=== PATIENT | female | born 1955 | race African-American/Black ===

== ENCOUNTER 2019-08-01 13:33 | Outpatient (CLI) | payer MEDICARE, SELFPAY ==
[2019-08-01 14:41] LABS: Basophils Percent Auto 0.9 % (0.2-1.2); Eosinophils Absolute Auto 0.3 K/mm3 (0-0.3); Eosinophils Percent Auto 6.6 % (0-4.4); Hematocrit 36.7 % (37.0-47.0); Hemoglobin 11.5 g/dL (12.0-15.0); Immature Granulocyte Absolute 0.02 K/mm3 (0.00-0.031); Immature Granulocyte Percent A 0.5 % (0-0.5); Lymphocytes Absolute Auto 1.14 K/mm3 (0.9-3.2); Lymphocytes Percent Auto 25.9 % (18.3-44.2); Mean Corpuscular HGB Conc 31.3 g/dl (32-36); Mean Corpuscular Hemoglobin 28.9 pg (26-34); Mean Corpuscular Volume 92.2 fl (80-100); Mean Platelet Volume 10.4 fl (7.4-10.4); Monocytes Absolute Auto 0.7 K/mm3 (0.1-0.6); Monocytes Percent Auto 15.5 % (2.6-8.5); Neutrophils Absolute Auto 2.2 K/mm3 (1.3-6.7); Neutrophils Percent Auto 50.6 % (45.5-73.1); Platelet Count Result 251 k/mm3 (150-375); Red Blood Count 3.98 M/mm3 (4.2-5.4); Red Cell Distribution Width 13.5 % (11.5-14.5); Reticulocyte Percent 1.51 % (0.7-4.3); Reticulocytes Absolute 0.06 B/L (32.2-175.7); White Blood Count 4.4 K/mm3 (4.5-10.0)
[2019-08-01 15:01] LABS: NT Pro B Type Natriuretic Pept 123 PG/ML (5-100)
[2019-08-01 15:03] LABS: LDL Cholesterol Direct 84 mg/dL
[2019-08-01 15:08] LABS: Creatinine Urine 75.1 mg/dL
[2019-08-01 15:12] LABS: Platelet Estimate Adequate (Adequate)
[2019-08-01 15:13] LABS: Atypical Lymphocytes Present
[2019-08-01 16:12] LABS: MALB Creatinine Ratio < 8.0 mg/g (0-30); Microalbumin Urine Random < 6.0 mg/L (0-16.7)
[2019-08-01 17:05] LABS: Hemoglobin A1C 5.9 % (<5.7)
[2019-08-01 17:42] LABS: Alanine Aminotransferase 13 U/L (4-35); Albumin Level 3.8 g/dL (3.5-5.1); Alkaline Phosphatase 78 U/L (38-126); Aspartate Amino Transferase 20 U/L (14-36); Bilirubin,Total 0.4 mg/dL (0.2-1.3); Blood Urea Nitrogen 17 mg/dL (7-17); Calcium 9.2 mg/dL (8.4-10.2); Carbon Dioxide 28 mmol/L (22-30); Chloride 108 mmol/L (98-107); Cholesterol 169 mg/dL (0-200); Estimated Glomerular Filt Rate > 60; Glucose 98 mg/dL (65-105); HDL Direct 50 mg/dL; Potassium 4.4 mmol/L (3.4-5.0); Sodium 140 mmol/L (137-145); Triglycerides 65 mg/dL (<150)
[2019-08-01 17:57] LABS: Iron 48 ug/dL (37-170); Lactate Dehydrogenase 503 U/L (313-618)
[2019-08-01 18:02] LABS: Transferrin 322 mg/dL (206-381)
[2019-08-01 18:08] LABS: Percent Iron Saturation 12 % (20-50)
[2019-08-01 18:09] LABS: Vitamin D 25 Hydroxy 43.7 ng/mL
[2019-08-01 18:29] LABS: Total Triiodothyronine (T3) 1.12 NG/ML (0.97-1.69)
[2019-08-01 19:14] LABS: Folic Acid > 20.0 ng/mL (2.76->20)
== END 2019-08-01 13:34 | disposition home or self-care (01) ==
PROVIDERS: PCP Family Medicine; Visit Provider Family Medicine
DX: I11.0 Hypertensive heart disease with heart failure (principal); R53.83 Other fatigue; R73.01 Impaired fasting glucose; E78.2 Mixed hyperlipidemia; E55.9 Vitamin D deficiency, unspecified; I50.32 Chronic diastolic (congestive) heart failure; Z13.0 Encounter for screening for diseases of the blood and blood-forming organs and certain disorders involving the immune mechanism; Z13.6 Encounter for screening for cardiovascular disorders; Z13.220 Encounter for screening for lipoid disorders; Z13.29 Encounter for screening for other suspected endocrine disorder; Z13.1 Encounter for screening for diabetes mellitus; R80.9 Proteinuria, unspecified; D64.9 Anemia, unspecified; R79.9 Abnormal finding of blood chemistry, unspecified; R79.89 Other specified abnormal findings of blood chemistry
CPT/HCPCS: 36415; 80053; 80061; 82043; 82306; 82607; 82728; 82746; 83036; 83540; 83550; 83615; 83880; 84439; 84443; 84466; 84480; 85025; 85046

== ENCOUNTER 2020-01-01 11:50 | Outpatient (CLI) | payer MEDICARE, SELFPAY ==
--- NOTE | ~2020-01-01 | XR_ITS ---
EXAMINATION: XR humerus RT, XR shoulder RT min 2V EXAM DATE: 01/01/2020 12:45 INDICATION: Initial encounter following injury, with pain of the right arm, shoulder. TECHNIQUE: The following right shoulder projections obtained: frontal projection with internal rotati on, frontal projection with external rotation, Grashey, and scapular Y view (4+ views). Orthogonal p rojections right humerus. FINDINGS: There are no acute right shoulder, humeral fractures or dislocations identified. There is no subcutaneous gas. Scattered rounded soft tissue calcifications around the humeral neck, could be dystrophic or calcific tendinosis. There is moderate right shoulder primary osteoarthritis. There are no radiopaque foreign bodies. IMPRESSION: 1. No acute osseous findings. 2. Moderate right shoulder osteoarthritis. Reviewed, dictated and finalized at location A. IMPRESSION: 1. No acute osseous findings. 2. Moderate right shoulder osteoarthritis.
--- NOTE | ~2020-01-01 | XR_ITS ---
EXAMINATION: XR wrist RT min 3V EXAM DATE: 01/01/2020 12:45 INDICATION: Initial encounter following injury, with pain of the wrist. TECHNIQUE: Right wrist frontal, frontal with ulnar deviation, oblique and lateral projections obtain ed and reviewed. There is no prior study for comparison. FINDINGS: Right wrist scapholunate joint space is maintained. There is moderate 1st carpometacarpal a nd metacarpophalangeal, mild to moderate radiocarpal primary osteoarthritis. There are no acute fract ures or dislocations identified. There is no subcutaneous gas. The soft tissue is unremarkable. T here are no radiopaque foreign bodies. IMPRESSION: 1. Right wrist exam without acute osseous findings. 2. Mild to moderate osteoarthritis. Reviewed, dictated and finalized at location A.
--- NOTE | ~2020-01-01 | XR_ITS ---
EXAMINATION: XR elbow RT min 3V, XR forearm RT 2V EXAM DATE: 01/01/2020 12:45 INDICATION: Initial encounter following injury, with pain of the right elbow. TECHNIQUE: Right elbow frontal, lateral with flexion, and oblique projections obtained and reviewed. Frontal and lateral projections of the right forearm. There is no prior study for comparison. FINDINGS: Right elbow anterior humeral line intact. There is moderate right elbow primary osteoarthr itis. There are no acute forearm or elbow fractures or dislocations identified. There is no subcutan eous gas. The soft tissue is unremarkable. There are no radiopaque foreign bodies. IMPRESSION: 1. Right elbow, forearm exam without acute osseous findings. 2. Moderate right elbow osteoarthritis. Reviewed, dictated and finalized at location A. IMPRESSION: 1. Right elbow, forearm exam without acute osseous findings. 2. Moderate right elbow osteoarthritis.
--- NOTE | ~2020-01-01 | XR_ITS ---
EXAMINATION: XR cervical spine 4-5V EXAM DATE: 01/01/2020 12:45 INDICATION: Neck pain. TECHNIQUE: Cervical spine frontal, lateral, lateral swimmers, and open-mouth odontoid projections. C omparison is made to prior examination from 10/25/2012. FINDINGS: There is moderate disc disease at C5-6 and C6-7, mild to moderate at the other cervical le vels. There is mild reversal of the normal cervical lordosis which may be positional or spasm. There is 2 mm retrolisthesis C3 on C4, 2 mm anterolisthesis C4 on C5. No endplate erosive change. There is mild to moderate cervical facet and moderate mid cervical uncovertebral joint arthropathy causing so me amount of neural foraminal stenosis. Lung apices are clear. The odontoid process is intact. The l ateral masses of C1 line up with C2. There are no acute fractures identified. Prevertebral soft tissu e and pre-dens space are within normal limits. IMPRESSION: Moderate cervical spondylosis. Reviewed, dictated and finalized at location A.
== END 2020-01-01 11:51 | disposition home or self-care (01) ==
PROVIDERS: PCP Family Medicine; Visit Provider Nurse Practitioner
DX: S49.91XA Unspecified injury of right shoulder and upper arm, initial encounter (principal); M54.2 Cervicalgia; W19.XXXA Unspecified fall, initial encounter; M47.812 Spondylosis without myelopathy or radiculopathy, cervical region; M19.031 Primary osteoarthritis, right wrist; M19.021 Primary osteoarthritis, right elbow; M19.011 Primary osteoarthritis, right shoulder
CPT/HCPCS: 72050; 73030; 73060; 73080; 73090; 73110

== ENCOUNTER 2020-01-07 16:02 | Outpatient (CLI) | payer MEDICARE, SELFPAY ==
--- NOTE | ~2020-01-07 | MM_ITS ---
EXAMINATION: MM screening [facility] w [facility] HISTORY: Screening mammogram TECHNIQUE: Craniocaudal and mediolateral oblique 3-D tomosynthesis images were obtained and synthetic 2-D images were generated. CAD analysis was submitted and interpreted. COMPARISON: 12/02/2018, 06/29/2017, 04/21/2016 bilateral digital screening mammogram examinations BREAST PARENCHYMAL COMPOSITION: There are scattered areas of fibroglandular density. FINDINGS: There is no evidence of suspicious mass, calcification, or architectural distortion to sugg est malignancy in either breast. There has been no suspicious interval change. IMPRESSION: 1. No mammographic evidence of malignancy. 2. Recommend routine screening mammography in one year. BI-RADS Category 1: Negative Reviewed, dictated and finalized at location A.
== END 2020-01-07 16:03 | disposition home or self-care (01) ==
LOC: ANHIMG 16:05
PROVIDERS: PCP Family Medicine; Visit Provider Family Medicine
DX: Z12.31 Encounter for screening mammogram for malignant neoplasm of breast (principal)
CPT/HCPCS: 77063; 77067

== ENCOUNTER 2020-01-15 06:38 | Outpatient (CLI) | payer MEDICARE, SELFPAY ==
--- NOTE | ~2020-01-15 | CT_ITS ---
EXAMINATION: CTA chest EXAM DATE: 01/15/2020 07:26 INDICATION: Ascending aortic aneurysm. TECHNIQUE: Spiral CT of the chest following intravenous injection of 100 mL Omnipaque 350. Axial, co sarai and sagittal images were reviewed. Coronal maximum intensity pixel images of chest reviewed. M aximum intensity projection 3-D reconstructions of the aorta were created by the technologist on [employer] workstation. The dose-length product (DLP) for this examination was 729.23 mGy-cm. The expos ure was tailored according to patient size (auto mA exposure control), and iterative reconstruction ( ASIR) was used as additional dose reduction technique. There is no prior study for comparison. FINDINGS: The aortic root measures 4.1 cm lumen of the ascending aorta measures 3.6 cm with a thick rind of soft tissue density surrounding this. Ascending aortic measurement including the circumferent ial rind measures 5.5 cm. This is most likely intramural hematoma (type A dissection). There is no di ssection flap or ulceration specifically identified. The circumferential thickening also extends nubia g the brachiocephalic, left subclavian and common carotid arteries and along the proximal half of the descending thoracic aorta. There are no pleural or pericardial effusions. Tracheobronchial tree is patent. There is no media stinal, hilar or axillary lymphadenopathy. There is no pneumothorax. Mild cardiomegaly. No centra l pulmonary emboli. No evidence of coronary arterial calcification. Upper abdomen is unremarkable. There is thoracic spondylosis without osteoblastic or osteolytic lesions identified. IMPRESSION: Ascending aortic aneurysm with circumferential wall thickening most likely intramural hem atoma. No discrete dissection flap or ulceration identified, but this is usually treated as type A di ssection. I have spoken with staff in the office of the ordering clinician Gallito Shepard MD at 01/15/2020 0 9:44 CDT, and 9:53 CDT, are providing my contact information. Reviewed, dictated and finalized at location A. IMPRESSION: Ascending aortic aneurysm with circumferential wall thickening most likely intramural hematoma. No discrete dissection flap or ulceration identifi ed, but this is usually treated as type A dissection. I have spoken with staff in the office of the ordering clinician Gallito moser MD at 01/15/2020 09:44 CDT, and 9:53 CDT, [facility]
[2020-01-15 07:16] LABS: Estimated Glomerular Filt Rate > 60
== END 2020-01-15 06:39 | disposition home or self-care (01) ==
PROVIDERS: PCP Family Medicine; Visit Provider Internal Medicine Cardiovascular Disease
DX: I71.2 Thoracic aortic aneurysm, without rupture (principal)
CPT/HCPCS: 71275; Q9967

== ENCOUNTER 2020-04-28 13:18 | Outpatient (CLI) | payer MEDICARE, SELFPAY ==
[2020-04-28 14:24] LABS: Basophils Percent Auto 0.4 % (0.2-1.2); Eosinophils Percent Auto 0.3 % (0-4.4); Hemoglobin 10.6 g/dL (12.0-15.0); Immature Granulocyte Absolute 0.18 K/mm3 (0.00-0.031); Immature Granulocyte Percent A 2.7 % (0-0.5); Immature Reticulocyte Fraction 25.8 % (3.0-15.9); Lymphocytes Absolute Auto 0.86 K/mm3 (0.9-3.2); Lymphocytes Percent Auto 12.9 % (18.3-44.2); Mean Corpuscular HGB Conc 35.3 g/dl (32-36); Mean Corpuscular Hemoglobin 32.6 pg (26-34); Mean Corpuscular Volume 92.3 fl (80-100); Mean Platelet Volume 10.4 fl (7.4-10.4); Monocytes Absolute Auto 0.7 K/mm3 (0.1-0.6); Monocytes Percent Auto 11.1 % (2.6-8.5); Neutrophils Absolute Auto 4.9 K/mm3 (1.3-6.7); Neutrophils Percent Auto 72.6 % (45.5-73.1); Nucleated Red Blood Cells Absolute Auto 0.1 K/mm3 (0.0-0.012); Nucleated Red Blood Cells Perc 1.3 % (0.0-0.2); Platelet Count Result 204 k/mm3 (150-375); Red Blood Count 3.25 M/mm3 (4.2-5.4); Red Cell Distribution Width 14.4 % (11.5-14.5); Reticulocyte Hemoglobin Conten 38.5 pg (28.2-35.7); Reticulocyte Percent 5.06 % (0.7-4.3); Reticulocytes Absolute 0.16 B/L (32.2-175.7); White Blood Count 6.7 K/mm3 (4.5-10.0)
[2020-04-28 14:33] LABS: Hemoglobin A1C 12.4 % (<5.7)
[2020-04-28 14:40] LABS: Alanine Aminotransferase 26 U/L (4-35); Albumin Level 3.3 g/dL (3.5-5.1); Alkaline Phosphatase 75 U/L (38-126); Anion Gap 3 mmol/L (8-16); Aspartate Amino Transferase 26 U/L (14-36); Bilirubin,Total 0.8 mg/dL (0.2-1.3); Blood Urea Nitrogen 16 mg/dL (7-17); Calcium 9.1 mg/dL (8.4-10.2); Carbon Dioxide 26 mmol/L (22-30); Chloride 107 mmol/L (98-107); Estimated Glomerular Filt Rate > 60; Glucose 337 mg/dL (65-105); Lactate Dehydrogenase 1008 U/L (313-618); Magnesium 1.8 mg/dL (1.6-2.3); Phosphorus 3.2 mg/dL (2.5-4.5); Potassium 4.6 mmol/L (3.4-5.0); Sodium 136 mmol/L (137-145)
[2020-04-28 14:47] LABS: Iron 74 ug/dL (37-170); Transferrin 196 mg/dL (206-381)
[2020-04-28 14:56] LABS: Percent Iron Saturation 28 % (20-50)
[2020-04-28 14:57] LABS: Add Urine Microscopic? YES; Appearance Urine Clear (Clear); Bilirubin Urine Negative (Negative); Blood Urine Negative (Negative); Color Urine Yellow (Yellow); Glucose Urine UA 3+ mg/dL (Negative); Ketones Urine Trace mg/dL (Negative); Leukocyte Esterase Ur Negative LEU/UL (Negative); Mucus Urine Rare /lpf; Nitrate Urine Negative (Negative); Protein Urine Negative (Negative); RBC Urine 0-2 /hpf (0-2); Squamous Epithelial Cell Urine Rare /hpf (Few); Urobilinogen Urine Negative mg/dL (<2.0)
[2020-04-28 14:59] LABS: Specific Grav Ur 1.038 (1.001-1.035)
[2020-04-28 15:09] LABS: Free T4 Free Thyroxine 1.74 ng/mL (0.78-2.19)
[2020-04-28 15:51] LABS: Folic Acid > 20.0 ng/mL (2.76->20)
[2020-04-28 17:34] LABS: Creatinine Urine 108.6 mg/dL
[2020-04-28 17:39] LABS: MALB Creatinine Ratio 8.9 mg/g (0-30); Microalbumin Urine Random 9.7 mg/L (0-16.7)
[2020-04-28 18:09] LABS: Vitamin D 25 Hydroxy 30.2 ng/mL
[2020-05-02 08:17] LABS: Triiodothyronine T3 Free 2.1 pg/mL (2.3-4.2)
== END 2020-04-28 13:19 | disposition home or self-care (01) ==
PROVIDERS: PCP Family Medicine; Visit Provider Nurse Practitioner Family
DX: E55.9 Vitamin D deficiency, unspecified (principal); R73.01 Impaired fasting glucose; R53.83 Other fatigue; M62.81 Muscle weakness (generalized); R32 Unspecified urinary incontinence; R63.1 Polydipsia; R63.4 Abnormal weight loss; R68.2 Dry mouth, unspecified; R35.0 Frequency of micturition; R35.8 Other polyuria; D64.9 Anemia, unspecified
CPT/HCPCS: 36415; 80053; 81001; 82043; 82306; 82607; 82728; 82746; 83036; 83540; 83550; 83615; 83735; 84100; 84439; 84443; 84466; 84481; 85025; 85046

== ENCOUNTER 2020-05-18 11:47 | Outpatient (CLI) | payer MEDICARE, SELFPAY ==
--- NOTE | ~2020-05-18 | XR_ITS ---
XR chest 2V DATE: 05/18/2020 12:19 INDICATION: Shortness of breath. Spot on lungs. TECHNIQUE: PA and lateral views COMPARISON: 01/15/2020 CTA chest 08/03/2009 two-view chest FINDINGS: Mild cardiomegaly. Aortic ectasia and unfolding. There is mild discoid atelectasis or scarring in the right mid and lower lung zone. The lungs otherwise appear clear. No pleural effusion or pulmonary vascular congestion or pneumothora x. Osteoarthritic changes at the glenohumeral joints. Dextroscoliosis and degenerative changes of the th oracic and lumbar spine. IMPRESSION: Discoid atelectasis and/or scarring in the right mid and lower lung zones Reviewed, dictated and finalized at location A. [employer]
== END 2020-05-18 11:48 | disposition home or self-care (01) ==
PROVIDERS: PCP Family Medicine
DX: R06.02 Shortness of breath (principal); R91.8 Other nonspecific abnormal finding of lung field
CPT/HCPCS: 71046

== ENCOUNTER 2020-10-22 15:24 | Inpatient (IN) | payer MEDICARE, SELFPAY ==
[2020-10-22] VITALS (16 sets, daily range): BP systolic 106–142; BP diastolic 39–60; PULSE 64–82; RESP 14–29; TEMP 36.3–37.4; O2SAT 92–99
--- NOTE | ~2020-10-22 | XR_ITS ---
EXAMINATION: XR chest 2V DATE: 10/22/2020 16:55 INDICATION: Coughing. Wheezing. TECHNIQUE: Frontal and lateral views of the chest were obtained. COMPARISON: Chest 2 views 05/18/2020, chest CT 01/15/2020 FINDINGS: There are airspace opacities in the mid and lower lung zones. There are small pleural effus ions. No pneumothorax. The heart size is normal. Surgical clips in the right upper quadrant are likel y from cholecystectomy. IMPRESSION: 1. Worsened airspace opacities in the mid and lower lung zones, consistent with atelectasis versus pn eumonia. 2. Small pleural effusions. Reviewed, dictated and finalized at location A. IMPRESSION: 1. Worsened airspace opacities in the mid and lower lung zones, consistent with atelectasis versus pneumonia. 2. Small pleural effusions.
--- NOTE | 2020-10-22 16:43 | ECG_ITS ---
Measurements Intervals [place] Rate: 65 P: 48 NH: 148 QRS: 35 QRSD: 99 T: 71 QT: 424 QTc: 444 Interpretive Statements SINUS RHYTHM INCOMPLETE RIGHT BUNDLE BRANCH BLOCK BASELINE WANDER- I, II, AVR, AVL, AVF BORDERLINE ECG Electronically Signed On 10-23-2020 6:42:42 CDT by Flo Marshall D.O.
--- NOTE | 2020-10-22 19:28 | ED.WEAKNESS ---
HPI - Weakness General Chief complaint: Weakness Stated complaint: low bp/fatigue/cough Time Seen by Provider: 10/22/20 19:06 Source: RN notes reviewed History of Present Illness HPI Narrative: Patient presents emergency room from home for weakness. Patient states symptoms began approximately 5 days ago. Patient states that she has been feeling weak with a cough that is been productive of yellow sputum. She denies any fevers or chills, chest pain abdominal pain nausea vomiting or any other symptoms. Patient states that she had noted that her blood pressure been running mildly low in the low 100s came to the ER for further evaluation patient states she has had both of her Covid vaccinations denies any other symptoms at this time Related Data Home Medications Medication Instructions Recorded Confirmed amiodarone 200 mg tablet 200 mg PO DAILY 10/01/20 cetirizine 10 mg tablet 10 mg PO DAILY PRN 10/01/20 ferrous sulfate 325 mg (65 mg 325 mg PO DAILY 10/01/20 iron) tablet ibandronate 150 mg tablet 150 mg PO MONTHLY 10/01/20 metoprolol tartrate 100 mg tablet 50 mg PO DAILY 10/01/20 rivaroxaban 20 mg tablet 20 mg PO DAILY 10/01/20 tocilizumab [Actemra ACTPen] SUBCUT 10/01/20 Allergies Allergy/AdvReac Type Severity Reaction Status Date / Time NKDA Allergy Unknown Unknown Uncoded 10/22/20 19:07 Review of Systems Review of Systems: Narrative: Gen.: Denies fevers or chills ENT: Denies congestion Respiratory: See HPI CV: Denies chest pain or palpitations GI: Denies abdominal pain nausea, emesis or diarrhea denies burning, urgency, frequency or hematuria Musculoskeletal: Denies back pain or muscle pain Neuro: Reports weakness Skin: Denies rash Except as documented, all other systems reviewed and negative [facility] Past Medical History Medical History Afib Atrial fib/flutter, transient Claustrophobia CMT (Xjltucp-Jikcr-Bbnrg disease) Constipation Diarrhea Foot drop, bilateral History of adverse reaction to anesthesia History of intraoperative complication of surgical procedure HTN (hypertension) Hyperlipidemia with low HDL Light headedness MAURIZIO (obstructive sleep apnea) Osteoporosis SOB (shortness of breath) Wears glasses Surgical History Surgical History (Updated 09/30/20 @ 10:47 by Zakiya Hwang MA) History of right knee joint replacement 11/18/2002. HEMATOMA EVACUATION 11/25/2002 Family History Family History (Updated 10/01/20 @ 08:40 by Marisol Faulkner, RT(R)) Other Arthritis Asthma Diabetes mellitus Heart disease Hypertension Neuropathy Social History Social History Smoking status: Never smoker Substance use: never Gender identity (if verbalized by the patient): Female Exam Narrative: Exam Narrative: APPEARANCE: No acute distress, nontoxic, resting in bed EYES: EOMI HEENT: Normocephalic, atraumatic, OMM RESPIRATORY: No respiratory distress wheezing with coughing only no rhonchi CARDIOVASCULAR: Regular rate and rhythm without murmurs rubs or gallops. ABDOMINAL: Soft, nontender, nondistended, no rebound or guarding Rectal: No hemorrhoids or fissures no active bleeding small amount of dark brown stool that is Hemoccult positive MUSCULOSKELETAl: Moves all extremities. No clubbing, cyanosis or edema. NEURO: Awake and alert. Following commands, speech normal, no focal deficits SKIN:: Warm, dry. No rashes lesions or abrasions PSYCHIATRIC: Normal affect/mood, Course Course Emergency Course: In discussion with patient she is on Xarelto states she has been noticing dark stools recently states she has had to have blood transfusions performed past Discussed with Dr. Herrera presentation and work-up accepts admission at this time. Agrees with plan for blood transfusion as well as antibiotics Discussed with patient and family results of workup and diagnosis. Disc
[2020-10-22] MEDS: IPRATROPIUM BR 0.02% INH SOLN 0.5 MG/2.5 ML VIAL INHALATION (19:32)
[2020-10-22] MEDS: ALBUTEROL SULFATE NEB 2.5 MG/0.5 ML INH 5 MG INHALATION (19:32)
[2020-10-22 19:45] LABS: Add Urine Microscopic? YES; Appearance Urine Clear (Clear); Bacteria Urine Trace /hpf; Bilirubin Urine Negative (Negative); Blood Urine Negative (Negative); Color Urine Yellow (Yellow); Glucose Urine UA Negative (Negative); Ketones Urine Negative (Negative); Leukocyte Esterase Ur Trace LEU/UL (Negative); Mucus Urine Rare /lpf; Nitrate Urine Negative (Negative); Protein Urine Negative (Negative); RBC Urine 0-2 /hpf (0-2); Specific Grav Ur 1.025 (1.001-1.035); Squamous Epithelial Cell Urine Few /hpf (Few); WBC Urine 0-3 /hpf
[2020-10-22 20:06] LABS: Basophils Percent Auto 0.5 % (0.2-1.2); Eosinophils Absolute Auto 0.1 K/mm3 (0-0.3); Eosinophils Percent Auto 2.7 % (0-4.4); Immature Granulocyte Absolute 0.02 K/mm3 (0.00-0.031); Immature Granulocyte Percent A 0.5 % (0-0.5); Lymphocytes Absolute Auto 0.78 K/mm3 (0.9-3.2); Lymphocytes Percent Auto 17.6 % (18.3-44.2); Mean Corpuscular HGB Conc 30.1 g/dl (32-36); Mean Corpuscular Hemoglobin 32.5 pg (26-34); Mean Corpuscular Volume 107.9 fl (80-100); Mean Platelet Volume 10.3 fl (7.4-10.4); Monocytes Absolute Auto 0.8 K/mm3 (0.1-0.6); Monocytes Percent Auto 17.6 % (2.6-8.5); Neutrophils Absolute Auto 2.7 K/mm3 (1.3-6.7); Neutrophils Percent Auto 61.1 % (45.5-73.1); Nucleated Red Blood Cells Perc 0.7 % (0.0-0.2); Platelet Count Result 214 k/mm3 (150-375); Red Blood Count 1.51 M/mm3 (4.2-5.4); Red Cell Distribution Width 15.5 % (11.5-14.5); White Blood Count 4.4 K/mm3 (4.5-10.0)
[2020-10-22 20:10] LABS: Hemoglobin 4.9 g/dL (12.0-15.0)
[2020-10-22 20:11] LABS: Hematocrit 16.3 % (37.0-47.0)
[2020-10-22 20:15] LABS: Lactic Acid Reflex 0.8 mmol/L (0.7-2.1)
[2020-10-22 20:17] LABS: Alanine Aminotransferase 43 U/L (4-35); Albumin Level 3.4 g/dL (3.5-5.1); Alkaline Phosphatase 48 U/L (38-126); Anion Gap 5 mmol/L (8-16); Aspartate Amino Transferase 39 U/L (14-36); Bilirubin,Total 0.3 mg/dL (0.2-1.3); Blood Urea Nitrogen 18 mg/dL (7-17); Calcium 8.6 mg/dL (8.4-10.2); Carbon Dioxide 24 mmol/L (22-30); Chloride 113 mmol/L (98-107); Estimated CRCL calculation 64 ml/min; Estimated Glomerular Filt Rate > 60; Glucose 125 mg/dL (65-105); Potassium 4.3 mmol/L (3.4-5.0); Sodium 142 mmol/L (137-145)
[2020-10-22 20:25] LABS: Anisocytosis 3+ (NORMAL); Hypochromasia 2+ (NORMAL); Platelet Estimate Adequate (Adequate)
--- NOTE | 2020-10-22 20:47 | PC.NURSE ---
pt has been difficult to obtain iv on. tabulating supervisor currently in room with pt attempting to obtain ultrasound line. multiple staff members have attempted at this point.
--- NOTE | 2020-10-22 21:02 | PC.NURSE ---
IV Rocephin ok to infuse with only 1 set of blood cultures obtained per ED MD dr. bailey. ED Charge nurse also notified.
--- NOTE | 2020-10-22 21:45 | ADMGEN ---
This patient, Lisa Lujan, was admitted to Medical Room 345-01. Patient/family oriented to hospital policies and general routines including ID bracelet, bed and alarms, visiting hours, pain management, procedures, bathroom and other care routines, personal items, smoking policy, room service/diet, and visiting hours. Information on how to activate the Rapid Response Team has been discussed. Patient/Family are encouraged to report perceived risks to care and to ask questions if they do not understand what they are told or what they should do.
[2020-10-22 22:39] LABS: INR 3.4; Partial Thromboplastin Time 35.3 SECONDS (22.3-36.8); Prothrombin Time 33.6 Seconds (11.1-14.7)
[2020-10-22] MEDS: SODIUM CHLORIDE 0.9% IV 250 ML 30 ML IV CONT (23:05)
[2020-10-23] VITALS (31 sets, daily range): BP systolic 112–167; BP diastolic 45–89; PULSE 60–86; RESP 14–22; TEMP 36.3–37.1; O2SAT 93–98; BMI 31.5
--- NOTE | 2020-10-23 01:22 | PM.IMHP ---
H&P: HPI History of Present Illness Date/Time: 10/23/20 01:22 Chief Complaint: SHORTNESS OF BREATH Narrative: THIS IS A 65-YEAR-OLD FEMALE WITH PAST MEDICAL HISTORY SIGNIFICANT FOR ATRIAL FIBRILLATION RATE CONTROLLED AND ANTICOAGULATED, CHARCOT NEUROMUSCULAR DISEASE, VASCULITIS. PATIENT PRESENTED TO THE EMERGENCY ROOM AFTER SHE NOTED TO HAVE BLACK STOOL INITIALLY SHE ATTRIBUTED THIS TO THE FACT THAT SHE IS TAKING IRON PILLS THIS HAS BEEN HAPPENING FOR THE LAST 3 WEEKS OR SO MAYBE MORE STARTED HAVING WORSENING SHORTNESS OF BREATH FEELING TIRED FATIGUED DECREASED STAMINA UNABLE TO LAY FLAT IN THE BED SOME COUGH NONPRODUCTIVE OF SPUTUM NO FEVERS NO RIGORS NO CHILLS NO CHEST PAIN NO DIZZINESS NO LIGHTHEADEDNESS NO SYNCOPE OR NEAR SYNCOPE. PRELIMINARY WORKUP WAS SIGNIFICANT FOR HEMOGLOBIN OF 4. A CHEST X-RAY WITH BILATERAL INFILTRATES. Review of Systems Review of Systems: Narrative: SHORTNESS OF BREATH FATIGUE DECREASED STAMINA BLACK STOOLS Constitutional: Constitutional: Denies chills, Reports fatigue, Denies fever(s), Reports lethargy and Reports weakness Eyes: Eyes: Denies change in vision ENT: Denies nasal congestion, Denies nasal discharge and Denies nasal obstruction Cardiovascular: Cardiovascular: Denies irregular heart rhythm, Denies claudication, Denies lightheadedness, Denies radiating jaw, neck or arm pain, Denies palpitations, Reports dyspnea and Reports orthopnea Respiratory: Respiratory: Denies cough, Reports dyspnea and Reports wheezing Gastrointestinal: Gastrointestinal: Reports melena, Denies nausea and Denies vomiting Genitourinary: Genitourinary: Reports no additional female genitourinary complaints Musculoskeletal: Musculoskeletal: Reports muscle weakness Comments: PATIENT WEARS BRACES IN BILATERAL LOWER EXTREMITIES Integumentary/Breasts: Skin/Breast: Reports system reviewed and no additional complaints, except as docu Neurologic: Reports system reviewed and no additional complaints, except as documented Psychiatric: Psychiatric: Reports no additional psychiatric complaints Endocrine: Endocrine: Reports no additional endocrine complaints Hematologic/Lymphatic: Hematologic/Lymphatic: Reports no additional hematologic/lymphatic complaints Allergic/Immunologic: Allergic/Immunologic: Reports no additional allergic/immunologic complaints PMFSH Past Medical History Medical History Afib Atrial fib/flutter, transient Claustrophobia CMT (Mfymapt-Pylkv-Tnokf disease) Constipation Diarrhea Foot drop, bilateral History of adverse reaction to anesthesia History of intraoperative complication of surgical procedure HTN (hypertension) Hyperlipidemia with low HDL Light headedness MAURIZIO (obstructive sleep apnea) Osteoporosis SOB (shortness of breath) Wears glasses Surgical History Surgical History (Updated 09/30/20 @ 10:47 by Zakiya Hwang MA) History of right knee joint replacement 11/18/2002. HEMATOMA EVACUATION 11/25/2002 Family History Family History (Updated 10/22/20 @ 22:13 by Letha Burt RN) Daughter No problems noted. Father Arthritis Diabetes mellitus Hypertension Neuropathy Stomach cancer Mother Asthma Heart disease Hypertension Father No problems noted. Sibling Diabetes mellitus Social History Social History Smoking status: Never smoker Second hand tobacco smoke exposure: No Alcohol intake: never Substance use: never Substance use type: does not use Gender identity (if verbalized by the patient): Female Sexual Orientation (if Verbalized by the Patient): Straight or Heterosexual Spiritual care concerns: No Meds Home Medications and Allergies Home Medications Medication Instructions Recorded Confirmed Type amiodarone 200 mg tablet 200 mg PO DAILY 10/01/20 10/22/20 History cetirizine 10 mg tablet 10 mg PO DA
[2020-10-23] MEDS: METOPROLOL SUCCINATE EXT REL 50 MG TABCR PO (08:42)
[2020-10-23] MEDS: FERROUS SULFATE 324 MG TABLET PO (08:42)
[2020-10-23] MEDS: AMIODARONE HCL 200 MG TABLET PO (08:42)
[2020-10-23] MEDS: ATORVASTATIN 10 MG TABLET PO (08:42)
[2020-10-23 09:01] LABS: Basophils Percent Auto 0.5 % (0.2-1.2); Eosinophils Absolute Auto 0.2 K/mm3 (0-0.3); Eosinophils Percent Auto 3.2 % (0-4.4); Hematocrit 23.7 % (37.0-47.0); Hemoglobin 7.3 g/dL (12.0-15.0); Immature Granulocyte Absolute 0.03 K/mm3 (0.00-0.031); Immature Granulocyte Percent A 0.5 % (0-0.5); Lymphocytes Absolute Auto 1.18 K/mm3 (0.9-3.2); Lymphocytes Percent Auto 21.1 % (18.3-44.2); Mean Corpuscular HGB Conc 30.8 g/dl (32-36); Mean Corpuscular Hemoglobin 30.4 pg (26-34); Mean Corpuscular Volume 98.8 fl (80-100); Mean Platelet Volume 10.4 fl (7.4-10.4); Monocytes Absolute Auto 0.8 K/mm3 (0.1-0.6); Monocytes Percent Auto 14.3 % (2.6-8.5); Neutrophils Absolute Auto 3.4 K/mm3 (1.3-6.7); Neutrophils Percent Auto 60.4 % (45.5-73.1); Nucleated Red Blood Cells Perc 0.7 % (0.0-0.2); Platelet Count Result 196 k/mm3 (150-375); Red Cell Distribution Width 19.9 % (11.5-14.5); White Blood Count 5.6 K/mm3 (4.5-10.0)
[2020-10-23] MEDS: ALBUTEROL SULFATE NEB 2.5 MG/0.5 ML INH 5 MG INHALATION ×3 (09:15→20:43)
[2020-10-23] MEDS: IPRATROPIUM BR 0.02% INH SOLN 0.5 MG/2.5 ML VIAL INHALATION ×3 (09:15→20:43)
[2020-10-23 09:20] LABS: Anion Gap 6 mmol/L (8-16); Blood Urea Nitrogen 20 mg/dL (7-17); Calcium 8.4 mg/dL (8.4-10.2); Carbon Dioxide 22 mmol/L (22-30); Chloride 114 mmol/L (98-107); Estimated CRCL calculation 73 ml/min; Estimated Glomerular Filt Rate > 60; Glucose 93 mg/dL (65-105); Potassium 4.2 mmol/L (3.4-5.0); Sodium 142 mmol/L (137-145)
[2020-10-23 10:46] LABS: CRP < 0.5 mg/dL (<1.0); Lactate Dehydrogenase 952 U/L (313-618)
[2020-10-23] MEDS: PANTOPRAZOLE SODIUM IV 40 MG VIAL IV PUSH ×2 (11:45→20:05)
--- NOTE | 2020-10-23 12:11 | WPDGICN ---
Assessment and Plan Assessment and plan (1) Acute blood loss anemia: Code(s): D62 - Acute posthemorrhagic anemia Status: Acute Assessment and Plan: THIS 65 YO WITH ANEMIA AND DARK STOOLS CONCERN FOR GI BLEEDING UPPER VS LOWER. - PROTONIX DAILY - OK TO FEED TODAY. - ANEMIA WORK UP. - CLEAR LIQUIDS TOMORROW. - PREP FOR EGD AND COLON ON SUNDAY. - MONITOR BLOOD COUNTS AND TRANSFUSE NEEDED. D/W PT AND HER SON AT BEDSIDE. (2) Elevated LFTs: Code(s): R79.89 - Other specified abnormal findings of blood chemistry Status: Acute Assessment and Plan: MILDLY ELEVATED LFT - MAY BE REACTIVE. - MONITOR - if persistently elevated consider ultrasound +/- liver work up. GI Consult Note Consult date/time: 10/23/20 12:11 HPI: THIS IS A 65-YEAR-OLD FEMALE WITH PAST MEDICAL HISTORY SIGNIFICANT FOR ATRIAL FIBRILLATION, CHARCOT, NEUROMUSCULAR DISEASE, VASCULITIS, ANEMIA, CHOLECYSTECTOMY, RT KNEE ARTHROSCOPY AND REPLACEMENT, TUBAL LIGATION, WHO PRESENTED TO THE EMERGENCY ROOM FOR WEAKNESS AND SOB. 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 SHE THEN WENT TO ER BECAUSE HER SYMPTOMS WERE SO SEVERE. SHE WAS NOTED TO HAVE BLACK STOOL OFF AND ON FOR THE PAST MONTH, BUT SHE IS TAKING IRON PILLS . SHE WAS FOUND TO HAVE PROFOUND ANEMIA OF A HEMOGLOBIN 4.9 AND HEMATOCRIT OF 16.3. MCV 107. SHE WAS GIVEN 2 UNITS OF BLOOD AND HER H & H ARE 7.3 & 23 THIS AM. CHEST X-RAY WITH BILATERAL INFILTRATES.HER PROTIME AND INR 33 AND 3.4. LFT WERE NORMAL. SHE REPORTS NORMAL APPETITE, NO WEIGHT LOSS, NO BLOODY STOOLS. LAST COLONOSCOPY > 10 YEARS AGO. SHE HAD A NORMAL STOOL THIS AM - NURSE REPORTS IT WAS YELLOW. NO NSAID USAGE. NO ULCER HISTORY. NO FAMILY HISTORY OF GI CANCERS. Review of Systems Constitutional: Comments: + FATIGUE AND SOB NO WEIGHT LOSS Gastrointestinal: Gastrointestinal: Reports as per HPI [facility] Past Medical History Medical History Afib Atrial fib/flutter, transient Claustrophobia CMT (Ilvojwc-Ldlor-Llqgt disease) Constipation Diarrhea Foot drop, bilateral History of adverse reaction to anesthesia History of intraoperative complication of surgical procedure HTN (hypertension) Hyperlipidemia with low HDL Light headedness MAURIZIO (obstructive sleep apnea) Osteoporosis SOB (shortness of breath) Wears glasses Surgical History Surgical History (Updated 09/30/20 @ 10:47 by Zakiya Hwang MA) History of right knee joint replacement 11/18/2002. HEMATOMA EVACUATION 11/25/2002 Family History Family History (Updated 10/22/20 @ 22:13 by Letha Burt RN) Daughter No problems noted. Father Arthritis Diabetes mellitus Hypertension Neuropathy Stomach cancer Mother Asthma Heart disease Hypertension Father No problems noted. Sibling Diabetes mellitus Social History Social History Smoking status: Never smoker Second hand tobacco smoke exposure: No Alcohol intake: never Substance use: never Substance use type: does not use Gender identity (if verbalized by the patient): Female Sexual Orientation (if Verbalized by the Patient): Straight or Heterosexual Spiritual care concerns: No Meds Home Medications and Allergies Home Medications Medication Instructions Recorded Confirmed Type amiodarone 200 mg tablet 200 mg PO DAILY 10/01/20 10/22/20 History cetirizine 10 mg tablet 10 mg PO DAILY PRN 10/01/20 10/22/20 History ferrous sulfate 325 mg (65 mg 325 mg PO DAILY 10/01/20 10/22/20 History iron) tablet ibandronate 150 mg tablet 150 mg PO MONTHLY 10/01/20 10/22/20 History metoprolol tartrate 100 mg tablet 50 mg PO DAILY 10/01/20 10/22/20 History rivaroxaban 20 mg tablet 20 mg PO DAILY 10/01/20 10/22/20 History tocilizumab [Actemra ACTPen] See Rx Instructions .ROUTE .COMPL
--- NOTE | 2020-10-23 14:22 | PM.IMPN ---
Progress Note: A&P Assessment and Plan (1) Acute blood loss anemia: Code(s): D62 - Acute posthemorrhagic anemia Status: Acute Assessment and Plan: Hemoglobin 4.9 at presentation. transfused 2 units pRBC. Will transfuse an additional 1 unit; discussed with GI Iron panel, B12, and folate pending Xarelto on hold Monitor H&H q6h (2) GI bleed: Code(s): K92.2 - Gastrointestinal hemorrhage, unspecified Status: Acute Assessment and Plan: concern for GI bleed given dark stools, systemic anticoagulation use, and anemia appreciate gastroenterology consultation continue Protonix holding Xarelto as above planning for EGD and colonoscopy on 10/25/2020 (3) Community acquired pneumonia: Code(s): J18.9 - Pneumonia, unspecified organism Status: Acute Assessment and Plan: CXR showed worsened airspace opacities in the mid and lower lung zones. maintaining adequate O2 sats on room air. Continue Rocephin and azithromycin supplemental O2 as needed with goal sats 92% or above supportive care to include bronchodilators, expectorants, incentive spirometry (4) Atrial fib/flutter, transient: Status: Acute Assessment and Plan: In sinus rhythm based on EKG. Rate is controlled. 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 she is feeling much better today. Her shortness of breath has improved. She is coughing intermittently but does not have sputum production. She denies chest pain or palpitations. She still feels some lightheadedness with ambulation but is improved. She had an episode of diarrhea this morning. No dysuria, hematuria. appetite is good. No nausea, vomiting, fever, or chills. Review of Systems Review of Systems: All systems reviewed & are unremarkable except as noted in HPI and below Exam Narrative: Exam Narrative: Ms. Lujan is a well-nourished, well-appearing 65-year-old female who is sitting up in bed. She appears comfortable and is in NARD. Neuro: awake, alert and oriented x4, speech clear, no focal neuro deficits noted HEENMT: normocephalic, atraumatic, EOMI, sclerae anicteric, moist oral mucosa, tongue midline, nares patent Neck: supple, no lymphadenopathy Respiratory: rhonchi in left lung base, nonlabored breathing Cardio: regular rate, regular rhythm with S1-S2 Abdomen: nondistended, normoactive bowel sounds, soft, nontender to palpation, no rigidity or guarding Extremities: no edema, erythema, or tenderness to palpation, DP pulses 2+ bilaterally Skin: no rashes or lesions, warm and dry Psych: appropriate mood and affect, judgment and insight intact Objective Data Vital Signs Vital Signs: Vital Signs - 24 hr 10/22/20 16:38 10/22/20 19:08 10/22/20 19:21 Temperature 98.5 F Pulse Rate 65 64 82 Respiratory Rate 18 29 H Blood Pressure 106/39 L Pulse Oximetry 99 95 10/22/20 19:30 10/22/20 19:33 10/22/20 19:40 Temperature Pulse Rate 73 72 69 Respiratory Rate 14 18 18 Blood Pressure Pulse Oximetry 92 10/22/20 19:48 10/22/20 20:04 10/22/20 20:15 Temperature Pulse Rate 65 66 65 Respiratory Rate 22 H 24 H 16 Blood Pressure Pulse Oximetry 07
[2020-10-23] MEDS: SODIUM CHLORIDE 0.9% IV 250 ML 30 ML IV CONT (15:53)
[2020-10-23] MEDS: SACCHAROMYCES BOULARDII 250 MG CAPSULE PO (18:04)
[2020-10-23 18:11] LABS: Hematocrit 24.4 % (37.0-47.0); Hemoglobin 7.6 g/dL (12.0-15.0); Mean Corpuscular HGB Conc 31.1 g/dl (32-36); Mean Corpuscular Hemoglobin 30.4 pg (26-34); Mean Corpuscular Volume 97.6 fl (80-100); Mean Platelet Volume 10.3 fl (7.4-10.4); Platelet Count Result 189 k/mm3 (150-375); Red Cell Distribution Width 19.9 % (11.5-14.5); White Blood Count 6.2 K/mm3 (4.5-10.0)
[2020-10-23 18:53] LABS: Iron 35 ug/dL (37-170)
[2020-10-23 19:02] LABS: Percent Iron Saturation 9 % (20-50)
[2020-10-23 19:26] LABS: Folic Acid > 20.0 ng/mL (2.76->20)
[2020-10-23] MEDS: guaiFENesin 12 HR 600 MG TABCR PO (20:05)
[2020-10-24] VITALS (18 sets, daily range): BP systolic 153–181; BP diastolic 62–84; PULSE 58–87; RESP 16–20; TEMP 36–36.7; O2SAT 90–98
[2020-10-24 01:24] LABS: Hematocrit 27.8 % (37.0-47.0); Hemoglobin 8.4 g/dL (12.0-15.0)
[2020-10-24] MEDS: IPRATROPIUM BR 0.02% INH SOLN 0.5 MG/2.5 ML VIAL INHALATION ×4 (03:21→20:03)
[2020-10-24] MEDS: ALBUTEROL SULFATE NEB 2.5 MG/0.5 ML INH 5 MG INHALATION ×5 (03:21→19:57)
[2020-10-24 06:10] LABS: Hematocrit 28.4 % (37.0-47.0); Hemoglobin 8.7 g/dL (12.0-15.0)
[2020-10-24] MEDS: METOPROLOL SUCCINATE EXT REL 50 MG TABCR PO (08:52)
[2020-10-24] MEDS: guaiFENesin 12 HR 600 MG TABCR PO ×2 (08:52→20:57)
[2020-10-24] MEDS: FERROUS SULFATE 324 MG TABLET PO (08:52)
[2020-10-24] MEDS: ATORVASTATIN 10 MG TABLET PO (08:52)
[2020-10-24] MEDS: AMIODARONE HCL 200 MG TABLET PO (08:52)
[2020-10-24] MEDS: PANTOPRAZOLE SODIUM IV 40 MG VIAL IV PUSH ×2 (08:53→20:58)
[2020-10-24] MEDS: SACCHAROMYCES BOULARDII 250 MG CAPSULE PO ×2 (08:53→17:46)
--- NOTE | 2020-10-24 10:29 | PM.IMPN ---
Progress Note: A&P Assessment and Plan (1) Acute blood loss anemia: Code(s): D62 - Acute posthemorrhagic anemia Status: Acute Assessment and Plan: Hemoglobin 4.9 at presentation. Improved with transfusion (3 units total) and Hgb is 8.7 this morning. No evidence of ongoing blood loss. Xarelto on hold Monitor H&H closely Iron panel reviewed with low iron saturations. Will begin IV iron supplementation and will begin PO supplementation following colonoscopy. B12 and folate wnl. (2) GI bleed: Code(s): K92.2 - Gastrointestinal hemorrhage, unspecified Status: Acute Assessment and Plan: Concern for GI bleed given dark stools, systemic anticoagulation use, and anemia appreciate gastroenterology consultation continue Protonix holding Xarelto as above planning for EGD and colonoscopy tomorrow (3) Community acquired pneumonia: Code(s): J18.9 - Pneumonia, unspecified organism Status: Acute Assessment and Plan: CXR showed worsened airspace opacities in the mid and lower lung zones. maintaining adequate O2 sats on room air. Continue Rocephin and azithromycin supplemental O2 as needed with goal sats 92% or above supportive care to include bronchodilators, expectorants, incentive spirometry (4) Atrial fib/flutter, transient: Status: Acute Assessment and Plan: In sinus rhythm based on EKG. Rate is controlled. Continue amiodarone Xarelto on hold. 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 she is doing pretty well today. Her shortness of breath is improving. She has a cough productive of white sputum with occasional streaks of red. She denies chest pain or palpitations. She feels weak but is able to ambulate around the room and get to the restroom. She denies N/V, fever, or chills. No dizziness or lightheadedness. She denies headache. She has not had a bowel movement today. Review of Systems Review of Systems: All systems reviewed & are unremarkable except as noted in HPI and below Exam Narrative: Exam Narrative: Ms. Lujan is a well-nourished, well-appearing 65-year-old female who is sitting up in bed. She appears comfortable and is in NARD. Neuro: awake, alert and oriented x4, speech clear, no focal neuro deficits noted HEENMT: normocephalic, atraumatic, EOMI, sclerae anicteric, moist oral mucosa Neck: supple, no lymphadenopathy Respiratory: clear to auscultation bilaterally, nonlabored breathing Cardio: regular rate, regular rhythm with S1-S2 Abdomen: nondistended, normoactive bowel sounds, soft, nontender to palpation Extremities: no edema, erythema, or tenderness to palpation, DP pulses 2+ bilaterally Skin: no rashes or lesions, warm and dry Psych: appropriate mood and affect, judgment and insight intact Objective Data Vital Signs Vital Signs: Vital Signs - 24 hr 10/23/20 12:00 10/23/20 14:20 10/23/20 14:22 Temperature 97.6 F Pulse Rate 62 67 67 Respiratory Rate 18 20 Blood Pressure 137/54 L Pulse Oximetry 97 10/23/20 14:31 10/23/20 15:50 10/23/20 16:00 Temperature 98.2 F Pulse Rate 73 80 66 Respiratory Rate 20 14 Blood Pressu
[2020-10-24 11:26] LABS: Alanine Aminotransferase 42 U/L (4-35); Albumin Level 3.6 g/dL (3.5-5.1); Alkaline Phosphatase 53 U/L (38-126); Anion Gap 6 mmol/L (8-16); Aspartate Amino Transferase 37 U/L (14-36); Bilirubin,Total 0.6 mg/dL (0.2-1.3); Blood Urea Nitrogen 17 mg/dL (7-17); Calcium 8.8 mg/dL (8.4-10.2); Carbon Dioxide 23 mmol/L (22-30); Chloride 113 mmol/L (98-107); Estimated CRCL calculation 59 ml/min; Estimated Glomerular Filt Rate > 60; Glucose 97 mg/dL (65-105); Potassium 4.2 mmol/L (3.4-5.0); Sodium 142 mmol/L (137-145)
[2020-10-24] MEDS: polyethylene glycoL 3350 238 GM BOTTLE PO (12:04)
[2020-10-24] MEDS: BISACODYL 5 MG TABLET EC 10 MG PO ×3 (12:05→20:57)
[2020-10-24] MEDS: IRON SUCROSE COMPLEX 200 MG in SODIUM CHLORIDE 0.9% IV 50 ML 120 MG IVPB (12:06)
[2020-10-24 12:09] LABS: Hematocrit 28.4 % (37.0-47.0); Hemoglobin 8.7 g/dL (12.0-15.0); Mean Corpuscular HGB Conc 30.6 g/dl (32-36); Mean Corpuscular Volume 97.9 fl (80-100); Mean Platelet Volume 9.5 fl (7.4-10.4); Platelet Count Result 202 k/mm3 (150-375); Red Cell Distribution Width 19.3 % (11.5-14.5); White Blood Count 6.7 K/mm3 (4.5-10.0)
[2020-10-24] MEDS: MAGNESIUM CITRATE 300 ML BTL PO (17:45)
[2020-10-24 18:07] LABS: Hematocrit 29.7 % (37.0-47.0); Hemoglobin 9.1 g/dL (12.0-15.0)
[2020-10-24 19:19] LABS: INR 1.1; Prothrombin Time 13.9 Seconds (11.1-14.7)
--- NOTE | 2020-10-24 20:23 | WPDGIPROGNO ---
Progress Note: A&P Additional Plan GI [facility] for [facility] 24 Oct 2020 No gi complaints. No BRBPR, melena today. VSS soft/NT Hct 30. INR 1.1. B12 407, folate > 20. Ferritin 14, fe 35, tibc 372, %sat 9. TBili 0.6, A/P 53, AST 37, ALT 42 A/P A. Acute blood loss/iron deficiency anemia with melena on Xarelto (with elevated INR) and iron: - Concern for gi source of blood loss - Colon/EGD in am - Add IV iron - No active bleed; follow H+H and transfuse prn - Xarelto should not increase INR; patient may have underlying coagulopathy - Consider different blood thinner - PPI B. Abnormal transaminases: - Minimal and non-specific elevation - Follow for now - Consider further evaluation if they fail to resolve with overall illness Further recommendations per [facility]. [place], [place] [phone] Subjective Date/time seen: 10/24/20 20:23 Objective Data Vital Signs Vital Signs: Vital Signs - 24 hr 10/23/20 20:45 10/23/20 20:52 10/23/20 21:56 Temperature 36.8 C Pulse Rate 65 69 69 Respiratory Rate 18 20 18 Blood Pressure 139/67 Pulse Oximetry 95 95 96 10/24/20 00:00 10/24/20 03:18 10/24/20 03:23 Temperature Pulse Rate 73 66 70 Respiratory Rate 18 18 Blood Pressure Pulse Oximetry 10/24/20 04:00 10/24/20 05:58 10/24/20 06:40 Temperature 36.7 C Pulse Rate 59 L 86 Respiratory Rate 18 Blood Pressure 181/84 H 174/75 H Pulse Oximetry 90 10/24/20 08:00 10/24/20 08:40 10/24/20 08:41 Temperature Pulse Rate 64 67 Respiratory Rate 20 Blood Pressure Pulse Oximetry 96 10/24/20 08:47 10/24/20 08:52 10/24/20 13:25 Temperature Pulse Rate 68 87 67 Respiratory Rate 20 20 Blood Pressure Pulse Oximetry 10/24/20 13:35 10/24/20 14:00 10/24/20 20:00 Temperature 36.5 C Pulse Rate 68 58 L 63 Respiratory Rate 20 20 16 Blood Pressure 153/62 H Pulse Oximetry 96 07/11/21 20:02 10/24/20 20:06 Temperature Pulse Rate 61 Respiratory Rate 16 Blood Pressure Pulse Oximetry 98 Intake/Output Intake/Output: Intake & Output 10/21/20 10/22/20 10/23/20 10/24/20 23:59 23:59 23:59 23:59 Intake Total 300 2645 830 Output Total 200 2350 550 Balance 100 295 280 Meds/Results Medications: Active Medications Generic Name Dose Route Start Last Admin Trade Name Karen PRN Reason Stop Dose Admin Albuterol 5 mg 10/24/20 13:30 10/24/20 19:57 Albuterol Sulfate Neb 2.5 Mg/0.5 Ml Inh INHALATION 5 mg Q6HRT THAO Administration Amiodarone HCl 200 mg 10/23/20 08:00 10/24/20 08:52 Amiodarone Hcl 200 Mg Tablet PO 200 mg DAILY@0800 THAO Administration Atorvastatin Calcium 10 mg 10/23/20 09:00 10/24/20 08:52 Atorvastatin 10 Mg Tablet PO 10 mg DAILY THAO Administration Bisacodyl 10 mg 10/24/20 21:00 Bisacodyl 5 Mg Tablet Ec PO 10/24/20 21:01 1200,1500,2100 THAO Ferrous Sulfate 324 mg 10/23/20 08:00 10/24/20 08:52 Ferrous Sulfate 324 Mg Tablet PO 324 mg DAILY@0800 THAO Administration Guaifenesin 600 mg 10/23/20 21:00 10/24/20 08:52 Guaifenesin 12 Hr 600 Mg Tabcr PO 600 mg Q12HR THAO Administration Ceftriaxone Sodium/Dextrose 1 gm in 50 mls @ 100 mls/hr 10/23/20 21:00 10/23/20 20:35 Rocephin 1 Gm/D5w 50 Ml IVPB Infused Q24H THAO Infusion Azithromycin 500 mg in 250 mls @ 250 mls/hr 10/23/20 21:00 10/23/20 21:44 Zithromax IVPB Infused Q24H THAO Infusion Ipratropium [place] 0.5 mg 10/23/20 08:50 10/24/20 20:03 Ipratropium Br 0.02% Inh Soln 0.5 Mg/2.5 Ml Vial INHALATION 0.5 mg Q6HRT THAO Administration Loratadine 10 mg 10/23/20 01:22 Loratadine 10 Mg Tablet PO DAILY PRN Allergy Symptoms Metoprolol Succinate 50 mg 10/23/20 09:00 10/24/20 08:52 Metoprolol Succinate Ext Rel 50 Mg Tabcr PO 50 mg DAILY THAO Administration Non-Formulary Medication 2 tablet 10/23/20 09:00 Ca Carb-D3-Mag [id number]-Zn [Caltrate + D3 Plus Minerals] PO
[2020-10-24] MEDS: SIMETHICONE 80 MG TAB.CHEW 160 MG PO (20:57)
[2020-10-25] VITALS (17 sets, daily range): BP systolic 97–151; BP diastolic 55–102; PULSE 58–78; RESP 16–22; TEMP 35.6–36.7; O2SAT 94–100
[2020-10-25 01:40] LABS: Hemoglobin 11.4 g/dL (12.0-15.0)
[2020-10-25] MEDS: ALBUTEROL SULFATE NEB 2.5 MG/0.5 ML INH 5 MG INHALATION ×4 (03:13→19:27)
[2020-10-25] MEDS: IPRATROPIUM BR 0.02% INH SOLN 0.5 MG/2.5 ML VIAL INHALATION ×4 (03:13→19:28)
[2020-10-25 07:02] LABS: Hematocrit 27.9 % (37.0-47.0); Hemoglobin 8.5 g/dL (12.0-15.0); Mean Corpuscular HGB Conc 30.5 g/dl (32-36); Mean Corpuscular Hemoglobin 29.9 pg (26-34); Mean Corpuscular Volume 98.2 fl (80-100); Mean Platelet Volume 10.2 fl (7.4-10.4); Platelet Count Result 195 k/mm3 (150-375); Red Blood Count 2.84 M/mm3 (4.2-5.4); Red Cell Distribution Width 18.7 % (11.5-14.5)
[2020-10-25 07:22] LABS: Anion Gap 6 mmol/L (8-16); Blood Urea Nitrogen 10 mg/dL (7-17); Calcium 8.8 mg/dL (8.4-10.2); Carbon Dioxide 20 mmol/L (22-30); Chloride 116 mmol/L (98-107); Estimated CRCL calculation 66 ml/min; Estimated Glomerular Filt Rate > 60; Glucose 88 mg/dL (65-105); Potassium 3.6 mmol/L (3.4-5.0); Sodium 142 mmol/L (137-145)
[2020-10-25] MEDS: AMIODARONE HCL 200 MG TABLET PO (09:16)
[2020-10-25] MEDS: ATORVASTATIN 10 MG TABLET PO (09:16)
[2020-10-25] MEDS: FERROUS SULFATE 324 MG TABLET PO (09:16)
[2020-10-25] MEDS: guaiFENesin 12 HR 600 MG TABCR PO ×2 (09:16→20:05)
[2020-10-25] MEDS: PANTOPRAZOLE SODIUM IV 40 MG VIAL IV PUSH (09:17)
[2020-10-25] MEDS: METOPROLOL SUCCINATE EXT REL 50 MG TABCR PO (09:17)
--- NOTE | 2020-10-25 11:09 | PC.NURSE ---
To GI Lab per andrea, IV saline locked. Report given to Lakesha.
[2020-10-25] MEDS: LACTATED RINGERS 1,000 ML 150 ML IV CONT (11:25)
--- NOTE | 2020-10-25 11:30 | WPDANESEPPF ---
Anes - Initial Pre Proc Eval Procedure: Operation Date: 10/25/20 12:15 Proposed Procedures p Esophagogastroduodenoscopy & Colonoscopy - Juancho Hensley MD Date/Time: 10/25/20 11:30 Surgeon: Suzy Harper PA-C Pre Op Diagnosis: GI Bleed,Symptomataic Anemai,Community-Acquired Pn Patient Data Age: 65 Gender: F Height: 1.73 m Weight: 94 kg Last Vital Signs Temp 36.7 C 10/25/20 11:23 Pulse 65 10/25/20 11:23 Resp 18 10/25/20 11:23 BP 146/102 H 10/25/20 11:23 Pulse Ox 99 10/25/20 11:23 Allergies Allergy/AdvReac Type Severity Reaction Status Date / Time NKDA Allergy Unknown Unknown Uncoded 10/22/20 22:00 Home Medications Medication Instructions Recorded Confirmed Type amiodarone 200 mg tablet 200 mg PO DAILY 10/01/20 10/22/20 History cetirizine 10 mg tablet 10 mg PO DAILY PRN 10/01/20 10/22/20 History ferrous sulfate 325 mg (65 mg 325 mg PO DAILY 10/01/20 10/22/20 History iron) tablet ibandronate 150 mg tablet 150 mg PO MONTHLY 10/01/20 10/22/20 History metoprolol tartrate 100 mg tablet 50 mg PO DAILY 10/01/20 10/22/20 History rivaroxaban 20 mg tablet 20 mg PO DAILY 10/01/20 10/22/20 History tocilizumab [Actemra ACTPen] See Rx Instructions .ROUTE .COMPLEX 10/01/20 10/22/20 History Ca carb-D3-mag [id number]-baif-Zn 2 tablet PO DAILY 10/22/20 10/22/20 History [Caltrate + D3 Plus Minerals] atorvastatin 10 mg PO DAILY 10/22/20 10/22/20 History Laboratory Tests 10/24/20 10/24/20 10/24/20 12:00 18:01 18:43 WBC 6.7 K/mm3 K/mm3 (4.5-10.0) RBC 2.90 M/mm3 L M/mm3 (4.2-5.4) Hgb 8.7 g/dL L g/dL 9.1 g/dL L g/dL (12.0-15.0) (12.0-15.0) Hct 28.4 % L % 29.7 % L % (37.0-47.0) (37.0-47.0) MCV 97.9 fl fl (80-100) MCH 30.0 pg pg (26-34) MCHC 30.6 g/dl L g/dl (32-36) RDW 19.3 % H % (11.5-14.5) Plt Count 202 k/mm3 k/mm3 (150-375) MPV 9.5 fl fl (7.4-10.4) PT 13.9 Seconds D Seconds (11.1-14.7) INR 1.1 Sodium Potassium Chloride Carbon Dioxide Anion Gap BUN Creatinine Estim Creat Clear Calc Estimated GFR Glucose Calcium 10/25/20 10/25/20 10/25/20 01:32 06:56 06:56 WBC 6.0 K/mm3 K/mm3 (4.5-10.0) RBC 2.84 M/mm3 L M/mm3 (4.2-5.4) Hgb 11.4 g/dL L g/dL 8.5 g/dL L g/dL (12.0-15.0) (12.0-15.0) Hct 33.0 % L % 27.9 % L % (37.0-47.0) (37.0-47.0) MCV 98.2 fl fl (80-100) MCH 29.9 pg pg (26-34) MCHC 30.5 g/dl L g/dl (32-36) RDW 18.7 % H % (11.5-14.5) Plt Count 195 k/mm3 k/mm3 (150-375) MPV 10.2 fl fl (7.4-10.4) PT INR Sodium 142 mmol/L mmol/L (137-145) Potassium 3.6 mmol/L mmol/L (3.4-5.0) Chloride 116 mmol/L H mmol/L (98-107) Carbon Dioxide 20 mmol/L L mmol/L (22-30) Anion Gap 6 mmol/L L mmol/L (8-16) BUN 10 mg/dL D mg/dL (7-17) Creatinine 0.90 mg/dL mg/dL (0.7-1.0) Estim Creat Clear Calc 66 ml/min ml/min Estimated GFR > 60 (59 - ) Glucose 88 mg/dL mg/dL (65-105) Calcium 8.8 mg/dL mg/dL (8.4-10.2) Patient hx anesthesia problems: none Family hx anesthesia problems: none [facility] Past Medical History Medical History Afib Atrial fib/flutter, transient Claustrophobia CMT (Fsgqumc-Nohnm-Kqdfq disease) Constipation Diarrhea Foot drop, bilateral History of adverse reaction to anesthesia History of intraoperative complication of surgical procedure HTN (hypertension) Hyperlipidemia with low HDL Light headedness MAURIZIO (obstructive sleep apnea) Osteoporosis SOB (shortness of breath) Wears glasses Surgical Hi
[2020-10-25] MEDS: BENZOCAINE (*SP) 60 ML SPRAY CAN (HURRICAINE) 1 SPRAY MUCOUS MEM (12:20)
--- NOTE | 2020-10-25 13:25 | PC.NURSE ---
Returned from GI Lab. Report received from Breann.
--- NOTE | 2020-10-25 15:22 | PM.IMPN ---
Progress Note: A&P Assessment and Plan (1) Acute blood loss anemia: Code(s): D62 - Acute posthemorrhagic anemia Status: Acute Assessment and Plan: Hemoglobin 4.9 at presentation. Improved with transfusion (3 units total). No evidence of ongoing blood loss. Xarelto on hold Monitor H&H closely. Repeat this evening to ensure remaining stable Iron panel reviewed with evidence of iron deficiency. continue IV iron supplementation and plan for continuing oral iron upon discharge B12 and folate wnl. (2) GI bleed: Code(s): K92.2 - Gastrointestinal hemorrhage, unspecified Status: Acute Assessment and Plan: Presented with dark stools, systemic anticoagulation use, and anemia. colonoscopy done today with angioectasias which was the likely source of bleeding. appreciate gastroenterology consultation Switch to PO protonix daily per GI recommendations holding Xarelto as above Angioectasia was cauterized. Per GI, cannot rule out additional angioectasias in the small intestine, and she may benefit from capsule endoscopy (3) Community acquired pneumonia: Code(s): J18.9 - Pneumonia, unspecified organism Status: Acute Assessment and Plan: CXR showed worsened airspace opacities in the mid and lower lung zones. maintaining adequate O2 sats on room air. Continue Rocephin and azithromycin supplemental O2 as needed with goal sats 92% or above urinary Legionella and pneumococcal antigens pending supportive care to include bronchodilators, expectorants, incentive spirometry (4) Atrial fib/flutter, transient: Status: Acute Assessment and Plan: In sinus rhythm based on review of telemetry. Rate is controlled. Continue amiodarone Xarelto on hold. 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 She is able to get up to the bedside commode. She uses leg braces for stability but has not been wearing them while here. Subjective Date/time seen: 10/25/20 15:22 Interval history: date of service: 10/25/2020 Lisa Lujan is a 65-year-old female with a history of atrial fibrillation on systemic anticoagulation, Mjbfzes-Irmhh-Rnvwb, hypertension, hyperlipidemia, MAURIZIO who is seen in follow-up for pneumonia and anemia due to GI bleed. She is feeling well and tolerated EGD and colonoscopy. She has no complaints at this time. No abdominal pain, nausea, or vomiting. She is tolerating clear liquids following her procedure and would like to advance her diet. Her shortness of breath has essentially resolved and her cough has improved. She has no sputum production today. Denies chest pain or palpitations. She denies feeling weak. She is able to ambulate with assistance and get to the toilet. denies dizziness or lightheadedness. denies urinary symptoms. she had several questions about her results of her EGD and colonoscopy. I discussed these with her. she still had many questions and I was able to draw her a picture which seemed to help her understand better. Review of Systems Review of Systems: All systems reviewed & are unremarkable except as noted in HPI and below Exam Narrative: Exam Narrative: Ms. Lujan is a well-nourished, well-appearing 65-year-old female who is lying supine in bed. She appears comfortable and is in NARD. Neuro: awake, alert and oriented x4, speech clear, no focal neuro deficits noted HEENMT: normocephalic, atraumatic, EOMI, sclerae anicteric, moist oral mucosa Neck: supple, no lymphadenopathy Respiratory: kyle
[2020-10-25] MEDS: IRON SUCROSE COMPLEX 100 MG in SODIUM CHLORIDE 0.9% IV 50 ML 220 MG IVPB (17:16)
[2020-10-25] MEDS: SACCHAROMYCES BOULARDII 250 MG CAPSULE PO (17:16)
[2020-10-25 20:22] LABS: Hematocrit 29.9 % (37.0-47.0); Mean Corpuscular HGB Conc 30.1 g/dl (32-36); Mean Corpuscular Hemoglobin 30.1 pg (26-34); Mean Platelet Volume 10.5 fl (7.4-10.4); Platelet Count Result 208 k/mm3 (150-375); Red Blood Count 2.99 M/mm3 (4.2-5.4); Red Cell Distribution Width 18.7 % (11.5-14.5); White Blood Count 6.9 K/mm3 (4.5-10.0)
[2020-10-25 23:13] LABS: Hematocrit 28.3 % (37.0-47.0); Hemoglobin 8.7 g/dL (12.0-15.0)
[2020-10-26] VITALS (9 sets, daily range): BP systolic 133; BP diastolic 55–58; PULSE 57–98; RESP 16–20; TEMP 36–36.4; O2SAT 96–98
[2020-10-26] MEDS: ALBUTEROL SULFATE NEB 2.5 MG/0.5 ML INH 5 MG INHALATION ×3 (01:33→13:33)
[2020-10-26] MEDS: IPRATROPIUM BR 0.02% INH SOLN 0.5 MG/2.5 ML VIAL INHALATION ×3 (01:33→13:33)
[2020-10-26 06:18] LABS: Anion Gap 6 mmol/L (8-16); Blood Urea Nitrogen 12 mg/dL (7-17); Calcium 8.9 mg/dL (8.4-10.2); Carbon Dioxide 22 mmol/L (22-30); Chloride 113 mmol/L (98-107); Estimated CRCL calculation 54 ml/min; Estimated Glomerular Filt Rate 60; Glucose 101 mg/dL (65-105); Potassium 3.8 mmol/L (3.4-5.0); Sodium 141 mmol/L (137-145)
--- NOTE | 2020-10-26 08:19 | WPDANESPN ---
Anes - Prog Note Post-Op Date/Time: 10/26/20 08:19 Cardiovascular status: normal Respiratory status: normal Airway patency: baseline Mental status: baseline Post-Op hydration status: normal Vital Signs: Last Vital Signs Temp 36.0 C L 10/26/20 06:00 Pulse 57 L 10/26/20 07:56 Resp 20 10/26/20 07:56 BP 133/55 L 10/26/20 06:00 Pulse Ox 96 10/26/20 07:45 Pain Score (VAS): 0 I/O: Intake & Output 10/25/20 10/26/20 10/26/20 23:59 07:59 15:59 Intake Total 1020 550 Output Total 300 400 Balance 720 150 Laboratory Tests 10/25/20 22:51 10/26/20 06:00 10/25/20 10/25/20 10/26/20 20:05 22:51 06:00 WBC 6.9 RBC 2.99 L Hgb 9.0 L 8.7 L Hct 29.9 L 28.3 L MCV 100.0 MCH 30.1 MCHC 30.1 L RDW 18.7 H Plt Count 208 MPV 10.5 H Sodium 141 Potassium 3.8 Chloride 113 H Carbon Dioxide 22 Anion Gap 6 L BUN 12 Creatinine 1.10 H Estim Creat Clear Calc 54 Estimated GFR 60 Glucose 101 Calcium 8.9 Post-procedural complaints: none Patient Feedback: Patient satisfied with anesthetic care.
[2020-10-26] MEDS: METOPROLOL SUCCINATE EXT REL 50 MG TABCR PO (08:52)
[2020-10-26] MEDS: ATORVASTATIN 10 MG TABLET PO (08:52)
[2020-10-26] MEDS: FERROUS SULFATE 324 MG TABLET PO (08:52)
[2020-10-26] MEDS: AMIODARONE HCL 200 MG TABLET PO (08:52)
[2020-10-26] MEDS: CALCIUM/VITAMIN D 250 MG TABLET 1 TABLET PO (08:52)
[2020-10-26] MEDS: guaiFENesin 12 HR 600 MG TABCR PO (08:52)
[2020-10-26] MEDS: PANTOPRAZOLE 40 MG TABLET PO (08:53)
[2020-10-26] MEDS: THERAPEUTIC MULTIVITAMINS/MINERALS TAB (*BKC) 1 TABLET PO (08:53)
[2020-10-26] MEDS: SACCHAROMYCES BOULARDII 250 MG CAPSULE PO (08:53)
--- NOTE | 2020-10-26 12:41 | WPDGIPROGNO ---
Progress Note: A&P Assessment and Plan (1) Angiodysplasia of colon: Code(s): K55.20 - Angiodysplasia of colon without hemorrhage Status: Acute Assessment and Plan: Angiodysplasia appear to account for anemia and occult blood loss. Likely this is chronic. AVMs of the colon cauterized yesterday. She may have additional AVMs in the small bowel. Plan is to monitor hemoglobin frequently as an outpatient. Transfuse as necessary. Consider outpatient small bowel capsule endoscopy to search for these. These would be difficult to treat. We may need to be cautious with anticoagulation. Should she become anemic again reconsider anticoagulation. 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 No Bleeding described. Vital signs stable. Patient tolerating diet. Review of Systems Review of Systems: All systems reviewed & are unremarkable except as noted in HPI and below Exam Narrative: Exam Narrative: On physical exam patient alert comfortable at rest. She is anicteric. Lungs are clear. Heart without murmur. Abdomen bowel sounds present soft nontender with no organomegaly. Objective Data Vital Signs Vital Signs: Vital Signs - 24 hr 10/25/20 12:55 10/25/20 13:05 10/25/20 13:15 Temperature Pulse Rate 66 68 66 Respiratory Rate 22 H 20 18 Blood Pressure 97/58 L 104/58 L 115/56 L Pulse Oximetry 97 98 99 10/25/20 13:41 10/25/20 15:01 10/25/20 15:09 Temperature 96.1 F L Pulse Rate 61 70 67 Respiratory Rate 18 16 16 Blood Pressure 123/55 L Pulse Oximetry 99 10/25/20 19:28 10/25/20 19:34 10/25/20 20:46 Temperature 96.7 F L Pulse Rate 64 63 59 L Respiratory Rate 16 16 18 Blood Pressure 121/55 L Pulse Oximetry 98 100 10/26/20 01:35 10/26/20 01:44 10/26/20 06:00 Temperature 96.8 F L Pulse Rate 59 L 62 58 L Respiratory Rate 16 16 16 Blood Pressure 133/55 L Pulse Oximetry 97 10/26/20 07:45 10/26/20 07:56 10/26/20 08:52 Temperature Pulse Rate 98 57 L 60 Respiratory Rate 20 20 Blood Pressure Pulse Oximetry 96 Intake/Output Intake/Output: Intake & Output 10/23/20 10/24/20 10/25/20 10/26/20 23:59 23:59 23:59 23:59 Intake Total 2645 1280 1220 1505 Output Total 2350 550 500 900 Balance 295 730 720 605 Meds/Results Medications: Active Medications Generic Name Dose Route Start Last Admin Trade Name Haiq PRN Reason Stop Dose Admin Albuterol 5 mg 10/24/20 13:30 10/26/20 07:44 Albuterol Sulfate Neb 2.5 Mg/0.5 Ml Inh INHALATION 5 mg Q6HRT THAO Administration Amiodarone HCl 200 mg 10/23/20 08:00 10/26/20 08:52 Amiodarone Hcl 200 Mg Tablet PO 200 mg DAILY@0800 THAO Administration Atorvastatin Calcium 10 mg 10/23/20 09:00 10/26/20 08:52 Atorvastatin 10 Mg Tablet PO 10 mg DAILY THAO Administration Calcium Carbonate 1 tablet 10/26/20 09:00 10/26/20 08:52 Calcium/Vitamin D 250 Mg Tablet PO 1 tablet QAM THAO Administration Ferrous Sulfate 324 mg 10/23/20 08:00 10/26/20 08:52 Ferrous Sulfate 324 Mg Tablet PO 324 mg DAILY@0800 THAO Administration Guaifenesin 600 mg 10/23/20 21:00 10/26/20 08:52 Guaifenesin 12 Hr 600 Mg Tabcr PO 600 mg Q12HR THAO Administration Ceftriaxone Sodium/Dextrose 1 gm in 50 mls @ 100 mls/hr 10/23/20 21:00 10/25/20 22:23 Rocephin 1 Gm/D5w 50 Ml IVPB Infused Q24H THAO Infusion Azithromycin 500 mg in 250 mls @ 250 mls/hr 10/23/20 21:00 10/25/20 21:05 Zithromax IVPB Infused Q24H THAO Infusion Ipratropium [place] 0.5 mg 10/23/20 08:50 10/26/20 07:44 Ipratropium Br 0.02% Inh Soln 0.5 Mg/2.5 Ml Vial INHALATION 0.5 mg Q6HRT THAO Administration Loratadine 10 mg 10/23/20 01:22 Loratadine 10 Mg Tablet PO
[2020-10-26 13:07] LABS: Hematocrit 27.9 % (37.0-47.0); Hemoglobin 8.7 g/dL (12.0-15.0); Mean Corpuscular HGB Conc 31.2 g/dl (32-36); Mean Corpuscular Hemoglobin 30.6 pg (26-34); Mean Corpuscular Volume 98.2 fl (80-100); Mean Platelet Volume 9.5 fl (7.4-10.4); Platelet Count Result 198 k/mm3 (150-375); Red Blood Count 2.84 M/mm3 (4.2-5.4); Red Cell Distribution Width 18.5 % (11.5-14.5); White Blood Count 6.3 K/mm3 (4.5-10.0)
[2020-10-26 13:43] LABS: Legionella pneumophila Ag Ur Not Detected (Not Detected)
--- NOTE | 2020-10-26 15:12 | PM.DS ---
DS: Admitting Diagnosis Admitting Diagnosis Admitting Diagnosis: Anemia DS: Discharge Diagnosis Discharge Diagnosis (1) Acute blood loss anemia: Code(s): D62 - Acute posthemorrhagic anemia Status: Acute Assessment and Plan: Date of Admission 10/22/20 Date of Discharge 10/26/20 Ms. Lujan is a 65yo F with history of atrial fibrillation on anticoagulation with Xarelto, Czhjaih-Ohjhi-Gtdiz disease, and obstructive sleep apnea who presented to the ED for evaluation of worsening fatigue, shortness of breath, feeling like she was going to faint . She described having dark stools but was recently started on oral iron supplementation and had been attributing the dark stools to the iron. Routine labs on arrival demonstrated a hemoglobin of 4.9. She received total of 3 units packed RBC transfusion over 10/22/20 evening through the following day. H&H improved and remained low but stable at 8.7 on day of discharge. Iron was low and she received IV iron, oral iron continued at discharge. B12 and folate levels within normal limits. Chest XR showed bilateral airspace opacities. She was in no respiratory distress and was not hypoxic. She was treated with azithromycin and rocephin for possible community acquired pneumonia, discharged with oral abx to complete 5-day course. Urine legionella and pneumococcal antigens were negative. Shew as evaluated by GI, Dr Hensley. She underwent EGD/colonoscopy 10/25/20 which demonstrated a polyp in the antrum of the stomach which was removed, and a few small localized angioectasias present in the ascending colon. The angioectasias were not actively bleeding, but were cauterized successfully. GI noted this eval cannot exclude additional angioectasias in the small intestine and that the patient may benefit from capsule endoscopy if necessary for further evaluation. Started on pantoprazole. We discussed the risk/benefit of holding her Xarelto and her increased risk for stroke. Recommended to hold Xarelto for 1 week and follow up with her new emergency medical services coordinator (used to see Dr Shepard but now he is out of her insurance network) for further instructions on when it may be safe to resume this medication. She admits she is hesitant to resume the Xarelto at all. She was feeling improved and was hemodynamically stable for discharge on 10/26/20 with instructions to follow up with PCP, Dr Hensley, and her new emergency medical services coordinator. Repeat CBC outpatient to monitor Hgb closely. (2) GI bleed: Code(s): K92.2 - Gastrointestinal hemorrhage, unspecified Status: Acute Assessment and Plan: Presented with dark stools, systemic anticoagulation use, and anemia. Colonoscopy demonstrated ascending colon angioectasias which were the likely source of bleeding. Angioectasia was cauterized. Per GI, cannot rule out additional angioectasias in the small intestine, and she may benefit from capsule endoscopy. Started PPI. (3) Community acquired pneumonia: Code(s): J18.9 - Pneumonia, unspecified organism Status: Acute Assessment and Plan: CXR showed worsened airspace opacities in the mid and lower lung zones. /maintaining adequate O2 sats on room air. Treated with IV Rocephin and azithromycin. Treated wtih supportive care to include bronchodilators, expectorants, incentive spirometry. Discharged with oral abx to complete 5-day course. (4) Atrial fib/flutter, transient: Status: Chronic Assessment and Plan: In sinus rhythm by telemetry monitoring. Rate controlled on home amiodarone. Xarelto held as above. (5) MAURIZIO (obstructive sleep apnea): Code(s): G47.33 - Obstructive sleep apnea (adult) (pediatric) Status: Chronic Assessment and Plan: Reports using CPAP occasionally. Declined CPAP here.
[2020-10-27 02:09] LABS: Pneumococcal Antigen Urine Not Detected (Not Detected)
== END 2020-10-26 16:13 | disposition home or self-care (01) | DRG 377 ==
LOC: ANHED 21:07 → ANH3MED 21:30
PROVIDERS: Emergency Medicine; Internal Medicine Gastroenterology; Nurse Practitioner Family; Physician Assistant; Admitting Provider Internal Medicine; Emergency Provider Emergency Medicine; PCP Emergency Medicine; Visit Provider Physician Assistant
PROC: 0DJ08ZZ Inspection of Upper Intestinal Tract, Via Natural or Artificial Opening Endoscopic (ICD-10-PCS; CPT 43235; principal; 2020-10-25 12:15)
DX: K55.21 Angiodysplasia of colon with hemorrhage (principal); J18.9 Pneumonia, unspecified organism; D62 Acute posthemorrhagic anemia; I48.20 Chronic atrial fibrillation, unspecified; I48.92 Unspecified atrial flutter; K31.7 Polyp of stomach and duodenum; K64.8 Other hemorrhoids; G60.0 Hereditary motor and sensory neuropathy; F40.240 Claustrophobia; M21.372 Foot drop, left foot; M21.371 Foot drop, right foot; E78.5 Hyperlipidemia, unspecified; I10 Essential (primary) hypertension; G47.33 Obstructive sleep apnea (adult) (pediatric); M81.0 Age-related osteoporosis without current pathological fracture; Z96.651 Presence of right artificial knee joint; Z79.01 Long term (current) use of anticoagulants; Z90.49 Acquired absence of other specified parts of digestive tract; E66.9 Obesity, unspecified; Z68.31 Body mass index [BMI] 31.0-31.9, adult
CPT/HCPCS: 36415; 36430; 71046; 80048; 80053; 81001; 82607; 82728; 82746; 83540; 83550; 83605; 83615; 85014; 85018; 85025; 85027; 85610; 85730; 86140; 86850; 86900; 86901; 86920; 87040; 87449; 87899; 88305; 93005; 94640; 96361; 96365; 99285; A9270; C9113; G0378; J0456; J0696; J1756; J2704; J7050; J7120; P9016

== ENCOUNTER 2020-11-01 09:44 | Outpatient (CLI) | payer MEDICARE, SELFPAY ==
[2020-11-01 10:29] LABS: Hematocrit 31.7 % (37.0-47.0); Hemoglobin 9.8 g/dL (12.0-15.0); Mean Corpuscular HGB Conc 30.9 g/dl (32-36); Mean Corpuscular Hemoglobin 30.5 pg (26-34); Mean Corpuscular Volume 98.8 fl (80-100); Mean Platelet Volume 9.8 fl (7.4-10.4); Platelet Count Result 193 k/mm3 (150-375); Red Blood Count 3.21 M/mm3 (4.2-5.4); Red Cell Distribution Width 17.9 % (11.5-14.5); White Blood Count 5.7 K/mm3 (4.5-10.0)
[2020-11-01 10:43] LABS: Alanine Aminotransferase 33 U/L (4-35); Alkaline Phosphatase 62 U/L (38-126); Anion Gap 8 mmol/L (8-16); Aspartate Amino Transferase 29 U/L (14-36); Bilirubin,Total 0.5 mg/dL (0.2-1.3); Blood Urea Nitrogen 23 mg/dL (7-17); Calcium 9.6 mg/dL (8.4-10.2); Carbon Dioxide 24 mmol/L (22-30); Chloride 109 mmol/L (98-107); Cholesterol 163 mg/dL (0-200); Estimated Glomerular Filt Rate > 60; Glucose 99 mg/dL (65-110); HDL Direct 72 mg/dL; Potassium 4.1 mmol/L (3.4-5.0); Sodium 141 mmol/L (137-145); Triglycerides 110 mg/dL (<150)
[2020-11-01 10:54] LABS: LDL Cholesterol Direct 59 mg/dL
[2020-11-01 10:58] LABS: Hemoglobin A1C 4.8 % (<5.7)
[2020-11-01 11:33] LABS: Vitamin D 25 Hydroxy 48.3 ng/mL
[2020-11-01 11:35] LABS: Creatinine Urine 173.4 mg/dL
[2020-11-01 11:47] LABS: Hepatitis B Surface Antigen Negative (Negative)
[2020-11-01 11:53] LABS: HAV RESULT Negative (Negative); Hepatitis B Core IgM Result Negative (Negative)
[2020-11-01 12:05] LABS: Hepatitis C Virus Antibody Negative (Negative)
[2020-11-01 13:20] LABS: Free T4 Free Thyroxine Reflex 1.57 ng/dL (0.78-2.19)
[2020-11-01 14:10] LABS: Total Triiodothyronine (T3) 0.77 NG/ML (0.97-1.69)
[2020-11-01 15:30] LABS: Add Urine Microscopic? YES; Appearance Urine Clear (Clear); Bacteria Urine Trace /hpf; Bilirubin Urine Negative (Negative); Blood Urine Negative (Negative); Calcium Oxalate Crystals Urine Present /hpf; Color Urine Yellow (Yellow); Glucose Urine UA Negative (Negative); Ketones Urine Negative (Negative); Leukocyte Esterase Ur Trace LEU/UL (NEGATIVE); Mucus Urine Few /lpf; Nitrate Urine Negative (Negative); Protein Urine Negative (Negative); RBC Urine 0-2 /hpf (0-2); Specific Grav Ur 1.024 (1.001-1.035); Squamous Epithelial Cell Urine Many /hpf (Few); Urobilinogen Urine Negative mg/dL (<2.0)
== END 2020-11-01 09:45 | disposition home or self-care (01) ==
LOC: ANHLAB 09:48
PROVIDERS: PCP Emergency Medicine; Visit Provider Emergency Medicine
DX: J18.9 Pneumonia, unspecified organism (principal); K92.2 Gastrointestinal hemorrhage, unspecified; I10 Essential (primary) hypertension; D64.9 Anemia, unspecified; I48.91 Unspecified atrial fibrillation
CPT/HCPCS: 36415; 80053; 80061; 80074; 81001; 82043; 82306; 83036; 84439; 84443; 84480; 85027

== ENCOUNTER 2020-11-15 11:38 | Outpatient (CLI) | payer MEDICARE, SELFPAY ==
--- NOTE | ~2020-11-15 | XR_ITS ---
XR chest 2V DATE: 11/15/2020 12:10 INDICATION: Pneumonia. Cough, wheezing TECHNIQUE: PA and lateral views COMPARISON: 10/22/2020 AP and lateral chest FINDINGS: There is mild discoid atelectasis or scarring in the right mid and lower lung roger. There is substantial improvement and near resolution of infiltrates in the mid and lower lung zones since 10/22/2020. Heart size is within normal limits. There is aortic unfolding. No pleural effusion or pulmonary vascular congestion or pneumothorax. Diffuse osteopenia. Scoliosis and degenerative changes of the thoracic and lumbar spine. Osteoarthritic change at the included left glenohumeral joint. Status post cholecystectomy. IMPRESSION: Substantial improvement/nearly complete resolution of bilateral pulmonary joints and 2020 Reviewed, dictated and finalized at location B. IMPRESSION: Substantial improvement/nearly complete resolution of bilateral pul monary joints and 10/22/2020
[2020-11-15 15:16] LABS: Free T4 Free Thyroxine 1.44 ng/mL (0.78-2.19)
[2020-11-15 20:12] LABS: Total Triiodothyronine (T3) 0.83 NG/ML (0.97-1.69)
[2020-11-18 04:46] LABS: Thyroid Peroxidase Antibodies <1 IU/mL (<9)
== END 2020-11-15 11:39 | disposition home or self-care (01) ==
PROVIDERS: PCP Emergency Medicine; Visit Provider Emergency Medicine
DX: R79.9 Abnormal finding of blood chemistry, unspecified (principal); E03.9 Hypothyroidism, unspecified; Z79.899 Other long term (current) drug therapy
CPT/HCPCS: 36415; 71046; 84439; 84443; 84480; 86376

== ENCOUNTER 2020-11-23 15:58 | Outpatient (CLI) | payer MEDICARE, SELFPAY ==
--- NOTE | ~2020-11-23 | US_ITS ---
EXAMINATION: US thyroid DATE: 11/23/2020 16:38 INDICATION: Hypothyroidism. TECHNIQUE: Multiple ultrasound images of the thyroid were obtained. COMPARISON: None. FINDINGS: The right thyroid lobe measures 3.5 x 1.8 x 2.0 cm. The left thyroid lobe measures 4.8 x 1.6 x 1.6 c m. There is normal echotexture and echogenicity throughout the thyroid gland. No discrete nodules id entified. Normal vascular flow is present. IMPRESSION: 1. Normal thyroid. Reviewed, dictated and finalized at location A. IMPRESSION: 1. Normal thyroid.
== END 2020-11-23 15:59 | disposition home or self-care (01) ==
PROVIDERS: PCP Emergency Medicine; Visit Provider Emergency Medicine
DX: E03.9 Hypothyroidism, unspecified (principal); Z87.01 Personal history of pneumonia (recurrent)
CPT/HCPCS: 76536

== ENCOUNTER 2020-12-08 06:42 | Outpatient (CLI) | payer MEDICARE, SELFPAY ==
[2020-11-29 16:40] VITALS: BMI 31.1
--- NOTE | 2020-12-08 07:04 | SUR.OPER ---
Patient brought to GI Lab. Instructions for patient undergoing Capsule Endoscopy reviewed with patient. Consent form signed. Sensor array applied to patient's abdomen and connected to recorded. Patient swallowed capsule with 16 ozs of water infused with Simethicone. Patient instructed they may have clear liquids at 0900 this AM and eat or drink at 1100 this AM. Patient instructed to return to GI Lab at 1500 this afternoon for removal of recording device and to call [phone] or to return to the hospital if any nausea and vomiting or abdominal pain is experienced.
--- NOTE | 2020-12-08 15:31 | SUR.OPER ---
Patient returned to the GI Lab at 15:25 for recorder box removal. Patient voiced no complaints. States they have understanding of instructions. Patient left ambulatory.
== END 2020-12-08 06:43 | disposition home or self-care (01) ==
PROVIDERS: PCP Emergency Medicine; Visit Provider Internal Medicine Gastroenterology
PROC: 0DJ07ZZ Inspection of Upper Intestinal Tract, Via Natural or Artificial Opening (ICD-10-PCS; CPT 91110; principal; 2020-12-08 07:00)
DX: Z01.818 Encounter for other preprocedural examination (principal)
CPT/HCPCS: 91110

== ENCOUNTER 2020-12-10 13:20 | Outpatient (CLI) | payer MEDICARE, SELFPAY ==
--- NOTE | ~2020-12-10 | XR_ITS ---
XR chest 2V DATE: 12/10/2020 13:55 INDICATION: History of pneumonia. Nonsmoker. TECHNIQUE: PA and lateral views COMPARISON: 11/15/2020 PA and lateral chest FINDINGS: Heart size is borderline. There is thoracic aortic calcification and unfolding. No hilar or mediastinal enlargement. No pulmonary infiltrate or consolidation, pleural effusion or pulmonary vascular congestion or pneumo thorax is detected. There is bilateral glenohumeral osteoarthritis. There is thoracolumbar scoliosis and degenerative spu rring. Status post cholecystectomy. IMPRESSION: Borderline heart size; no active pulmonary disease Reviewed, dictated and finalized at location A.
--- NOTE | ~2020-12-10 | XR_ITS ---
XR abdomen/kub 1V DATE: 12/10/2020 13:56 INDICATION: Post capsule study; capsule retention TECHNIQUE: 2 supine AP views COMPARISON: None FINDINGS: There is a prominent amount of fecal material in the colon. No bowel obstruction is evident . No radiopaque intraluminal capsule device is identified. Surgical clips, right upper quadrant, consistent with cholecystectomy. IMPRESSION: Prominent amount of fecal material in the colon Reviewed, dictated and finalized at Location A. Reviewed, dictated and finalized at location A.
== END 2020-12-10 13:21 | disposition home or self-care (01) ==
PROVIDERS: PCP Emergency Medicine; Visit Provider Internal Medicine Gastroenterology
DX: Z18.89 Other specified retained foreign body fragments (principal); Z87.01 Personal history of pneumonia (recurrent)
CPT/HCPCS: 71046; 74018

== ENCOUNTER 2021-01-27 15:52 | Outpatient (CLI) | payer MEDICARE, SELFPAY ==
--- NOTE | ~2021-01-27 | MM_ITS ---
EXAMINATION: MM screening k[facility] BI w [facility] HISTORY: Screening TECHNIQUE: Craniocaudal and mediolateral oblique 3-D tomosynthesis images were obtained and synthetic 2-D images were generated. CAD analysis was submitted and interpreted. COMPARISON: Comparison to multiple prior studies sequentially, with oldest reviewed study dated 05/2014. BREAST PARENCHYMAL COMPOSITION: There are scattered areas of fibroglandular density. FINDINGS: There is no evidence of suspicious mass, calcification, or architectural distortion to sugg est malignancy in either breast. There has been no suspicious interval change. IMPRESSION: 1. No mammographic evidence of malignancy. 2. Recommend routine screening mammography in one year. BI-RADS Category 1: Negative Reviewed, dictated and finalized at location A.
== END 2021-01-27 15:53 | disposition home or self-care (01) ==
PROVIDERS: PCP Emergency Medicine; Visit Provider Emergency Medicine
DX: Z12.31 Encounter for screening mammogram for malignant neoplasm of breast (principal)
CPT/HCPCS: 77063; 77067

== ENCOUNTER 2021-03-03 17:13 | Outpatient (CLI) | payer MEDICARE, SELFPAY ==
--- NOTE | ~2021-03-03 | DEXA_ITS ---
Bone Density Report Name: Lisa Lujan Age: 65 Sex: Female Ethnicity: Black Date of : 1955 Indication: postmenopausal; prior fracture; rheumatoid arthritis; Referring Provider: Stew Patrick Study: Bone densitometry was performed. Exam Date: March 03, 2021 Accession number: [id number] Bone Density: Region BMD T-score Z-score Classification AP Spine (L1-L4) 1.134 0.8 1.9 Normal Femoral Neck (Left) 0.652 -1.8 -0.8 Osteopenia Total Hip (Left) 0.669 -2.2 -1.3 Osteopenia Total Hip Bilateral Avg 0.672 -2.2 -1.3 Osteopenia Femoral Neck (Right) 0.672 -1.6 -0.7 Osteopenia Total Hip (Right) 0.674 -2.2 -1.3 Osteopenia World Health Organization criteria for BMD impression classify patients as: Normal (T-score at or above -1.0), Osteopenia (T-score between -1.0 and -2.5), or Osteoporosis (T-score at or below -2.5). 10-year Fracture Risk: FRAX not reported because: Treated for osteoporosis Clinical Information Provided by Patient: Has had a low trauma fracture Has rheumatoid arthritis Is being treated for osteoporosis Has used the following medications: Fosamax (i.e. alendronate), Vitamin D, Calcium Patient maximum height was 68 Menopause Age: 52 No regular weight bearing exercise Does not regularly consume dairy products Onset of menses at age 14 Number of children 4 Impression: The patient has low bone mass, based on the Left Total Hip T-score. The patient has risk factors, including: previous fracture. Discussion: It is important to ask patients whether they are taking their medications and to encourage continued and appropriate compliance with their osteoporosis therapies to reduce fracture risk. It is also important to review their risk factors and encourage appropriate calcium and vitamin D intakes, exercise, fall prevention and other lifestyle measures. Follow-Up: Consider a repeat BMD and Vertebral Fracture Assessment (VFA) exam in 2 years or sooner if medically necessary, to reassess this patient's status. Reported by: [facility] on 03/03/2021 5:40:00 PM. Reviewed, dictated and finalized at location AKishor CAZARES
== END 2021-03-03 17:14 | disposition home or self-care (01) ==
LOC: ANHIMG 17:15
PROVIDERS: PCP Emergency Medicine; Visit Provider Emergency Medicine
DX: M81.0 Age-related osteoporosis without current pathological fracture (principal); M85.2 Hyperostosis of skull; M85.851 Other specified disorders of bone density and structure, right thigh
CPT/HCPCS: 77080

== ENCOUNTER 2021-04-07 12:38 | Outpatient (CLI) | payer MEDICARE, SELFPAY ==
[2021-04-07 14:00] LABS: Free T4 Free Thyroxine 1.53 ng/mL (0.78-2.19)
== END 2021-04-07 12:39 | disposition home or self-care (01) ==
PROVIDERS: PCP Emergency Medicine; Visit Provider Internal Medicine Endocrinology, Diabetes & Metabolism
DX: E07.9 Disorder of thyroid, unspecified (principal); Z79.899 Other long term (current) drug therapy
CPT/HCPCS: 36415; 84439; 84443

== ENCOUNTER 2021-12-08 11:33 | Outpatient (CLI) | payer MEDICARE, SELFPAY ==
[2021-12-08 12:27] LABS: Basophils Percent Auto 0.9 % (0.2-1.2); Eosinophils Absolute Auto 0.2 K/mm3 (0-0.3); Eosinophils Percent Auto 3.6 % (0-4.4); Hematocrit 35.8 % (37.0-47.0); Hemoglobin 11.6 g/dL (12.0-15.0); Immature Granulocyte Absolute 0.02 K/mm3 (0.00-0.031); Immature Granulocyte Percent A 0.5 % (0-0.5); Lymphocytes Absolute Auto 1.03 K/mm3 (0.9-3.2); Lymphocytes Percent Auto 23.4 % (18.3-44.2); Mean Corpuscular HGB Conc 32.4 g/dl (32-36); Mean Corpuscular Hemoglobin 30.8 pg (26-34); Mean Platelet Volume 10.4 fl (7.4-10.4); Monocytes Absolute Auto 0.6 K/mm3 (0.1-0.6); Monocytes Percent Auto 14.1 % (2.6-8.5); Neutrophils Absolute Auto 2.5 K/mm3 (1.3-6.7); Neutrophils Percent Auto 57.5 % (45.5-73.1); Platelet Count Result 212 k/mm3 (150-375); Red Blood Count 3.77 M/mm3 (4.2-5.4); Red Cell Distribution Width 14.5 % (11.5-14.5); White Blood Count 4.4 K/mm3 (4.5-10.0)
[2021-12-08 12:36] LABS: Alanine Aminotransferase 11 U/L (6-35); Albumin Level 4.1 g/dL (3.5-5.1); Alkaline Phosphatase 82 U/L (38-126); Anion Gap 6 mmol/L (8-16); Aspartate Amino Transferase 20 U/L (14-36); Bilirubin,Total 0.9 mg/dL (0.2-1.3); Blood Urea Nitrogen 20 mg/dL (7-17); Calcium 8.7 mg/dL (8.4-10.2); Carbon Dioxide 27 mmol/L (22-30); Chloride 108 mmol/L (98-107); Cholesterol 165 mg/dL (0-200); Estimated Glomerular Filt Rate > 60; Glucose 113 mg/dL (65-110); HDL Direct 65 mg/dL; Potassium 4.1 mmol/L (3.4-5.0); Sodium 141 mmol/L (137-145); Triglycerides 69 mg/dL (<150)
[2021-12-08 12:40] LABS: Hemoglobin A1C 6.3 % (<5.7)
[2021-12-08 12:41] LABS: Creatinine Urine 327.5 mg/dL
[2021-12-08 12:45] LABS: MALB Creatinine Ratio 4.5 mg/g (0-30); Microalbumin Urine Random 14.7 mg/L (0-16.7)
[2021-12-08 12:47] LABS: LDL Cholesterol Direct 52 mg/dL
[2021-12-11 05:52] LABS: Triiodothyronine T3 Free 2.2 pg/mL (2.3-4.2)
== END 2021-12-08 11:34 | disposition home or self-care (01) ==
PROVIDERS: PCP Family Medicine; Referring Provider Family Medicine; Visit Provider Internal Medicine Endocrinology, Diabetes & Metabolism
DX: E07.9 Disorder of thyroid, unspecified (principal); Z79.899 Other long term (current) drug therapy; E04.9 Nontoxic goiter, unspecified; M62.81 Muscle weakness (generalized); E55.9 Vitamin D deficiency, unspecified; E03.9 Hypothyroidism, unspecified; E78.5 Hyperlipidemia, unspecified; E11.9 Type 2 diabetes mellitus without complications; D64.9 Anemia, unspecified; I10 Essential (primary) hypertension
CPT/HCPCS: 36415; 80053; 80061; 82043; 82306; 83036; 84439; 84443; 84481; 85025

== ENCOUNTER 2021-12-31 16:49 | Emergency (ER) | payer MEDICARE, SELFPAY ==
--- NOTE | ~2021-12-31 | CT_ITS ---
EXAMINATION: CT brain wo con DATE: 12/31/2021 17:50 INDICATION: head injury s/p GLF . TECHNIQUE: Computed tomography (CT) of the head was performed without intravenous contrast. The mA wa s adjusted according to patient size. Iterative reconstruction technique was employed. The dose-lengt h product was 605.33 mGy-cm. COMPARISON: 07/21/2014 FINDINGS: No acute intracranial hemorrhage or extra-axial fluid collection. No hydrocephalus, mass, or herniation. No acute ischemic infarct. Unremarkable dural venous sinus attenuation. No acute osseous abnormality. The aerated spaces are clear. Mild atrophy and chronic white matter change. Bilateral basal ganglia calcification. Atherosclerotic intracranial calcification. IMPRESSION: No acute intracranial process. Reviewed, dictated and finalized at location K.
--- NOTE | ~2021-12-31 | XR_ITS ---
EXAM: XR hand RT min 3V, XR hand LT min 3V, XR wrist LT min 3V, XR wrist RT min 3V DATE: 12/31/2021 18:08 (accession [id number]), 12/31/2021 18:10 (accession [id number]), 12/31 18:09 (accession [id number]), 12/31/2021 18:09 (accession [id number]) HISTORY: fall injury, pain ulnar side Rt wrist, left metacarpals . COMPARISON: None available. FINDINGS: Decreased mineralization. Bilateral trapezial resections. No fracture or dislocation. No l ytic or blastic lesion. Arthritic changes in the hands and wrists. Fingers held in flexion bilaterall y. No erosion or periosteal change. Soft tissues within normal limits. IMPRESSION: Exam limited by positioning difficulty due to bilateral finger contractions. Within that constraint, no acute osseous finding in the bilateral hands or wrists. Reviewed, dictated and finalized at location K. IMPRESSION: Exam limited by positioning difficulty due to bilateral finger cont ractions. Within that constraint, no acute osseous finding in the bilateral ball ds or wrists. IMPRESSION: Exam limited by positioning difficulty due to bilateral finger cont ractions. Within that constraint, no acute osseous finding in the bilateral ball ds or wrists. IMPRESSION: Exam limited by positioning difficulty due to bilateral finger cont ractions. Within that constraint, no acute osseous finding in the bilateral ball ds or wrists.
--- NOTE | ~2021-12-31 | CT_ITS ---
EXAMINATION: CT cervical spine wo con DATE: 12/31/2021 17:54 INDICATION: head injury s/p GLF TECHNIQUE: Computed tomography (CT) of the cervical spine was performed without intravenous contrast. Automated exposure control and iterative reconstruction technique were employed. The dose-length pro duct was 533.04 mGy-cm. COMPARISON: 07/21/2014 FINDINGS: Vertebral Body Alignment: Reversal lordosis. 2 mm anterolisthesis of C4 on C5, presumably on a degene rative basis. Alignment otherwise intact. Craniocervical and atlantoaxial alignment: Mild degenerative change. Alignment intact. Osseous structures/fracture: No evidence of a lytic or blastic process in the visualized spine. No e vidence of acute fracture. Right C4-5 facet fusion Cervical soft tissues: The paraspinal soft tissues planes are maintained. 5 mm spiculated left upper lobe pulmonary nodule. Degenerative changes: Multilevel degenerative disc disease. Severe left C6-7 neural foraminal narrowi ng. No severe central canal narrowing. IMPRESSION: No acute fracture or traumatic malalignment in the cervical spine. Spiculated 5 mm left upper lobe pu lmonary nodule, recommend outpatient noncontrast CT of the chest for further evaluation. Reviewed, dictated and finalized at location K. IMPRESSION: No acute fracture or traumatic malalignment in the cervical spine. Spiculated 5 mm left upper lobe pulmonary nodule, recommend outpatient noncontrast CT of th e chest for further evaluation.
[2021-12-31 16:51] VITALS: BP 152/69; PULSE 65; RESP 14; TEMP 37.2; O2SAT 99
--- NOTE | 2021-12-31 17:45 | ED.FALL ---
HPI - Fall General Chief Complaint: Fall Stated Complaint: Fall Time Seen by Provider: 12/31/21 17:24 History of Present Illness HPI Narrative: 66-year-old female history of muscular dystrophy and is currently anticoagulated presents to the emergency room for evaluation of injury sustained from a ground-level fall. Patient states she normally uses a walker when she was trying to step up from a curb and she had lost her balance falling forward on her outstretched hands. Patient states her hand stuck in the brunt of the fall, but she states that she struck the side of her face on concrete and struck her right knee on the concrete 2. Patient was ambulatory to the emergency room. Denies any loss of consciousness or mental status, somnolence, nausea vomiting, or visual or hearing changes. Related Data Home Medications Medication Instructions Recorded Confirmed cetirizine 10 mg tablet 10 mg PO DAILY PRN Allergy Symptoms 10/01/20 10/31/21 ibandronate 150 mg tablet 150 mg PO MONTHLY 10/01/20 10/31/21 metoprolol tartrate 100 mg tablet 50 mg PO DAILY 10/01/20 10/31/21 atorvastatin 10 mg tablet 10 mg PO DAILY 10/22/20 10/31/21 calcium carb 300 mg-D3 800 2 tablet PO DAILY 10/22/20 10/31/21 unit-mag ox 25 mg-copper roller handler printing 0.5 mg-lucho-Zn tablet (Caltrate + D3 Plus Minerals) nifedipine 30 mg tablet,extended 30 mg PO DAILY 03/23/21 10/31/21 release telmisartan 40 mg tablet 40 mg PO DAILY 03/23/21 10/31/21 azathioprine 50 mg tablet 50 mg PO DAILY 10/31/21 ibandronate 150 mg tablet (Boniva) 150 mg PO MONTHLY 10/31/21 rivaroxaban 20 mg tablet (Xarelto) 20 mg PO DAILY 10/31/21 Allergies Allergy/AdvReac Type Severity Reaction Status Date / Time NKDA Allergy Unknown Unknown Uncoded 12/31/21 17:30 Review of Systems Review of Systems: CONSTITUTIONAL: Denies fever, chills, or sweats. EYES: Denies visual changes, redness, or discharge. ENT: Denies rhinorrhea, congestion, sore throat, or otalgia. CARDIOVASCULAR: Denies chest pain, palpitations, or edema. RESPIRATORY: Denies cough or dyspnea. GASTROINTESTINAL: Denies abdominal pain, nausea, vomiting, or diarrhea. GENITOURINARY: Denies dysuria or hematuria. SKIN: Denies rash or itching. MUSCULOSKELETAL: Reports bilateral hand and wrist pain, right knee pain, right facial pain NEUROLOGIC: Denies headache, numbness, dizziness, or weakness. PSYCHIATRIC: Denies anxiety or depression. [facility] Past Medical History Medical History Afib Arthritis Atrial fib/flutter, transient Blood clot due to device, implant, or graft Claustrophobia CMT (Hiwhcrw-Sgvow-Zmupp disease) Constipation Diarrhea Foot drop, bilateral History of adverse reaction to anesthesia History of intraoperative complication of surgical procedure HTN (hypertension) Hyperlipidemia with low HDL Hypertension Light headedness Obese MAURIZIO (obstructive sleep apnea) Osteoporosis Osteoporosis SOB (shortness of breath) Wears glasses Surgical History Surgical History History of right knee joint replacement 11/18/2002. HEMATOMA EVACUATION 11/25/2002 Family History Family History Father Arthritis Diabetes mellitus Hypertension Neuropathy Stomach cancer Mother Asthma Heart disease Hypertension Sibling Diabetes mellitus Other Alcoholism Anxiety Social History Social History Smoking status: Never smoker Second hand tobacco smoke exposure: No Alcohol intake: never Substance use: never Substance use type: does not use Gender identity (if verbalized by the patient): Female Sexual Orientation (if Verbalized by the Patient): Straight or Heterosexual Spiritual care concerns: No Exam Narrative: GENERAL: Well-appearing, well-nourished, no physical limitations, and in no acute distre
[2021-12-31 18:50] VITALS: BP 148/86; PULSE 80; RESP 16; O2SAT 98
[2021-12-31] MEDS: ACETAMINOPHEN 500 MG TABLET 1000 MG PO (18:50)
== END 2021-12-31 18:55 | disposition home or self-care (01) ==
PROVIDERS: Emergency Provider Nurse Practitioner Family; PCP Family Medicine
DX: S09.90XA Unspecified injury of head, initial encounter (principal); M25.531 Pain in right wrist; S69.92XA Unspecified injury of left wrist, hand and finger(s), initial encounter; S80.212A Abrasion, left knee, initial encounter; W10.1XXA Fall (on)(from) sidewalk curb, initial encounter; G71.00 Muscular dystrophy, unspecified; I48.91 Unspecified atrial fibrillation; G60.0 Hereditary motor and sensory neuropathy; I10 Essential (primary) hypertension; E78.5 Hyperlipidemia, unspecified; G47.33 Obstructive sleep apnea (adult) (pediatric); M81.0 Age-related osteoporosis without current pathological fracture; Z79.01 Long term (current) use of anticoagulants; Z79.51 Long term (current) use of inhaled steroids
CPT/HCPCS: 70450; 72125; 73110; 73130; 99284; A9270

== ENCOUNTER 2022-01-11 12:18 | Emergency (ER) | payer MEDICARE, SELFPAY ==
--- NOTE | ~2022-01-11 | CT_ITS ---
EXAMINATION: CT abdomen pelvis w con DATE: 01/11/2022 15:15 INDICATION: Abdominal pain TECHNIQUE: Computed tomography (CT) of the abdomen and pelvis was performed with 100 mL Omnipaque-350 intravenous contrast. Automated exposure control and iterative reconstruction technique were employe d. The dose-length product was 678.65 mGy-cm. COMPARISON: Chest CT dated 01/15/2020 FINDINGS: Mild bibasilar atelectasis. Heart size is normal. Atherosclerotic coronary artery calcification. No p ericardial effusion. There is infiltrating soft tissue density in the mediastinum extending along the cephalad margin of the heart and around the visualized ascending and descending aorta as well as the central pulmonary arteries extending to the isael. This does not appear appreciably changed since alyssa st CT dated 01/15/2020 with the soft tissue density continued cephalad around the great vessels at the superior mediastinum. Calcified mediastinal and bilateral hilar lymph nodes consistent with old gran ulomatous disease. Cholecystectomy clips the gallbladder fossa. Liver, spleen, pancreas, bilateral ad renal glands and kidneys are normal. There appears to be some diffuse mild wall thickening of the sto mach. There are multiple fluid-filled but not frankly dilated loops of small bowel without a discrete transition point and favor ileus or gastroenteritis over obstruction. Colon is unremarkable. The tatianna endix is not visualized. No pericecal inflammatory change to suggest acute appendicitis. Bladder, nenana ayla and bilateral adnexa are unremarkable. There is dilation of the gonadal and parametrial veins par ticularly on the left which can be seen with pelvic vascular congestion syndrome. Small amount of asc ites in the left or right upper quadrants and in the pelvis. No abscess or free intraperitoneal gas. Very small fat-containing umbilical hernia. No pathologically enlarged abdominal or pelvic lymphadeno niraj. Mild thoracolumbar dextroscoliosis with moderate to severe spondylosis. Moderate bilateral hip osteoarthritis. IMPRESSION: 1. Mild diffuse wall thickening of the stomach and multiple gas and fluid-filled but not frankly dila fidelina loops of small bowel which could represent a gastroenteritis or ileus. 2. Small amount of ascites in the abdomen and pelvis. 3. Stable appearance since 01/14/2011 of infiltrating soft tissue in the visualized mediastinum. Diffe rential would include fibrosing mediastinitis,, vasculitis or less likely infiltrating lymphoma or th ymoma given the lack of appreciable interval change and distribution. Reviewed, dictated and finalized at location A. IMPRESSION: 1. Mild diffuse wall thickening of the stomach and multiple gas and fluid-fille d but not frankly dilated loops of small bowel which could represent a gastroen teritis or ileus. 2. Small amount of ascites in the abdomen and pelvis. 3. Stable appearance since 01/14/2011 of infiltrating soft tissue in the visuali zed mediastinum. Differential would include fibrosing mediastinitis,, vasculiti s or less likely infiltrating lymphoma or thymoma given the lack of appreciable interval change and distribution.
[2022-01-11 12:20] VITALS: BP 153/72; PULSE 70; RESP 18; TEMP 36.7; O2SAT 97
[2022-01-11 13:02] LABS: Appearance Urine Clear (Clear); Bilirubin Urine 2+ (Negative); Blood Urine Negative (Negative); Color Urine Yellow (Yellow); Glucose Urine UA Negative (Negative); Ketones Urine 1+ mg/dL (Negative); Leukocyte Esterase Ur Negative LEU/UL (Negative); Nitrate Urine Negative (Negative); Protein Urine 1+ mg/dL (Negative); Specific Grav Ur 1.025 (1.001-1.035); pH Urine 5.5 (5.0-9.0)
[2022-01-11 13:03] LABS: Basophils Percent Auto 0.2 % (0.2-1.2); Hematocrit 40.3 % (37.0-47.0); Hemoglobin 13.7 g/dL (12.0-15.0); Immature Granulocyte Absolute 0.03 K/mm3 (0.00-0.031); Immature Granulocyte Percent A 0.4 % (0-0.5); Lymphocytes Absolute Auto 0.82 K/mm3 (0.9-3.2); Lymphocytes Percent Auto 10.2 % (18.3-44.2); Mean Corpuscular Hemoglobin 32.2 pg (26-34); Mean Corpuscular Volume 94.6 fl (80-100); Mean Platelet Volume 10.6 fl (7.4-10.4); Monocytes Absolute Auto 0.3 K/mm3 (0.1-0.6); Monocytes Percent Auto 4.2 % (2.6-8.5); Neutrophils Absolute Auto 6.8 K/mm3 (1.3-6.7); Platelet Count Result 360 k/mm3 (150-375); Red Blood Count 4.26 M/mm3 (4.2-5.4); Red Cell Distribution Width 14.5 % (11.5-14.5); White Blood Count 8.1 K/mm3 (4.5-10.0)
[2022-01-11] MEDS: SODIUM CHLORIDE 0.9% IV 1,000 ML 999 ML IV CONT (13:08)
[2022-01-11] MEDS: ONDANSETRON INJ 4 MG/2 ML VIAL IV PUSH (13:11)
[2022-01-11 13:12] VITALS: BP 134/72; PULSE 85; RESP 19; TEMP 36.8; O2SAT 96
[2022-01-11 13:14] LABS: Bacteria Urine Trace /hpf; Mucus Urine Heavy /lpf; Squamous Epithelial Cell Urine Many /hpf (Few); Transitional Epi Cells Urine Rare /hpf (None Seen)
[2022-01-11 13:27] LABS: Add Urine Microscopic? YES
[2022-01-11 13:31] LABS: Alanine Aminotransferase 14 U/L (6-35); Albumin Level 4.3 g/dL (3.5-5.1); Alkaline Phosphatase 73 U/L (38-126); Anion Gap 12 mmol/L (8-16); Aspartate Amino Transferase 20 U/L (14-36); Bilirubin,Total 0.8 mg/dL (0.2-1.3); Blood Urea Nitrogen 25 mg/dL (7-17); Calcium 9.3 mg/dL (8.4-10.2); Carbon Dioxide 24 mmol/L (22-30); Chloride 105 mmol/L (98-107); Estimated Glomerular Filt Rate > 60; Glucose 163 mg/dL (65-110); Lipase 43 U/L (23-300); Potassium 3.8 mmol/L (3.4-5.0); Sodium 141 mmol/L (137-145)
[2022-01-11 14:09] VITALS: BP 110/60; PULSE 66; RESP 15; O2SAT 100
[2022-01-11 16:32] VITALS: BP 117/52; PULSE 71; RESP 19; O2SAT 99
--- NOTE | 2022-01-11 17:13 | ED.ABDPAIN ---
HPI - Abdominal Pain General Chief Complaint: Abdominal Pain Stated Complaint: i think i have food poisoning Time Seen by Provider: 01/11/22 12:23 Source: RN notes reviewed History of Present Illness HPI narrative: Patient presents emergency department from home for abdominal pain. Patient states symptoms began yesterday. States that she has diffuse abdominal pain is described as cramping. States has been associate with nausea vomiting and diarrhea. Patient states that she believes she ate something bad yesterday that caused her symptoms she denies any fever chills chest pain shortness of breath or any other symptoms states she not take any medication for the symptoms today Related Data Home Medications Medication Instructions Recorded Confirmed cetirizine 10 mg tablet 10 mg PO DAILY PRN Allergy Symptoms 10/01/20 10/31/21 ibandronate 150 mg tablet 150 mg PO MONTHLY 10/01/20 10/31/21 metoprolol tartrate 100 mg tablet 50 mg PO DAILY 10/01/20 10/31/21 atorvastatin 10 mg tablet 10 mg PO DAILY 10/22/20 10/31/21 calcium carb 300 mg-D3 800 2 tablet PO DAILY 10/22/20 10/31/21 unit-mag ox 25 mg-copy editor 0.5 mg-lucho-Zn tablet (Caltrate + D3 Plus Minerals) nifedipine 30 mg tablet,extended 30 mg PO DAILY 03/23/21 10/31/21 release telmisartan 40 mg tablet 40 mg PO DAILY 03/23/21 10/31/21 azathioprine 50 mg tablet 50 mg PO DAILY 10/31/21 ibandronate 150 mg tablet (Boniva) 150 mg PO MONTHLY 10/31/21 rivaroxaban 20 mg tablet (Xarelto) 20 mg PO DAILY 10/31/21 Allergies Allergy/AdvReac Type Severity Reaction Status Date / Time NKDA Allergy Unknown Unknown Uncoded 01/11/22 12:33 Review of Systems Review of Systems: Gen.: Denies fevers or chills ENT: Denies congestion Respiratory: Denies shortness of breath or cough CV: Denies chest pain or palpitations GI: See HPI denies burning, urgency, frequency or hematuria Musculoskeletal: Denies back pain or muscle pain Neuro: Denies numbness, tingling, weakness or focal weakness Skin: Denies rash Except as documented, all other systems reviewed and negative PMFSH Past Medical History Medical History Afib Arthritis Atrial fib/flutter, transient Blood clot due to device, implant, or graft Claustrophobia CMT (Ibqaouk-Djsjy-Dirmk disease) Constipation Diarrhea Foot drop, bilateral History of adverse reaction to anesthesia History of intraoperative complication of surgical procedure HTN (hypertension) Hyperlipidemia with low HDL Hypertension Light headedness Obese MAURIZIO (obstructive sleep apnea) Osteoporosis Osteoporosis SOB (shortness of breath) Wears glasses Surgical History Surgical History History of right knee joint replacement 11/18/2002. HEMATOMA EVACUATION 11/25/2002 Family History Family History Father Arthritis Diabetes mellitus Hypertension Neuropathy Stomach cancer Mother Asthma Heart disease Hypertension Sibling Diabetes mellitus Other Alcoholism Anxiety Social History Social History Smoking status: Never smoker Second hand tobacco smoke exposure: No Alcohol intake: never Substance use: never Substance use type: does not use Gender identity (if verbalized by the patient): Female Sexual Orientation (if Verbalized by the Patient): Straight or Heterosexual Spiritual care concerns: No Exam Narrative: APPEARANCE: No acute distress, nontoxic, resting in bed HEENT: Normocephalic, atraumatic, OMM RESPIRATORY: No respiratory distress, clear to auscultation bilaterally with no rhonchi wheezing or rales CARDIOVASCULAR: RRR s murmur ABDOMINAL: Soft nondistended diffusely tender to palpation no rebound or guarding MUSCULOSKELETAl: Moves all extremities. No clubbing, cyanosis or edema. NEURO: Awake and
== END 2022-01-11 17:30 | disposition home or self-care (01) ==
PROVIDERS: Emergency Provider Emergency Medicine; PCP Family Medicine
DX: R11.2 Nausea with vomiting, unspecified (principal); R10.9 Unspecified abdominal pain; I48.91 Unspecified atrial fibrillation; M19.90 Unspecified osteoarthritis, unspecified site; I10 Essential (primary) hypertension; E66.9 Obesity, unspecified; G47.33 Obstructive sleep apnea (adult) (pediatric); M81.0 Age-related osteoporosis without current pathological fracture; Z96.651 Presence of right artificial knee joint
CPT/HCPCS: 36415; 74177; 80053; 81001; 83690; 85025; 87086; 87088; 96365; 96375; 99284; J0131; J2405; J7030; Q9967

== ENCOUNTER 2022-10-13 20:58 | Emergency (ER) | payer MEDICARE, SELFPAY ==
[2022-10-13 21:00] VITALS: BP 162/70; PULSE 83; RESP 18; TEMP 36.6; O2SAT 98
--- NOTE | 2022-10-13 21:19 | ED.EXTPRO ---
HPI - Extremity Problem General Chief complaint: Extremity Problem,Nontraumatic Stated complaint: arm swelling Time Seen by Provider: 10/13/22 21:08 History of Present Illness HPI Narrative: 67-year-old female was lifting cat litter a couple days ago, and then today noticed that her right arm was more swollen and painful. She is currently on Xarelto. No focal numbness or weakness. Related Data Home Medications Medication Instructions Recorded Confirmed cetirizine 10 mg tablet 10 mg PO DAILY PRN Allergy Symptoms 10/01/20 10/31/21 ibandronate 150 mg tablet 150 mg PO MONTHLY 10/01/20 10/31/21 metoprolol tartrate 100 mg tablet 50 mg PO DAILY 10/01/20 10/31/21 atorvastatin 10 mg tablet 10 mg PO DAILY 10/22/20 10/31/21 calcium carb 300 mg-D3 800 2 tablet PO DAILY 10/22/20 10/31/21 unit-mag ox 25 mg-copy cutter 0.5 mg-lucho-Zn tablet (Caltrate + D3 Plus Minerals) nifedipine 30 mg tablet,extended 30 mg PO DAILY 03/23/21 10/31/21 release telmisartan 40 mg tablet 40 mg PO DAILY 03/23/21 10/31/21 azathioprine 50 mg tablet 50 mg PO DAILY 10/31/21 ibandronate 150 mg tablet (Boniva) 150 mg PO MONTHLY 10/31/21 rivaroxaban 20 mg tablet (Xarelto) 20 mg PO DAILY 10/31/21 Allergies Allergy/AdvReac Type Severity Reaction Status Date / Time NKDA Allergy Unknown Unknown Uncoded 01/11/22 12:33 [facility] Past Medical History Medical History Afib Arthritis Atrial fib/flutter, transient Blood clot due to device, implant, or graft Claustrophobia CMT (Knciief-Gsyvn-Ffuxv disease) Constipation Diarrhea Foot drop, bilateral History of adverse reaction to anesthesia History of intraoperative complication of surgical procedure HTN (hypertension) Hyperlipidemia with low HDL Hypertension Light headedness Obese MAURIZIO (obstructive sleep apnea) Osteoporosis Osteoporosis SOB (shortness of breath) Wears glasses Surgical History Surgical History History of right knee joint replacement 11/18/2002. HEMATOMA EVACUATION 11/25/2002 Family History Family History Father Arthritis Diabetes mellitus Hypertension Neuropathy Stomach cancer Mother Asthma Heart disease Hypertension Sibling Diabetes mellitus Other Alcoholism Anxiety Social History Social History Smoking status: Never smoker Second hand tobacco smoke exposure: No Alcohol intake: never Substance use: never Substance use type: does not use Living arrangements: with family Occupation/Education: retired Gender identity (if verbalized by the patient): Female Sexual Orientation (if Verbalized by the Patient): Straight or Heterosexual Spiritual care concerns: No Exam Narrative: EXAMINATION OF ORGAN SYSTEMS/BODY AREAS: Constitutional: Vital signs per nursing GENERAL:[No acute distress, non-toxic appearing.] HEAD: Normal with no signs of head trauma. EYES: EOMI, conjunctiva normal ENT: Hearing grossly intact LUNGS: Nonlabored breathing. HEART: [Regular rate and rhythm] ABD: Nondistended EXT: Normal range of motion, some tenderness to palpation mid bicep some swelling, soft compartments, some pain with flexion of elbow but able to flex and extend fully SKIN: [No rashes or lesions.] NEURO: [Alert and oriented x 3. No gross focal sensory or strength deficits.] PSYCH: Normal affect Course Vital Signs Vital signs: Vital Signs Temperature 97.9 F 10/13/22 21:00 Pulse Rate 83 10/13/22 21:00 Respiratory Rate 18 10/13/22 21:00 Blood Pressure 162/70 H 10/13/22 21:00 Pulse Oximetry 98 10/13/22 21:00 Oxygen Delivery Room Air 10/13/22 21:00 Temperature 97.9 F 10/13/22 21:00 Pulse Rate 83 10/13/22 21:00 Respiratory Rate 18 10/13/22 21:00 Blood Pressure 162/70 H 10/13/22 21:00 Pulse Oxime
[2022-10-13] MEDS: LIDOCAINE 5% PATCH 1 PATCH TRANSDERM (21:22)
== END 2022-10-13 21:35 | disposition home or self-care (01) ==
LOC: ANHED 21:30
PROVIDERS: Emergency Provider Emergency Medicine; PCP Family Medicine
DX: S46.211A Strain of muscle, fascia and tendon of other parts of biceps, right arm, initial encounter (principal); I48.91 Unspecified atrial fibrillation; I10 Essential (primary) hypertension; E78.5 Hyperlipidemia, unspecified; M19.90 Unspecified osteoarthritis, unspecified site; M81.0 Age-related osteoporosis without current pathological fracture; G60.0 Hereditary motor and sensory neuropathy; G47.33 Obstructive sleep apnea (adult) (pediatric); E66.9 Obesity, unspecified; Z68.32 Body mass index [BMI] 32.0-32.9, adult; Z79.01 Long term (current) use of anticoagulants; X50.0XXA Overexertion from strenuous movement or load, initial encounter
CPT/HCPCS: 99283; A9270

== ENCOUNTER 2023-09-28 13:01 | Outpatient (CLI) | payer MEDICARE, SELFPAY ==
[2023-09-28 13:52] LABS: Basophils Percent Auto 0.7 % (0.2-1.2); Eosinophils Absolute Auto 0.2 K/mm3 (0-0.3); Eosinophils Percent Auto 3.8 % (0-4.4); Hematocrit 38.8 % (37.0-47.0); Hemoglobin 13.2 g/dL (12.0-15.0); Immature Granulocyte Absolute 0.01 K/mm3 (0.00-0.031); Immature Granulocyte Percent A 0.2 % (0-0.5); Lymphocytes Absolute Auto 0.95 K/mm3 (0.9-3.2); Lymphocytes Percent Auto 21.4 % (18.3-44.2); Mean Corpuscular Hemoglobin 32.9 pg (26-34); Mean Corpuscular Volume 96.8 fl (80-100); Mean Platelet Volume 10.7 fl (7.4-10.4); Monocytes Absolute Auto 0.6 K/mm3 (0.1-0.6); Monocytes Percent Auto 14.4 % (2.6-8.5); Neutrophils Absolute Auto 2.6 K/mm3 (1.3-6.7); Neutrophils Percent Auto 59.5 % (45.5-73.1); Platelet Count Result 212 k/mm3 (150-375); Red Blood Count 4.01 M/mm3 (4.2-5.4); Red Cell Distribution Width 13.3 % (11.5-14.5); White Blood Count 4.4 K/mm3 (4.5-10.0)
[2023-09-28 14:14] LABS: Alanine Aminotransferase 14 U/L (6-35); Alkaline Phosphatase 76 U/L (38-126); Anion Gap 5 mmol/L (4-12); Aspartate Amino Transferase 21 U/L (14-36); Bilirubin,Total 1.1 mg/dL (0.2-1.3); Blood Urea Nitrogen 19 mg/dL (7-17); Carbon Dioxide 25 mmol/L (22-30); Chloride 111 mmol/L (98-107); Cholesterol 180 mg/dL (0-200); Estimated Glomerular Filt Rate > 60; Glucose 175 mg/dL (65-110); HDL Direct 62 mg/dL; Potassium 4.1 mmol/L (3.4-5.0); Sodium 141 mmol/L (137-145); Triglycerides 116 mg/dL (<150)
[2023-09-28 14:26] LABS: LDL Cholesterol Direct 88 mg/dL
== END 2023-09-28 13:02 | disposition home or self-care (01) ==
LOC: ANHLAB 13:02
PROVIDERS: PCP Family Medicine; Visit Provider Registered Nurse
DX: E78.5 Hyperlipidemia, unspecified (principal); I10 Essential (primary) hypertension
CPT/HCPCS: 36415; 80053; 80061; 85025

== ENCOUNTER 2024-02-12 14:13 | Outpatient (CLI) | payer MEDICARE, BC, SELFPAY ==
[2024-02-12 14:47] LABS: Basophils Percent Auto 1.1 % (0.2-1.2); Eosinophils Absolute Auto 0.2 K/mm3 (0-0.3); Hemoglobin 13.1 g/dL (12.0-15.0); Immature Granulocyte Absolute 0.01 K/mm3 (0.00-0.031); Immature Granulocyte Percent A 0.3 % (0-0.5); Lymphocytes Absolute Auto 1.12 K/mm3 (0.9-3.2); Lymphocytes Percent Auto 29.6 % (18.3-44.2); Mean Corpuscular HGB Conc 33.6 g/dl (32-36); Mean Corpuscular Hemoglobin 31.8 pg (26-34); Mean Corpuscular Volume 94.7 fl (80-100); Mean Platelet Volume 10.4 fl (7.4-10.4); Monocytes Absolute Auto 0.5 K/mm3 (0.1-0.6); Monocytes Percent Auto 12.7 % (2.6-8.5); Neutrophils Percent Auto 51.3 % (45.5-73.1); Platelet Count Result 180 k/mm3 (150-375); Red Blood Count 4.12 M/mm3 (4.2-5.4); Red Cell Distribution Width 13.1 % (11.5-14.5); White Blood Count 3.8 K/mm3 (4.5-10.0)
[2024-02-12 14:58] LABS: Alanine Aminotransferase 27 U/L (6-35); Albumin Level 4.1 g/dL (3.5-5.1); Alkaline Phosphatase 81 U/L (38-126); Anion Gap 7 mmol/L (4-12); Aspartate Amino Transferase 23 U/L (14-36); Bilirubin,Total 0.9 mg/dL (0.2-1.3); Blood Urea Nitrogen 21 mg/dL (7-17); Calcium 9.7 mg/dL (8.4-10.2); Carbon Dioxide 27 mmol/L (22-30); Chloride 107 mmol/L (98-107); Estimated Glomerular Filt Rate > 60; Glucose 98 mg/dL (65-110); Hemoglobin A1C 6.3 % (<5.7); Potassium 4.1 mmol/L (3.4-5.0); Sodium 141 mmol/L (137-145)
[2024-02-12 15:29] LABS: Total Triiodothyronine (T3) 1.02 NG/ML (0.97-1.69)
[2024-02-12 16:20] LABS: Free T4 Free Thyroxine 0.99 ng/mL (0.78-2.19)
== END 2024-02-12 14:14 | disposition home or self-care (01) ==
LOC: ANHLAB 14:23
PROVIDERS: PCP Family Medicine; Visit Provider Family Medicine
DX: M06.9 Rheumatoid arthritis, unspecified (principal); E66.9 Obesity, unspecified; E11.43 Type 2 diabetes mellitus with diabetic autonomic (poly)neuropathy; I48.0 Paroxysmal atrial fibrillation; R53.83 Other fatigue
CPT/HCPCS: 36415; 80053; 83036; 84439; 84443; 84480; 85025

== ENCOUNTER 2024-12-16 10:56 | Observation (INO) | payer MEDICARE, BC, SELFPAY ==
[2024-12-16] VITALS (7 sets, daily range): BP systolic 131–155; BP diastolic 52–72; PULSE 61–71; RESP 16–20; TEMP 36.2–36.6; O2SAT 96–100; BMI 32.1
--- NOTE | ~2024-12-16 | XR_ITS ---
EXAM/PROCEDURE: XR chest 2V - 12/18/2024 8:35 CDT HISTORY: 69 years old Female with evaluate edema vs. pneumonia TECHNIQUE: Two view(s) of the chest. COMPARISON: None available. FINDINGS: LUNGS/ PLEURA: Lungs are hyperinflated with flattening of the diaphragm and increased lung markings in both upper lobes, findings seen with COPD. No focal consolidation. No appreciable pneumothorax or large pleural effusion. HEART/ MEDIASTINUM: Heart appears normal in size. BONES: Degenerative changes. OTHER: Visualized upper abdomen is unremarkable. IMPRESSION: No acute process. Reviewed, dictated and finalized at location N. IMPRESSION: No acute process.
--- NOTE | ~2024-12-16 | XR_ITS ---
XR chest 1V portable 12/16/2024 16:03 Indication: Pneumonia Procedure: AP portable chest Comparison: Comparison to multiple prior studies sequentially, with oldest reviewed study dated 05/18/2020. Findings: Cardiomegaly with interstitial edema. No significant effusion or pneumothorax. No acute osseous abnormality. Impression: 1: Cardiomegaly with interstitial edema. Reviewed, dictated and finalized at location O. Impression: 1: Cardiomegaly with interstitial edema.
--- NOTE | ~2024-12-16 | CT_ITS ---
EXAMINATION: CTA abdomen pelvis DATE: 12/16/2024 13:06 INDICATION: GI bleed TECHNIQUE: Computed tomography (CT) of the abdomen and pelvis was performed without intravenous contrast. The dose-length product was 966.55 mGy-cm. Automated exposure control and iterative reconstruction technique were employed. COMPARISON: CT dated 01/11/2022. FINDINGS: There are groundglass opacities right lower lobe. Mild cardiomegaly. No significant pleural or pericardial effusion. Aorta is normal in caliber without aneurysm or dissection. The celiac axis, SMA and JOSE ENRIQUE are widely patent. Renal arteries are widely patent. Status post cholecystectomy. There is osteoarthritis of the hips. There is dextroscoliosis of the thoracolumbar spine. There is moderate-severe lower thoracic and lumbar spondylosis. The liver, spleen, pancreas, adrenal glands and kidneys are unremarkable. No lymphadenopathy. Nonobstructive bowel gas pattern. There is a calcific density in the gastric lumen of uncertain origin. No free air or free fluid identified. IMPRESSION: 1. No acute abdominal abnormality. 2: Groundglass opacities right lower lobe, suspicious for pneumonia. 3: Calcific density of the gastric lumen of uncertain origin. No obstruction. Reviewed, dictated and finalized at location O.
--- OUTSIDE RECORDS SUMMARY | 2024-12-16 11:31 | XMS_ITS | Clinical Summary ---
Author Organization [facility] Health Address [address] [place] [address] Care Team Providers Care Social Services Manager Name Role Phone Unavailable Primary Care Provider Unavailabl e Social History Tobacco Use Types Packs/Day Years Used Date Smoking Tobacco: Never Assessed Comments Unknown Sex and Gender Information Value Date Recorded Sex Assigned at Not on file Legal Sex Female 1:20 AM PST Gender Identity Not on file Sexual Orientation Not on file Plan of Treatment Not on file Insurance [employer] PPO
--- OUTSIDE RECORDS SUMMARY | 2024-12-16 11:31 | XMS_ITS | Encounter Summary ---
Author Organization [facility] Health Address [address] [place] [address] Care Team Providers Care Director Of Outreach Name Role Phone Saúl Junior MD Unavailable [phone] Rinku Rocha MD Unavailable [phone] Stew Patrick MD Primary Care Provider [phone] Sabino Porter MD Primary Care Provider [phone] Encounter Details Date Type Department Care Team (Late st Contact Info) Description 04/26/2021 Telephone [facility] - Third Level [address] [place] [address], [place] [address] Marce Costello MD [address] [place] [address] [place] [address] Social History Tobacco Use Types Packs/Day Years Used Date Smoking Tobacco: Never Smokeless Tobacco: Never Alcohol Use Standard Drinks/Week Comments No 0 (1 standard drink = 0.6 oz pur e alcohol) Comments No Sex and Gender Information Value Date Recorded Sex Assigned at Not on file Legal Sex Female 6:19 AM DIRECTOR OF CATERING Gender Identity Not on file Sexual Orientation Not on file COVID-19 Exposure Response Date Recorded In the last month, have you been in contact with someone who was confirmed or suspected to have Coronavirus / COVID-19? No / Unsure 04/11/2021 12:21 PM DIRECTOR OF CATERING documented as of this encounter Miscellaneous Notes * Telephone Encounter - Christina Napier - 04/26/2021 1:22 PM CST Current Provider name: Dr. Marce Costello Reason for call: Ms. Gonzalez left message on 04/17/2021 in [facility] and wants to FU since she hasn't had a call. She wants to know what her test results mean and a plan of action. Here I read the resultsof my test, but I am not sure of the future course of action, please advise! Do I continue to get infusions, or am I a candidate to inject myself weekly, or can I take the pill? Or none of these! Please explain clearly about the nodule on my left lung Patient Call Back number: [phone] CTOR OF CATERING documented in this encounter Plan of Treatment Upcoming Encounters Date Type Department Care Team (Late st Contact Info) Description 04/22/2025 1:30 PM DIRECTOR OF CATERING Office Visit [facility] - Rheumatology [address] [place] [address], [place] [phone] Kathryn Jay MD [address] [place] [address] [place] [phone] 04/23/2025 11:00 AM DIRECTOR OF CATERING Appointment [facility] CAT SCAN [address] [place] [phone] Akosua Gtz MD [address] [place] [phone] 05/29/2025 12:30 PM DIRECTOR OF CATERING Office Visit [facility] Health Heart & Vascular Care [address] [place] [address] [address] [place] [address] Saúl Junior MD [address] [place] [address] [place] [phone] documented as of this encounter Visit Diagnoses Not on filedocumented in this encounter Care Teams Director Of Outreach Relationship Specialty Start Date End Date Stew Patrick MD [address] [place] [address] PCP - General Family Medicine 01/03/21 07/14/21 Sabino Porter MD [address] [place] [address] PCP - General Family Medicine 07/15/21 Saúl Junior MD [address] [place] [address] Lockstitch Machine Operator Cardiology 11/03/20 Rinku Rocha MD [address] [place] [address] Electrophysiology 01/03/21 documented as of this encounter
--- OUTSIDE RECORDS SUMMARY | 2024-12-16 11:31 | XMS_ITS | Clinical Summary ---
Author Organization [facility] Aurelia esposito [facility] Address [address] [place] [address] Care Team Providers Care Microsoft Office Instructor Name Role Phone Unavailable Primary Care Provider Unavailabl e Social History Tobacco Use Types Packs/Day Years Used Date Smoking Tobacco: Never Assessed Comments Unknown Sex and Gender Information Value Date Recorded Sex Assigned at Not on file Legal Sex Female 2:40 PM CDT Gender Identity Not on file Sexual Orientation Not on file Plan of Treatment Upcoming Encounters Date Type Department Care Team (Late st Contact Info) Description 02/03/2025 10:30 AM CDT Office Visit [facility] Oncology and Hematology - Jose Luis [address] [facility] [address] [place] [address] Demarcus Ambriz MD [address] [facility] [address] [place] [address] Health Maintenance Due Date Last Done Comments DTAP/TDAP/TD VACCINES (1 - Tdap) 1974 BREAST CANCER SCREENING 1995 COLORECTAL SCREENING 2000 Colorectal Cancer Screening 2000 FIT-DNA Q 3 years 2000 FIT/FOBT Q 1 year 2000 Flex Sig/CT Colonography Q 5 years 2000 PNEUMOCOCCAL VACCINE 50+ YEARS (1 of 1 - PCV) 03/05/20 05 ZOSTER VACCINE (1 of 2) 2005 OSTEOPOROSIS SCREENING 2020 INFLUENZA VACCINE (#1) 2024 RSV VACCINE (60+ or ) (1 - 1-dose 75+ series) 2030 Insurance [facility]
--- OUTSIDE RECORDS SUMMARY | 2024-12-16 11:31 | XMS_ITS | Encounter Summary ---
Author Organization [facility] Address [address] [place] [address] Care Team Providers Care Converter Operator Name Role Phone Sabino Porter MD Primary Care Provider [phone] Saúl Junior MD Unavailable [phone] Stew Patrick MD Primary Care Provider [phone] Sabino Porter MD Primary Care Provider [phone] Rinku Rocha MD Unavailable [phone] Stew Patrick MD Primary Care Provider [phone] Sabino Porter MD Primary Care Provider [phone] Reason for Visit * Reason Onset Date Comments Question 12/27/2018 Junior Java Developer Exam 12/27/2018 Encounter Details Date Type Department Care Team (Late st Contact Info) Description 12/27/2018 Telephone [facility] Medical [facility] - STRIPPER AND TAPER [address] [address] [place] [address] [place] [address] Question; Junior Java Developer Exam Social History Tobacco Use Types Packs/Day Years Used Date Smoking Tobacco: Never Alcohol Use Standard Drinks/Week Comments No 0 (1 standard drink = 0.6 oz pur e alcohol) Comments No Sex and Gender Information Value Date Recorded Sex Assigned at Not on file Legal Sex Female 6:19 AM RIG OPERATOR Gender Identity Not on file Sexual Orientation Not on file documented as of this encounter Miscellaneous Notes * Telephone Encounter - Krystina Ren - 12/27/2018 10:25 AM CDT Pt called wanting to know her results from a pap from last week. Please call [phone] and pt gave permission for messages to be left if she doesn't answer documented in this encounter Plan of Treatment Upcoming Encounters Date Type Department Care Team (Late st Contact Info) Description 04/22/2025 1:30 PM RIG OPERATOR Office Visit [facility] - Rheumatology [address] [place] [address], [facility] [place] [phone] Kathryn Jay MD [address] [place] [address] [place] [phone] 04/23/2025 11:00 AM RIG OPERATOR Appointment [facility] CAT SCAN [address] [place] [phone] Akosua Gtz MD [address] [place] [phone] 05/29/2025 12:30 PM RIG OPERATOR Office Visit [facility] Heart & Vascular Care [address] [place] [address] [address] [place] [address] Saúl Junior MD [address] [place] [address] [address] [place] [phone] documented as of this encounter Visit Diagnoses Not on filedocumented in this encounter Care Teams Converter Operator Relationship Specialty Start Date End Date Sabino Porter MD [address] [address] [address] [place] [address] PCP - General Family Medicine 05/10/12 11/02/20 Stew Patrick MD [address] [facility] [address] [place] [address] PCP - General Family Medicine 11/03/20 11/14/20 Sabino Porter MD [address] [address] PCP - General 11/15/20 01/02/21 Stew Patrick MD [address] [place] [address] 3 [place] [address] PCP - General Family Medicine 01/03/21 07/14/21 Sabino Porter MD [address] [address] PCP - General Family Medicine 07/15/21 Saúl Junior MD [address] [place] [phone] Data Control Clerk Cardiology 11/03/20 Rinku Rocha MD [address] [place] [address] 3 [place] [address] Electrophysiology 01/03/21 documented as of this encounter
--- OUTSIDE RECORDS SUMMARY | 2024-12-16 11:31 | XMS_ITS | Clinical Summary ---
Author Organization [facility] Address [address] [place] [address] Care Team Providers Care Brand Executive Name Role Phone Sabino Porter MD Primary Care Provider [phone] Allergies No known active allergies Medications atorvastatin (LIPITOR) 10 mg tablet Take 10 mg by mouth daily. 8 Active nystatin (Nystop) powder as needed 0 Active rivaroxaban (XARELTO) 20 mg tabletIndications :atrial fibrillation Take 1 tablet (20 mg total) by mouth daily 30 tablet 2 0 Active calcium citrate 250 mg calcium tablet tablet Take 2 tablets (500 mg total) by mouth daily 60 tablet 11 0 Active metoprolol XL (TOPROL-XL) 100 mg 24 hr tablet Take 50 mg by mouth daily Active telmisartan (MICARDIS) 40 mg tabletIndications :HTN (hypertension), benign Take 1 tablet by mouth once daily 90 tablet 3 1 Active metFORMIN (GLUCOPHAGE) 500 mg tablet 1 Active cholecalciferol (cholecalciferol) 25 mcg (1,000 unit) tablet Take 2 tablets (2,000 Units total) by mouth daily 60 tablet 11 1 Active ferrous sulfate 325 mg (65 mg of elemental iron) tablet Take 1 tablet by mouth daily 1 Active ibandronate (BONIVA) 150 mg tablet 1 Active doxycycline 100 mg tablet Take 100 mg by mouth 2 (two) times a day 1 Active NIFEdipine CC 30 mg 24 hr tablet Take 1 tablet by mouth once daily 90 tablet 1 Active amiodarone (PACERONE) 200 mg tablet Take 1 tablet by mouth once daily 90 tablet 1 Active Active Problems Problem Noted Date Diagnosed Date Aortitis 02/27/2020 Nodule of right lung 01/15/2020 Assessment & Plan (01/15/2020 8:55 PM CDT): Indicental finding on CT scan from admission, recommend 6 mo f/u CT scan ASCUS with positive high risk HPV cervical 01/13 Overview (01/15/2020): 2020: Pap ASCUS, HPV+, 16/18 neg 2019: Pap neg, HPV+ 2016: Pap neg, HPV neg MAURIZIO on CPAP 12/19/2019 Assessment & Plan (01/15/2020 8:35 PM CDT): compliant w/ home CPAP, cont while inpatient Ascending aortic aneurysm 06/13/2019 Paroxysmal atrial fibrillation 07/12/2018 Assessment & Plan (01/19/2020 1:49 AM CDT): holding home AC - pt in and out of fib/flutter throughout the night - on metop 50 q6h for rate control - amio bolus 01/15, drip until 01/16 then transitioned to PO amio 400 daily - 10/5 AM, pt w/ rates in 130's in flutter/fib, amio bolused and started on drip, and given extra dose of metop Chronic anticoagulation 07/12/2018 Pulmonary HTN 05/27/2018 Assessment & Plan (01/19/2020 1:51 AM CDT): RVSP 32 11/2018 compared to 52 04/2018. MAURIZIO likely contributory. - TTE 01/15 showing mildly increased RV size Hypertension associated with diabetes 05/27/2018 Assessment & Plan (01/19/2020 1:50 AM CDT): Holding home telmisartan 40 qd and toprol xl 100qd - metop, losartan, nifedipine for type A intramural hematoma w/ hemopericardium as elsewhere - goal SBP <100-120 Nonrheumatic tricuspid valve regurgitation 05/27 Cough 05/27/2018 Palpitations 05/27/2018 Hereditary sensorimotor neuropathy 03/22/2017 Immunizations Immunization Administration Dates Next Due Influenza, Quadrivalent, Spl it, Intramuscular 02/28/2019,02/24/2015 Influenza, Quadrivalent, Spl it, Preservative Free, Intramuscular 02/28/2019,01/07/2018,01/06/2018 Influenza, Trivalent, IM (MDV) 02/05/2014,2011 Influenza, Trivalent, Preser vative Free, Intramuscular 12/20/2016,02/29/2016 ZOSTER LIVE 12/20/2016 Surgical History Surgery Date Site/Laterality Comments KNEE SURGERY GALLBLADDER SURGERY CATARACT EXTRACTION Medical History Medical History Date Comments Hypertension Hyperlipidemia Cataracts, bilateral Family History Medical History Relation Name Comments Cancer Father Heart disease Mother Relation Name Status Comments Father Mother Social History Tobacco Use Types Packs/Day Years Used Date Smoking Tobacco: Never Smokeless Tobacco: Never Tobacco Cessation:Counseling Given: Yes Alcohol Use Standard Drinks/Week Comments No 0 (1 standard drink = 0.6 oz pur e alcohol) Personal Safety Answer Date Recorded Getting School Help Needed Not on file 06/11 Comments No Sex and Gender Information Value Date Recorded Sex Assigned at Not on file Legal Sex Female 12:03 PM AUTO DAMAGE APPRAISER Gender Identity Not on file Sexual Orientation Not on file Obstetrics History Last Filed Vital Signs Vital Sign Reading Time Taken Comments Blood Pressure 126/70 12/28/2020 11:17 AM CDT Pulse 71 12/28/2020 11:17 AM CDT Temperature 37.2 C (98.9 F) 12/28/2020 11:17 AM CDT Respiratory Rate 16 12/02/2020 1:47 PM CDT Oxygen Saturation 100% 12/02/2020 3:20 PM CDT Inhaled Oxygen Concentration - - Weight 97.5 kg (215 lb) 12/28/2020 11:17 AM CDT Height 172.7 cm (5' 8) 12/28/2020 11:17 AM CDT Body Mass Index 32.69 12/28/2020 11:17 AM CDT Plan of Treatment Not on file Medical Devices Implanted Type Area Acid Correction Hand Device Identifier Shelf Expiration Date Model / Serial / Lot Knee Replacement Knee Insurance [employer] HMO [employer] H[employer] Advance Directives For more information, please contact: [phone] * Full Code (Latest Code Status on File) Date Activated Date Inactivated Comments 01/19/2020 3:05 PM 01/20/2020 9:36 PM * Full Code Date Activated Date Inactivated Comments 01/15/2020 10:56 PM 01/19/2020 3:05 PM Care Teams Brand Executive Relationship Specialty Start Date End Date Sabino Porter MD PCP - General 03/22/17
--- OUTSIDE RECORDS SUMMARY | 2024-12-16 11:31 | XMS_ITS | Encounter Summary ---
Author Organization [facility] Health Address [address] [place] [address] Care Team Providers Care Ssrs Developer Name Role Phone Unavailable Primary Care Provider Unavailabl e Prior Encounters Date Type Department Care Team Description 05/05/2019 Converted CPS Chart Documents [facility] [address] [place] [address] <No scans attached> 05/05/2019 Converted 13x Documents [facility] [address] [place] [phone] <No scans attached> Plan of Treatment Not on file Procedures Procedure Name Priority Date/Time Associated Diagnosis Comments TOPICAL APPLICATION OF FLUORIDE VARNISH Routine 05/19/2020 2:00 AM PAIN MANAGEMENT PHYSICIAN PERIO MAINTENANCE Routine 05/18/2020 2:0 0 AM PAIN MANAGEMENT PHYSICIAN ORAL HYGIENE INSTRUCTIONS Routine 2020 2:00 AM PAIN MANAGEMENT PHYSICIAN PERIODIC ORAL EVALUATION - ESTABLISHED PATIENT Routine 09/30/2019 2:00 AM CDT PERIO MAINTENANCE Routine 09/30/2019 2: 00 AM CDT ORAL HYGIENE INSTRUCTIONS Routine 2019 2:00 AM CDT BITEWINGS - FOUR RADIOGRAPHIC IMAGES Routine 09/30/2019 2:00 AM CDT PERIO MAINTENANCE Routine 04/03/2019 2:0 0 AM PAIN MANAGEMENT PHYSICIAN TOPICAL APPLICATION OF FLUORIDE VARNISH Routine 04/03/2019 2:00 AM PAIN MANAGEMENT PHYSICIAN PERIO MAINTENANCE Routine 10/02/2018 2:0 0 AM CDT ORAL HYGIENE INSTRUCTIONS Routine 2018 2:00 AM CDT BITEWINGS - FOUR RADIOGRAPHIC IMAGES Routine 10/02/2018 2:00 AM CDT PERIO MAINTENANCE Routine 04/02/2018 2:0 0 AM PAIN MANAGEMENT PHYSICIAN ORAL HYGIENE INSTRUCTIONS Routine 2017 2:00 AM PAIN MANAGEMENT PHYSICIAN 3 UR OSSEOUS SURGERY FOUR OR MORE CONTIGUOUS TEETH Routine 2018 2:00 AM PAIN MANAGEMENT PHYSICIAN 30 LR OSSEOUS SURGERY FOUR OR MORE CONTIGUOUS TEETH Routine 2018 2:00 AM PAIN MANAGEMENT PHYSICIAN 14 UL OSSEOUS SURGERY FOUR OR MORE CONTIGUOUS TEETH Routine 02/05/2018 2:00 AM CDT 19 LL OSSEOUS SURGERY FOUR OR MORE CONTIGUOUS TEETH Routine 02/05/2018 2:00 AM CDT 15 EXTRACTION, ERUPTED TOOTH REQUIRING REMOVAL OF BONE AND/OR SECTIONING OF TOOTH Routine 02/05/2018 2:00 AM CDT TREATMENT OF COMPLICATIONS (POST-SURGICAL) - UNUSUAL CIRCUMSTANCES, BY REPORT Routine 01/04/2018 2:00 AM CDT PERIO CONSULT Routine 07/27/2017 2:00 AM CDT Visit Diagnoses Not on file Insurance [employer] PPO
--- OUTSIDE RECORDS SUMMARY | 2024-12-16 11:31 | XMS_ITS | Encounter Summary ---
Author Organization [facility] Health Address [address] [facility] [place] [address] Care Team Providers Care Exterminator Helper Name Role Phone Saúl Junior MD Unavailable [phone] Rinku Rocha MD Unavailable [phone] Sabino Porter MD Primary Care Provider Encounter Details Date Type Department Care Team (Late st Contact Info) Description 11/18/2024 Results Follow-Up [facility] OP DRAW STATION [address] [place] [phone] Saúl Junior MD [address] [facility] [address] [place] [address] Social History Tobacco Use Types Packs/Day Years Used Date Smoking Tobacco: Never Smokeless Tobacco: Never Alcohol Use Standard Drinks/Week Comments No 0 (1 standard drink = 0.6 oz pur e alcohol) PHQ-2 Answer Date Recorded Patient Health Questionnaire-2 Score 0 10/15/2024 Comments No Sex and Gender Information Value Date Recorded Sex Assigned at Not on file Legal Sex Female 6:19 AM SHOPPING CENTRE MANAGER Gender Identity Not on file Sexual Orientation Not on file documented as of this encounter Progress Notes * Saúl Junior MD - 11/18/2024 12:20 PM CDT You were correct, you are anemic. I would recommend talking with your PCP and Dr Carranza about nextsteps. documented in this encounter Plan of Treatment Upcoming Encounters Date Type Department Care Team (Late st Contact Info) Description 04/22/2025 1:30 PM SHOPPING CENTRE MANAGER Office Visit [facility] - Rhe[facility]ology [address] [facility], [place] [phone] Kathryn Jay MD [facility] [facility] [place] [phone] 04/23/2025 11:00 AM SHOPPING CENTRE MANAGER Appointment [facility] CAT SCAN [address] [place] [phone] Akosua Gtz MD [facility]5 [place] [phone] 05/29/2025 12:30 PM SHOPPING CENTRE MANAGER Office Visit [facility] Heart & Vascular Care [address] [facility] [address] [place], [place] [phone] Saúl Junior MD [facility] [address] documented as of this encounter Visit Diagnoses Not on filedocumented in this encounter Care Teams Exterminator Helper Relationship Specialty Start Date End Date Sabino Porter MD [address] [place] [address] PCP - General Family Medicine 07/15/21 Saúl Junior MD [facility] [address] [place] [address] [facility] Cardiology 11/03/20 Rinku Rocha MD [facility] [address] [place] [address] Electrophysiology 01/03/21 documented as of this encounter
--- OUTSIDE RECORDS SUMMARY | 2024-12-16 11:31 | XMS_ITS | Clinical Summary ---
Author Organization [facility] Address [address] [address] Care Team Providers Care Roofer Metal Name Role Phone Saúl Junior MD Unavailable [phone] Rinku Rocha MD Unavailable [phone] Sabino Porter MD Primary Care Provider [phone] Source Comments [facility],non-owned Affiliates and Associated Physician Practices is amultiple site organization consisting of ambulatory clinics and hospital sitesin [place], [place], [place] and [place]. This disclosure is being madepursuant to the Care Everywhere program and may not contain all information available regarding this patient. Last updated 18.[facility] Allergies No known active allergies Medications * Be aware that medications may not be up to date on this document. Alwaysverify current medications with the patient. metoprolol succinate XL 24hr (Toprol XL) 100 MG tablet Take 1 (one) tablet by mouth once daily 90 tablet 3 07/22/19 23 Active atorvastatin (Lipitor) 10 MG tablet Take 1 (one) tablet by mouth once daily 90 tablet 3 07/22/19 23 Active nystatin (Mycostatin) 566460 UNIT/GM cream 07/26/19 23 Active acetaminophen (Tylenol) 325 MG tabletIndication s:Anemia, unspecified type Take 2 (two) tablets by mouth every 6 hours as needed Maximum allowable Acetaminophen amount = 4 Grams (4000 mg) / 24 hours. 10/20/19 23 Active calcium carbonate-vitami n D (Calcium + D) 600-5 MG-MCG tablet Take 2 (two) tablets by mouth once daily 07/19/19 24 Active secukinumab (Cosentyx) 150 MG/ML SOAJ pen Inject 300 (three hundred) mg subcutaneously every 28 days 2 mL 5 10/16/19 24 Active albuterol HFA (Proventil; Ventolin; Proair) 108 (90 Base) MCG/ACT inhaler INHALE 2 PUFFS BY MOUTH 4 TIMES DAILY Active upadacitinib ER (Rinvoq) 15 MG tabletIndication s:Giant cell arteritis (HCC),Aortitis,I mmunosuppression due to drug therapy ([facility]) Take 1 (one) tablet by mouth once daily for 56 days 04/30/19 25 Active Xarelto 20 MG tabletIndication s:Paroxysmal atrial fibrillation (HCC) Take 1 (one) tablet by mouth once daily 90 tablet 3 05/09/19 25 Active upadacitinib ER (Rinvoq) 15 MG tabletIndication s:Giant-Cell Arteritis,Active aortitis with GCA Take 1 (one) tablet by mouth once daily Reasons: Artery Inflammation in the Aspen Area, Active aortitis with GCA 90 tablet 2 08/13/19 25 Active upadacitinib ER (Rinvoq) 15 MG tabletIndication s:Giant-Cell Arteritis,active aortitis in the setting of GCA Take 1 (one) tablet by mouth once daily Reasons: Artery Inflammation in the Aspen Area, active aortitis in the setting of GCA 90 tablet 1 08/30/19 25 Active NIFEdipine CR 24hr (Adalat CC) 30 MG tabletIndication s:Paroxysmal atrial fibrillation (HCC),Essential hypertension,Chr onic heart failure with preserved ejection fraction (HFpEF) ([facility]) Take 1 tablet by mouth once daily 90 tablet 3 09/16/19 25 Active telmisartan (Micardis) 40 MG tablet Take 1 (one) tablet by mouth once daily 90 tablet 3 10/29/19 25 Active Active Problems Problem Noted Date Diagnosed Date Temporal arteritis 07/19/2023 Anemia, unspecified type 10/17/2022 Traumatic hematoma of right upper arm 10/17/2022 Moderate mixed hyperlipidemia not requiring stat in therapy 10/17/2022 Giant cell arteritis 04/18/2022 Muscular dystrophy, unspecified 01/09/2021 Intramural hematoma of thoracic aorta 01/09/2021 Essential hypertension 01/09/2021 Type 2 diabetes mellitus wit hout complication, without long-term current use of insulin 01/09/2021 Chronic heart failure with p reserved ejection fraction (HFpEF) 11/03/2020 Aortitis 02/27/2020 Nodule of right lung 01/15/2020 Overview (09/08/2021): Last Assessment & Plan: Indicental finding on CT scan from admission, recommend 6 mo f/u CT scan ASCUS with positive high risk HPV cervical 01/13 Overview (02/21/2023): 2022 pap/hpv neg 2019: Pap ASCUS, HPV+, 16/18 neg; ECC neg; pap in 12 months 2019: Pap neg, HPV+ 2016: Pap neg, HPV neg MAURIZIO on CPAP 12/19/2019 Overview (01/09/2021): Last Assessment & Plan: compliant w/ home CPAP, cont while inpatient Ascending aortic aneurysm 06/13/2019 Paroxysmal atrial fibrillation 07/12/2018 Overview (11/03/2020): Last Assessment & Plan: holding home AC - pt in and out of fib/flutter throughout the night - on metop 50 q6h for rate control - amio bolus 01/15, drip until 01/16 then transitioned to PO amio 400 daily - 10/5 AM, pt w/ rates in 130's in flutter/fib, amio bolused and started on drip, and given extra dose of metop Chronic anticoagulation 07/12/2018 Hypertension associated with diabetes 05/27/2018 Overview (11/03/2020): Last Assessment & Plan: Holding home telmisartan 40 qd and toprol xl 100qd - metop, losartan, nifedipine for type A intramural hematoma w/ hemopericardium as elsewhere - goal SBP <100-120 Nonrheumatic tricuspid valve regurgitation 05/27 Palpitations 05/27/2018 Pulmonary HTN 05/27/2018 Overview (09/08/2021): Last Assessment & Plan: RVSP 32 11/2018 compared to 52 04/2018. MAURIZIO likely contributory. - TTE 01/15 showing mildly increased RV size Hereditary sensorimotor neuropathy 03/22/2017 Resolved Problems Problem Noted Date Diagnosed Date Resolved Date Cough 05/27/2018 10/06/2021 Postmenopausal bleeding 01/16/2014 09/0 08/2018 Encounters Date Type Department Care Team Description 11/18/2024 11:29 AM CDT - 11/18/2024 11:59 PM CDT Hospital Encounter [facility] OP DRAW STATION [address] [place] [address] Discharge Disposition: Home or Self Care 11/18/2024 9:45 AM CDT Office Visit [facility] Heart & Vascular Care [address] [place] [address] [address] [place] [address] Saúl Junior MD Chronic heart failure with preserved ejection fraction (HFpEF) (HCC) (Primary Dx); Paroxysmal atrial fibrillation (CMS/HCC); Chronic anticoagulation; Aortitis; Essential hypertension 11/18/2024 Results Follow-Up [facility] OP DRAW STATION [address] [place] [address] Saúl Junior MD 11/18/2024 Travel 10/28/2024 Refill [facility] & Vascular Care [address] [place] [address] [address] [place] [address] Saúl Junior MD MEDICATION REFILL 10/15/2024 1:30 PM CDT Office Visit [facility] - Rheumatology [address] [facility] [place] [phone] Kathryn Jay MD Giant cell arteritis (HCC) (Primary Dx); Aortitis; Immunosuppression due to drug therapy (HCC) 10/15/2024 Travel 09/15/2024 Refill [facility] & Vascular Care [address] [place] [address] [address] [place] [address] Saúl Junior MD Refill Request from Last 3 Months Immunizations Immunization Administration Dates Next Due INFLUENZA VACCINE, TRIV. (AF LURIA, FLUZONE TRIVALENT; 6MO+) (IIV3) 02/05/2014,02/15/2012 Covid Pfizer primary monoval ent 12+ yr 0.3mL Purple cap 08/21/2020,07/16/2020 FLU VACCINE QUAD IIV4 SPLIT 0.25 ML IM 5 FLU VACCINE TRI IIV3 SPLIT PF IM (FLUVIRIN) 09/2016,02/29/2016 INFLUENZA VACCINE, HIGH-DOSE , QUADR. (FLUZONE HIGH-DOSE QUADRIVALENT; 65Y+), 0.7 ML (HD-IIV4) 04/04/2021 INFLUENZA VACCINE, QUADR. (A FLURIA, FLUZONE QUADRIVALENT; 6MO+) (IIV4) 02/28/2019 INFLUENZA VACCINE, QUADR. (F LUZONE; FLULAVAL; FLUARIX; AFLURIA QUADRIVALENT; 6MO+), 0.5 ML (IIV4) 02/28/2019,01/07/2018,01/06/2018 PNEUMOCOCCAL PPSV23 02/03/2020 ZOSTER VACCINE, LIVE 12/20/2016 iNFLUENZA VACCINE, RECOM-XAVIER, QUADR. (FLUBLOCK QUADRIVALENT; 18Y+) (RIV4) 02/03/2020 Family History Medical History Relation Name Comments Diabetes Brother Cancer - Breast Daughter Cancer - Stomach Father Diabetes Father Hypertension Father Heart Disease Mother cardiomegaly Hypertension Mother Relation Name Status Comments Brother Daughter Father Mother Social History Tobacco Use Types Packs/Day Years Used Date Smoking Tobacco: Never Smokeless Tobacco: Never Tobacco Cessation:Counseling Given: Not Answered Alcohol Use Standard Drinks/Week Comments No 0 (1 standard drink = 0.6 oz pur e alcohol) PHQ-2 Answer Date Recorded Patient Health Questionnaire-2 Score 0 10/15/2024 Comments No Sex and Gender Information Value Date Recorded Sex Assigned at Not on file Legal Sex Female 6:19 AM COLORECTAL SURGEON Gender Identity Not on file Sexual Orientation Not on file Last Filed Vital Signs Vital Sign Reading Time Taken Comments Blood Pressure 128/64 11/18/2024 10:01 AM CDT Pulse 62 11/18/2024 10:01 AM CDT Temperature 36.7 C (98 F) 11/18/2024 10:01 AM CDT Respiratory Rate 20 07/19/2023 4:15 PM CDT Oxygen Saturation 96% 10/15/2024 1:35 PM CDT Inhaled Oxygen Concentration - - Weight 95.3 kg (210 lb) 11/18/2024 10:01 AM CDT Height 170.2 cm (5' 7) 10/15/2024 1:35 PM CDT Body Mass Index 32.89 10/15/2024 1:35 PM CDT Plan of Treatment Upcoming Encounters Date Type Department Care Team (Late st Contact Info) Description 04/22/2025 1:30 PM COLORECTAL SURGEON Office Visit [facility] - Rheumatology [address] [place] [address], [facility] [place] [phone] Kathryn Jay MD [address] [place] [address] [place] [phone] 04/23/2025 11:00 AM COLORECTAL SURGEON Appointment [facility] CAT SCAN [address] [place] [phone] Akosua Gtz MD [address] [place] [phone] 05/29/2025 12:30 PM COLORECTAL SURGEON Office Visit [facility] Heart & Vascular Care [address] [facility] [address] [place] [address] Saúl Junior MD [address] [place] [address] [place] [phone] Health Maintenance Due Date Last Done Comments BONE DENSITY TESTING 1955 COLOGUARD (AGES 45-75) - COLON CA SCREENING 1955 COLON MONITORING 1955 COLONOSCOPY - COLON CA SCREENING 1955 CT COLONOGRAPHY - COLON CA SCREENING 1955 Colorectal Cancer Screening 1955 FIT - COLON CA SCREENING 1955 FLEX SIG - COLON CA SCREENING 1955 DTAP/TDAP/TD VACCINES (1 - Tdap) 1974 Respiratory Syncytial Virus (RSV) Vaccine Pt: or over 60 yrs (1 - Risk 60-74 years 1-dose series) 2015 ZOSTER VACCINE (1 of 2) 02/14/2017 12/20/2016 DIABETES RETINOPATHY SCREENING 11/03/2020 DIABETES-FOOT EXAM WITH MONOFILAMENT 11/03/2020 PNEUMOCOCCAL VACCINE 50+ (2 of 2 - PCV) 02/02/2021 02/03/2020 COVID-19 VACCINE (4 - season) 2023 05/25/2021, 08/21/2020, 07/16/2020 DIABETES - URINE PROTEIN SCREENING 04/16/2024 MEDICARE AW CALENDAR YEAR 2024 DIABETES-HGB A1C 09/23/2024 03/25/2024, , 01/15/2020 INFLUENZA VACCINE (#1) 2024 , 02/03/2020, 02/28/2019, Additional history exists DIABETES-SERUM CREATININE 11/18/20252024, 03/25/2024, 08/03/2023, Additional history exists MAMMOGRAM 09/11/2026 09/11/2024, 02/14, 02/02/2022 HEPATITIS C SCREENING Completed 04/21/2022 , 12/19/2018, 02/04/2016, Additional history exists DEPRESSION SCREENING Completed 04/30/2024, 05/05/2022, 09/08/2021 HEPATITIS B VACCINE Aged Out No longe r eligible based on patient's age to complete this topic HIB VACCINE Aged Out No longer eligi ble based on patient's age to complete this topic HPV VACCINE Aged Out No longer eligi ble based on patient's age to complete this topic MENINGOCOCCAL (Group B) VACCINE SHARED DECISION-MAKING Aged Out No longer eligible based on patient's age to complete this topic MENINGOCOCCAL GROUPS A/C/Y/W VACCINE Aged Out No longer eligible based on patient's age to complete this topic Procedures Procedure Name Priority Date/Time Associated Diagnosis Comments BASIC METABOLIC PANEL (CALCIUM TOTAL) Routine 11/18/2024 11:42 AM CDT Giant cell arteritis (HCC) CBC W AUTO DIFFERENTIAL Routine 11/18/2024 11:42 AM CDT Giant cell arteritis (HCC) MAMMO BILAT SCREENING W TIMI Routine 09/11/2024 12:17 PM CDT Visit for screening mammogram HEMOGLOBIN A1C Routine 03/25/2024 3:04 PM COLORECTAL SURGEON Giant cell arteritis Aortitis HEPATITIS C ANTIBODY Routine 04/21/2022 3:49 PM COLORECTAL SURGEON Giant cell arteritis Need for hepatitis C screening test from Last 3 Months or Most Recently Relevant to Health Maintenance Results * (ABNORMAL) CBC W/ DIFFERENTIAL (11/18/2024 11:42 AM CDT) WBC 5.1 4.0 - 10.7 x10E9/L 11/18/2024 12:17 PM [facility] RBC Count 2.56(L) 3.90 - 5.20 x10E12/L 11/18/2024 12:17 PM [facility] Hemoglobin 8.3(L) 11.9 - 15.8 g/dL 11/18/2024 12:17 PM [facility] Hematocrit 25.0(L) 34.8 - 46.1 % 11/18/2024 12:17 PM [facility] MCV 97.7 80.0 - 98.0 fL 11/18/2024 12:17 PM [facility] MCH 32.4 26.7 - 33.6 pg 11/18/2024 12:17 PM [facility] MCHC 33.2 31.7 - 36.3 g/dL 11/18/2024 12:17 PM [facility] RDW-CV 14.1 11.3 - 14.8 % 11/18/2024 12:17 PM [facility] Platelet Count 198 150 - 420 x10E9/L 11/18/2024 12:17 PM [facility] MPV 10.5 7.8 - 11.4 fL 11/18/2024 12:17 PM [facility] Neutrophil % 56.0 41.0 - 74.0 % 11/18/2024 12:17 PM [facility] Lymphocyte % 29.4 17.0 - 47.0 % 11/18/2024 12:17 PM [facility] Monocyte % 12.6(H) 3.0 - 11.0 % 11/18/2024 12:17 PM [facility] Eosinophil % 1.4 0.0 - 7.0 % 11/18/2024 12:17 PM [facility] Basophil % 0.4 0.0 - 1.6 % 11/18/2024 12:17 PM [facility] Immature Granulocytes % 0.2 0.0 - 1.0 % 11/18/2024 12:17 PM [facility] Neutrophil Absolute 2.83 1.60 - 7.50 x10E9/L 11/18/2024 12:17 PM [facility] Lymphocyte Absolute 1.49 1.00 - 4.40 x10E9/L 11/18/2024 12:17 PM [facility] Monocyte Absolute 0.64 0.15 - 1.00 x10E9/L 11/18/2024 12:17 PM [facility] Eosinophil Absolute 0.07 0.00 - 0.60 x10E9/L 11/18/2024 12:17 PM [facility] Basophil Absolute 0.02 0.00 - 0.13 x10E9/L 11/18/2024 12:17 PM [facility] Blood BLOOD SPECIMEN / Unknown Lab Venipuncture / Unknown 11/18/2024 11:42 AM CDT 11/18/2024 11:59 AM CDT us Saúl Junior MD LAB - HEMATOLOGY ORDERABLES Fin al Result [facility] [address] [place] [address], [facility] [phone] * (ABNORMAL) BASIC METABOLIC PANEL (CALCIUM TOTAL) (11/18/2024 11:42 AM CDT) BUN 30(H) 7 - 26 mg/dL 11/18/2024 12:40 PM [facility] Creatinine 0.78 0.56 - 0.96 mg/dL 11/18/2024 12:40 PM [facility] Sodium 143 136 - 145 mmol/L 11/18/2024 12:40 PM [facility] Potassium 4.3 3.5 - 4.5 mmol/L 11/18/2024 12:40 PM [facility] Chloride 115(H) 98 - 107 mmol/L 11/18/2024 12:40 PM [facility] CO2 24 22 - 29 mmol/L 11/18/2024 12:40 PM [facility] Glucose 119(H) 70 - 99 mg/dL 11/18/2024 12:40 PM [facility] Calcium 9.1 8.4 - 10.2 mg/dL 11/18/2024 12:40 PM [facility] Anion Gap 4(L) 6 - 16 11/18/2024 12:40 PM [facility] BUN/Creatinine Ratio 38(H) 7 - 23 11/18/2024 12:40 PM [facility] Osmolality Calculated 303(H) 275 - 295 mOsm/kg 11/18/2024 12:40 PM [facility] eGFR by CKD-EPI 82(L) >=90 mL/min/1.7 3 m2 11/18/2024 12:40 PM [facility] Comment:Estimated Glomerular Filtration Rate (eGFR) calculated using the CKD-EPI Creatinine Equation (2020), per the National Kidney Foundation and [place] Society of Nephrology recommendations. Blood BLOOD SPECIMEN / Unknown Lab Venipuncture / Unknown 11/18/2024 11:42 AM CDT 11/18/2024 11:59 AM CDT Saúl Junior MD LAB - CHEMISTRY ORDERABLES Charo raza Result [facility] [address] [place] [address], [facility] [phone] * Mammo Bilat Screening W Timi (09/11/2024 12:17 PM CDT) Anatomical Region Laterality Modality Breast Bilateral Mammography 09/11/2024 3:05 PM CDT Impressions 09/11/2024 3:15 PM CDT IMPRESSION: There is no mammographic evidence of malignancy. OVERALL FINAL ASSESSMENT: BI-RADS Category 1: Negative. Annual screening mammography is recommended. > Interpreting Provider: Kitty Contreras MD on 09/11/2024 3:15 PM Narrative 09/11/2024 3:15 PM CDT EXAMINATION: BILATERAL DIGITAL SCREENING MAMMOGRAM AND BILATERAL BREAST TOMOSYNTHESIS HISTORY: Screening. COMPARISON: Serial examinations dating back to 2021. TECHNIQUE: BILATERAL digital breast tomosynthesis (DBT) and synthetic 2D digital mammogram images were obtained (bilateral craniocaudal and mediolateral oblique projections) including computer aided detection (CAD.) BREAST PARENCHYMAL COMPOSITION:Category B: There are scattered areas of fibroglandular density. MAMMOGRAM FINDINGS: There are no new suspicious masses, calcifications, or areas of architectural distortion in either breast, and there has been no significant interval change. us Sabino Porter MD MAMMO ORDERABLES Final Resul t * (ABNORMAL) HEMOGLOBIN A1C (03/25/2024 3:04 PM COLORECTAL SURGEON) Hemoglobin A1c 5.8(H) <=5.6 % 03/26/2024 9:27 AM [facility] Estimated Average Glucose 120 mg/dL 03/26/2024 9:27 AM [facility] Comment: HbA1c Interpretation: Normal : < 5.7% Pre-diabetes: 5.7-6.4% Diabetes: Equal to or greater than 6.5% Test results diagnostic of diabetes should be repeated for confirmation. Treatment target values recommended by ADA and other clinical organizations should be used to evaluate metabolic control in patients. Reference: [place] Diabetes Association, Standards of Care in Diabetes -2020 In patients 70 years and older consider HbA1c target range of 7.0-7.5% (Reference: Jefferson Bean et al. JAMDA. 2012) The Sebia assay for the measurement of HbA1c is a National Glycohemoglobin Standardization Program (NGSP) certified method. Blood BLOOD SPECIMEN / Unknown Lab Venipuncture / Unknown 03/25/2024 3:04 PM COLORECTAL SURGEON 03/25/2024 3:34 PM COLORECTAL SURGEON Andre Dial MD LAB - CHEMISTRY ORDERABLES Final Result Performing Organization Address City/[facility]/ZIP Co de Phone Number [address] [address], [place] [phone] * HEPATITIS C ANTIBODY (04/21/2022 3:49 PM COLORECTAL SURGEON) Hepatitis C Antibody Non-react laura Non-reac tive 04/21/2022 4:51 PM COLORECTAL SURGEON [facility] Comment:Hepatitis C Antibody screen indicates no serologic evidence of past or current infection with Hepatitis C Virus. Patients with unexplained liver disease who are immunocompromised or suspected of having acute Hepatitis C infection may benefit from Nucleic Acid Test (GABRIEL) for Hepatitis C Viral RNA to confirm Hepatitis C status. Blood BLOOD SPECIMEN / Unknown Lab Venipuncture / Unknown 04/21/2022 3:49 PM COLORECTAL SURGEON 04/21/2022 4:00 PM COLORECTAL SURGEON Andre Dial MD LAB - CHEMISTRY ORDERABLES Final Result Performing Organization Address [facility] Co de Phone Number [address] [address], [facility] [phone] from Last 3 Months or Most Recently Relevant to Health Maintenance Insurance [facility] Advance Directives Documents on File Type Date Recorded Patient Show Worker Expl anation Adv Directive/Living Will/POA 01/31/2024 1:13 PM verbal Adv Directive/Living Will/POA 07/19/2023 * Full Code (Latest Code Status on File) Date Activated Date Inactivated Comments 10/17/2022 9:49 PM 10/19/2022 12:32 PM Care Teams Roofer Metal Relationship Specialty Start Date End Date Sabino Porter MD [address] [place] [address] PCP - General Family Medicine 07/15/21 Saúl Junior MD [address] [place] [address] Mineral Technologist Cardiology 11/03/20 Rinku Rocha MD [address] [place] [address] Electrophysiology 01/03/21
[2024-12-16 11:35] LABS: Hematocrit 22.9 % (37.0-47.0); Immature Granulocyte Percent A 0.7 % (0-0.5); Lymphocytes Absolute Auto 0.94 K/mm3 (0.9-3.2); Mean Corpuscular HGB Conc 30.1 g/dl (32-36); Mean Corpuscular Hemoglobin 31.7 pg (26-34); Mean Corpuscular Volume 105.0 fl (80-100); Nucleated Red Blood Cells Absolute Auto 0.030 K/mm3 (0.0-0.012); Nucleated Red Blood Cells Perc 0.5 % (0.0-0.2); Platelet Count Result 238 k/mm3 (150-375); Red Blood Count 2.18 M/mm3 (4.2-5.4); White Blood Count 5.8 K/mm3 (4.5-10.0)
[2024-12-16 11:47] LABS: Hemoglobin 6.9 g/dL (12.0-15.0)
[2024-12-16 12:00] LABS: Alanine Aminotransferase 20 U/L (6-35); Albumin Level 3.9 g/dL (3.5-5.1); Alkaline Phosphatase 60 U/L (38-126); Anion Gap 7 mmol/L (4-12); Aspartate Amino Transferase 29 U/L (14-36); Bilirubin,Total 0.4 mg/dL (0.2-1.3); Blood Urea Nitrogen 26 mg/dL (7-17); Calcium 9.6 mg/dL (8.4-10.2); Carbon Dioxide 24 mmol/L (22-30); Chloride 109 mmol/L (98-107); Estimated CRCL calculation 68 ml/min; Estimated Glomerular Filt Rate > 60; Glucose 174 mg/dL (65-110); Potassium 4.4 mmol/L (3.4-5.0); Sodium 140 mmol/L (137-145); Total Protein 6.7 g/dL (6.3-8.2)
[2024-12-16 12:29] LABS: Iron 67 ug/dL (37-170)
[2024-12-16 12:38] LABS: Percent Iron Saturation 16 % (20-50)
--- NOTE | 2024-12-16 14:19 | ED.GENADULT ---
HPI - General Adult General Chief complaint: Recheck/Abnormal Lab/Rx Stated complaint: abn labs Time Seen by Provider: 12/16/24 11:05 Source: patient Mode of arrival: ambulatory Limitations: no limitations History of Present Illness HPI narrative: 69-year-old with a history of AFib on Xarelto, hypertension was sent in by primary doctor for low hemoglobin. Patient states that for past 2 weeks he has been having intermittent melanotic stool and a maroon-colored blood in her stool. She also has complains of mild shortness of breath with ambulation and feeling weak most of the time. Denies any chest pain or abdominal pain. Onset (ago): week(s) (2) Severity: mild Exacerbating factors: none Associated symptoms: shortness of breath and weakness Related Data Home Medications ?Medication ?Instructions ?Recorded ?Confirmed ?Last Taken ?Type cetirizine 10 mg tablet 10 mg PO DAILY PRN Allergy Symptoms 10/01/20 10/31/21 10/22/20 History ibandronate 150 mg tablet 150 mg PO MONTHLY 10/01/20 10/31/21 10/08/20 History metoprolol tartrate 100 mg tablet 50 mg PO DAILY 10/01/20 10/31/21 10/22/20 History atorvastatin 10 mg tablet 10 mg PO DAILY 10/22/20 10/31/21 10/22/20 History calcium 300 mg-D3 20 mcg-magnesium 2 tablet PO DAILY 10/22/20 10/31/21 10/22/20 History 25 mg-coppr 0.5 [id number] tablet (Caltrate-D3 Plus Minerals) nifedipine 30 mg tablet,extended 30 mg PO DAILY 03/23/21 10/31/21 Unknown History release telmisartan 40 mg tablet 40 mg PO DAILY 03/23/21 10/31/21 Unknown History azathioprine 50 mg tablet 50 mg PO DAILY 10/31/21 Unknown History ibandronate 150 mg tablet (Boniva) 150 mg PO MONTHLY 10/31/21 Unknown History rivaroxaban 20 mg tablet (Xarelto) 20 mg PO DAILY 10/31/21 Unknown History Allergies Allergy/AdvReac Type Severity Reaction Status Date / Time No Known Drug Allergies Allergy Verified 12/16/24 12:29 Review of Systems Review of Systems: All systems reviewed & are unremarkable except as noted in HPI and below Constitutional: Constitutional: Reports no additional constitutional complaints Eyes: Eyes: Reports no additional eye complaints ENT: Reports system reviewed and no additional complaints, except as documented Cardiovascular: Cardiovascular: Reports no additional cardiovascular complaints Respiratory: Respiratory: Reports no additional respiratory complaints Gastrointestinal: Gastrointestinal: Reports as per HPI Musculoskeletal: Musculoskeletal: Reports no additional musculoskeletal complaints Integumentary/Breasts: Skin/Breast: Reports system reviewed and no additional complaints, except as docu Neurologic: Reports system reviewed and no additional complaints, except as documented Psychiatric: Psychiatric: Reports no additional psychiatric complaints PMFSH Past Medical History Medical History Osteoporosis Hypertension Blood clot due to device, implant, or graft Arthritis Obese Diarrhea Constipation Afib SOB (shortness of breath) Wears glasses Light headedness Claustrophobia History of intraoperative complication of surgical procedure History of adverse reaction to anesthesia Foot drop, bilateral Atrial fib/flutter, transient Hyperlipidemia with low HDL HTN (hypertension) MAURIZIO (obstructive sleep apnea) Osteoporosis CMT (Hezzvqi-Xffhf-Nhuea disease) Surgical History Surgical History History of right knee joint replacement 11/18/2002. HEMATOMA EVACUATION 11/25/2002 Family History Family History Father Arthritis Diabetes mellitus Hypertension Neuropathy Stomach cancer Mother Asthma Heart disease Hypertension Sibling Diabetes mellitus Other Alcoholism Anxiety Social History Social History Smoking status: Never smoker Second hand tobacco smoke exposure: No Alcohol intake: never Substance use: never Substance use type: does not use Living arrangements: with family Occupation/Education: retired Gender identity (if verbalized by the patient): Female Sexual Orientation (if Verbalized by the Patient): Straight or Heterosexual Spiritual care concerns: No Exam Narrative: GENERAL: Well-appearing, well-nourished, and in no acute distress. HEAD: Normocephalic, atraumatic. EYES: PERRLA and EOMI. ENT: Nares clear, no rhinorrhea or epistaxis. Mucous membranes moist. NECK: Supple. CHEST: Clear to auscultation. No respiratory distress. HEART: Regular rate and rhythm. No murmur heard. Normal peripheral pulses. ABDOMEN: Soft, nontender, nondistended, normal active bowel sounds. EXTREMITIES: Normal range of motion. No edema. SKIN: Warm, dry, no rash. NEURO: No focal deficits. Alert and oriented x3. PSYCH: Normal mood and affect. Course Course Emergency Course: Notified patient about her lab work, CT findings. Patient presently has no abdominal pain for blood in the stool or black color stool. She is agreeable for blood transfusion. Will admit her to the hospital have GI consult. Meanwhile will liver IV Protonix. Most likely cause of her bleeding could be from the Xarelto. Vital Signs Vital signs: Vital Signs Pulse Oximetry 97 12/16/24 13:07 Pulse Oximetry 97 12/16/24 13:07 Medical Decision Making Differential Diagnosis Differential Diagnosis: Iron deficiency anemia, GI bleed Vital Signs Vital Signs: Vital Signs Pulse Oximetry 97 12/16/24 13:07 Pulse Oximetry 97 12/16/24 13:07 Lab Data Lab results reviewed: Yes I reviewed the patient's lab results. 12/16/24 11:25 12/16/24 11:25 Labs: Lab Results 12/16/24 12/16/24 12/16/24 Range/Units 11:24 11:25 12:15 WBC 5.8 (4.5-10.0) K/mm3 RBC 2.18 L (4.2-5.4) M/mm3 Hgb 6.9 L* D (12.0-15.0) g/dL Hct 22.9 L (37.0-47.0) % MCV 105.0 H (80-100) fl MCH 31.7 (26-34) pg MCHC 30.1 L (32-36) g/dl RDW 17.9 H (11.5-14.5) % Plt Count 238 (150-375) k/mm3 MPV 9.9 (7.4-10.4) fl Immature Gran % (Auto) 0.7 H (0-0.5) % Neut % (Auto) 69.3 (45.5-73.1) % Lymph % (Auto) 16.2 L (18.3-44.2) % [place] % (Auto) 11.7 H (2.6-8.5) % Eos % (Auto) 1.4 (0-4.4) % Baso % (Auto) 0.7 (0.2-1.2) % Lymph # (Auto) 0.94 (0.9-3.2) K/mm3 [place] # (Auto) 0.7 H (0.1-0.6) K/mm3 Eos # (Auto) 0.1 (0-0.3) K/mm3 Baso # (Auto) 0.0 (0.0-0.1) K/mm3 Abs Immat Gran (auto) 0.04 H (0.00-0.031) K/mm3 Absolute Neuts (auto) 4.0 (1.3-6.7) K/mm3 Absolute Nucleated RBC 0.030 H (0.0-0.012) K/mm3 Nucleated RBC % 0.5 H (0.0-0.2) % Sodium 140 (137-145) mmol/L Potassium 4.4 (3.4-5.0) mmol/L Chloride 109 H (98-107) mmol/L Carbon Dioxide 24 (22-30) mmol/L Anion Gap 7 (4-12) mmol/L BUN 26 H (7-17) mg/dL Creatinine 0.82 (0.7-1.0) mg/dL Estim Creat Clear Calc 68 ml/min Estimated GFR > 60 (59 - ) Glucose 174 H (65-110) mg/dL Calcium 9.6 (8.4-10.2) mg/dL Iron 67 (37-170) ug/dL TIBC 419 (261-462) ug/dL % Saturation 16 L (20-50) % Total Bilirubin 0.4 (0.2-1.3) mg/dL AST 29 (14-36) U/L ALT 20 (6-35) U/L Alkaline Phosphatase 60 (38-126) U/L Total Protein 6.7 (6.3-8.2) g/dL Albumin 3.9 (3.5-5.1) g/dL Blood Type A Positive Antibody Screen Negative Imaging Data Radiologist's impression: ITS Impressions Abdomen/Pelvis CTA 12/16/24 14:02 IMPRESSION: 1. No acute abdominal abnormality. 2: Groundglass opacities right lower lobe, suspicious for pneumonia. 3: Calcific density of the gastric lumen of uncertain origin. No obstruction. Critical Care Time Critical Care Time Critical Care Time: Yes Total Critical Care Time: 45 Discharge Plan Discharge Clinical Impression: GI bleed Qualifiers: GI bleed type/associated pathology: unspecified gastrointestinal hemorrhage type Qualified Code(s): K92.2 - Gastrointestinal hemorrhage, unspecified Anemia Qualifiers: Anemia type: unspecified type Qualified Code(s): D64.9 - Anemia, unspecified Patient Disposition: Still a Patient Condition: Stable Patient Language: [place] Prescriptions: No Action metoprolol tartrate 100 mg tablet 50 mg PO DAILY cetirizine 10 mg tablet 10 mg PO DAILY PRN (Reason: Allergy Symptoms) ibandronate 150 mg tablet 150 mg PO MONTHLY Patient Comments: per patient med list nifedipine 30 mg tablet extended release 30 mg PO DAILY telmisartan 40 mg tablet 40 mg PO DAILY azathioprine 50 mg tablet 50 mg PO DAILY Rx Instructions: Takes 2 50 mg for total of 100 mg Xarelto 20 mg tablet 20 mg PO DAILY Rx Instructions: must administer with evening meal ibandronate [Boniva] 150 mg tablet 150 mg PO MONTHLY atorvastatin 10 mg tablet 10 mg PO DAILY Caltrate-D3 Plus Minerals 300 mg-800 unit -25 mg-0.5 mg Tablet 2 tablet PO DAILY guaifenesin [Mucus Relief ER] 600 mg Tablet Extended Release 12hr 600 mg PO Q12HR 7 Days Qty: 14 0RF albuterol sulfate [ProAir HFA] 90 mcg/actuation HFA aerosol inhaler 2 puff inhalation Q4-6H PRN (Reason: shortness of breath or wheezing) Qty: 6.7 0RF famotidine [Pepcid AC] 20 mg tablet 20 mg PO DAILY Qty: 14 0RF ondansetron 4 mg tablet,disintegrating 4 mg PO Q6H PRN (Reason: nausea and vomiting) Qty: 10 0RF acetaminophen [Tylenol Extra Strength] 500 mg tablet 1,000 mg PO Q6H PRN (Reason: pain) Qty: 50 0RF methocarbamol 750 mg tablet 750 mg PO TID Qty: 30 0RF lidocaine 5 % adhesive patch,medicated 1 patch topical DAILY Qty: 15 0RF Rx Instructions: leave on most painful area for up to 12 hrs Follow-up/Referrals: Sabino Porter MD [Primary Care Provider, Family Practice]
[2024-12-16] MEDS: PANTOPRAZOLE SODIUM IV 40 MG VIAL IV PUSH (14:26)
--- NOTE | 2024-12-16 15:39 | P.HP_ITS ---
H&P: HPI History of Present Illness Date/Time: 12/16/24 15:39 Chief Complaint: Abnormal labs Narrative: 69-year-old female past medical history AFib on Xarelto, hyperlipidemia, hypertension, sleep apnea, and blood clot presents the hospital with abnormal labs. Patient states that she went to her primary care provider because she was complaining of weakness, shortness of breath and dark stools. Patient states that she has had dark tardy stools for about 2 weeks. Patient states that she has had shortness of breath with activity and weakness that has increased over the last month. Patient denies nausea or vomiting, bright red blood per rectum. Lab work in the ED shows hemoglobin of 6.9, chloride of 109, BUN 26, glucose of 174, iron saturation 16, TIBC [address] of the abdomen and pelvis show no acute process in the abdomen. Ground-glass opacities suspicious for pneumonia. Chest x-ray pending Review of Systems Review of Systems: 12 systems were reviewed and are negativ e except for as per HPI. [facility] Past Medical History Medical History Osteoporosis Hypertension Blood clot due to device, implant, or graft Arthritis Obese Diarrhea Constipation Afib SOB (shortness of breath) Wears glasses Light headedness Claustrophobia History of intraoperative complication of surgical procedure History of adverse reaction to anesthesia Foot drop, bilateral Atrial fib/flutter, transient Hyperlipidemia with low HDL HTN (hypertension) MAURIZIO (obstructive sleep apnea) Osteoporosis CMT (Fsajlzf-Eqrer-Fuotw disease) Surgical History Surgical History History of right knee joint replacement 11/18/2002. HEMATOMA EVACUATION 11/25/2002 Family History Family History Father Arthritis Diabetes mellitus Hypertension Neuropathy Stomach cancer Mother Asthma Heart disease Hypertension Sibling Diabetes mellitus Other Alcoholism Anxiety Social History Social History Smoking status: Never smoker Second hand tobacco smoke exposure: No Alcohol intake: never Substance use: never Substance use type: does not use Lack of Transportation: No Lack of Food: Never True Current Housing: I Have Housing Concerned About Future Housing: No Difficulty Paying Gas/Electric Bills: No Difficulty Paying for Meds: No Currently Unemployed: No Education: Decline to Answer Difficulty w/ Childcare or Family Care: No Living arrangements: with family Occupation/Education: retired Gender identity (if verbalized by the patient): Female Sexual Orientation (if Verbalized by the Patient): Straight or Heterosexual Spiritual care concerns: No Meds Home Medications and Allergies Home Medications ?Medication ?Instructions ?Recorded ?Confirmed ?Type metoprolol tartrate 100 mg tablet 50 mg PO DAILY 10/0112/16/24 History atorvastatin 10 mg tablet 10 mg PO DAILY 10/22/2006/10 History calcium 300 mg-D3 20 mcg-magnesium 2 tablet PO DAILY 0 10/22/20 12/16/24 History 25 mg-coppr 0.5 [id number]-qrhy tablet (Caltrate-D3 Plus Minerals) albuterol sulfate 90 mcg/actuation 2 puff inhalation Q 4-6H PRN 10/26/20 12/16/24 Rx aerosol inhaler (ProAir HFA) shortness of breath or wh eezing #6.7 grams nifedipine 30 mg tablet,extended 30 mg PO DAILY 12/16/24 History release telmisartan 40 mg tablet 40 mg PO DAILY 03/23/2106/10 History rivaroxaban 20 mg tablet (Xarelto) 20 mg PO DAILY 10/1412/16/24 History ondansetron 4 mg disintegrating 4 mg PO Q6H PRN nausea and 01/11/22 12/16/24 Rx tablet vomiting #10 tabs acetaminophen 500 mg tablet 1,000 mg (2 x 500 mg) PO Q 6H PRN 10/13/22 12/16/24 Rx (Tylenol Extra Strength) pain #50 tabs upadacitinib 15 mg tablet,extended 15 mg PO DAILY 06/1012/16/24 History release 24 hr (Rinvoq) Allergies Allergy/AdvReac Type Severity Reaction Status Date / Time No Known Drug Allergies Allergy Verified 12/16/24 12:29 Vital Signs Vital Signs - 24 hr 12/16/24 13:07 12/16/24 15:26 Pulse Rate 61 Respiratory Rate 20 Pulse Oximetry 97 100 Exam Narrative: General: well appearing, appears stated age. HEENT: normocephalic, atraumatic. Mucous membranes moist. EOMI, PERRLA, bilateral sclera anicteric, no conjunctival injection. Neck supple without JVD, lymphadenopathy, or bruit. Respiratory: clear to ascultation bilaterally. No rales/rhonic/wheezes. Cardiovascular: Regular rate and rhythm, normal S1-S2 upon ascultation. No murmurs, rubs, or clicks. PMI is nondisplaced, capillary refill less than 3 second. Abdomen: Soft, round, no pulsatile masses, nondistended and nontender. No rebound, no guarding. No CVA tenderness, no hepatosplenomegaly. Bowel sounds present to all four quadrants. No high pitch or tinkling sounds, resonant to percussion. Extremities: No cyanosis, clubbing, Pulses are palpable 2/2. Active ROM to all four extremities. 1+ edema Neuro: Alert and orientated x 4. PERRLA. Cranial nerves 2-12 intact without focal deficit. Skin: Warm, dry, and intact, without rash, erythema, or lesion. Psych: pleasant, cooperative, normal speech, normal affect, no hallucinations, no dysarthia H&P: Results Labs Labs: Short CBC 12/16/24 Range/Units 11:25 WBC 5.8 (4.5-10.0) K/mm3 Hgb 6.9 L* D (12.0-15.0) g/dL Hct 22.9 L (37.0-47.0) % Plt Count 238 (150-375) k/mm3 BMP 12/16/24 11:25 Sodium 140 Potassium 4.4 Chloride 109 H Carbon Dioxide 24 BUN 26 H Creatinine 0.82 Glucose 174 H Calcium 9.6 Liver Function 12/16/24 Range/Units 11:25 Total Bilirubin 0.4 (0.2-1.3) mg/dL AST 29 (14-36) U/L ALT 20 (6-35) U/L Alkaline Phosphatase 60 (38-126) U/L Albumin 3.9 (3.5-5.1) g/dL Assessment and Plan Assessment and plan (1) GI bleed: Qualifiers: GI bleed type/associated pathology: unspecified gastrointestinal hemorrhage type Qualified Code(s): K92.2 - Gastrointestinal hemorrhage, unspecified Code(s): K92.2 - Gastrointestinal hemorrhage, unspecified Status: Acute Assessment and Plan: GI consulted Plan for scope tomorrow NPO midnight (2) Acute blood loss anemia: Code(s): D62 - Acute posthemorrhagic anemia Status: Acute Assessment and Plan: Secondary to GI bleed Transfuse 1 unit RBCs Q.6 H&H Transfuse for symptomatic or hemoglobin less than 7 Hold Xarelto (3) Pulmonary edema: Code(s): J81.1 - Chronic pulmonary edema Status: Acute Assessment and Plan: Pulmonary edema seen on chest x-ray Unsure if there is underlying pneumonia at this time repeat chest x-ray after Lasix Daily Lasix Echocardiogram pending Cardiology consult Daily weights (4) HTN (hypertension): Code(s): I10 - Essential (primary) hypertension Status: Acute Assessment and Plan: Hold hypertensive medications due to acute blood loss (5) Hyperlipidemia with low HDL: Code(s): E78.5 - Hyperlipidemia, unspecified; E78.6 - Lipoprotein deficiency Status: Acute Assessment and Plan: Continue statin Quality VTE Prophylaxis VTE prophylaxis: mechanical ordered If No VTE Prophylaxis Answer both mechanical and pharmacologic: Reason no pharmacologic proph: medical contraindication Hospitalist MIPS Advance Care Plan I have confirmed that the patient's Advanced Care Plan is present, code status is documented, or surrogate decision maker is listed in patient medical record.: Yes Medication Reconciliation I have utilized all available resources to obtain, update and review the patients current medications (includes all prescriptions, OTC, herbals, cannabis, and nutritional supplements).: Yes
--- NOTE | 2024-12-16 15:45 | ADMGEN ---
This patient, Lisa Lujan, was admitted to [facility] Surg Room 301-01. Patient/family oriented to hospital policies and general routines including ID bracelet, bed and alarms, visiting hours, pain management, procedures, bathroom and other care routines, personal items, smoking policy, room service/diet, and visiting hours. Information on how to activate the Rapid Response Team has been discussed. Patient/Family are encouraged to report perceived risks to care and to ask questions if they do not understand what they are told or what they should do.
--- OUTSIDE RECORDS SUMMARY | 2024-12-16 15:49 | XMS_ITS | Encounter Summary ---
Author Organization [facility] Health Address [address] [place] [address] Care Team Providers Care Invoice Checker Name Role Phone Unavailable Primary Care Provider Unavailabl e Prior Encounters Date Type Department Care Team Description 05/05/2019 Converted CPS Chart Documents [facility] [address] [place] [id number] <No scans attached> 05/05/2019 Converted 13x Documents [facility] [address] [place] [id number] <No scans attached> Plan of Treatment Not on file Procedures Procedure Name Priority Date/Time Associated Diagnosis Comments TOPICAL APPLICATION OF FLUORIDE VARNISH Routine 05/19/2020 2:00 AM MULTIMEDIA SPECIALIST PERIO MAINTENANCE Routine 05/18/2020 2:0 0 AM MULTIMEDIA SPECIALIST ORAL HYGIENE INSTRUCTIONS Routine 2020 2:00 AM MULTIMEDIA SPECIALIST PERIODIC ORAL EVALUATION - ESTABLISHED PATIENT Routine 09/30/2019 2:00 AM CDT PERIO MAINTENANCE Routine 09/30/2019 2: 00 AM CDT ORAL HYGIENE INSTRUCTIONS Routine 2019 2:00 AM CDT BITEWINGS - FOUR RADIOGRAPHIC IMAGES Routine 09/30/2019 2:00 AM CDT PERIO MAINTENANCE Routine 04/03/2019 2:0 0 AM MULTIMEDIA SPECIALIST TOPICAL APPLICATION OF FLUORIDE VARNISH Routine 04/03/2019 2:00 AM MULTIMEDIA SPECIALIST PERIO MAINTENANCE Routine 10/02/2018 2:0 0 AM CDT ORAL HYGIENE INSTRUCTIONS Routine 2018 2:00 AM CDT BITEWINGS - FOUR RADIOGRAPHIC IMAGES Routine 10/02/2018 2:00 AM CDT PERIO MAINTENANCE Routine 04/02/2018 2:0 0 AM MULTIMEDIA SPECIALIST ORAL HYGIENE INSTRUCTIONS Routine 2017 2:00 AM MULTIMEDIA SPECIALIST 3 UR OSSEOUS SURGERY FOUR OR MORE CONTIGUOUS TEETH Routine 2018 2:00 AM MULTIMEDIA SPECIALIST 30 LR OSSEOUS SURGERY FOUR OR MORE CONTIGUOUS TEETH Routine 2018 2:00 AM MULTIMEDIA SPECIALIST 14 UL OSSEOUS SURGERY FOUR OR MORE [...]
--- OUTSIDE RECORDS SUMMARY | 2024-12-16 15:49 | XMS_ITS | Encounter Summary ---
Author Organization [facility] Address [address] [facility] [place] [address] Care Team Providers Care Production Ski Repairer Name Role Phone Sabino Porter MD Primary Care Provider + [phone] Saúl Junior MD Unavailable [phone] Stew Patrick MD Primary Care Provider [phone] Sabino Porter MD Primary Care Provider + [phone] Rinku Rocha MD Unavailable [phone] Stew Patrick MD Primary Care Provider [phone] Sabino Porter MD Primary Care Provider + [phone] Reason for Visit * Reason Onset Date Comments Question 12/27/2018 Pharmaceutical Engineer Exam 12/27/2018 Encounter Details Date Type Department Care Team (Late st Contact Info) Description 12/27/[address] [facility] - COLORED LIQUID PLASTIC APPLIER [address] [address] [place] [address] [place] [address] Question; Pharmaceutical Engineer Exam Social History Tobacco Use Types Packs/Day Years Used Date Smoking Tobacco: Never Alcohol Use Standard Drinks/Week Comments No 0 (1 standard drink = 0.6 oz pur e alcohol) Comments No Sex and Gender Information Value Date Recorded Sex Assigned at Not on file Legal Sex Female 6:19 AM PLANT MAINTENANCE WORKER Gender Identity Not on file Sexual Orientation Not on file documented as of this encounter Miscellaneous Notes * Telephone Encounter - Krystina Ren - 12/27/2018 10:25 AM CDT Pt called wanting to know her results from a pap from last week. Please call [phone] and pt gave permission for messages to be left if she doesn't answer documented in this encounter Plan of Treatment Upcoming Encounters Date Type Department Care Team (Late st Contact Info) Description 04/22/2025 1:30 PM PLANT MAINTENANCE WORKER Office Visit [facility] - Rheumatology [address] [place] [address], [facility] [place] [phone] Kathryn Jay MD [address] [place] [address] [place] [phone] 04/23/2025 11:00 AM PLANT MAINTENANCE WORKER Appointment [facility] [address] [place] [id number] Akosua Gtz MD [address] [place] [phone] 05/29/2025 12:30 PM PLANT MAINTENANCE WORKER Office Visit [facility] [address] [place] [address] [address] [place] [address] Saúl Junior MD [address] [place] [address] [address] [place] [phone] documented as of this encounter Visit Diagnoses Not on filedocumented in this encounter Care Teams Production Ski Repairer Relationship Specialty Start Date End Date Sabino Porter MD [address] [address] [address] [place] [address] PCP - General Family Medicine 05/10/12 11/02/20 Stew Patrick MD [address] [facility] [address] [place] [address] PCP - General Family Medicine 11/03/20 11/14/20 Sabino Porter MD [address] [address] PCP - General 11/15/20 01/02/21 Stew Patrick MD [address] [place] [address] [address] [place] [address] PCP - General Family Medicine 01/03/21 07/14/21 Sabino Porter MD [address] [address] PCP - General Family Medicine 07/15/21 Saúl Junior MD [address] [place] [phone] Desktop Support Manager Cardiology 11/03/20 Rinku Rocha MD [address] [place] [address] [address] [place] [address] Electrophysiology 01/03/21 documented as of this encounter
--- OUTSIDE RECORDS SUMMARY | 2024-12-16 15:49 | XMS_ITS | Encounter Summary ---
Author Organization [facility] Address [address] [facility] [place] [address] Care Team Providers Care Excel Expert Name Role Phone Saúl Junior MD Unavailable [phone] Rinku Rocha MD Unavailable [phone] Stew Patrick MD Primary Care Provider [phone] Sabino Porter MD Primary Care Provider [phone] Encounter Details Date Type Department Care Team (Late st Contact Info) Description 04/26/2021 Telephone [facility] - Third Level [address] [place] [address], [place] [address] Marce Costello MD [address] [place] [address] [place] [address] Social History Tobacco Use Types Packs/Day Years Used Date Smoking Tobacco: Never Smokeless Tobacco: Never Alcohol Use Standard Drinks/Week Comments No 0 (1 standard drink = 0.6 oz pur e alcohol) Comments No Sex and Gender Information Value Date Recorded Sex Assigned at Not on file Legal Sex Female 6:19 AM TERRAZZO POLISHER HELPER Gender Identity Not on file Sexual Orientation Not on file COVID-19 Exposure Response Date Recorded In the last month, have you been in contact with someone who was confirmed or suspected to have Coronavirus / COVID-19? No / Unsure 04/11/2021 12:21 PM TERRAZZO POLISHER HELPER documented as of this encounter Miscellaneous Notes * Telephone Encounter - Christina Napier - 04/26/2021 1:22 PM CST Current Provider name: Dr. Marec Costello Reason for call: Ms. Gonzalez left message on 04/17/2021 in [place] and wants to FU since she hasn't [...] my left lung Patient Call Back number: [phone] AZZO POLISHER HELPER documented in this encounter Plan of Treatment Upcoming Encounters Date Type Department Care Team (Late st Contact Info) Description 04/22/2025 1:30 PM TERRAZZO POLISHER HELPER Office Visit [facility] - Rheumatology [address] [place] [address], [place] [phone] Kathryn Jay MD [address] [place] [address] [place] [phone] 04/23/2025 11:00 AM TERRAZZO POLISHER HELPER Appointment [facility] CAT SCAN [address] [place] [phone] Akosua Gtz MD [address] [place] [phone] 05/29/2025 12:30 PM TERRAZZO POLISHER HELPER Office Visit [facility] [address] [place] [address] [address] [place] [address] Saúl Junior MD [address] [place] [address] [place] [phone] documented as of this encounter Visit Diagnoses Not on filedocumented in this encounter Care Teams Excel Expert Relationship Specialty Start Date End Date Stew Patrick MD [address] [place] [address] PCP - General Family Medicine 01/03/21 07/14/21 Sabino Porter MD [address] [place] [address] PCP - General Family Medicine 07/15/21 Saúl Junior MD [address] [place] [address] Aviation Engineer Cardiology 11/03/20 Rinku Rocha MD [address] [place] [address] Electrophysiology 01/03/21 documented as of this encounter
--- OUTSIDE RECORDS SUMMARY | 2024-12-16 15:49 | XMS_ITS | Clinical Summary ---
Author Organization [facility] Address [address] [place] [address] Care Team Providers Care Centerless Grinder Operator Name Role Phone Sabino Porter MD Primary Care Provider [phone] Allergies No known active allergies Medications atorvastatin [...] on file Legal Sex Female 12:03 PM MANAGER FUND Gender Identity Not on file Sexual Orientation [...] on file Medical Devices Implanted Type Area Rubber Moulding Machine Operator Device Identifier Shelf Expiration Date Model / Serial / Lot Knee Replacement Knee Insurance [employer] HMO [employer] HMO Advance Directives For more information, please contact: [phone] * Full Code (Latest Code Status on File) Date Activated Date Inactivated Comments 01/19/2020 3:05 PM 01/20/2020 9:36 PM * Full Code Date Activated Date Inactivated Comments 01/15/2020 10:56 PM 01/19/2020 3:05 PM Care Teams Centerless Grinder Operator Relationship Specialty Start Date End Date Sabino Porter MD PCP - General 03/22/17
--- OUTSIDE RECORDS SUMMARY | 2024-12-16 15:49 | XMS_ITS | Encounter Summary ---
Author Organization [facility] Address [address] [facility] [place] [address] Care Team Providers Care Trouble Clerk Name Role Phone Saúl Junior MD Unavailable [phone] Rinku Rocha MD Unavailable Sabino Porter MD Primary Care Provider Encounter Details Date Type Department Care Team (Late st Contact Info) Description 11/18/2024 Results Follow-Up [facility] OP DRAW [facility]ATION [address] [place] [phone] Saúl Junior MD [address] [facility] 200 [place] [address] Social History Tobacco Use Types Packs/Day Years Used Date Smoking Tobacco: Never Smokeless Tobacco: Never Alcohol Use Standard Drinks/Week Comments No 0 (1 standard drink = 0.6 oz pur e alcohol) PHQ-2 Answer Date Recorded Patient Health Questionnaire-2 Score 0 10/15/2024 Comments No Sex and Gender Information Value Date Recorded Sex Assigned at Not on file Legal Sex Female 6:19 AM FAMILY DINNER SERVICE SPECIALIST Gender Identity Not on file Sexual Orientation [...] st Contact Info) Description 04/22/2025 1:30 PM FAMILY DINNER SERVICE SPECIALIST Office Visit [facility] Physician [facility] - Rheumatology [address] [facility], [place] [phone] Kathryn Jay MD [facility] [place] [phone] 04/23/2025 11:00 AM FAMILY DINNER SERVICE SPECIALIST Appointment [facility] CAT SCAN [address] [place] [phone] Akosua Gtz MD [facility] [place] [phone] 05/29/2025 12:30 PM FAMILY DINNER SERVICE SPECIALIST Office Visit [facility] [address] [facility] [address] [place], [place] [phone] Saúl Junior MD [facility] [address] documented as of this encounter Visit Diagnoses Not on filedocumented in this encounter Care Teams Trouble Clerk Relationship Specialty Start Date End Date Sabino Porter MD [address] [place] [address] PCP - General Family Medicine 07/15/21 Saúl Junior MD [facility] 200 [place] [address] Job Placement Counselor Cardiology 11/03/20 Rinku Rocha MD [facility] [address] [place] [address] Electrophysiology 01/03/21 documented as of this encounter
--- OUTSIDE RECORDS SUMMARY | 2024-12-16 15:49 | XMS_ITS | Clinical Summary ---
Author Organization [facility] Address [address] [facility] [place] [address] Care Team Providers Care Television Parts Tester Name Role Phone Saúl Junior MD Unavailable [phone] Rinku Rocha MD Unavailable [phone] Sabino Porter MD Primary Care Provider [phone] Source Comments [facility],non-owned Affiliates and Associated Physician Practices is amultiple site organization consisting of ambulatory clinics and hospital sitesin [place], [place], [place] and [place]. This disclosure is being madepursuant to the Care Everywhere program and may not contain all information available regarding this patient. Last updated 18.[facility] Allergies No known active allergies Medications * [...] tablet 3 07/22/19 23 Active nystatin (Mycostatin) [id number] UNIT/GM cream 07/26/19 23 Active acetaminophen (Tylenol) [...] arteritis (HCC),Aortitis,I mmunosuppression due to drug therapy ([facility]) Take 1 (one) tablet by mouth once daily for 56 days 04/30/19 25 Active Xarelto 20 MG tabletIndication s:Paroxysmal atrial fibrillation (HCC) Take 1 (one) tablet by mouth once daily 90 tablet 3 05/09/19 25 Active upadacitinib ER (Rinvoq) 15 MG tabletIndication s:Giant-Cell Arteritis,Active aortitis with GCA Take 1 (one) tablet by mouth once daily Reasons: Artery Inflammation in the Ewen Area, Active aortitis with GCA 90 tablet 2 08/13/19 25 Active upadacitinib ER (Rinvoq) 15 MG tabletIndication s:Giant-Cell Arteritis,active aortitis in the setting of GCA Take 1 (one) tablet by mouth once daily Reasons: Artery Inflammation in the Ewen Area, active aortitis in the setting of GCA 90 tablet 1 08/30/19 25 Active NIFEdipine CR 24hr (Adalat CC) 30 MG tabletIndication s:Paroxysmal atrial fibrillation (HCC),Essential hypertension,Chr onic heart failure with preserved ejection fraction (HFpEF) ([facility]) Take 1 tablet by mouth once [...] RVSP 32 11/2018 compared to 52 04/2018. MAURIIZO likely contributory. - TTE 01/15 showing mildly increased RV size Hereditary sensorimotor neuropathy 03/22/2017 Resolved Problems Problem Noted Date Diagnosed Date Resolved Date Cough 05/27/2018 10/06/2021 Postmenopausal bleeding 01/16/2014 09/0 08/2018 Encounters Date Type Department Care Team Description 11/18/2024 11:29 AM CDT - 11/18/2024 11:59 PM CDT Hospital Encounter [facility] OP DRAW STATION [address] [place] [address] Discharge Disposition: Home or Self Care 11/18/2024 9:45 AM CDT Office Visit [facility] Heart & Vascular Care [address] [place] [address] [address] [place] [address] Saúl Junior MD Chronic heart failure with preserved ejection fraction (HFpEF) (HCC) (Primary Dx); Paroxysmal atrial fibrillation (CMS/HCC); Chronic anticoagulation; Aortitis; Essential hypertension 11/18/2024 Results Follow-Up [facility] OP DRAW [facility]ATION [address] [place] [address] Saúl Junior MD 11/18/2024 Travel 10/28/2024 Refill [facility] & V[facility] Care [address] [place] [address] [address] [place] [address] Saúl Junior MD MEDICATION REFILL 10/15/2024 1:30 PM CDT Office Visit [facility]ician Group - Rheumatology [address] [facility], [place] [phone] Kathryn Jay MD Giant cell arteritis (HCC) (Primary Dx); Aortitis; Immunosuppression due to drug therapy (HCC) 10/15/2024 Travel 09/15/2024 Refill [facility] [address] [place] [address] [address] [place] [address] Saúl Junior MD Refill Request from Last [...] on file Legal Sex Female 6:19 AM SUPERVISOR EVAPORATOR Gender Identity Not on file Sexual Orientation [...] st Contact Info) Description 04/22/2025 1:30 PM SUPERVISOR EVAPORATOR Office Visit [facility] - Rheumatology [address] [place] [address], [facility] [place] [phone] Kathryn Jay MD [address] [place] [address] [place] [phone] 04/23/2025 11:00 AM SUPERVISOR EVAPORATOR Appointment [facility] CAT SCAN [address] [place] [phone] Akosua Gtz MD [address] [place] [phone] 05/29/2025 12:30 PM SUPERVISOR EVAPORATOR Office Visit [facility] Heart & Vascular Care [address] [facility] [address] [place] [address] Saúl Junior MD [address] [place] [address] [place] [phone] Health Maintenance Due Date Last Done Comments [...] mammogram HEMOGLOBIN A1C Routine 03/25/2024 3:04 PM SUPERVISOR EVAPORATOR Giant cell arteritis Aortitis HEPATITIS C ANTIBODY Routine 04/21/2022 3:49 PM SUPERVISOR EVAPORATOR Giant cell arteritis Need for hepatitis C screening test from Last 3 Months or Most Recently Relevant to Health Maintenance Results * (ABNORMAL) CBC W/ DIFFERENTIAL (11/18/2024 11:42 AM CDT) WBC 5.1 4.0 - 10.7 x10E9/L 11/18/2024 12:17 PM [facility] RBC Count 2.56(L) 3.90 - 5.20 x10E12/L 11/18/2024 12:17 PM [facility] Hemoglobin 8.3(L) 11.9 - 15.8 g/dL 11/18/2024 12:17 PM [facility] Hematocrit 25.0(L) 34.8 - 46.1 % 11/18/2024 12:17 PM [facility] MCV 97.7 80.0 - 98.0 fL 11/18/2024 12:17 PM [facility] MCH 32.4 26.7 - 33.6 pg 11/18/2024 12:17 PM [facility] MCHC 33.2 31.7 - 36.3 g/dL 11/18/2024 12:17 PM [facility] RDW-CV 14.1 11.3 - 14.8 % 11/18/2024 12:17 PM [facility] Platelet Count 198 150 - 420 x10E9/L 11/18/2024 12:17 PM [facility] MPV 10.5 7.8 - 11.4 fL 11/18/2024 12:17 PM [facility] Neutrophil % 56.0 41.0 - 74.0 % 11/18/2024 12:17 PM [facility] Lymphocyte % 29.4 17.0 - 47.0 % 11/18/2024 12:17 PM [facility] Monocyte % 12.6(H) 3.0 - 11.0 % 11/18/2024 12:17 PM [facility] Eosinophil % 1.4 0.0 - 7.0 % 11/18/2024 12:17 PM [facility] Basophil % 0.4 0.0 - 1.6 % 11/18/2024 12:17 PM [facility] Immature Granulocytes % 0.2 0.0 - 1.0 % 11/18/2024 12:17 PM [facility] Neutrophil Absolute 2.83 1.60 - 7.50 x10E9/L 11/18/2024 12:17 PM [facility] Lymphocyte Absolute 1.49 1.00 - 4.40 x10E9/L 11/18/2024 12:17 PM [facility] Monocyte Absolute 0.64 0.15 - 1.00 x10E9/L 11/18/2024 12:17 PM [facility] Eosinophil Absolute 0.07 0.00 - 0.60 x10E9/L 11/18/2024 12:17 PM [facility] Basophil Absolute 0.02 0.00 - 0.13 x10E9/L 11/18/2024 12:17 PM [facility] Blood BLOOD SPECIMEN / Unknown Lab Venipuncture / Unknown 11/18/2024 11:42 AM CDT 11/18/2024 11:59 AM CDT us Saúl Junior MD LAB - HEMATOLOGY ORDERABLES Fin al Result [facility] [address] [place] [address], [facility] [phone] * (ABNORMAL) BASIC METABOLIC PANEL (CALCIUM TOTAL) (11/18/2024 11:42 AM CDT) BUN 30(H) 7 - 26 mg/dL 11/18/2024 12:40 PM [facility] Creatinine 0.78 0.56 - 0.96 mg/dL 11/18/2024 12:40 PM [facility] Sodium 143 136 - 145 mmol/L 11/18/2024 12:40 PM [facility] Potassium 4.3 3.5 - 4.5 mmol/L 11/18/2024 12:40 PM [facility] Chloride 115(H) 98 - 107 mmol/L 11/18/2024 12:40 PM [facility] CO2 24 22 - 29 mmol/L 11/18/2024 12:40 PM [facility] Glucose 119(H) 70 - 99 mg/dL 11/18/2024 12:40 PM [facility] Calcium 9.1 8.4 - 10.2 mg/dL 11/18/2024 12:40 PM [facility] Anion Gap 4(L) 6 - 16 11/18/2024 12:40 PM [facility] BUN/Creatinine Ratio 38(H) 7 - 23 11/18/2024 12:40 PM [facility] Osmolality Calculated 303(H) 275 - 295 mOsm/kg 11/18/2024 12:40 PM [facility] eGFR by CKD-EPI 82(L) >=90 mL/min/1.7 3 m2 11/18/2024 12:40 PM [facility] Comment:Estimated Glomerular Filtration Rate (eGFR) calculated using the CKD-EPI Creatinine Equation (2020), per the National Kidney Foundation and [place] Society of Nephrology recommendations. Blood BLOOD SPECIMEN / Unknown Lab Venipuncture / Unknown 11/18/2024 11:42 AM CDT 11/18/2024 11:59 AM CDT Saúl Junior MD LAB - CHEMISTRY ORDERABLES Charo raza Result [facility] [address] [place] [address], [facility] [phone] * Mammo Bilat Screening W Timi (09/11/2024 [...] * (ABNORMAL) HEMOGLOBIN A1C (03/25/2024 3:04 PM SUPERVISOR EVAPORATOR) Hemoglobin A1c 5.8(H) <=5.6 % 03/26/2024 9:27 AM [facility] Estimated Average Glucose 120 mg/dL 03/26/2024 9:27 AM [facility] Comment: HbA1c Interpretation: Normal : < 5.7% Pre-diabetes: 5.7-6.4% Diabetes: Equal to or greater than 6.5% Test results diagnostic of diabetes should be repeated for confirmation. Treatment target values recommended by ADA and other clinical organizations should be used to evaluate metabolic control in patients. Reference: [place] Diabetes Association, Standards of Care in Diabetes -2020 In patients 70 years and older consider HbA1c target range of 7.0-7.5% (Reference: Jefferson Bean et al. JAMDA. 2012) The Sebia assay for the measurement of HbA1c is a National Glycohemoglobin Standardization Program (NGSP) certified method. Blood BLOOD SPECIMEN / Unknown Lab Venipuncture / Unknown 03/25/2024 3:04 PM SUPERVISOR EVAPORATOR 03/25/2024 3:34 PM SUPERVISOR EVAPORATOR Andre Dial MD LAB - CHEMISTRY ORDERABLES Final Result Performing Organization Address City/[facility] Hospital/ZIP Co de Phone Number [address] [address], [place] [phone] * HEPATITIS C ANTIBODY (04/21/2022 3:49 PM SUPERVISOR EVAPORATOR) Hepatitis C Antibody Non-react laura Non-reac tive 04/21/2022 4:51 PM SUPERVISOR EVAPORATOR [facility] Comment:Hepatitis C Antibody screen indicates no serologic evidence of past or current infection with Hepatitis C Virus. Patients with unexplained liver disease who are immunocompromised or suspected of having acute Hepatitis C infection may benefit from Nucleic Acid Test (GABRIEL) for Hepatitis C Viral RNA to confirm Hepatitis C status. Blood BLOOD SPECIMEN / Unknown Lab Venipuncture / Unknown 04/21/2022 3:49 PM SUPERVISOR EVAPORATOR 04/21/2022 4:00 PM SUPERVISOR EVAPORATOR Andre iDal MD LAB - CHEMISTRY ORDERABLES Final Result Performing Organization Address [facility] Co de Phone Number [address] [address], [facility] [phone] from Last 3 Months or Most Recently Relevant to Health Maintenance Insurance [facility] Advance Directives Documents on File Type Date Recorded Patient Eyelet Machine Operator Expl anation Adv Directive/Living Will/POA 01/31/2024 1:13 PM verbal Adv Directive/Living Will/POA 07/19/2023 * Full Code (Latest Code Status on File) Date Activated Date Inactivated Comments 10/17/2022 9:49 PM 10/19/2022 12:32 PM Care Teams Television Parts Tester Relationship Specialty Start Date End Date Sabino Porter MD [address] [place] [address] PCP - General Family Medicine 07/15/21 Saúl Junior MD [address] [place] [address] Weights And Measures Inspector Cardiology 11/03/20 Rinku Rocha MD [address] [place] [address] Electrophysiology 01/03/21
--- OUTSIDE RECORDS SUMMARY | 2024-12-16 15:49 | XMS_ITS | Clinical Summary ---
Author Organization [facility] Aurelia esposito [facility] Address [address] [place] [address] Care Team Providers Care Area Field Person Name Role Phone Unavailable Primary Care Provider [...] Description 02/03/2025 10:30 AM CDT Office Visit [facility] Oncology and Hematology - Jose Luis [address] [facility] [address] [place] [address] Demarcus Ambriz MD [address] [facility] [address] [place] [address] Health Maintenance Due Date Last [...] (1 - 1-dose 75+ series) 2030 Insurance [facility]
--- OUTSIDE RECORDS SUMMARY | 2024-12-16 15:49 | XMS_ITS | Clinical Summary ---
Author Organization [facility] Address [address] [place] [address] Care Team Providers Care Nuclear Supervising Operator Name Role Phone Unavailable Primary Care Provider [...]
[2024-12-16] MEDS: SODIUM CHLORIDE 0.9% IV 1,000 ML 100 ML IV CONT (15:59)
[2024-12-16 16:44] LABS: Hematocrit 21.8 % (37.0-47.0)
[2024-12-16 16:48] LABS: Hemoglobin 6.6 g/dL (12.0-15.0)
[2024-12-17] VITALS (9 sets, daily range): BP systolic 113–151; BP diastolic 59–75; PULSE 59–69; RESP 18–21; TEMP 36.1–36.6; O2SAT 94–99
[2024-12-17 04:43] LABS: Hematocrit 25.8 % (37.0-47.0); Hemoglobin 7.8 g/dL (12.0-15.0); Immature Granulocyte Percent A 0.6 % (0-0.5); Lymphocytes Absolute Auto 0.97 K/mm3 (0.9-3.2); Mean Corpuscular HGB Conc 30.2 g/dl (32-36); Mean Corpuscular Hemoglobin 31.1 pg (26-34); Mean Corpuscular Volume 102.8 fl (80-100); Nucleated Red Blood Cells Absolute Auto 0.040 K/mm3 (0.0-0.012); Nucleated Red Blood Cells Perc 0.8 % (0.0-0.2); Platelet Count Result 218 k/mm3 (150-375); Red Blood Count 2.51 M/mm3 (4.2-5.4); White Blood Count 5.3 K/mm3 (4.5-10.0)
[2024-12-17 04:50] LABS: Anion Gap 5 mmol/L (4-12); Blood Urea Nitrogen 23 mg/dL (7-17); Calcium 9.5 mg/dL (8.4-10.2); Carbon Dioxide 25 mmol/L (22-30); Chloride 108 mmol/L (98-107); Estimated CRCL calculation 71 ml/min; Estimated Glomerular Filt Rate > 60; Glucose 133 mg/dL (65-110); Potassium 4.7 mmol/L (3.4-5.0); Sodium 138 mmol/L (137-145)
[2024-12-17 04:57] LABS: NT Pro B Type Natriuretic Pept 139 pg/mL (19.9-100)
--- NOTE | 2024-12-17 07:47 | P.PNIM_ITS ---
Progress Note: A&P Assessment and Plan (1) GI bleed: Qualifiers: GI bleed type/associated pathology: unspecified gastrointestinal hemorrhage type Qualified Code(s): K92.2 - Gastrointestinal hemorrhage, unspecified Code(s): K92.2 - Gastrointestinal hemorrhage, unspecified Status: Acute Assessment and Plan: - presented with dark tarry stools, weakness, dyspnea - on Xarelto for Afib - admit CTA abd/pelvis with no acute abnormality, calcific density of the gastric lumen, uncertain origin - Hgb jose d 6.9 (baseline 13). 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 - trend H&H q6H, transfuse Hgb <7 - GI following, planning for colonoscopy tomorrow (2) Acute blood loss anemia: Code(s): D62 - Acute posthemorrhagic anemia Status: Acute Assessment and Plan: - Secondary to GI bleed - s/p 1 u PRBCs - Q6H H&H - Transfuse for hemoglobin less than 7 - Hold Xarelto (3) Pulmonary edema: Code(s): J81.1 - Chronic pulmonary edema Status: Acute Assessment and Plan: - CXR with cardiomegaly with intersitial edema - s/p IV lasix - BNP minimally elevated - low concern for pneumonia given patient is afebrile, no leukocytosis, procal negative -Echocardiogram with EF 60%, G1DD, mild pulmonary hypertension, moderate OH and TR -Cardiology consulted - recommend spot diuresis as needed -Daily weights (4) HTN (hypertension): Code(s): I10 - Essential (primary) hypertension Status: Acute Assessment and Plan: -continue metoprolol with hold parameters (5) Hyperlipidemia with low HDL: Code(s): E78.5 - Hyperlipidemia, unspecified; E78.6 - Lipoprotein deficiency Status: Acute Assessment and Plan: -Continue statin Subjective Date/time seen: 12/17/24 07:47 Interval history: 69-year-old female past medical history AFib on Xarelto, hyperlipidemia, hypertension, sleep apnea, and blood clot presents the hospital with abnormal labs. Patient seen and examined at bedside. Still feeling SOB. Denied bloody stool this AM. Review of Systems Review of Systems: All systems reviewed & are unremarkable except as noted in HPI and below Exam Narrative: General: NAD. Generalized pallor noted. Eyes: EOMI ENT: neck supple Cardiovascular: Regular rate and rhythm Respiratory: Clear to auscultation, respirations even and unlabored on RA Gastrointestinal: Soft, non tender Genitourinary: no suprapubic tenderness Musculoskeletal: No edema Skin: warm, dry Neuro: Alert. Psych: Mood appropriate Objective Data Vital Signs Vital Signs: Vital Signs - 24 hr 12/16/24 13:07 12/16/24 15:26 12/16/24 15:51 Temperature 97.4 F L Pulse Rate 61 62 Respiratory Rate 20 20 Blood Pressure 135/72 Pulse Oximetry 97 100 100 Oxygen Delivery 12/16/24 17:28 12/16/24 17:32 12/16/24 17:44 Temperature 97.4 F L 97.9 F Pulse Rate 71 68 Respiratory Rate 16 18 Blood Pressure 143/68 H 155/55 H Pulse Oximetry 96 100 Oxygen Delivery Room Air 12/16/24 18:44 12/16/24 20:04 12/16/24 20:25 Temperature 97.2 F L 97.7 F Pulse Rate 64 64 Respiratory Rate 16 18 Blood Pressure 131/52 L 131/58 L Pulse Oximetry 99 98 Oxygen Delivery Room Air 12/17/24 05:07 Temperature 97.1 F L Pulse Rate 59 L Respiratory Rate 18 Blood Pressure 142/73 H Pulse Oximetry 99 Oxygen Delivery Intake/Output Intake/Output: Intake & Output 12/14/24 12/15/24 12/16/24 12/17/24 23:59 23:59 23:59 23:59 Intake Total 794 Balance 794 Meds/Results Medications: Active Medications Generic Name Dose Route Start Last Admin Trade Name Freq PRN Reason Stop Dose Admin Acetaminophen 650 mg 12/16/24 14:15 Acetaminophen 325 Mg Tablet PO Q4H PRN Mild Pain (1-3) or Fever Albuterol 2 puff 12/16/24 18:24 Albuterol Sulfate (*Sp) Aerosol 1 Puff INHALATION Q4-6H PRN Shortness Of Breath Or Wheezing Atorvastatin Calcium 10 mg 12/17/24 09:00 Atorvastatin 10 Mg Tablet PO DAILY [facility] Furosemide 20 mg 12/17/24 09:00 Furosemide Inj 40 Mg/4 Ml Vial IV PUSH DAILY [facility] Metoprolol Tartrate 50 mg 12/17/24 09:00 Metoprolol Tartrate 50 Mg Tab PO DAILY [facility] Miscellaneous Information 1 each 12/17/24 00:01 Rinvoq Is Nonform; Can Pt Use From Home? XX 01/16/25 00:00 CLARIFY [facility] Nifedipine 30 mg 12/17/24 09:00 Nifedipine 30 Mg Tab.Er.24 PO DAILY [facility] Non-Formulary Medication 15 mg 12/17/24 09:00 Upadacitinib [Rinvoq] PO 01/16/25 08:59 DAILY [facility] Ondansetron HCl 4 mg 12/16/24 14:15 Ondansetron Inj 4 Mg/2 Ml Vial IV PUSH Q4H PRN Nausea Pantoprazole Sodium 40 mg 12/17/24 09:00 Pantoprazole Sodium Iv 40 Mg Vial IV PUSH QAM [facility] Perflutren Lipid Microsphere 0 ml 12/16/24 21:09 Perflutren Lipid Microspheres 1.5 Ml Vial Diluted To 10 Ml Total Volume IV PUSH 12/19/24 21:10 ONCE PRN adequate visualization Protocol Telmisartan 40 mg 12/17/24 09:00 Telmisartan 40 Mg Tablet PO DAILY [facility] Radiology Results: ITS Impressions Abdomen/Pelvis CTA 12/16/24 14:02 IMPRESSION: 1. No acute abdominal abnormality. 2: Groundglass opacities right lower lobe, suspicious for pneumonia. 3: Calcific density of the gastric lumen of uncertain origin. No obstruction. Chest X-Ray 12/16/24 16:30 Impression: 1: Cardiomegaly with interstitial edema. Labs Labs: Laboratory Results - last 24 hr 12/16/24 12/16/24 12/16/24 11:24 11:25 12:15 WBC 5.8 RBC 2.18 L Hgb 6.9 L* D Hct 22.9 L MCV 105.0 H MCH 31.7 MCHC 30.1 L RDW 17.9 H Plt Count 238 MPV 9.9 Immature Gran % (Auto) 0.7 H Neut % (Auto) 69.3 Lymph % (Auto) 16.2 L [place] % (Auto) 11.7 H Eos % (Auto) 1.4 Baso % (Auto) 0.7 Lymph # (Auto) 0.94 [place] # (Auto) 0.7 H Eos # (Auto) 0.1 Baso # (Auto) 0.0 Abs Immat Gran (auto) 0.04 H Absolute Neuts (auto) 4.0 Absolute Nucleated RBC 0.030 H Nucleated RBC % 0.5 H Sodium 140 Potassium 4.4 Chloride 109 H Carbon Dioxide 24 Anion Gap 7 BUN 26 H Creatinine 0.82 Estim Creat Clear Calc 68 Estimated GFR > 60 Glucose 174 H Calcium 9.6 Iron 67 TIBC 419 % Saturation 16 L Total Bilirubin 0.4 AST 29 ALT 20 Alkaline Phosphatase 60 NT-Pro-B Natriuret Pep Total Protein 6.7 Albumin 3.9 Blood Type A Positive Antibody Screen Negative Crossmatch See Detail 12/16/24 12/17/24 16:33 04:28 WBC 5.3 RBC 2.51 L Hgb 6.6 L* 7.8 L Hct 21.8 L 25.8 L MCV 102.8 H MCH 31.1 MCHC 30.2 L RDW 18.8 H Plt Count 218 MPV 10.1 Immature Gran % (Auto) 0.6 H Neut % (Auto) 64.1 Lymph % (Auto) 18.3 [place] % (Auto) 14.5 H Eos % (Auto) 1.9 Baso % (Auto) 0.6 Lymph # (Auto) 0.97 [place] # (Auto) 0.8 H Eos # (Auto) 0.1 Baso # (Auto) 0.0 Abs Immat Gran (auto) 0.03 Absolute Neuts (auto) 3.4 Absolute Nucleated RBC 0.040 H Nucleated RBC % 0.8 H Sodium 138 Potassium 4.7 Chloride 108 H Carbon Dioxide 25 Anion Gap 5 BUN 23 H Creatinine 0.79 Estim Creat Clear Calc 71 Estimated GFR > 60 Glucose 133 H Calcium 9.5 Iron TIBC % Saturation Total Bilirubin AST ALT Alkaline Phosphatase NT-Pro-B Natriuret Pep 139 H Total Protein Albumin Blood Type Antibody Screen Crossmatch Quality VTE Prophylaxis VTE prophylaxis: mechanical ordered
[2024-12-17] MEDS: ATORVASTATIN 10 MG TABLET PO (08:27)
[2024-12-17] MEDS: TELMISARTAN 40 MG TABLET PO (08:27)
[2024-12-17] MEDS: METOPROLOL TARTRATE 50 MG TAB PO (08:28)
[2024-12-17 08:52] LABS: Procalcitonin < 0.0 ng/mL
[2024-12-17 10:07] LABS: Hematocrit 25.2 % (37.0-47.0); Hemoglobin 7.7 g/dL (12.0-15.0)
[2024-12-17] MEDS: PANTOPRAZOLE SODIUM IV 40 MG VIAL IV PUSH (10:20)
--- NOTE | 2024-12-17 11:25 | CONS_ITS ---
Report was recreated on 01/14/25. Original report was signed by Charity Morillo APRN on 12/17/24 at 11:50. Assessment and Plan Assessment and plan (1) Atrial fib/flutter, transient: Status: Chronic (2) GI bleed: Qualifiers: GI bleed type/associated pathology: unspecified gastrointestinal hemorrhage type Qualified Code(s): K92.2 - Gastrointestinal hemorrhage, unspecified Code(s): K92.2 - Gastrointestinal hemorrhage, unspecified Status: Acute (3) Symptomatic anemia: Code(s): D64.9 - Anemia, unspecified Status: Acute (4) HTN (hypertension): Code(s): I10 - Essential (primary) hypertension Status: Acute (5) Pulmonary edema: Code(s): J81.1 - Chronic pulmonary edema Status: Acute Plan Atrial fibrillation-paroxysmal in nature. Rate and rhythm regular on exam and admission EKG demonstrated a NSR. Appears she is on Metoprolol 50 mg daily and rate is controlled. Has been on xarelto for AC, but given recurrent GIB and need for transfusion would hold. She is most likely a candidate for LAOO closure which can be discussed with her child attendant at [facility] on an OP basis. Pulmonary edema-noted on admission CXR. Despite finding no obvious overload on exam. Her pBNP is only minimally elevated at 139. There is concern for possible pneumonia based on xray appearance but patient afebrile and without leukocytosis. A one time dose of IV lasix has been ordered per primary team and can monitor for any volume overload and further need for diuresis in the setting of anemia requiring transfusion. Repeat CXR planned post IV lasix HFpeF- chronic. EF of 60-65% per echo this admission, with mild pulm HTN and moderate [place] and moderate TR. Continue home BB and ARB. Can continue with diuresis as needed as noted above. GIB. with acute symptomatic anemia and Hgb of 6.6 on admission. She is s/p PRBC and hgb has improved to 7.7. GI to see and plan for scope. Hypertension. remains on nifedipine, metoprolol and telmisartan. Blood pressure stable will continue present medication regimen Hyperlipidemia. Remains on atorvastatin Remote history of DVT. History of Present Illness History of Present Illness Consult date/time: 12/17/24 11:25 Requesting physician: Martha Langley APRN Consult reason: shortness of breath Reason For Visit: gi bleed,anemia Narrative: Lisa Lujan is a 69 y.o. female who presented to the ER at the request of her PCP. According to the patient she had been feeling weak and SOB with minimal activity for the last week which was unusual for her. She had also been noting dark tarry stools for the last month. Her PCP did some labs and called her today and told her to come to the ER. In the ER she was noted to be anemic with a Hgb of 6.6 and she is s/p one unit of PRBCs. She has been on xarelto for AC in setting of atrial fibrillation and remote history of DVT. She denies any chest pain or pressure. No palpitations. No LE edema. She was noted to have pulmonary edema on CXR and unclear if secondary to CHF vs pneumonia. We were consulted for further evaluation. Review of Systems 2 Constitutional: Constitutional: Reports fatigue and Reports weakness Cardiovascular: Cardiovascular: Reports no additional cardiovascular complaints Respiratory: Respiratory: Reports dyspnea and Reports dyspnea on exertion Gastrointestinal: Gastrointestinal: Reports melena PMFSH Past Medical History Medical History Osteoporosis Hypertension Blood clot due to device, implant, or graft Arthritis Obese Diarrhea Constipation Afib SOB (shortness of breath) Wears glasses Light headedness Claustrophobia History of intraoperative complication of surgical procedure History of adverse reaction to anesthesia Foot drop, bilateral Atrial fib/flutter, transient Hyperlipidemia with low HDL HTN (hypertension) MAURIZIO (obstructive sleep apnea) Osteoporosis CMT (Eqiadsj-Wsgyu-Csmbp disease) Surgical History Surgical History History of right knee joint replacement 11/18/2002. HEMATOMA EVACUATION 11/25/2002 Family History Family History Father Arthritis Diabetes mellitus Hypertension Neuropathy Stomach cancer Mother Asthma Heart disease Hypertension Sibling Diabetes mellitus Other Alcoholism Anxiety Social History Social History Smoking status: Never smoker Second hand tobacco smoke exposure: No Alcohol intake: never Substance use: never Substance use type: does not use Lack of Transportation: No Lack of Food: Never True Current Housing: I Have Housing Concerned About Future Housing: No Difficulty Paying Gas/Electric Bills: No Difficulty Paying for Meds: No Currently Unemployed: No Education: Decline to Answer Difficulty w/ Childcare or Family Care: No Living arrangements: with family Occupation/Education: retired Gender identity (if verbalized by the patient): Female Sexual Orientation (if Verbalized by the Patient): Straight or Heterosexual Spiritual care concerns: No Meds Home Medications and Allergies Home Medications ?Medication ?Instructions ?Recorded ?Confirmed ?Type metoprolol tartrate 100 mg tablet 50 mg PO DAILY 10/01/20 12/16/24 History atorvastatin 10 mg tablet 10 mg PO DAILY 10/22/20 12/16/24 History calcium 300 mg-D3 20 mcg-magnesium 2 tablet PO DAILY 10/22/20 12/16/24 Hist ory 25 mg-coppr 0.5 [id number] tablet (Caltrate-D3 Plus Minerals) albuterol sulfate 90 mcg/actuation 2 puff inhalation Q4-6H PRN 10/26/2006/10 Rx aerosol inhaler (ProAir HFA) shortness of breath or wheezing #6.7 grams nifedipine 30 mg tablet,extended 30 mg PO DAILY 03/23/21 12/16/24 History release telmisartan 40 mg tablet 40 mg PO DAILY 03/23/21 12/16/24 History rivaroxaban 20 mg tablet (Xarelto) 20 mg PO DAILY 10/31/21 12/16/24 History ondansetron 4 mg disintegrating 4 mg PO Q6H PRN nausea and 01/11/2206/10 Rx tablet vomiting #10 tabs acetaminophen 500 mg tablet 1,000 mg (2 x 500 mg) PO Q6H PRN 10/13/ 3 12/16/24 Rx (Tylenol Extra Strength) pain #50 tabs upadacitinib 15 mg tablet,extended 15 mg PO DAILY 12/16/24 12/16/24 History release 24 hr (Rinvoq) Allergies Allergy/AdvReac Type Severity Reaction Status Date / Time No Known Drug Allergies Allergy Verified 12/16/24 12:29 Vital Signs Vital Signs - 24 hr 12/16/24 13:07 12/16/24 15:26 12/16/24 15:51 Temperature 36.3 C L Pulse Rate 61 62 Respiratory Rate 20 20 Blood Pressure 135/72 Pulse Oximetry 97 100 100 Oxygen Delivery 12/16/24 17:28 12/16/24 17:32 12/16/24 17:44 Temperature 36.3 C L 36.6 C Pulse Rate 71 68 Respiratory Rate 16 18 Blood Pressure 143/68 H 155/55 H Pulse Oximetry 96 100 Oxygen Delivery Room Air 12/16/24 18:44 12/16/24 20:04 12/16/24 20:25 Temperature 36.2 C L 36.5 C Pulse Rate 64 64 Respiratory Rate 16 18 Blood Pressure 131/52 L 131/58 L Pulse Oximetry 99 98 Oxygen Delivery Room Air 12/17/24 05:07 12/17/24 08:28 Temperature 36.2 C L Pulse Rate 59 L 64 Respiratory Rate 18 Blood Pressure 142/73 H Pulse Oximetry 99 Oxygen Delivery Exam 2 Const: General: comfortable and no acute distress HENMT: Mouth: Yes moist mucous membranes Neck: Neck: supple and no JVD Resp: Effort & Inspection: normal respiratory effort Auscultation: clear to auscultation bilaterally Cardio: Rate: regular rate Rhythm: regular rhythm Skin: General skin exam: normal color and no rashes or lesions noted Extrem: General: normal to inspection Other: no edema noted Psych: Mental Status: mental status grossly normal Results Labs and Meds 12/17/24 10:01 12/17/24 04:28 Lab results: Cardiac Enzymes 12/16/24 Range/Units 11:25 AST 29 (14-36) U/L CBC 12/16/24 12/16/24 12/17/24 Range/Units 11:25 16:33 04:28 WBC 5.8 5.3 (4.5-10.0) K/mm3 RBC 2.18 L 2.51 L (4.2-5.4) M/mm3 Hgb 6.9 L* D 6.6 L* 7.8 L (12.0-15.0) g/dL Hct 22.9 L 21.8 L 25.8 L (37.0-47.0) % Plt Count 238 218 (150-375) k/mm3 Lymph # (Auto) 0.94 0.97 (0.9-3.2) K/mm3 [place] # (Auto) 0.7 H 0.8 H (0.1-0.6) K/mm3 Eos # (Auto) 0.1 0.1 (0-0.3) K/mm3 Baso # (Auto) 0.0 0.0 (0.0-0.1) K/mm3 12/17/24 Range/Units 10:01 WBC (4.5-10.0) K/mm3 RBC (4.2-5.4) M/mm3 Hgb 7.7 L (12.0-15.0) g/dL Hct 25.2 L (37.0-47.0) % Plt Count (150-375) k/mm3 Lymph # (Auto) (0.9-3.2) K/mm3 [place] # (Auto) (0.1-0.6) K/mm3 Eos # (Auto) (0-0.3) K/mm3 Baso # (Auto) (0.0-0.1) K/mm3 Comprehensive Metabolic Panel 12/16/24 12/17/24 Range/Units 11:25 04:28 Sodium 140 138 (137-145) mmol/L Potassium 4.4 4.7 (3.4-5.0) mmol/L Chloride 109 H 108 H (98-107) mmol/L Carbon Dioxide 24 25 (22-30) mmol/L BUN 26 H 23 H (7-17) mg/dL Creatinine 0.82 0.79 (0.7-1.0) mg/dL Glucose 174 H 133 H (65-110) mg/dL Calcium 9.6 9.5 (8.4-10.2) mg/dL AST 29 (14-36) U/L ALT 20 (6-35) U/L Alkaline Phosphatase 60 (38-126) U/L Total Protein 6.7 (6.3-8.2) g/dL Albumin 3.9 (3.5-5.1) g/dL Intake and Output 12/16/24 12/17/24 12/17/24 23:59 07:59 15:59 Intake Total 794 Balance 794 Intake: Intake (Blood Product) Amt 350 Leukocyte Reduced Rbc Unit 350 [id number] Oral 444 Other: # Unmeasured Voids 2 Patient Weight 12/17/24 23:59 Weight 96 kg Imaging and Cardiology Echo: report reviewed Please be advised this is a medical document. It is intended for [id number] communication. It is written in medical language and may contain unfamiliar abbreviations or verbiage. Medical documents are intended to carry relevant information, facts as evident, and the clinical opinion of the practitioner at the time of the encounter. This report may have been done utilizing a voice recognition system. Attempts have been made to correct errors. However, there may be uncorrected grammatical, spelling, and recognition errors present. The file time of this note does not necessarily represent the time the patient was seen. Report Initialized date/time: [address] [facility] 12/17/24 / 1125 Electronically signed by: [id number] [facility] 12/17/24 8750 Travis Hector MD 12/17/24 7623
[2024-12-17] MEDS: LACTATED RINGERS 1,000 ML 150 ML IV CONT (13:38)
--- NOTE | 2024-12-17 13:40 | WPDANESEPPF ---
Anes - Initial Pre Proc Eval Procedure: Operation Date: 12/17/24 14:00 Proposed Procedures p Esophagogastroduodenoscopy - Bo Olivera MD Date/Time: 12/17/24 13:40 Surgeon: Isidro Villalba MD Pre Op Diagnosis: gi bleed,anemia Patient Data Age: 69 Gender: F Height: 1.73 m Weight: 96 kg Last Vital Signs Temp 36.1 C L 12/17/24 13:36 Pulse 60 12/17/24 13:36 Resp 20 12/17/24 13:36 BP 151/69 H 12/17/24 13:36 Pulse Ox 99 12/17/24 13:36 O2 Del Method Room Air 12/17/24 13:36 Allergies Allergy/AdvReac Type Severity Reaction Status Date / Time No Known Drug Allergies Allergy Verified 12/16/24 12:29 Home Medications ?Medication ?Instructions ?Recorded ?Confirmed ?Type metoprolol tartrate 100 mg tablet 50 mg PO DAILY 10/01/20 12/16/24 History atorvastatin 10 mg tablet 10 mg PO DAILY 10/22/20 12/16/24 History calcium 300 mg-D3 20 mcg-magnesium 2 tablet PO DAILY 10/22/20 12/16/24 History 25 mg-coppr 0.5 [id number] tablet (Caltrate-D3 Plus Minerals) albuterol sulfate 90 mcg/actuation 2 puff inhalation Q4-6H PRN 10/26/20 12/16/24 Rx aerosol inhaler (ProAir HFA) shortness of breath or wheezing #6.7 grams nifedipine 30 mg tablet,extended 30 mg PO DAILY 03/23/21 12/16/24 History release telmisartan 40 mg tablet 40 mg PO DAILY 03/23/21 12/16/24 History rivaroxaban 20 mg tablet (Xarelto) 20 mg PO DAILY 10/31/21 12/16/24 History ondansetron 4 mg disintegrating 4 mg PO Q6H PRN nausea and 01/11/22 12/16/24 Rx tablet vomiting #10 tabs acetaminophen 500 mg tablet 1,000 mg (2 x 500 mg) PO Q6H PRN 10/13/22 12/16/24 Rx (Tylenol Extra Strength) pain #50 tabs upadacitinib 15 mg tablet,extended 15 mg PO DAILY 12/16/24 12/16/24 History release 24 hr (Rinvoq) Laboratory Tests 12/16/24 12/16/24 12/17/24 12:15 16:33 04:28 WBC 5.3 K/mm3 (4.5-10.0) RBC 2.51 L M/mm3 (4.2-5.4) Hgb 6.6 L* g/dL 7.8 L g/dL (12.0-15.0) (12.0-15.0) Hct 21.8 L % 25.8 L % (37.0-47.0) (37.0-47.0) MCV 102.8 H fl (80-100) MCH 31.1 pg (26-34) MCHC 30.2 L g/dl (32-36) RDW 18.8 H % (11.5-14.5) Plt Count 218 k/mm3 (150-375) MPV 10.1 fl (7.4-10.4) Immature Gran % (Auto) 0.6 H % (0-0.5) Neut % (Auto) 64.1 % (45.5-73.1) Lymph % (Auto) 18.3 % (18.3-44.2) [place] % (Auto) 14.5 H % (2.6-8.5) Eos % (Auto) 1.9 % (0-4.4) Baso % (Auto) 0.6 % (0.2-1.2) Lymph # (Auto) 0.97 K/mm3 (0.9-3.2) [place] # (Auto) 0.8 H K/mm3 (0.1-0.6) Eos # (Auto) 0.1 K/mm3 (0-0.3) Baso # (Auto) 0.0 K/mm3 (0.0-0.1) Abs Immat Gran (auto) 0.03 K/mm3 (0.00-0.031) Absolute Neuts (auto) 3.4 K/mm3 (1.3-6.7) Absolute Nucleated RBC 0.040 H K/mm3 (0.0-0.012) Nucleated RBC % 0.8 H % (0.0-0.2) Sodium 138 mmol/L (137-145) Potassium 4.7 mmol/L (3.4-5.0) Chloride 108 H mmol/L (98-107) Carbon Dioxide 25 mmol/L (22-30) Anion Gap 5 mmol/L (4-12) BUN 23 H mg/dL (7-17) Creatinine 0.79 mg/dL (0.7-1.0) Estim Creat Clear Calc 71 ml/min Estimated GFR > 60 (59 - ) Glucose 133 H mg/dL (65-110) Calcium 9.5 mg/dL (8.4-10.2) NT-Pro-B Natriuret Pep 139 H pg/mL (19.9-100) Procalcitonin < 0.0 ng/mL Blood Type A Positive Antibody Screen Negative Crossmatch See Detail 12/17/24 10:01 WBC RBC Hgb 7.7 L g/dL (12.0-15.0) Hct 25.2 L % (37.0-47.0) MCV MCH MCHC RDW Plt Count MPV Immature Gran % (Auto) Neut % (Auto) Lymph % (Auto) [place] % (Auto) Eos % (Auto) Baso % (Auto) Lymph # (Auto) [place] # (Auto) Eos # (Auto) Baso # (Auto) Abs Immat Gran (auto) Absolute Neuts (auto) Absolute Nucleated RBC Nucleated RBC % Sodium Potassium Chloride Carbon Dioxide Anion Gap BUN Creatinine Estim Creat Clear Calc Estimated GFR Glucose Calcium NT-Pro-B Natriuret Pep Procalcitonin Blood Type Antibody Screen Crossmatch Patient hx anesthesia problems: none Family hx anesthesia problems: none Results Review: All pre-operative results and documents have been reviewed as part of the pre-operative evaluation. [facility] Past Medical History Medical History Osteoporosis Hypertension Blood clot due to device, implant, or graft Arthritis Obese Diarrhea Constipation Afib SOB (shortness of breath) Wears glasses Light headedness Claustrophobia History of intraoperative complication of surgical procedure History of adverse reaction to anesthesia Foot drop, bilateral Atrial fib/flutter, transient Hyperlipidemia with low HDL HTN (hypertension) MAURIZIO (obstructive sleep apnea) Osteoporosis CMT (Khnlyqx-Uxvsw-Nrynz disease) Surgical History Surgical History History of right knee joint replacement 11/18/2002. HEMATOMA EVACUATION 11/25/2002 Family History Family History Father Arthritis Diabetes mellitus Hypertension Neuropathy Stomach cancer Mother Asthma Heart disease Hypertension Sibling Diabetes mellitus Other Alcoholism Anxiety Social History Social History Smoking status: Never smoker Second hand tobacco smoke exposure: No Alcohol intake: never Substance use: never Substance use type: does not use Lack of Transportation: No Lack of Food: Never True Current Housing: I Have Housing Concerned About Future Housing: No Difficulty Paying Gas/Electric Bills: No Difficulty Paying for Meds: No Currently Unemployed: No Education: Decline to Answer Difficulty w/ Childcare or Family Care: No Living arrangements: with family Occupation/Education: retired Gender identity (if verbalized by the patient): Female Sexual Orientation (if Verbalized by the Patient): Straight or Heterosexual Spiritual care concerns: No Anes - Eval Final PreProcedure Day of Procedure 12/17/24 13:40 Patient weight: obese Heart: irregular rhythm Lungs: clear to auscultation Airway: Mallampati scale class II Neurological: alert and oriented Last oral intake: >/= 8 hours ASA classification: III Emergent: no Anesthetic plan: proceed Anesthesia type and monitoring: general GIVS and standard monitoring Results Review: All pre-operative results and documents have been reviewed as part of the pre-operative evaluation. Informed Consent: The patient's anesthetic plan and its attendant risks and benefits were discussed with the patient/family/POA. Questions were solicited and answers provided to the satisfaction of the patient/family/POA.
--- NOTE | 2024-12-17 13:41 | WPDGICN ---
Assessment and Plan Assessment and plan (1) GI bleed: Qualifiers: GI bleed type/associated pathology: unspecified gastrointestinal hemorrhage type Qualified Code(s): K92.2 - Gastrointestinal hemorrhage, unspecified Code(s): K92.2 - Gastrointestinal hemorrhage, unspecified Status: Acute Assessment and Plan: similar presentation few years ago, noted to have AVM in colon and then had SBCE will do EGD since she had dark stools, blood thinner on hold now iv protonix may need another colonoscopy tomorrow (2) Acute blood loss anemia: Code(s): D62 - Acute posthemorrhagic anemia Status: Acute Assessment and Plan: monitor for signs of bleeding s/p prbc no more blood thinner (3) Pulmonary edema: Code(s): J81.1 - Chronic pulmonary edema Status: Acute Assessment and Plan: triggered by anemia cardiology on board (4) Blood thinned due to long-term anticoagulant use: Code(s): Z79.01 - [facility]CI (current) use of anticoagulants Status: Acute (5) Angiodysplasia of colon: Code(s): K55.20 - Angiodysplasia of colon without hemorrhage Status: Acute Assessment and Plan: if egd no major findings then will do colonoscopy tomorrow (6) Atrial fib/flutter, transient: Status: Chronic GI Consult Note Consult date/time: 12/17/24 13:41 Reason for consult: symtpomatic anemia HPI: Lisa Lujan is a 69 year old female with history AFib on Xarelto, hyperlipidemia, hypertension, sleep apnea came to the hospital with anemia- hgb 6.9. Patient states that she went to her primary care provider because she was complaining of weakness, shortness of breath and dark stools. She has had dark tarry stools for about 2 weeks and has been struggling with more SOB. She had egd/colonoscopy 2020, noted small AVM in ascending colon treated with APC then completed SB capsule endoscopy no major findings- by Dr Hensley (indication was also anemia). She received blood transfusion, blood thinner on hold. Review of Systems Constitutional: Constitutional: Reports fatigue and Reports lethargy Eyes: Eyes: Denies blurry vision ENT: Reports Normal hearing present Cardiovascular: Cardiovascular: Reports lightheadedness Respiratory: Respiratory: Reports dyspnea on exertion Gastrointestinal: Gastrointestinal: Denies abdominal pain and Reports melena Genitourinary: Genitourinary: Denies dysuria Musculoskeletal: Musculoskeletal: Denies back pain Integumentary/Breasts: Skin/Breast: Denies rash Neurologic: Denies confusion Psychiatric: Psychiatric: Denies behavioral changes [facility] Past Medical History Medical History (Updated 12/17/24 @ 15:28 by Bo Olivera MD) Blood thinned due to long-term anticoagulant use Osteoporosis Hypertension Blood clot due to device, implant, or graft Arthritis Obese Diarrhea Constipation Afib SOB (shortness of breath) Wears glasses Light headedness Claustrophobia History of intraoperative complication of surgical procedure History of adverse reaction to anesthesia Foot drop, bilateral Atrial fib/flutter, transient Hyperlipidemia with low HDL HTN (hypertension) AMURIZIO (obstructive sleep apnea) Osteoporosis CMT (Qkgvzxa-Rczoo-Sjqui disease) Surgical History Surgical History History of right knee joint replacement 11/18/2002. HEMATOMA EVACUATION 11/25/2002 Family History Family History Father Arthritis Diabetes mellitus Hypertension Neuropathy Stomach cancer Mother Asthma Heart disease Hypertension Sibling Diabetes mellitus Other Alcoholism Anxiety Social History Social History Smoking status: Never smoker Second hand tobacco smoke exposure: No Alcohol intake: never Substance use: never Substance use type: does not use Lack of Transportation: No Lack of Food: Never True Current Housing: I Have Housing Concerned About Future Housing: No Difficulty Paying Gas/Electric Bills: No Difficulty Paying for Meds: No Currently Unemployed: No Education: Decline to Answer Difficulty w/ Childcare or Family Care: No Living arrangements: with family Occupation/Education: retired Gender identity (if verbalized by the patient): Female Sexual Orientation (if Verbalized by the Patient): Straight or Heterosexual Spiritual care concerns: No Meds Home Medications and Allergies Home Medications ?Medication ?Instructions ?Recorded ?Confirmed ?Type metoprolol tartrate 100 mg tablet 50 mg PO DAILY 10/01/20 12/16/24 History atorvastatin 10 mg tablet 10 mg PO DAILY 10/22/20 12/16/24 History calcium 300 mg-D3 20 mcg-magnesium 2 tablet PO DAILY 10/22/20 12/16/24 History 25 mg-coppr 0.5 [id number] tablet (Caltrate-D3 Plus Minerals) albuterol sulfate 90 mcg/actuation 2 puff inhalation Q4-6H PRN 10/26/20 12/16/24 Rx aerosol inhaler (ProAir HFA) shortness of breath or wheezing #6.7 grams nifedipine 30 mg tablet,extended 30 mg PO DAILY 03/23/21 12/16/24 History release telmisartan 40 mg tablet 40 mg PO DAILY 03/23/21 12/16/24 History rivaroxaban 20 mg tablet (Xarelto) 20 mg PO DAILY 10/31/21 12/16/24 History ondansetron 4 mg disintegrating 4 mg PO Q6H PRN nausea and 01/11/22 12/16/24 Rx tablet vomiting #10 tabs acetaminophen 500 mg tablet 1,000 mg (2 x 500 mg) PO Q6H PRN 10/13/22 12/16/24 Rx (Tylenol Extra Strength) pain #50 tabs upadacitinib 15 mg tablet,extended 15 mg PO DAILY 12/16/24 12/16/24 History release 24 hr (Rinvoq) Allergies Allergy/AdvReac Type Severity Reaction Status Date / Time No Known Drug Allergies Allergy Verified 12/16/24 12:29 Vital Signs Vital Signs - 24 hr 12/16/24 15:26 12/16/24 15:51 12/16/24 17:28 Temperature 97.4 F L 97.4 F L Pulse Rate 61 62 71 Respiratory Rate 20 20 16 Blood Pressure 135/72 143/68 H Pulse Oximetry 100 100 96 Oxygen Delivery 12/16/24 17:32 12/16/24 17:44 12/16/24 18:44 Temperature 97.9 F 97.2 F L Pulse Rate 68 64 Respiratory Rate 18 16 Blood Pressure 155/55 H 131/52 L Pulse Oximetry 100 99 Oxygen Delivery Room Air 12/16/24 20:04 12/16/24 20:25 12/17/24 05:07 Temperature 97.7 F 97.1 F L Pulse Rate 64 59 L Respiratory Rate 18 18 Blood Pressure 131/58 L 142/73 H Pulse Oximetry 98 99 Oxygen Delivery Room Air 12/17/24 08:28 12/17/24 13:36 Temperature 97 F L Pulse Rate 64 60 Respiratory Rate 20 Blood Pressure 151/69 H Pulse Oximetry 99 Oxygen Delivery Room Air Exam Const: General: comfortable and no acute distress HENMT: Mouth: Yes moist mucous membranes Eyes: General: appearance normal, both eyes and all related structures Neck: Neck: supple Resp: Effort & Inspection: normal respiratory effort Auscultation: clear to auscultation bilaterally Cardio: Rate: regular rate Rhythm: regular rhythm GI: GI Palp: Yes Soft to palpation and No Tenderness to palpation present (GI) Auscultation: normal bowel sounds Skin: General skin exam: no rashes or lesions noted Other: pallor Neuro: Speech: normal speech Motor exam (neuro): 5/5 motor strength present throughout Extrem: General: normal to inspection Other: no edema noted Psych: Mental Status: mental status grossly normal Results Labs 12/17/24 10:01 12/17/24 04:28 Labs: Short CBC 12/16/24 12/17/24 12/17/24 Range/Units 16:33 04:28 10:01 WBC 5.3 (4.5-10.0) K/mm3 Hgb 6.6 L* 7.8 L 7.7 L (12.0-15.0) g/dL Hct 21.8 L 25.8 L 25.2 L (37.0-47.0) % Plt Count 218 (150-375) k/mm3 [facility] 12/17/24 04:28 Sodium 138 Potassium 4.7 Chloride 108 H Carbon Dioxide 25 BUN 23 H Creatinine 0.79 Glucose 133 H Calcium 9.5
--- NOTE | 2024-12-17 16:18 | PHAR ---
HOME MED RINVOQ 15 MG ER TABLETS. VERIFIED BY PHARMACY.
[2024-12-17] MEDS: UPADACITINIB 15 MG 15 EACH PO (17:31)
[2024-12-17] MEDS: BISACODYL 5 MG TABLET EC 20 MG PO (17:31)
[2024-12-17 18:44] LABS: Hematocrit 25.7 % (37.0-47.0); Hemoglobin 7.9 g/dL (12.0-15.0)
--- NOTE | 2024-12-17 18:57 | PC.NURSE ---
This pt politely insisting on having walker next to her bedside, refusing bed alarm, only wearing her socks. She states that this is how she needs to do it due to her muscular dystrophy. This RN explained fall risk, especially given a recent fall at home, and the necessity of the bed alarm. Pt still politely refusing, but she states she will call if she feels weak or dizzy.
--- NOTE | 2024-12-17 21:10 | ECHO_ITS ---
Patient Info Name: Lisa Lujan Age: 69 years : 1955 Gender: Female Ht: 68 in Wt: 211 lbs BSA: 2.17 m2 HR: 53 bpm BP: 142 / 73 mmHg Technical Quality: Good Exam Date: 12/17/2024 8:58 AM Patient Status: I Admit Date: 12/16/2024 Exam Type: CA echo doppler color flow Complete two-dimensional, color flow and Doppler transthoracic echocardiogram is performed. Staff Referring Physician: Martha Langley [employer] Electrician: Carly Mccann Attending Provider: Isidro Villalba Summary 1. Complete two-dimensional, color flow and Doppler transthoracic echocardiogram is performed. 2. Left ventricular chamber dimension is normal. 3. Left ventricular systolic function is normal, estimated at 60-65. 4. There is mild concentric increased left ventricular wall thickness. 5. The left ventricular diastolic function is grade I diastolic dysfunction. 6. E/e' 10 is mildly elevated. 7. There is mild aortic valve sclerosis. 8. There is mild aortic valve regurgitation. 9. There is trace mitral valve regurgitation. 10. There is moderate tricuspid valve regurgitation. 11. Mild pulmonary hypertension, estimated pulmonary arterial systolic pressure is 46 mmHg. 12. There is moderate pulmonic regurgitation. 13. The aortic root size at the sinus of Valsalva is borderline dilated at 4.0 cm. Left Ventricle Left ventricular chamber dimension is normal. Left ventricular systolic function is normal, estimated at 60-65. There is mild concentric increased left ventricular wall thickness. The left ventricular diastolic function is grade I diastolic dysfunction. E/e' 10 is mildly elevated. Right Ventricle Right ventricular chamber dimension is normal. Right ventricular systolic function is normal and with normal TAPSE 1.8 cm. Left Atria Left atrial chamber dimension is normal. Right Atria Right atrial chamber dimension is normal. Aortic Valve The aortic valve is trileaflet. There is mild aortic valve sclerosis. There is no aortic valve stenosis. There is mild aortic valve regurgitation. Pulmonic Valve There is moderate pulmonic regurgitation. Mitral Valve There is no mitral valve stenosis. There is trace mitral valve regurgitation. Tricuspid Valve There is moderate tricuspid valve regurgitation. Mild pulmonary hypertension, estimated pulmonary arterial systolic pressure is 46 mmHg. Pericardium/Pleural There is no pericardial effusion. Inferior Vena Cava Normal inferior vena cava with >50% collapse upon inspiration consistent with normal right atrial pressure, 5 mmHg. Aorta The aortic root size at the sinus of Valsalva is borderline dilated at 4.0 cm. Left Ventricular Outflow Tract Name Value Normal LVOT 2D LVOT Diameter 2.2 cm LVOT Doppler LVOT Peak Velocity 89 cm/s LVOT Peak Gradient 3 mmHg LVOT Mean Gradient 2 mmHg LVOT VTI 25 cm LVOT Stroke Volume 93 ml LVOT CO 4.9 l/min LVOT CI 2.3 l/min/m2 Pulmonic Valve Name Value Normal RVOT Doppler RVOT Peak Velocity 74 cm/s RVOT Peak Gradient 2 mmHg PV Doppler PV Peak Velocity 98 cm/s PV Peak Gradient 4 mmHg PV Regurgitation Doppler MO Peak End Diastolic Velocity 131 cm/s Mitral Valve Name Value Normal MV Regurgitation Doppler MR Peak Gradient 101 mmHg MV Diastolic Function MV E Peak Velocity 80 cm/s MV A Peak Velocity 97 cm/s MV E/A 0.8 MV Decel Time (PW) 462 ms MV Annular TDI MV E/e' (Septal) 15.7 MV E/e' (Lateral) 6.8 MV E/e' (Average) 11.2 Tricuspid Valve Name Value Normal TV Regurgitation Doppler TR Peak Velocity 320 cm/s TR Peak Gradient 41 mmHg Estimated PAP/RSVP RA Pressure 5 mmHg <=5 PA Systolic Pressure 46 mmHg <36 RV Systolic Pressure 46 mmHg <36 Aortic Valve Name Value Normal AV Doppler AV Peak Velocity 109 cm/s AV Peak Gradient 5 mmHg AV Area (Cont Eq Clive) 3.0 cm2 AV DI (Clive) 0.81 AV Regurgitation 2D LVOT Area 3.7 cm2 Ventricles Name Value Normal LV Dimensions 2D/MM IVS Diastolic Thickness (2D) 1.0 cm 0.6-1.0 LVID Diastole (2D) 4.0 cm 3.8-5.2 LVIW Diastolic Thickness (2D) 1.5 cm 0.6-0.9 LVID Systole (2D) 2.8 cm 2.2-3.5 LVOT Diameter 2.2 cm LV Mass (2D Cubed) 167.98 g 67.00-162.00 LV Mass Index (2D Cubed) 77 g/m2 43-95 Relative Wall Thickness (2D) 0.74 <=0.42 LV Fractional Shortening/Ejection Fraction 2D/MM LV Fractional Shortening (2D) 30 % 27-45 LV EF (2D Teichholz) 58 % LV Diastolic Volume (4C MOD) 108 ml LV EF (4C MOD) 67 % LV Diastolic Volume (2C MOD) 105 ml LV EF (2C MOD) 59 % LV Diastolic Volume (BP MOD) 118 ml 46-106 LV Diastolic Volume Index (BP MOD) 54 ml/m2 29-61 LV Systolic Volume (BP MOD) 46 ml 14-42 LV Systolic Volume Index (BP MOD) 21 ml/m2 8-24 LV EF (BP MOD) 61 % 54-74 LV Diastolic Length (4C) 7.7 cm LV Systolic Length (4C) 6.7 cm LV Stroke Volume (4C MOD) 72 ml Atria Name Value Normal LA Dimensions LA Volume (4C A-L) 46 ml LA Volume (BP A-L) 62 ml RA Dimensions RA Systolic Major [place] Length (4C) 4.7 cm 2.2-2.8 RA Area (4C) 15.8 cm2 <=18.0 Report Signatures
[2024-12-18] VITALS (9 sets, daily range): BP systolic 118–165; BP diastolic 54–67; PULSE 54–76; RESP 16–25; TEMP 36.1–36.6; O2SAT 97–100
[2024-12-18] MEDS: MAGNESIUM CITRATE 300 ML BTL PO (00:12)
[2024-12-18 06:18] LABS: Hematocrit 27.0 % (37.0-47.0); Hemoglobin 8.2 g/dL (12.0-15.0); Immature Granulocyte Percent A 0.6 % (0-0.5); Lymphocytes Absolute Auto 0.76 K/mm3 (0.9-3.2); Mean Corpuscular HGB Conc 30.4 g/dl (32-36); Mean Corpuscular Hemoglobin 31.7 pg (26-34); Mean Corpuscular Volume 104.2 fl (80-100); Nucleated Red Blood Cells Absolute Auto 0.000 K/mm3 (0.0-0.012); Nucleated Red Blood Cells Perc 0.0 % (0.0-0.2); Platelet Count Result 235 k/mm3 (150-375); Red Blood Count 2.59 M/mm3 (4.2-5.4); White Blood Count 4.9 K/mm3 (4.5-10.0)
[2024-12-18 06:39] LABS: Alanine Aminotransferase 18 U/L (6-35); Albumin Level 3.9 g/dL (3.5-5.1); Alkaline Phosphatase 65 U/L (38-126); Anion Gap 6 mmol/L (4-12); Aspartate Amino Transferase 30 U/L (14-36); Bilirubin,Total 0.8 mg/dL (0.2-1.3); Blood Urea Nitrogen 16 mg/dL (7-17); Calcium 9.8 mg/dL (8.4-10.2); Carbon Dioxide 24 mmol/L (22-30); Chloride 108 mmol/L (98-107); Estimated CRCL calculation 60 ml/min; Estimated Glomerular Filt Rate > 60; Glucose 109 mg/dL (65-110); Potassium 3.8 mmol/L (3.4-5.0); Sodium 138 mmol/L (137-145); Total Protein 6.9 g/dL (6.3-8.2)
--- NOTE | 2024-12-18 07:36 | P.PNIM_ITS ---
Progress Note: A&P Assessment and Plan (1) GI bleed: Qualifiers: GI bleed type/associated pathology: unspecified gastrointestinal hemorrhage type Qualified Code(s): K92.2 - Gastrointestinal hemorrhage, unspecified Code(s): K92.2 - Gastrointestinal hemorrhage, unspecified Status: Acute Assessment and Plan: - presented with dark tarry stools, weakness, dyspnea - on Xarelto for Afib - admit CTA abd/pelvis with no acute abnormality, calcific density of the gastric lumen, uncertain origin - Hgb jose d 6.9 (baseline 13). 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 - trend H&H q6H, transfuse Hgb <7 - GI following, planning for colonoscopy tomorrow (2) Acute blood loss anemia: Code(s): D62 - Acute posthemorrhagic anemia Status: Acute Assessment and Plan: - Secondary to GI bleed - s/p 1 u PRBCs - Q6H H&H - Transfuse for hemoglobin less than 7 - Hold Xarelto (3) Pulmonary edema: Code(s): J81.1 - Chronic pulmonary edema Status: Acute Assessment and Plan: - CXR with cardiomegaly with interstitial edema - s/p IV lasix - BNP minimally elevated - low concern for pneumonia given patient is afebrile, no leukocytosis, procal negative -Echocardiogram with EF 60%, G1DD, mild pulmonary hypertension, moderate OR and TR -Cardiology consulted - recommend spot diuresis as needed - repeat CXR no acute process -Daily weights (4) HTN (hypertension): Code(s): I10 - Essential (primary) hypertension Status: Acute Assessment and Plan: -continue metoprolol with hold parameters (5) Hyperlipidemia with low HDL: Code(s): E78.5 - Hyperlipidemia, unspecified; E78.6 - Lipoprotein deficiency Status: Acute Assessment and Plan: -Continue statin Subjective Date/time seen: 12/18/24 07:36 Interval history: 69-year-old female past medical history AFib on Xarelto, hyperlipidemia, hypertension, sleep apnea, and blood clot presents the hospital with abnormal labs. Patient seen and examined at bedside. Feeling less SOB. Patient completed claen out and denied blood in the stools. Review of Systems Review of Systems: 12 systems were reviewed and are negativ e except for as per HPI. All systems reviewed & are unremarkable except as noted in HPI and below Exam Narrative: General: NAD. Generalized pallor noted. Eyes: EOMI ENT: neck supple Cardiovascular: Regular rate and rhythm Respiratory: Clear to auscultation, respirations even and unlabored on RA Gastrointestinal: Soft, non tender Genitourinary: no suprapubic tenderness Musculoskeletal: No edema Skin: warm, dry Neuro: Alert. Psych: Mood appropriate Objective Data Vital Signs Vital Signs: Vital Signs - 24 hr 12/17/24 08:28 12/17/24 13:36 12/17/24 13:53 Temperature 97 F L Pulse Rate 64 60 62 Respiratory Rate 20 20 Blood Pressure 151/69 H 114/59 L Pulse Oximetry 99 94 Oxygen Delivery Room Air Room Air 12/17/24 14:03 12/17/24 14:13 12/17/24 14:28 Temperature 97.3 F L Pulse Rate 64 64 61 Respiratory Rate 20 21 H 18 Blood Pressure 124/62 125/69 137/66 Pulse Oximetry 96 97 98 Oxygen Delivery Room Air Room Air 12/17/24 16:00 12/17/24 20:00 12/17/24 20:00 Temperature 97.5 F L 97.9 F Pulse Rate 62 69 Respiratory Rate 18 20 Blood Pressure 124/75 113/71 Pulse Oximetry 99 99 Oxygen Delivery Room Air 12/18/24 05:41 Temperature 97.2 F L Pulse Rate 76 Respiratory Rate 16 Blood Pressure 119/62 Pulse Oximetry 99 Oxygen Delivery Intake/Output Intake/Output: Intake & Output 12/15/24 12/16/24 12/17/24 12/18/24 23:59 23:59 23:59 23:59 Intake Total 794 1100.0 1331 Balance 794 1100.0 1331 Meds/Results Medications: Active Medications Generic Name Dose Route Start Last Admin Trade Name Freq PRN Reason Stop Dose Admin Acetaminophen 650 mg 12/16/24 14:15 Acetaminophen 325 Mg Tablet PO Q4H PRN Mild Pain (1-3) or Fever Albuterol 2 puff 12/16/24 18:24 Albuterol Sulfate (*Sp) Aerosol 1 Puff INHALATION Q4-6H PRN Shortness Of Breath Or Wheezing Atorvastatin Calcium 10 mg 12/17/24 09:00 12/17/24 08:27 Atorvastatin 10 Mg Tablet PO 10 mg DAILY THAO Administration Metoprolol Tartrate 50 mg 12/17/24 09:00 12/17/24 08:28 Metoprolol Tartrate 50 Mg Tab PO 50 mg DAILY THAO Administration Nifedipine 30 mg 12/17/24 09:00 Nifedipine 30 Mg Tab.Er.24 PO On Hold: 12/17/24 09:00 DAILY THAO Upadacitinib [Rinvoq 15 mg 12/17/24 16:20 12/17/24 17:31 ] 15 Mg Tablet Er PO 01/16/25 16:19 15 mg Home Med DAILY THAO Administration Ondansetron HCl 4 mg 12/16/24 14:15 Ondansetron Inj 4 Mg/2 Ml Vial IV PUSH Q4H PRN Nausea Pantoprazole Sodium 40 mg 12/18/24 09:00 Pantoprazole 40 Mg Tablet PO QAM THAO Perflutren Lipid Microsphere 0 ml 12/16/24 21:09 Perflutren Lipid Microspheres 1.5 Ml Vial Diluted To 10 Ml Total Volume IV PUSH 12/19/24 21:10 ONCE PRN adequate visualization Protocol Telmisartan 40 mg 12/17/24 09:00 12/17/24 08:27 Telmisartan 40 Mg Tablet PO 40 mg DAILY THOA Administration Radiology Results: ITS Impressions Abdomen/Pelvis CTA 12/16/24 14:02 IMPRESSION: 1. No acute abdominal abnormality. 2: Groundglass opacities right lower lobe, suspicious for pneumonia. 3: Calcific density of the gastric lumen of uncertain origin. No obstruction. Chest X-Ray 12/16/24 16:30 Impression: 1: Cardiomegaly with interstitial edema. Labs Labs: Laboratory Results - last 24 hr 12/17/24 12/17/24 12/17/24 04:28 10:01 18:25 WBC RBC Hgb 7.7 L 7.9 L Hct 25.2 L 25.7 L MCV MCH MCHC RDW Plt Count MPV Immature Gran % (Auto) Neut % (Auto) Lymph % (Auto) [place] % (Auto) Eos % (Auto) Baso % (Auto) Lymph # (Auto) [place] # (Auto) Eos # (Auto) Baso # (Auto) Abs Immat Gran (auto) Absolute Neuts (auto) Absolute Nucleated RBC Nucleated RBC % Sodium Potassium Chloride Carbon Dioxide Anion Gap BUN Creatinine Estim Creat Clear Calc Estimated GFR Glucose Calcium Total Bilirubin AST ALT Alkaline Phosphatase Total Protein Albumin Procalcitonin < 0.0 12/18/24 05:42 WBC 4.9 RBC 2.59 L Hgb 8.2 L Hct 27.0 L MCV 104.2 H MCH 31.7 MCHC 30.4 L RDW 18.6 H Plt Count 235 MPV 10.5 H Immature Gran % (Auto) 0.6 H Neut % (Auto) 69.2 Lymph % (Auto) 15.[address] [place] % (Auto) 12.1 H Eos % (Auto) 2.0 Baso % (Auto) 0.6 Lymph # (Auto) 0.[address] [place] # (Auto) 0.6 Eos # (Auto) 0.1 Baso # (Auto) 0.0 Abs Immat Gran (auto) 0.03 Absolute Neuts (auto) 3.4 Absolute Nucleated RBC 0.000 Nucleated RBC % 0.0 Sodium 138 Potassium 3.8 Chloride 108 H Carbon Dioxide 24 Anion Gap 6 BUN 16 Creatinine 0.78 Estim Creat Clear Calc 60 Estimated GFR > 60 Glucose 109 Calcium 9.8 Total Bilirubin 0.8 AST 30 ALT 18 Alkaline Phosphatase 65 Total Protein 6.9 Albumin 3.9 Procalcitonin Quality VTE Prophylaxis VTE prophylaxis: mechanical ordered
[2024-12-18] MEDS: TELMISARTAN 40 MG TABLET PO (09:17)
[2024-12-18] MEDS: PANTOPRAZOLE 40 MG TABLET PO (09:17)
[2024-12-18] MEDS: UPADACITINIB 15 MG 15 EACH PO (09:17)
[2024-12-18] MEDS: ATORVASTATIN 10 MG TABLET PO (09:17)
[2024-12-18] MEDS: METOPROLOL TARTRATE 50 MG TAB PO (09:17)
[2024-12-18] MEDS: LACTATED RINGERS 1,000 ML 150 ML IV CONT (12:36)
--- NOTE | 2024-12-18 13:20 | WPDANESEPPF ---
Anes - Initial Pre Proc Eval Procedure: Operation Date: 12/17/24 14:00 Proposed Procedures p Esophagogastroduodenoscopy - Bo Olivera MD Operation Date: 12/18/24 13:30 Proposed Procedures p Diagnostic Colonoscopy - Tico Littlejohn MD Date/Time: 12/18/24 13:20 Surgeon: Isidro Villalba MD Pre Op Diagnosis: gi bleed,anemia Patient Data Age: 69 Gender: F Height: 1.73 m Weight: 82.7 kg Last Vital Signs Temp 97 F L 12/18/24 12:30 Pulse 58 L 12/18/24 12:30 Resp 18 12/18/24 12:30 BP 134/67 12/18/24 12:30 Pulse Ox 100 12/18/24 12:30 O2 Del Method Room Air 12/18/24 12:30 Allergies Allergy/AdvReac Type Severity Reaction Status Date / Time No Known Drug Allergies Allergy Verified 12/16/24 12:29 Home Medications ?Medication ?Instructions ?Recorded ?Confirmed ?Type metoprolol tartrate 100 mg tablet 50 mg PO DAILY 10/01/20 12/16/24 History atorvastatin 10 mg tablet 10 mg PO DAILY 10/22/20 12/16/24 History calcium 300 mg-D3 20 mcg-magnesium 2 tablet PO DAILY 10/22/20 12/16/24 History 25 mg-coppr 0.5 [id number] tablet (Caltrate-D3 Plus Minerals) albuterol sulfate 90 mcg/actuation 2 puff inhalation Q4-6H PRN 10/26/20 12/16/24 Rx aerosol inhaler (ProAir HFA) shortness of breath or wheezing #6.7 grams nifedipine 30 mg tablet,extended 30 mg PO DAILY 03/23/21 12/16/24 History release telmisartan 40 mg tablet 40 mg PO DAILY 03/23/21 12/16/24 History rivaroxaban 20 mg tablet (Xarelto) 20 mg PO DAILY 10/31/21 12/16/24 History ondansetron 4 mg disintegrating 4 mg PO Q6H PRN nausea and 01/11/22 12/16/24 Rx tablet vomiting #10 tabs acetaminophen 500 mg tablet 1,000 mg (2 x 500 mg) PO Q6H PRN 10/13/22 12/16/24 Rx (Tylenol Extra Strength) pain #50 tabs upadacitinib 15 mg tablet,extended 15 mg PO DAILY 12/16/24 12/16/24 History release 24 hr (Rinvoq) Laboratory Tests 12/17/24 12/18/24 18:25 05:42 WBC 4.9 K/mm3 (4.5-10.0) RBC 2.59 L M/mm3 (4.2-5.4) Hgb 7.9 L g/dL 8.2 L g/dL (12.0-15.0) (12.0-15.0) Hct 25.7 L % 27.0 L % (37.0-47.0) (37.0-47.0) MCV 104.2 H fl (80-100) MCH 31.7 pg (26-34) MCHC 30.4 L g/dl (32-36) RDW 18.6 H % (11.5-14.5) Plt Count 235 k/mm3 (150-375) MPV 10.5 H fl (7.4-10.4) Immature Gran % (Auto) 0.6 H % (0-0.5) Neut % (Auto) 69.2 % (45.5-73.1) Lymph % (Auto) 15.5 L % (18.3-44.2) [place] % (Auto) 12.1 H % (2.6-8.5) Eos % (Auto) 2.0 % (0-4.4) Baso % (Auto) 0.6 % (0.2-1.2) Lymph # (Auto) 0.76 L K/mm3 (0.9-3.2) [place] # (Auto) 0.6 K/mm3 (0.1-0.6) Eos # (Auto) 0.1 K/mm3 (0-0.3) Baso # (Auto) 0.0 K/mm3 (0.0-0.1) Abs Immat Gran (auto) 0.03 K/mm3 (0.00-0.031) Absolute Neuts (auto) 3.4 K/mm3 (1.3-6.7) Absolute Nucleated RBC 0.000 K/mm3 (0.0-0.012) Nucleated RBC % 0.0 % (0.0-0.2) Sodium 138 mmol/L (137-145) Potassium 3.8 mmol/L (3.4-5.0) Chloride 108 H mmol/L (98-107) Carbon Dioxide 24 mmol/L (22-30) Anion Gap 6 mmol/L (4-12) BUN 16 mg/dL (7-17) Creatinine 0.78 mg/dL (0.7-1.0) Estim Creat Clear Calc 60 ml/min Estimated GFR > 60 (59 - ) Glucose 109 mg/dL (65-110) Calcium 9.8 mg/dL (8.4-10.2) Total Bilirubin 0.8 mg/dL (0.2-1.3) AST 30 U/L (14-36) ALT 18 U/L (6-35) Alkaline Phosphatase 65 U/L (38-126) Total Protein 6.9 g/dL (6.3-8.2) Albumin 3.9 g/dL (3.5-5.1) Patient hx anesthesia problems: none Family hx anesthesia problems: none Results Review: All pre-operative results and documents have been reviewed as part of the pre-operative evaluation. [facility] Past Medical History Medical History (Updated 12/17/24 @ 15:28 by Bo Olivera MD) Blood thinned due to long-term anticoagulant use Osteoporosis Hypertension Blood clot due to device, implant, or graft Arthritis Obese Diarrhea Constipation Afib SOB (shortness of breath) Wears glasses Light headedness Claustrophobia History of intraoperative complication of surgical procedure History of adverse reaction to anesthesia Foot drop, bilateral Atrial fib/flutter, transient Hyperlipidemia with low HDL HTN (hypertension) MAURIZIO (obstructive sleep apnea) Osteoporosis CMT (Dbulmqv-Nyhwx-Smlcn disease) Surgical History Surgical History History of right knee joint replacement 11/18/2002. HEMATOMA EVACUATION 11/25/2002 Family History Family History Father Arthritis Diabetes mellitus Hypertension Neuropathy Stomach cancer Mother Asthma Heart disease Hypertension Sibling Diabetes mellitus Other Alcoholism Anxiety Social History Social History Smoking status: Never smoker Second hand tobacco smoke exposure: No Alcohol intake: never Substance use: never Substance use type: does not use Lack of Transportation: No Lack of Food: Never True Current Housing: I Have Housing Concerned About Future Housing: No Difficulty Paying Gas/Electric Bills: No Difficulty Paying for Meds: No Currently Unemployed: No Education: Decline to Answer Difficulty w/ Childcare or Family Care: No Living arrangements: with family Occupation/Education: retired Gender identity (if verbalized by the patient): Female Sexual Orientation (if Verbalized by the Patient): Straight or Heterosexual Spiritual care concerns: No Anes - Eval Final PreProcedure Day of Procedure 12/18/24 13:20 Patient weight: normal Heart: regular rate and rhythm Lungs: clear to auscultation Airway: Mallampati scale class II Neurological: alert and oriented Last oral intake: >/= 8 hours ASA classification: IV Emergent: no Anesthetic plan: proceed Anesthesia type and monitoring: general GIVS and standard monitoring Results Review: All pre-operative results and documents have been reviewed as part of the pre-operative evaluation. Informed Consent: The patient's anesthetic plan and its attendant risks and benefits were discussed with the patient/family/POA. Questions were solicited and answers provided to the satisfaction of the patient/family/POA.
--- NOTE | 2024-12-18 15:04 | S_PTH ---
PATIENT: Lisa Lujan LOC: [id number] U#:[id number] AGE/SX: 69/F ROOM: 301 RE12/16/[address]: Isidro Villalba MD : 1955 BED: 01 DIS: 12/19/2024 SPEC #: [id number] RECD: 12/19/24 07:01 STATUS: LENORE REAlmas #: [id number] SHON: 12/18/24 15:[address]: Bo Olivera DEPT: [facility] Surgical RECD BY: Isabela Chavira ENTERED: 12/19/24 07:03 SP TYPE: Surgical OTHR DR: MD Sabino Persaud MD Onyema Nnanna, MD Natalie J. Ross, PA Tissues: A - Colon Polypectomy Procedures: Hematoxylin and Eosin Stain Gross and Microscopic Level 4
--- NOTE | 2024-12-18 15:05 | P.PNGI_ITS ---
Progress Note: A&P Assessment and Plan (1) GI bleed: Qualifiers: GI bleed type/associated pathology: unspecified gastrointestinal hemorrhage type Qualified Code(s): K92.2 - Gastrointestinal hemorrhage, unspecified Code(s): K92.2 - Gastrointestinal hemorrhage, unspecified Status: Acute Assessment and Plan: See colonoscopy report. No findings to explain intermittent melena and anemia. 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 Will schedule capsule endoscopy study as outpatient. Patient can be fed normally and recommend starting iron infusion protocol until complete iron store replacement. Subjective Date/time seen: 12/18/24 15:05 Objective Data Vital Signs Vital Signs: Vital Signs - 24 hr 12/17/24 16:00 12/17/24 20:00 12/17/24 20:00 Temperature 97.5 F L 97.9 F Pulse Rate 62 69 Respiratory Rate 18 20 Blood Pressure 124/75 113/71 Pulse Oximetry 99 99 Oxygen Delivery Room Air 12/18/24 05:41 12/18/24 09:17 12/18/24 12:30 Temperature 97.2 F L 97 F L Pulse Rate 76 76 58 L Respiratory Rate 16 18 Blood Pressure 119/62 134/67 Pulse Oximetry 99 100 Oxygen Delivery Room Air Intake/Output Intake/Output: Intake & Output 12/15/24 12/16/24 12/17/24 12/18/24 23:59 23:59 23:59 23:59 Intake Total 794 1100.0 1331 Balance 794 1100.0 1331 Meds/Results Medications: Active Medications Generic Name Dose Route Start Last Admin Trade Name Freq PRN Reason Stop Dose Admin Acetaminophen 650 mg 12/16/24 14:15 Acetaminophen 325 Mg Tablet PO Q4H PRN Mild Pain (1-3) or Fever Albuterol 2 puff 12/16/24 18:24 Albuterol Sulfate (*Sp) Aerosol 1 Puff INHALATION Q4-6H PRN Shortness Of Breath Or Wheezing Atorvastatin Calcium 10 mg 12/17/24 09:00 12/18/24 09:17 Atorvastatin 10 Mg Tablet PO 10 mg DAILY THAO Administration Lactated Ringer's 1,000 mls @ 150 mls/hr 12/18/24 12:25 12/18/24 15:03 Lr - Lactated Ringers Iv IV CONT 150 mls/hr .Q6H40M THAO Infusion Metoprolol Tartrate 50 mg 12/17/24 09:00 12/18/24 09:17 Metoprolol Tartrate 50 Mg Tab PO 50 mg DAILY THAO Administration Nifedipine 30 mg 12/17/24 09:00 Nifedipine 30 Mg Tab.Er.24 PO On Hold: 12/17/24 09:00 DAILY THAO Upadacitinib [Rinvoq 15 mg 12/17/24 16:20 12/18/24 09:17 ] 15 Mg Tablet Er PO 01/16/25 16:19 15 mg Home Med DAILY THAO Administration Ondansetron HCl 4 mg 12/16/24 14:15 Ondansetron Inj 4 Mg/2 Ml Vial IV PUSH Q4H PRN Nausea Pantoprazole Sodium 40 mg 12/18/24 09:00 12/18/24 09:17 Pantoprazole 40 Mg Tablet PO 40 mg QAM THAO Administration Perflutren Lipid Microsphere 0 ml 12/16/24 21:09 Perflutren Lipid Microspheres 1.5 Ml Vial Diluted To 10 Ml Total Volume IV PUSH 12/19/24 21:10 ONCE PRN adequate visualization Protocol Telmisartan 40 mg 12/17/24 09:00 12/18/24 09:17 Telmisartan 40 Mg Tablet PO 40 mg DAILY THAO Administration Radiology Results: ITS Impressions Abdomen/Pelvis CTA 12/16/24 14:02 IMPRESSION: 1. No acute abdominal abnormality. 2: Groundglass opacities right lower lobe, suspicious for pneumonia. 3: Calcific density of the gastric lumen of uncertain origin. No obstruction. Chest X-Ray 12/18/24 10:52 IMPRESSION: No acute process. Labs Labs: Laboratory Results - last 24 hr 12/17/24 12/18/24 18:25 05:42 WBC 4.9 RBC 2.59 L Hgb 7.9 L 8.2 L Hct 25.7 L 27.0 L MCV 104.2 H MCH 31.7 MCHC 30.4 L RDW 18.6 H Plt Count 235 MPV 10.5 H Immature Gran % (Auto) 0.6 H Neut % (Auto) 69.2 Lymph % (Auto) 15.[address] [place] % (Auto) 12.1 H Eos % (Auto) 2.0 Baso % (Auto) 0.6 Lymph # (Auto) 0.[address] [place] # (Auto) 0.6 Eos # (Auto) 0.1 Baso # (Auto) 0.0 Abs Immat Gran (auto) 0.03 Absolute Neuts (auto) 3.4 Absolute Nucleated RBC 0.000 Nucleated RBC % 0.0 Sodium 138 Potassium 3.8 Chloride 108 H Carbon Dioxide 24 Anion Gap 6 BUN 16 Creatinine 0.78 Estim Creat Clear Calc 60 Estimated GFR > 60 Glucose 109 Calcium 9.8 Total Bilirubin 0.8 AST 30 ALT 18 Alkaline Phosphatase 65 Total Protein 6.9 Albumin 3.9
[2024-12-18] MEDS: IRON SUCROSE COMPLEX 200 MG, IRON SUCROSE COMPLEX 100 MG in SODIUM CHLORIDE 0.9% IV 250 ML 176.67 MG IVPB (18:10)
[2024-12-18] MEDS: ONDANSETRON INJ 4 MG/2 ML VIAL IV PUSH (18:12)
[2024-12-19 04:40] VITALS: BP 128/54; PULSE 74; RESP 18; TEMP 36.3; O2SAT 97
[2024-12-19 06:45] LABS: Hematocrit 25.9 % (37.0-47.0); Hemoglobin 7.7 g/dL (12.0-15.0); Immature Granulocyte Percent A 0.4 % (0-0.5); Lymphocytes Absolute Auto 0.47 K/mm3 (0.9-3.2); Mean Corpuscular HGB Conc 29.7 g/dl (32-36); Mean Corpuscular Hemoglobin 30.9 pg (26-34); Mean Corpuscular Volume 104.0 fl (80-100); Nucleated Red Blood Cells Absolute Auto 0.000 K/mm3 (0.0-0.012); Nucleated Red Blood Cells Perc 0.0 % (0.0-0.2); Platelet Count Result 218 k/mm3 (150-375); Red Blood Count 2.49 M/mm3 (4.2-5.4); White Blood Count 5.5 K/mm3 (4.5-10.0)
[2024-12-19 07:24] LABS: Alanine Aminotransferase 17 U/L (6-35); Albumin Level 3.5 g/dL (3.5-5.1); Alkaline Phosphatase 63 U/L (38-126); Anion Gap 5 mmol/L (4-12); Aspartate Amino Transferase 27 U/L (14-36); Bilirubin,Total 0.5 mg/dL (0.2-1.3); Blood Urea Nitrogen 20 mg/dL (7-17); Calcium 8.8 mg/dL (8.4-10.2); Carbon Dioxide 22 mmol/L (22-30); Chloride 111 mmol/L (98-107); Estimated CRCL calculation 54 ml/min; Estimated Glomerular Filt Rate > 60; Glucose 124 mg/dL (65-110); Potassium 4.0 mmol/L (3.4-5.0); Sodium 138 mmol/L (137-145); Total Protein 6.3 g/dL (6.3-8.2)
[2024-12-19 07:38] LABS: Anisocytosis 1+; Hypochromasia 1+; Schistocytes None Seen
[2024-12-19 07:40] LABS: Polychromasia Occasional
[2024-12-19] MEDS: ONDANSETRON INJ 4 MG/2 ML VIAL IV PUSH (10:01)
[2024-12-19 10:03] VITALS: PULSE 74
[2024-12-19] MEDS: METOPROLOL TARTRATE 50 MG TAB PO (10:03)
[2024-12-19] MEDS: ATORVASTATIN 10 MG TABLET PO (10:03)
[2024-12-19] MEDS: TELMISARTAN 40 MG TABLET PO (10:03)
[2024-12-19] MEDS: UPADACITINIB 15 MG 15 EACH PO (10:04)
--- NOTE | 2024-12-19 12:29 | PM.DS ---
DS: Admitting Diagnosis Discharge Date 12/19/24 Admitting Diagnosis - anemia - GI bleed DS: Discharge Diagnosis Discharge Diagnosis (1) GI bleed: Qualifiers: GI bleed type/associated pathology: unspecified gastrointestinal hemorrhage type Qualified Code(s): K92.2 - Gastrointestinal hemorrhage, unspecified Code(s): K92.2 - Gastrointestinal hemorrhage, unspecified Status: Acute (2) Acute blood loss anemia: Code(s): D62 - Acute posthemorrhagic anemia Status: Acute (3) Pulmonary edema: Code(s): J81.1 - Chronic pulmonary edema Status: Acute (4) HTN (hypertension): Code(s): I10 - Essential (primary) hypertension Status: Acute (5) Hyperlipidemia with low HDL: Code(s): E78.5 - Hyperlipidemia, unspecified; E78.6 - Lipoprotein deficiency Status: Acute DS: Summary Hospital Course Reason for hospitalization: - anemia - GI bleed Hospital Course: 69-year-old female past medical history AFib on Xarelto, hyperlipidemia, hypertension, sleep apnea, and blood clot presents the hospital with abnormal labs with dyspnea, dark stools. Lab work in the ED showed hemoglobin of 6.9, chloride of 109, BUN 26, glucose of 174, iron saturation 16, TIBC [address] of the abdomen and pelvis show no acute process in the abdomen. Ground-glass opacities suspicious for pneumonia. Chest x-ray with cardiomegaly with interstitial edema. Patient was administered 1u PRBCs and admitted for further evaluation. Due to concerns for GI bleed, GI was consulted. 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 No signs of active bleeding. Patient subsequently underwent colonoscopy 12/18 which a cecal polyp and internal hemorrhoids, no signs of active bleeding. GI recommended outpatient capsule endoscopy. Patient's hemoglobin remains stable s/p transfusion and Venofer infusion. She had no further signs of bleeding while admitted. GI recommended restarting patient's Xarelto. She will have a repeat CBC early next week and follow-up with her PCP. She is also instructed to follow up closely with GI to obtain capsule endoscopy study. She will continue p.o. iron supplementation at home. Patient had concern for hypervolemia given initial chest x-ray findings and shortness of breath. BNP 139. Echo showed EF 60-65%, grade 1 diastolic dysfunction, mild pulmonary hypertension and moderate pulmonic regurgitation. Patient received IV Lasix x1 and repeat chest x-ray was negative for acute process. Dyspnea improved. Cardiology followed and did not have further recommendations regarding CHF, but did recommend outpatient follow-up with her lehr tender at [facility] to discuss possible Watchman procedure due to history of recurrent bleeding on Xarelto. Patient was discharged home in stable condition. Strict return precautions on discharge. Status at Discharge Functional status at discharge: independent ambulation Time Spent with Patient Time attestation: Total time spent providing and/or coordinating discharge services: Time spent: Greater than 30 minutes Exam Narrative: General: NAD. Generalized pallor noted. Eyes: EOMI ENT: neck supple Cardiovascular: Regular rate and rhythm Respiratory: Clear to auscultation, respirations even and unlabored on RA Gastrointestinal: Soft, non tender Genitourinary: no suprapubic tenderness Musculoskeletal: No edema Skin: warm, dry Neuro: Alert. Psych: Mood appropriate DS: Data Data Completed and Pending Completed studies during hospitalization: ITS Impressions Abdomen/Pelvis CTA 12/16/24 14:02 IMPRESSION: 1. No acute abdominal abnormality. 2: Groundglass opacities right lower lobe, suspicious for pneumonia. 3: Calcific density of the gastric lumen of uncertain origin. No obstruction. Chest X-Ray 12/16/24 16:30 Impression: 1: Cardiomegaly with interstitial edema. Chest X-Ray 12/18/24 10:52 IMPRESSION: No acute process. Pending studies at discharge: Pending at discharge 12/18/24 15:04 Surgical [PTH] Routine Labs on day of discharge: Labs from last 24 hours 12/19/24 05:29 WBC 5.5 RBC 2.49 L Hgb 7.7 L Hct 25.9 L MCV 104.0 H MCH 30.9 MCHC 29.7 L RDW 17.6 H Plt Count 218 MPV 10.6 H Immature Gran % (Auto) 0.4 Neut % (Auto) 80.0 H Lymph % (Auto) 8.5 L [place] % (Auto) 9.6 H Eos % (Auto) 1.1 Baso % (Auto) 0.4 Lymph # (Auto) 0.47 L [place] # (Auto) 0.5 Eos # (Auto) 0.1 Baso # (Auto) 0.0 Abs Immat Gran (auto) 0.02 Absolute Neuts (auto) 4.4 Absolute Nucleated RBC 0.000 Band Neutrophils % Not Reportable Nucleated RBC % 0.0 Platelet Estimate Adequate Polychromasia Occasional Hypochromasia 1+ Anisocytosis 1+ Schistocytes None seen Sodium 138 Potassium 4.0 Chloride 111 H Carbon Dioxide 22 Anion Gap 5 BUN 20 H Creatinine 0.86 Estim Creat Clear Calc 54 Estimated GFR > 60 Glucose 124 H Calcium 8.8 Total Bilirubin 0.5 AST 27 ALT 17 Alkaline Phosphatase 63 Total Protein 6.3 Albumin 3.5 Discharge Plan Discharge Attending physician on discharge: Isidro Villalba Consulting providers: Shawnee Jones; Bo Olivera; Vinicio Ashley Discharging Clinician: Shawnee Jones Patient Disposition: Home Activity: as tolerated Diet: regular Discharge Instructions: Take all medications as prescribed. Follow-up with your primary care provider in one week. Have your lab work repeated early next week to check your blood counts. Watch for blood in the stool or dark, tarry stools and return to the emergency department if this occurs. Call GI if you have not heard from them by Sunday about the capsule endoscopy study. Continue your iron supplement. Return to the emergency department if you develop chest pain, shortness of breath, persistent fever >100.4, confusion, loss of consciousness. Patient Instructions: Antibiotic Form, Rivaroxaban (By mouth), Heart Failure (GEN), Arteriovenous Malformation (DC) Patient Language: Ivorian Stand Alone Forms: General Discharge Information Follow-up/Referrals: Sabino Porter MD [Primary Care Provider, Family Practice] - Call for Appointment Referral Note: in 5-7 days Tico Littlejohn MD [Physician, Gastroenterology] - Call for Appointment Referral Note: capsule endoscopy Discharge Medications: New ferrous gluconate 324 mg (37.5 mg iron) tablet 324 mg PO DAILY Qty: 30 0RF Continued metoprolol tartrate 100 mg tablet 50 mg PO DAILY nifedipine 30 mg tablet extended release 30 mg PO DAILY telmisartan 40 mg tablet 40 mg PO DAILY Xarelto 20 mg tablet 20 mg PO DAILY Rx Instructions: must administer with evening meal atorvastatin 10 mg tablet 10 mg PO DAILY Caltrate-D3 Plus Minerals 300 mg-800 unit -25 mg-0.5 mg Tablet 2 tablet PO DAILY albuterol sulfate [ProAir HFA] 90 mcg/actuation HFA aerosol inhaler 2 puff inhalation Q4-6H PRN (Reason: shortness of breath or wheezing) Qty: 6.7 0RF ondansetron 4 mg tablet,disintegrating 4 mg PO Q6H PRN (Reason: nausea and vomiting) Qty: 10 0RF acetaminophen [Tylenol Extra Strength] 500 mg tablet 1,000 mg PO Q6H PRN (Reason: pain) Qty: 50 0RF Rinvoq 15 mg tablet extended release 24 hr 15 mg PO DAILY Other Ambulatory Orders: Complete Blood Count with Diff (Routine) Timeframe: 3 Days Location: Determined by Patient Ordered By: Shawnee Jones Date of admission: 12/16/24 14:15 Primary Care Provider: Sabino Porter Admitting Provider: Isidro Villalba Attending physician on admission: Isidro Villalba Condition: Stable
--- NOTE | 2024-12-19 13:06 | P.PNAN_ITS ---
Anes - Prog Note Post-Op Date/Time: 12/19/24 13:06 Cardiovascular status: normal Respiratory status: normal Airway patency: baseline Mental status: baseline Post-Op hydration status: normal Vital Signs: Last Vital Signs Temp 97.3 F L 12/19/24 04:40 Pulse 74 12/19/24 10:03 Resp 18 12/19/24 04:40 BP 128/54 L 12/19/24 04:40 Pulse Ox 97 12/19/24 04:40 O2 Del Method Room Air 12/18/24 20:00 Pain Score (VAS): 0/10 I/O: Intake & Output 12/18/24 12/19/24 12/19/24 23:59 07:59 15:59 Intake Total 1340 600 120 Output Total 1000 Balance 340 600 120 Laboratory Tests 12/19/24 05:29 12/19/24 05:29 12/19/24 05:29 WBC 5.5 RBC 2.49 L Hgb 7.7 L Hct 25.9 L MCV 104.0 H MCH 30.9 MCHC 29.7 L RDW 17.6 H Plt Count 218 MPV 10.6 H Immature Gran % (Auto) 0.4 Neut % (Auto) 80.0 H Lymph % (Auto) 8.5 L [place] % (Auto) 9.6 H Eos % (Auto) 1.1 Baso % (Auto) 0.4 Lymph # (Auto) 0.47 L [place] # (Auto) 0.5 Eos # (Auto) 0.1 Baso # (Auto) 0.0 Abs Immat Gran (auto) 0.02 Absolute Neuts (auto) 4.4 Absolute Nucleated RBC 0.000 Band Neutrophils % Not Reportable Nucleated RBC % 0.0 Platelet Estimate Adequate Polychromasia Occasional Hypochromasia 1+ Anisocytosis 1+ Schistocytes None seen Sodium 138 Potassium 4.0 Chloride 111 H Carbon Dioxide 22 Anion Gap 5 BUN 20 H Creatinine 0.86 Estim Creat Clear Calc 54 Estimated GFR > 60 Glucose 124 H Calcium 8.8 Total Bilirubin 0.5 AST 27 ALT 17 Alkaline Phosphatase 63 Total Protein 6.3 Albumin 3.5 Post-procedural complaints: none Patient Feedback: Patient satisfied with anesthetic care. Other Findings: Anemia
== END 2024-12-19 13:45 | disposition home or self-care (01) ==
LOC: ANHED 14:27 → ANH3MEDSUR 18:02
PROVIDERS: Internal Medicine Gastroenterology; Nurse Practitioner Gerontology; Physician Assistant; Admitting Provider Internal Medicine; Emergency Provider Family Medicine; PCP Family Medicine; Visit Provider Internal Medicine
PROC: 0DJ08ZZ Inspection of Upper Intestinal Tract, Via Natural or Artificial Opening Endoscopic (ICD-10-PCS; CPT 43255; principal; 2024-12-17 14:00)
PROC: 0DJD8ZZ Inspection of Lower Intestinal Tract, Via Natural or Artificial Opening Endoscopic (ICD-10-PCS; CPT 45378; principal; 2024-12-18 13:30)
DX: K92.2 Gastrointestinal hemorrhage, unspecified (principal); D62 Acute posthemorrhagic anemia; I48.20 Chronic atrial fibrillation, unspecified; J81.1 Chronic pulmonary edema; K55.20 Angiodysplasia of colon without hemorrhage; Q27.33 Arteriovenous malformation of digestive system vessel; D12.0 Benign neoplasm of cecum; K64.8 Other hemorrhoids; I37.1 Nonrheumatic pulmonary valve insufficiency; R91.8 Other nonspecific abnormal finding of lung field; Z79.01 Long term (current) use of anticoagulants; E78.5 Hyperlipidemia, unspecified; E78.6 Lipoprotein deficiency; M81.0 Age-related osteoporosis without current pathological fracture; M19.90 Unspecified osteoarthritis, unspecified site; I11.9 Hypertensive heart disease without heart failure; G47.33 Obstructive sleep apnea (adult) (pediatric); G60.0 Hereditary motor and sensory neuropathy; Z96.651 Presence of right artificial knee joint; M21.372 Foot drop, left foot; M21.371 Foot drop, right foot; Z79.51 Long term (current) use of inhaled steroids; Z79.899 Other long term (current) drug therapy; Z86.718 Personal history of other venous thrombosis and embolism; Z82.61 Family history of arthritis; Z83.3 Family history of diabetes mellitus; Z82.49 Family history of ischemic heart disease and other diseases of the circulatory system; Z80.0 Family history of malignant neoplasm of digestive organs; Z81.1 Family history of alcohol abuse and dependence
CPT/HCPCS: 43255; 45385; 36415; 36430; 71045; 71046; 74174; 80048; 80053; 83540; 83550; 83880; 84145; 85014; 85018; 85025; 86850; 86900; 86901; 86923; 88305; 93306; 96361; 96374; 96375; 99285; A9270; G0378; J1756; J2003; J2405; J2470; J2704; J7030; J7050; J7120; P9016; Q9967

== ENCOUNTER 2024-12-24 16:10 | Outpatient (CLI) | payer MEDICARE, BC, SELFPAY ==
--- OUTSIDE RECORDS SUMMARY | 2024-12-24 10:45 | XMS_ITS | Encounter Summary ---
Author Organization [facility] Address [address] [facility] [place] [address] Care Team Providers Care Private Branch Exchange Operator Name Role Phone Saúl Junior MD Unavailable [phone] Rinku Rocha MD Unavailable Sabino Porter MD Primary Care Provider [phone] Reason for Referral * Evaluate & Treat - Open Specialty Diagnoses / Procedures Referred By Shadia t Referred To Contact Cardiology Diagnoses Atrial fibrillation, unspecified type (HCC) Gastrointestinal hemorrhage, unspecified gastrointestinal hemorrhage type Cesario Hernandez APRN-CNP [address] [place] [address] [address] [place] [address] Phone: tel: fax: [facility] - Cardiology [address] [facility] [address] [place] [address] Phone: tel: fax: Referral ID Status Reason Start Date Expiration Date V isits Requested Visits Authorized [id number] Open Specialty Services Required 12/24/2024 12/24/2025 1 1 Reason for Visit * Reason Comments GI Bleeding CHF Follow-up Hypertension Atrial Fibrillation Encounter Details Date Type Department Care Team (Latest Contact Info) Description 12/24/2024 10:45 AM CDT Office Visit [facility] Heart & Vascular Care [address] [place] [address] [address] [place], [place] [phone] Cesario Hernandez, BEDSPRING ASSEMBLER-DRYING MACHINE OPERATOR [address] [facility] [address] [place] [address] Atrial fibrillation, unspecified type (HCC) (Primary Dx); Gastrointestinal hemorrhage, unspecified gastrointestinal hemorrhage type Social History Tobacco Use Types Packs/Day Years Used Date Smoking Tobacco: Never Passive Smoke Exposure: Never Smokeless Tobacco: Never Tobacco Cessation:Counseling Given: No Alcohol Use Standard Drinks/Week Comments No 0 (1 standard drink = 0.6 oz pur e alcohol) PHQ-2 Answer Date Recorded Patient Health Questionnaire-2 Score 1 12/24/2024 Comments No Sex and Gender Information Value Date Recorded Sex Assigned at Not on file Legal Sex Female 6:19 AM [employer]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 Question Answer Date of Assessment Author Little interest or pleasure in doing things Several days 12/24/2024 10:58 AM CDT David Vega MA Feeling down, depressed, or hopeless Not at all 12/24/2024 10:58 AM CDT Pavel Vega MA Patient Health Questionnaire-2 Score 1 12/24/2024 10:58 AM CDT Helen Vega MA * How difficult have these problems made it for you to do your work, take care of things at home, or get along with other people? Answer Date of Assessment Author Not difficult at all 12/24/2024 10:58 AM CDT Edw Kimberlyn steele MA documented as of this encounter Patient Instructions * Patient Instructions* Cesario Hernandez APRN-CNP - 12/24/2024 11:39 AM CDT Follow up with [facility] for Watchman device Have labs drawn this week to check blood counts documented in this encounter Plan of Treatment Upcoming Encounters Date Type Department Care Team (Late st Contact Info) Description 03/25/2025 11:15 AM EMC STORAGE ARCHITECT Office Visit [facility] Heart & Vascular Care [address] [place] [address] [address] [place] [address] Cesario Hernandez APRN-CNP [address] [place] [address] [place] [phone] 04/22/2025 1:30 PM EMC STORAGE ARCHITECT Office Visit [facility] - Rheumatology [address] [place] [address], [place] [phone] Kathryn Jay MD [address] [place] [address] [place] [phone] 04/23/2025 11:00 AM EMC STORAGE ARCHITECT Appointment [facility] CAT SCAN [address] [place] [phone] Akosua Gtz MD [address] [place] [phone] 05/29/2025 12:30 PM EMC STORAGE ARCHITECT Office Visit [facility] Heart & Vascular Care [address] [place] [address] [address] [place] [address] Saúl Junior MD [address] [place] [address] [place] [phone] Scheduled Orders Name Type Priority Associated Diagnoses Orde r Schedule CBC WITH DIFFERENTIAL Lab Routine Gastrointestinal hemorrhage, unspecified gastrointestinal hemorrhage type Ordered: 12/24/2024 Scheduled Referrals Name Type Priority Associated Diagnoses Orde r Schedule AMB REFERRAL TO CARDIOLOGY Outpatient Referral Routine Atrial fibrillation, unspecified type (HCC) Gastrointestinal hemorrhage, unspecified gastrointestinal hemorrhage type 1 Occurrences starting 12/24/2024 until 12/24/2025 documented as of this encounter Visit Diagnoses Diagnosis Atrial fibrillation, unspecified type (HCC)- Primary Gastrointestinal hemorrhage, unspecified gastrointestinal hemorrhage type documented in this encounter Care Teams Private Branch Exchange Operator Relationship Specialty Start Date End Date Sabino Porter MD [address] [place] [address] PCP - General Family Medicine 07/15/21 Saúl Junior MD [address] [facility] [address] [place] [address] Motor Pool Clerk Cardiology 11/03/20 Rinku Rocha MD [address] [place] [address] Electrophysiology 01/03/21 documented as of this encounter
--- OUTSIDE RECORDS SUMMARY | 2024-12-24 16:14 | XMS_ITS | Clinical Summary ---
Author Organization [facility] Aurelia esposito [facility] Address [address] [place] [address] Care Team Providers Care Embroidery Assistant Name Role Phone Unavailable Primary Care Provider [...] Description 02/03/2025 10:30 AM CDT Office Visit [facility] Oncology and Hematology - Jose Luis [address] [facility] [address] [place] [address] Demarcus Ambriz MD [address] [facility] [address] [place] [address] Health Maintenance Due Date Last [...] (1 - 1-dose 75+ series) 2030 Insurance [facility] MCR
--- OUTSIDE RECORDS SUMMARY | 2024-12-24 16:14 | XMS_ITS | Encounter Summary ---
Author Organization [facility] Health Address [address] [facility] [place] [address] Care Team Providers Care Sales And Marketing Coordinator Name Role Phone Saúl Junior MD Unavailable [phone] Rinku Rocha MD Unavailable Sabino Porter MD Primary Care Provider [phone] Encounter Details Date Type Department Care Team (Late st Contact Info) Description 11/18/2024 Results Follow-Up [facility] OP DRAW STATION [address] [place] [phone] Saúl Junior MD [address] [facility] [address] [place] [address] Social History Tobacco Use Types Packs/Day Years Used Date Smoking Tobacco: Never Smokeless Tobacco: Never Alcohol Use Standard Drinks/Week Comments No 0 (1 standard drink = 0.6 oz pur e alcohol) PHQ-2 Answer Date Recorded Patient Health Questionnaire-2 Score 0 10/15/2024 Comments No Sex and Gender Information Value Date Recorded Sex Assigned at Not on file Legal Sex Female 6:19 AM NUCLEAR CARDIOLOGY TECHNOLOGIST Gender Identity Not on file Sexual Orientation [...] st Contact Info) Description 03/25/2025 11:15 AM NUCLEAR CARDIOLOGY TECHNOLOGIST Office Visit [facility] Health Heart & Vascular Care [address] [place] [address] [address] [place] [address] Cesario Hernandez, ENGINEERING LAB TECHNICIAN-WALLCOVERING HANGER [address] [place] [address] [address] [place] [phone] 04/22/2025 1:30 PM NUCLEAR CARDIOLOGY TECHNOLOGIST Office Visit [facility] - Rheumatology [address] [place] [address], [place] [phone] Kathryn Jay MD [address] [place] [address] [place] [phone] 04/23/2025 11:00 AM NUCLEAR CARDIOLOGY TECHNOLOGIST Appointment [facility] CAT SCAN [address] [place] [phone] Akosua Gtz MD [address] [place] [phone] 05/29/2025 12:30 PM NUCLEAR CARDIOLOGY TECHNOLOGIST Office Visit [facility] Heart & Vascular Care [address] [place] [address] [address] [place] [address] Saúl Junior MD [address] [place] [phone] documented as of this encounter Visit Diagnoses Not on filedocumented in this encounter Care Teams Sales And Marketing Coordinator Relationship Specialty Start Date End Date Sabino Porter MD [address] [facility] [address] [place] [address] PCP - General Family Medicine 07/15/21 Saúl Junior MD [address] [place] [address] [place] [phone] Religious Education Teacher Cardiology 11/03/20 Rinku Rocha MD [address] [facility] [address] [place] [address] Electrophysiology 01/03/21 documented as of this encounter
--- OUTSIDE RECORDS SUMMARY | 2024-12-24 16:14 | XMS_ITS | Clinical Summary ---
Author Organization [facility] Health Address [address] [place] [address] Care Team Providers Care Advertising Material Distributor Name Role Phone Unavailable Primary Care Provider [...]
--- OUTSIDE RECORDS SUMMARY | 2024-12-24 16:14 | XMS_ITS | Encounter Summary ---
Author Organization [facility] Health Address [address] [place] [address] Care Team Providers Care Foot Worker Name Role Phone Unavailable Primary Care Provider Unavailabl e Prior Encounters Date Type Department Care Team Description 05/05/2019 Converted CPS Chart Documents [facility] [address] [place] [phone] <No scans attached> 05/05/2019 Converted 13x Documents [facility] [address] [place] [phone] <No scans attached> Plan of Treatment Not on file Procedures Procedure Name Priority Date/Time Associated Diagnosis Comments TOPICAL APPLICATION OF FLUORIDE VARNISH Routine 05/19/2020 2:00 AM RESIDENTIAL SALES CONSULTANT PERIO MAINTENANCE Routine 05/18/2020 2:0 0 AM RESIDENTIAL SALES CONSULTANT ORAL HYGIENE INSTRUCTIONS Routine 2020 2:00 AM RESIDENTIAL SALES CONSULTANT PERIODIC ORAL EVALUATION - ESTABLISHED PATIENT Routine 09/30/2019 2:00 AM CDT PERIO MAINTENANCE Routine 09/30/2019 2: 00 AM CDT ORAL HYGIENE INSTRUCTIONS Routine 2019 2:00 AM CDT BITEWINGS - FOUR RADIOGRAPHIC IMAGES Routine 09/30/2019 2:00 AM CDT PERIO MAINTENANCE Routine 04/03/2019 2:0 0 AM RESIDENTIAL SALES CONSULTANT TOPICAL APPLICATION OF FLUORIDE VARNISH Routine 04/03/2019 2:00 AM RESIDENTIAL SALES CONSULTANT PERIO MAINTENANCE Routine 10/02/2018 2:0 0 AM CDT ORAL HYGIENE INSTRUCTIONS Routine 2018 2:00 AM CDT BITEWINGS - FOUR RADIOGRAPHIC IMAGES Routine 10/02/2018 2:00 AM CDT PERIO MAINTENANCE Routine 04/02/2018 2:0 0 AM RESIDENTIAL SALES CONSULTANT ORAL HYGIENE INSTRUCTIONS Routine 2017 2:00 AM RESIDENTIAL SALES CONSULTANT 3 UR OSSEOUS SURGERY FOUR OR MORE CONTIGUOUS TEETH Routine 2018 2:00 AM RESIDENTIAL SALES CONSULTANT 30 LR OSSEOUS SURGERY FOUR OR MORE CONTIGUOUS TEETH Routine 2018 2:00 AM RESIDENTIAL SALES CONSULTANT 14 UL OSSEOUS SURGERY FOUR OR MORE [...]
--- OUTSIDE RECORDS SUMMARY | 2024-12-24 16:14 | XMS_ITS | Clinical Summary ---
Author Organization [facility] Address [address] [place] [address] Care Team Providers Care Mental Measurements Teacher Name Role Phone Sabino Porter MD Primary Care Provider [phone] Allergies No known active allergies Medications atorvastatin [...] on file Legal Sex Female 12:03 PM PERCUSSION INSTRUCTOR Gender Identity Not on file Sexual Orientation [...] on file Medical Devices Implanted Type Area Computer Systems Manager Device Identifier Shelf Expiration Date Model / Serial / Lot Knee Replacement Knee Insurance [employer] HMO [employer] HMO Advance Directives For more information, please contact: [phone] * Full Code (Latest Code Status on File) Date Activated Date Inactivated Comments 01/19/2020 3:05 PM 01/20/2020 9:36 PM * Full Code Date Activated Date Inactivated Comments 01/15/2020 10:56 PM 01/19/2020 3:05 PM Care Teams Mental Measurements Teacher Relationship Specialty Start Date End Date Sabino Porter MD PCP - General 03/22/17
--- OUTSIDE RECORDS SUMMARY | 2024-12-24 16:15 | XMS_ITS | Encounter Summary ---
Author Organization 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 Please call [phone] and pt gave permission for messages to be left if she doesn't answer documented in this encounter Plan of Treatment Upcoming Encounters Date Type Department Care Team (Late st Contact Info) Description 03/25/2025 11:15 AM CLINIC LEAD Office Visit [facility] Heart & Vascular Care [address] [place] [address] [address] [place] [address] Cesario Hernandez APRN-JULIANN [address] [place] [address] [address] [place] [phone] 04/22/2025 1:30 PM CLINIC LEAD Office Visit [facility] - Rheumatology [address] [facility], [place] [phone] Kathryn Jay MD [address] [place] [address] [place] [phone] 04/23/2025 11:00 AM CLINIC LEAD Appointment [facility] CAT SCAN [address] [place] [phone] Akosua Gtz MD [address] [place] [phone] 05/29/2025 12:30 PM CLINIC LEAD Office Visit [facility] Heart & Vascular Care [address] [place] [address] [address] [place] [address] Saúl Junior MD [address] [place] [address] [address] [place] [phone] documented as of this encounter Visit Diagnoses Not on filedocumented in this encounter Care Teams Human Resources Services Specialist Relationship Specialty Start Date End Date Sabino Porter MD [address] [place] [address] PCP - General Family Medicine 05/10/12 11/02/20 Stew Patrick MD [address] [facility] [address] [place] [address] PCP - General Family Medicine 11/03/20 11/14/20 Sabino Porter MD [address] [facility] [address] [place] [address] PCP - General 11/15/20 01/02/21 Stew Patrick MD [address] [place] [address] [address] [place] [address] PCP - General Family Medicine 01/03/21 07/14/21 Sabino Porter MD [address] [facility] [address] [place] [address] PCP - General Family Medicine 07/15/21 Saúl Junior MD [address] [place] [phone] Sociology Professor Cardiology 11/03/20 Rinku Rocha MD [address] [facility] [address] [place] [address] Electrophysiology 01/03/21 documented as of this encounter
--- OUTSIDE RECORDS SUMMARY | 2024-12-24 16:15 | XMS_ITS | Clinical Summary ---
Author Organization [facility] [employer] Address [address] [place] [address] Care Team Providers Care Glaciologist Name Role Phone Saúl Junior MD Unavailable [phone] Rinku Rocha MD Unavailable Sabino Porter MD Primary Care Provider [phone] [facility] [employer],non-owned Affiliates and Associated Physician Practices is amultiple site organization consisting of ambulatory clinics and hospital sitesin [place], [place], [place] and [place]. This disclosure is being madepursuant to the Care Everywhere program and may not contain all information available regarding this patient. Last updated 18.[facility] [employer] Allergies No known active allergies Medications * [...] tablet 3 07/22/19 23 Active nystatin (Mycostatin) 344653 UNIT/GM cream 07/26/19 23 Active acetaminophen (Tylenol) [...] arteritis (HCC),Aortitis,I mmunosuppression due to drug therapy (HCC) Take 1 (one) tablet by mouth once daily for 56 days 04/30/19 25 Active Additional Information Patient not taking.Reported on 12/24/2024 Xarelto 20 MG tabletIndication s:Paroxysmal atrial fibrillation (HCC) Take 1 (one) tablet by mouth once daily 90 tablet 3 05/09/19 25 Active upadacitinib ER (Rinvoq) 15 MG tabletIndication s:Giant-Cell Arteritis,Active aortitis with GCA Take 1 (one) tablet by mouth once daily Reasons: Artery Inflammation in the Sikhism Area, Active aortitis with GCA 90 tablet 2 08/13/19 25 Active upadacitinib ER (Rinvoq) 15 MG tabletIndication s:Giant-Cell Arteritis,active aortitis in the setting of GCA Take 1 (one) tablet by mouth once daily Reasons: Artery Inflammation in the Sikhism Area, active aortitis in the setting of GCA 90 tablet 1 08/30/19 25 Active Additional Information Patient not taking.Reported on 12/24/2024 NIFEdipine CR 24hr (Adalat CC) 30 MG tabletIndication s:Paroxysmal atrial fibrillation (HCC),Essential hypertension,Chr onic heart failure with preserved ejection fraction (HFpEF) (HCC) Take 1 tablet by mouth once daily [...] Resolved Date Cough 05/27/2018 10/06/2021 Postmenopausal bleeding 01/16/201408/2018 Encounters Date Type Department Care Team Description 12/24/2024 10:45 AM CDT Office Visit [facility] Heart & Vascular [address] [place] [address] Cesario Hernandez, FRUIT SPRAYER-SUPERINTENDENT HORTICULTURE Atrial fibrillation, unspecified type (HCC) (Primary Dx); Gastrointestinal hemorrhage, unspecified gastrointestinal hemorrhage type 11/18/2024 11:29 AM CDT - 11/18/2024 11:59 PM CDT Hospital Encounter [facility] OP DRAW STATION [address] [place] [phone] Discharge Disposition: Home or Self Care 11/18/2024 9:45 AM CDT Office Visit [facility] Vascular [address] [place] [address] Saúl Junior MD Chronic heart failure with preserved ejection fraction (HFpEF) (HCC) (Primary Dx); Paroxysmal atrial fibrillation (CMS/HCC); Chronic anticoagulation; Aortitis; Essential hypertension 11/18/2024 Results Follow-Up [facility] OP DRAW STATION [address] [place] [address] Saúl Junior MD 11/18/2024 Travel 10/28/2024 Refill [facility] & Vascular Care [address] [place] [address] [address] [place] [address] Saúl Junior MD MEDICATION REFILL 10/15/2024 1:30 PM CDT Office Visit [facility] - Rheumatology [address] [facility], [place] [address] Kathryn Jay MD Giant cell arteritis (HCC) (Primary Dx); Aortitis; Immunosuppression due to drug therapy (HCC) 10/15/2024 Travel from Last 3 Months Immunizations Immunization Administration Dates Next Due INFLUENZA VACCINE, TRIV. (AF LURIA, FLUZONE TRIVALENT; 6MO+) (IIV3) 02/05/2014,02/15/2012 Covid SADAR 3D primary monoval ent 12+ yr 0.3mL Purple [...] on file Legal Sex Female 6:19 AM PECAN MALLOW DIPPER Gender Identity Not on file Sexual Orientation Not on file Last Filed Vital Signs Vital Sign Reading Time Taken Comments Blood Pressure 112/56 12/24/2024 11:01 AM CDT Pulse 72 12/24/2024 11:01 AM CDT Temperature 36.7 C (98 F) 11/18/2024 10:01 AM CDT Respiratory Rate 20 07/19/2023 4:15 PM CDT Oxygen Saturation 98% 12/24/2024 11:01 AM CDT Inhaled Oxygen Concentration - - Weight 93.4 kg (206 lb) 12/24/2024 11:01 AM CDT Height 170.2 cm (5' 7) 10/15/2024 1:35 PM CDT Body Mass Index 32.26 10/15/2024 1:35 PM CDT Plan of Treatment Upcoming Encounters Date Type Department Care Team (Late st Contact Info) Description 03/25/2025 11:15 AM PECAN MALLOW DIPPER Office Visit [facility] Heart & Vascular Care [address] [place] [address] [address] [place] [address] Cesario Hernandez, FRUIT SPRAYER-SUPERINTENDENT HORTICULTURE [address] [place] [address] [address] [place] [address] 04/22/2025 1:30 PM PECAN MALLOW DIPPER Office Visit [facility] Group - Rheumatology [address] [place] [address], [place] [address] Kathryn Jay MD [address] [place] [address] [place] [phone] 04/23/2025 11:00 AM PECAN MALLOW DIPPER Appointment [facility] CAT SCAN [address] [place] [phone] Akosua Gtz MD [address] [place] [phone] 05/29/2025 12:30 PM PECAN MALLOW DIPPER Office Visit [facility] Heart & Vascular Care [address] [place] [address] [address] [place] [address] Saúl Junior MD [address] [facility] [address] [place] [address] Health Maintenance Due Date Last Done Comments BONE DENSITY TESTING 1955 COLOGUARD (AGES 45-75) - COLON CA SCREENING 1955 CT COLONOGRAPHY - COLON CA SCREENING 1955 FIT - COLON CA SCREENING 1955 [...] (2 of 2 - PCV) 02/02/2021 02/03/2020 DIABETES - URINE PROTEIN SCREENING 04/16/2024 MEDICARE AWV CALENDAR YEAR 2024 DIABETES-HGB A1C 09/23/2024 03/25/2024, , 01/15/2020 COVID-19 VACCINE ( season) 2024 05/25/2021, 08/21/2020, 07/16/2020, Additional history exists INFLUENZA VACCINE (#1) 2024 , 04/04/2021, 02/03/2020, Additional history exists DIABETES-SERUM CREATININE 11/18/20252024, 03/25/2024, 08/03/2023, Additional history exists MAMMOGRAM 09/11/2026 09/11/2024, 02/14, 02/02/2022 COLON MONITORING 12/18/2034 12/18/2024 COLONOSCOPY - COLON CA SCREENING 12/18/2034 12/18/2024 Colorectal Cancer Screening 12/18/2034 HEPATITIS C SCREENING Completed 04/21/2022 , 12/19/2018, [...] mammogram HEMOGLOBIN A1C Routine 03/25/2024 3:04 PM PECAN MALLOW DIPPER Giant cell arteritis Aortitis HEPATITIS C ANTIBODY Routine 04/21/2022 3:49 PM PECAN MALLOW DIPPER Giant cell arteritis Need for hepatitis C screening test from Last 3 Months or Most Recently Relevant to Health Maintenance Results * (ABNORMAL) CBC W/ DIFFERENTIAL (11/18/2024 11:42 AM CDT) WBC 5.1 4.0 - 10.7 x10E9/L 11/18/2024 12:17 PM [facility] RBC Count 2.56(L) 3.90 - 5.20 x10E12/L 11/18/2024 12:17 PM [facility] Hemoglobin 8.3(L) 11.9 - 15.8 g/dL 11/18/2024 12:17 PM [facility] Hematocrit 25.0(L) 34.8 - 46.1 % 11/18/2024 12:17 PM [facility] MCV 97.7 80.0 - 98.0 fL 11/18/2024 12:17 PM [facility] MCH 32.4 26.7 - 33.6 pg 11/18/2024 12:17 PM [facility] MCHC 33.2 31.7 - 36.3 g/dL 11/18/2024 12:17 PM [facility] RDW-CV 14.1 11.3 - 14.8 % 11/18/2024 12:17 PM [facility] Platelet Count 198 150 - 420 x10E9/L 11/18/2024 12:17 PM [facility] MPV 10.5 7.8 - 11.4 fL 11/18/2024 12:17 PM [facility] Neutrophil % 56.0 41.0 - 74.0 % 11/18/2024 12:17 PM [facility] Lymphocyte % 29.4 17.0 - 47.0 % 11/18/2024 12:17 PM [facility] Monocyte % 12.6(H) 3.0 - 11.0 % 11/18/2024 12:17 PM [facility] Eosinophil % 1.4 0.0 - 7.0 % 11/18/2024 12:17 PM [facility] Basophil % 0.4 0.0 - 1.6 % 11/18/2024 12:17 PM [facility] Immature Granulocytes % 0.2 0.0 - 1.0 % 11/18/2024 12:17 PM [facility] Neutrophil Absolute 2.83 1.60 - 7.50 x10E9/L 11/18/2024 12:17 PM [facility] Lymphocyte Absolute 1.49 1.00 - 4.40 x10E9/L 11/18/2024 12:17 PM [facility] Monocyte Absolute 0.64 0.15 - 1.00 x10E9/L 11/18/2024 12:17 PM [facility] Eosinophil Absolute 0.07 0.00 - 0.60 x10E9/L 11/18/2024 12:17 PM [facility] Basophil Absolute 0.02 0.00 - 0.13 x10E9/L 11/18/2024 12:17 PM [facility] Blood BLOOD SPECIMEN / Unknown Lab Venipuncture / Unknown 11/18/2024 11:42 AM CDT 11/18/2024 11:59 AM CDT us Saúl Junior MD LAB - HEMATOLOGY ORDERABLES Fin al Result [facility] [address] [place] [address], [facility] [phone] * (ABNORMAL) BASIC METABOLIC PANEL (CALCIUM TOTAL) (11/18/2024 11:42 AM CDT) BUN 30(H) 7 - 26 mg/dL 11/18/2024 12:40 PM [facility] Creatinine 0.78 0.56 - 0.96 mg/dL 11/18/2024 12:40 PM [facility] Sodium 143 136 - 145 mmol/L 11/18/2024 12:40 PM [facility] Potassium 4.3 3.5 - 4.5 mmol/L 11/18/2024 12:40 PM [facility] Chloride 115(H) 98 - 107 mmol/L 11/18/2024 12:40 PM [facility] CO2 24 22 - 29 mmol/L 11/18/2024 12:40 PM [facility] Glucose 119(H) 70 - 99 mg/dL 11/18/2024 12:40 PM [facility] Calcium 9.1 8.4 - 10.2 mg/dL 11/18/2024 12:40 PM [facility] Anion Gap 4(L) 6 - 16 11/18/2024 12:40 PM [facility] BUN/Creatinine Ratio 38(H) 7 - 23 11/18/2024 12:40 PM [facility] Osmolality Calculated 303(H) 275 - 295 mOsm/kg 11/18/2024 12:40 PM [facility] eGFR by CKD-EPI 82(L) >=90 mL/min/1.7 3 m2 11/18/2024 12:40 PM [facility] Comment:Estimated Glomerular Filtration Rate (eGFR) calculated using the CKD-EPI Creatinine Equation (2020), per the National Kidney Foundation and [place] Society of Nephrology recommendations. Blood BLOOD SPECIMEN / Unknown Lab Venipuncture / Unknown 11/18/2024 11:42 AM CDT 11/18/2024 11:59 AM CDT Saúl Junior MD LAB - CHEMISTRY ORDERABLES Charo raza Result [facility] [address] [place] [address], [facility] [phone] * Mammo Bilat Screening W Timi (09/11/2024 [...] there has been no significant interval change. Sabino Porter MD MAMMO ORDERABLES Final Resul t * (ABNORMAL) HEMOGLOBIN A1C (03/25/2024 3:04 PM PECAN MALLOW DIPPER) Hemoglobin A1c 5.8(H) <=5.6 % 03/26/2024 9:27 AM PECAN MALLOW DIPPER [facility] Estimated Average Glucose 120 mg/dL 03/26/2024 9:27 AM PECAN MALLOW DIPPER [facility] Comment: HbA1c Interpretation: Normal : < 5.7% Pre-diabetes: 5.7-6.4% Diabetes: Equal to or greater than 6.5% Test results diagnostic of diabetes should be repeated for confirmation. Treatment target values recommended by ADA and other clinical organizations should be used to evaluate metabolic control in patients. Reference: [place] Diabetes Association, Standards of Care in Diabetes -2020 In patients 70 years and older consider HbA1c target range of 7.0-7.5% (Reference: Jefferson Bean et al. JAMDA. 2012) The Sebia assay for the measurement of HbA1c is a National Glycohemoglobin Standardization Program (NGSP) certified method. Blood BLOOD SPECIMEN / Unknown Lab Venipuncture / Unknown 03/25/2024 3:04 PM PECAN MALLOW DIPPER 03/25/2024 3:34 PM PECAN MALLOW DIPPER Andre Dial MD LAB - CHEMISTRY ORDERABLES Final Result Performing Organization Address City/[facility]/ZIP Co de Phone Number [address] [address], [place] [phone] * HEPATITIS C ANTIBODY (04/21/2022 3:49 PM PECAN MALLOW DIPPER) Pathologist [facility] Hepatitis C Antibody [facility] 04/21/2022 4:51 PM PECAN MALLOW DIPPER [facility] Comment:Hepatitis C Antibody screen indicates no serologic evidence of past or current infection with Hepatitis C Virus. Patients with unexplained liver disease who are immunocompromised or suspected of having acute Hepatitis C infection may benefit from Nucleic Acid Test (GABRIEL) for Hepatitis C Viral RNA to confirm Hepatitis C status. Blood BLOOD SPECIMEN / Unknown Lab Venipuncture / Unknown 04/21/2022 3:49 PM PECAN MALLOW DIPPER 04/21/2022 4:00 PM PECAN MALLOW DIPPER us Andre Dial MD LAB - CHEMISTRY ORDERABLES Final Result [address] [address], [place] [phone] from Last 3 Months or Most Recently Relevant to Health Maintenance Insurance [facility] Advance Directives Documents on File Type Date Recorded Patient Door Attendant Expl anation Adv Directive/Living Will/POA 01/31/2024 1:13 PM verbal Adv Directive/Living Will/POA 07/19/2023 * Full Code (Latest Code Status on File) Date Activated Date Inactivated Comments 10/17/2022 9:49 PM 10/19/2022 12:32 PM Care Teams Glaciologist Relationship Specialty Start Date End Date Sabino Porter MD [address] [place] [address] PCP - General Family Medicine 07/15/21 Saúl Junior MD [address] [facility] [address] [place] [address] Dead Mail Checker Cardiology 11/03/20 Rinku Rocha MD [address] [facility] [address] [place] [address] Electrophysiology 01/03/21
--- OUTSIDE RECORDS SUMMARY | 2024-12-24 16:15 | XMS_ITS | Encounter Summary ---
Author Organization [facility] Address [address] [place] [address] Care Team Providers Care Injection Moulding Machine Operator Name Role Phone Saúl Junior MD Unavailable [phone] Rinku Rocha MD Unavailable [phone] Stew Patrick MD Primary Care Provider [phone] Sabino Porter MD Primary Care Provider [phone] Encounter Details Date Type Department Care Team (Late st Contact Info) Description 04/26/2021 Telephone [facility] Rheumatology - Third Level [address] [place] [address], [place] [address] Marce Costello MD [address] [place] [address] [place] [address] Social History Tobacco Use Types Packs/Day Years Used Date Smoking Tobacco: Never Smokeless Tobacco: Never Alcohol Use Standard Drinks/Week Comments No 0 (1 standard drink = 0.6 oz pur e alcohol) Comments No Sex and Gender Information Value Date Recorded Sex Assigned at Not on file Legal Sex Female 6:19 AM ANALYTICAL TECHNICIAN Gender Identity Not on file Sexual Orientation Not on file COVID-19 Exposure Response Date Recorded In the last month, have you been in contact with someone who was confirmed or suspected to have Coronavirus / COVID-19? No / Unsure 04/11/2021 12:21 PM ANALYTICAL TECHNICIAN documented as of this encounter Miscellaneous Notes * Telephone Encounter - Christina Napier - 04/26/2021 1:22 PM CST Current Provider name: Dr. Marce Costello Reason for call: [facility] and wants to FU since she hasn't [...] my left lung Patient Call Back number: [phone] YTICAL TECHNICIAN documented in this encounter Plan of Treatment Upcoming Encounters Date Type Department Care Team (Late st Contact Info) Description 03/25/2025 11:15 AM ANALYTICAL TECHNICIAN Office Visit [facility] Heart & Vascular [address] [place] [address] Cesario Hernandez, EDUCATION TECHNICIAN-WOOD BOAT BUILDER SUPERVISOR [address] [place] [address] [address] [place] [phone] 04/22/2025 1:30 PM ANALYTICAL TECHNICIAN Office Visit [facility] - Rheumatology [address] [place] [address], [place] [phone] Kathryn Jay MD [address] [place] [address] [place] [phone] 04/23/2025 11:00 AM ANALYTICAL TECHNICIAN Appointment [facility] CAT SCAN [address] [place] [phone] Akosua Gtz MD [address] [place] [phone] 05/29/2025 12:30 PM ANALYTICAL TECHNICIAN Office Visit [facility] Heart & Vascular [address] [place] [phone] Saúl Junior MD [facility] [address] [place] [address] documented as of this encounter Visit Diagnoses Not on filedocumented in this encounter Care Teams Injection Moulding Machine Operator Relationship Specialty Start Date End Date Stew Patrick MD [address] [facility] [address] [place] [address] PCP - General Family Medicine 01/03/21 07/14/21 Sabino Porter MD [address] [address] [address] [place] [address] PCP - General Family Medicine 07/15/21 Saúl Junior MD [address] [place], [place] [phone] Section 8 Property Manager Cardiology 11/03/20 Rinku Rocha MD [address] [place], [place] [phone] Electrophysiology 01/03/21 documented as of this encounter
[2024-12-24 16:41] LABS: Hematocrit 27.0 % (37.0-47.0); Hemoglobin 8.2 g/dL (12.0-15.0); Immature Granulocyte Percent A 0.4 % (0-0.5); Lymphocytes Absolute Auto 1.32 K/mm3 (0.9-3.2); Mean Corpuscular HGB Conc 30.4 g/dl (32-36); Mean Corpuscular Hemoglobin 31.8 pg (26-34); Mean Corpuscular Volume 104.7 fl (80-100); Nucleated Red Blood Cells Absolute Auto 0.000 K/mm3 (0.0-0.012); Nucleated Red Blood Cells Perc 0.0 % (0.0-0.2); Platelet Count Result 261 k/mm3 (150-375); Red Blood Count 2.58 M/mm3 (4.2-5.4); White Blood Count 4.5 K/mm3 (4.5-10.0)
== END 2024-12-24 16:11 | disposition home or self-care (01) ==
PROVIDERS: PCP Family Medicine; Visit Provider Physician Assistant
DX: D64.9 Anemia, unspecified (principal)
CPT/HCPCS: 36415; 85025

== ENCOUNTER 2025-01-29 05:11 | Outpatient (CLI) | payer MEDICARE, BC, SELFPAY ==
--- NOTE | 2025-01-09 11:55 | SUR.PREOP ---
Spoke with patient in regards to scheduled capsule endoscopy. Instructions are being mailed and emailed. Patients questions, at this time, have been answered.
--- OUTSIDE RECORDS SUMMARY | 2025-01-29 05:15 | XMS_ITS | Clinical Summary ---
Author Organization [facility] Aurelia esposito [facility] Address [address] [facility] [place] [address] Care Team Providers Care Cctv Technician Name Role Phone Unavailable Primary Care Provider [...] Description 02/03/2025 10:30 AM CDT Office Visit [facility] Oncology and Hematology - Jose Luis [address] [facility] [address] [place] [address] Demarcus Ambriz MD [address] [facility] [address] [place] [address] Health Maintenance Due Date Last [...] (1 - 1-dose 75+ series) 2030 Insurance [facility]
--- OUTSIDE RECORDS SUMMARY | 2025-01-29 05:15 | XMS_ITS | Encounter Summary ---
Author Organization [facility] Health Address [address] [facility] [place] [address] Care Team Providers Care Elementary Principal Name Role Phone Saúl Junior MD Unavailable [phone] Rinku Rocha MD Unavailable [phone] Stew Patrick MD Primary Care Provider [phone] Sabino Porter MD Primary Care Provider [phone] Encounter Details Date Type Department Care Team (Late st Contact Info) Description 04/26/2021 Telephone [facility] Rheumatology - Third Level [address] [place] [address], [place] [address] Marce Costello MD [address] [place] [address] [place] [address] Social History Tobacco Use Types Packs/Day Years Used Date Smoking Tobacco: Never Smokeless Tobacco: Never Alcohol Use Standard Drinks/Week Comments No 0 (1 standard drink = 0.6 oz pur e alcohol) Comments No Sex and Gender Information Value Date Recorded Sex Assigned at Not on file Legal Sex Female 6:19 AM HEALTH CARE FACILITIES INSPECTOR Gender Identity Not on file Sexual Orientation Not on file COVID-19 Exposure Response Date Recorded In the last month, have you been in contact with someone who was confirmed or suspected to have Coronavirus / COVID-19? No / Unsure 04/11/2021 12:21 PM HEALTH CARE FACILITIES INSPECTOR documented as of this encounter Miscellaneous Notes * Telephone Encounter - Christina Napier - 04/26/2021 1:22 PM CST Current Provider name: Dr. Marce Costello Reason for call: [facility] and wants to FU since she hasn't [...] my left lung Patient Call Back number: [phone] TH CARE FACILITIES INSPECTOR documented in this encounter Plan of Treatment Upcoming Encounters Date Type Department Care Team (Late st Contact Info) Description 02/04/2025 12:00 PM CDT Appointment [facility] CAT SCAN [address] [place] [address] Jing Wills MD [address] [facility] [address] [place] [address] 02/05/2025 1:45 PM CDT Office Visit [facility] - Cardiology [address] [facility] [address] [place] [address] Jing Wills MD [address] [place] [address] [address] [place] [address] 03/25/2025 11:15 AM HEALTH CARE FACILITIES INSPECTOR Office Visit [facility] [address] [facility] [address] [place] [address] Cesario Hernandez APRN-JULIANN [address] [facility] [address] [place] [address] 04/23/2025 11:00 AM HEALTH CARE FACILITIES INSPECTOR Appointment [facility] CAT SCAN [address] [place] [phone] Akosua Gtz MD [facility] [place] [phone] 05/06/2025 1:30 PM HEALTH CARE FACILITIES INSPECTOR Office Visit [facility] Group - Rheumatology [address] [place] [address], [place] [phone] Kathryn Jay MD [address] [place] [address] DIV [place] [phone] 05/29/2025 12:30 PM HEALTH CARE FACILITIES INSPECTOR Office Visit [facility] [address] [facility] [address] [place], [place] [phone] Saúl Junior MD [address] [facility] 200 [place] [address] documented as of this encounter Visit Diagnoses Not on filedocumented in this encounter Care Teams Elementary Principal Relationship Specialty Start Date End Date Stew Patrick MD [address] [facility] [address] [place] [address] PCP - General Family Medicine 01/03/21 07/14/21 Sabino Porter MD [address] [facility] [address] [place] [address] PCP - General Family Medicine 07/15/21 Saúl Junior MD [address] [facility] 200 [place] [address] Sterilization Tech Cardiology 11/03/20 Rinku Rocha MD [facility] [facility] 200 [place] [address] Electrophysiology 01/03/21 documented as of this encounter
--- OUTSIDE RECORDS SUMMARY | 2025-01-29 05:15 | XMS_ITS | Clinical Summary ---
Author Organization [facility] Address [address] [place] [address] Care Team Providers Care Munitions Factory Worker Name Role Phone Saúl Junior MD Unavailable [phone] Rinku Rocha MD Unavailable [phone] Sabino Porter MD Primary Care Provider [phone] [facility],non-owned Affiliates and Associated Physician Practices is amultiple site organization consisting of ambulatory clinics and hospital sitesin [place], [place], [place] and [place]. This disclosure is being madepursuant to the Care Everywhere program and may not contain all information available regarding this patient. Last updated 18.[facility] Allergies No known active allergies Medications * [...] tablet 3 07/22/19 23 Active nystatin (Mycostatin) 646393 UNIT/GM cream 07/26/19 23 Active acetaminophen (Tylenol) [...] once daily Reasons: Artery Inflammation in the Jain Area, Active aortitis with GCA 90 tablet 2 08/13/19 25 Active upadacitinib ER (Rinvoq) 15 MG tabletIndication s:Giant-Cell Arteritis,active aortitis in the setting of GCA Take 1 (one) tablet by mouth once daily Reasons: Artery Inflammation in the Jain Area, active aortitis in the setting of [...] Encounters Date Type Department Care Team Description 01/02/2025 Travel 12/31/2024 Orders Only [facility] - Cardiac Computer Terminal Operator [address] [place] [address] Jing Wills MD Paroxysmal atrial fibrillation (CMS/HCC) 12/24/2024 10:45 AM CDT Office Visit [facility] [address] [place] [address] [address] [place] [address] Cesario Hernandez APRN-JULIANN Atrial fibrillation, unspecified type (HCC) (Primary Dx); Gastrointestinal hemorrhage, unspecified gastrointestinal hemorrhage type 11/18/2024 11:29 AM CDT - 11/18/2024 11:59 PM CDT Hospital Encounter [facility] OP DRAW STATION [address] [place] [address] Discharge Disposition: Home or Self Care 11/18/2024 9:45 AM CDT Office Visit [facility] [address] [place] [address] [address] [place] [address] Saúl Junior MD Chronic heart failure with preserved ejection fraction (HFpEF) (HCC) (Primary Dx); Paroxysmal atrial fibrillation (CMS/HCC); Chronic anticoagulation; Aortitis; Essential hypertension 11/18/2024 Results Follow-Up [facility] OP DRAW STATION [address] [place] [address] Saúl Junior MD 11/18/2024 Travel from Last 3 Months Immunizations Immunization Administration Dates Next Due INFLUENZA VACCINE, TRIV. (AF LURIA, FLUZONE TRIVALENT; 6MO+) (IIV3) 02/05/2014,02/15/2012 Covid Vibes primary monoval ent 12+ yr 0.3mL Purple [...] on file Legal Sex Female 6:19 AM DISPENSING LEAD Gender Identity Not on file Sexual [...] Info) Description 02/04/2025 12:00 PM CDT Appointment [facility] CAT SCAN [address] [place] [phone] Jing Wills MD [address] [facility] [address] [place] [address] 02/05/2025 1:45 PM CDT Office Visit [facility] - Cardiology [address] [facility] [address] [place] [address] Jing Wills MD [address] [facility] [address] [place] [address] 03/25/2025 11:15 AM DISPENSING LEAD Office Visit [facility] [address] [facility] [address] [place] [address] Cesario Hernandez, WELDING MACHINE OPERATOR PLASMA ARC-TREE EXPERT [address] [facility] [address] [place] [address] 04/23/2025 11:00 AM DISPENSING LEAD Appointment [facility] CAT SCAN [address] [place] [phone] Akosua Gtz MD [facility] [place] [address] 05/06/2025 1:30 PM DISPENSING LEAD Office Visit [facility] - Rheumatology [address] [place] [address], [place] [address] Kathryn Jay MD [address] [place] [address] [place] [address] 05/29/2025 12:30 PM DISPENSING LEAD Office Visit [facility] [address] [place] [address] [address] [place], [place] [phone] Saúl Junior MD [address] [place] [address] [address] [place] [address] Health Maintenance Due Date Last [...] 08/03/2023, Additional history exists MAMMOGRAM 09/11/2026 09/11/2024, 11, 02/02/2022 COLON MONITORING 12/18/2034 12/18/2024 COLONOSCOPY - [...] mammogram HEMOGLOBIN A1C Routine 03/25/2024 3:04 PM DISPENSING LEAD Giant cell arteritis Aortitis HEPATITIS C ANTIBODY Routine 04/21/2022 3:49 PM DISPENSING LEAD Giant cell arteritis Need for hepatitis C screening test from Last 3 Months or Most Recently Relevant to Health Maintenance Results * (ABNORMAL) CBC W/ DIFFERENTIAL (11/18/2024 11:42 AM CDT) WBC 5.1 4.0 - 10.7 x10E9/L 11/18/2024 12:17 PM [facility] RBC Count 2.56(L) 3.90 - 5.20 x10E12/L 11/18/2024 12:17 PM [facility] Hemoglobin 8.3(L) 11.9 - 15.8 g/dL 11/18/2024 12:17 PM [facility] Hematocrit 25.0(L) 34.8 - 46.1 % 11/18/2024 12:17 PM [facility] MCV 97.7 80.0 - 98.0 fL 11/18/2024 12:17 PM [facility] MCH 32.4 26.7 - 33.6 pg 11/18/2024 12:17 PM [facility] MCHC 33.2 31.7 - 36.3 g/dL 11/18/2024 12:17 PM [facility] RDW-CV 14.1 11.3 - 14.8 % 11/18/2024 12:17 PM [facility] Platelet Count 198 150 - 420 x10E9/L 11/18/2024 12:17 PM [facility] MPV 10.5 7.8 - 11.4 fL 11/18/2024 12:17 PM [facility] Neutrophil % 56.0 41.0 - 74.0 % 11/18/2024 12:17 PM [facility] Lymphocyte % 29.4 17.0 - 47.0 % 11/18/2024 12:17 PM [facility] Monocyte % 12.6(H) 3.0 - 11.0 % 11/18/2024 12:17 PM [facility] Eosinophil % 1.4 0.0 - 7.0 % 11/18/2024 12:17 PM [facility] Basophil % 0.4 0.0 - 1.6 % 11/18/2024 12:17 PM [facility] Immature Granulocytes % 0.2 0.0 - 1.0 % 11/18/2024 12:17 PM [facility] Neutrophil Absolute 2.83 1.60 - 7.50 x10E9/L 11/18/2024 12:17 PM [facility] Lymphocyte Absolute 1.49 1.00 - 4.40 x10E9/L 11/18/2024 12:17 PM [facility] Monocyte Absolute 0.64 0.15 - 1.00 x10E9/L 11/18/2024 12:17 PM [facility] Eosinophil Absolute 0.07 0.00 - 0.60 x10E9/L 11/18/2024 12:17 PM [facility] Basophil Absolute 0.02 0.00 - 0.13 x10E9/L 11/18/2024 12:17 PM [facility] Blood BLOOD SPECIMEN / Unknown Lab Venipuncture / Unknown 11/18/2024 11:42 AM CDT 11/18/2024 11:59 AM CDT us Saúl Junior MD LAB - HEMATOLOGY ORDERABLES Fin al Result [address] [address], [facility] [phone] * (ABNORMAL) BASIC METABOLIC PANEL (CALCIUM TOTAL) (11/18/2024 11:42 AM CDT) BUN 30(H) 7 - 26 mg/dL 11/18/2024 12:40 PM [facility] Creatinine 0.78 0.56 - 0.96 mg/dL 11/18/2024 12:40 PM [facility] Sodium 143 136 - 145 mmol/L 11/18/2024 12:40 PM [facility] Potassium 4.3 3.5 - 4.5 mmol/L 11/18/2024 12:40 PM [facility] Chloride 115(H) 98 - 107 mmol/L 11/18/2024 12:40 PM [facility] CO2 24 22 - 29 mmol/L 11/18/2024 12:40 PM [facility] Glucose 119(H) 70 - 99 mg/dL 11/18/2024 12:40 PM [facility] Calcium 9.1 8.4 - 10.2 mg/dL 11/18/2024 12:40 PM [facility] Anion Gap 4(L) 6 - 16 11/18/2024 12:40 PM CDT [facility] BUN/Creatinine Ratio 38(H) 7 - 23 11/18/2024 12:40 PM CDT [facility] Osmolality Calculated 303(H) 275 - 295 mOsm/kg 11/18/2024 12:40 PM CDT [facility] eGFR by CKD-EPI 82(L) >=90 mL/min/1.7 3 m2 11/18/2024 12:40 PM CDT [facility] Comment:Estimated Glomerular Filtration Rate (eGFR) calculated using the CKD-EPI Creatinine Equation (2020), per the National Kidney Foundation and [place] Society of Nephrology recommendations. Blood BLOOD SPECIMEN / Unknown Lab Venipuncture / Unknown 11/18/2024 11:42 AM CDT 11/18/2024 11:59 AM CDT us Saúl Junior MD LAB - CHEMISTRY ORDERABLES Charo raza Result Performing Organization Address City/State/[facility] Co de Phone Number [facility] [address] [place] [address], [facility] [phone] * Mammo Bilat Screening W Timi (09/11/2024 [...] * (ABNORMAL) HEMOGLOBIN A1C (03/25/2024 3:04 PM DISPENSING LEAD) Hemoglobin A1c 5.8(H) <=5.6 % 03/26/2024 9:27 AM DISPENSING LEAD [facility] Estimated Average Glucose 120 mg/dL 03/26/2024 9:27 AM [facility] Comment: HbA1c Interpretation: Normal : < 5.7% Pre-diabetes: 5.7-6.4% Diabetes: Equal to or greater than 6.5% Test results diagnostic of diabetes should be repeated for confirmation. Treatment target values recommended by ADA and other clinical organizations should be used to evaluate metabolic control in patients. Reference: [place] Diabetes Association, Standards of Care in Diabetes -2020 In patients 70 years and older consider HbA1c target range of 7.0-7.5% (Reference: Jefferson Bean et al. JAMDA. 2012) The Sebia assay for the measurement of HbA1c is a National Glycohemoglobin Standardization Program (NGSP) certified method. Blood BLOOD SPECIMEN / Unknown Lab Venipuncture / Unknown 03/25/2024 3:04 PM DISPENSING LEAD 03/25/2024 3:34 PM DISPENSING LEAD us Andre Dial MD LAB - CHEMISTRY ORDERABLES Final Result [address] [address], [facility] [phone] * HEPATITIS C ANTIBODY (04/21/2022 3:49 PM DISPENSING LEAD) Pathologist [facility] Hepatitis C Antibody Non-react laura Non-reac tive 04/21/2022 4:51 PM DISPENSING LEAD [facility] Comment:Hepatitis C Antibody screen indicates no serologic evidence of past or current infection with Hepatitis C Virus. Patients with unexplained liver disease who are immunocompromised or suspected of having acute Hepatitis C infection may benefit from Nucleic Acid Test (GABRIEL) for Hepatitis C Viral RNA to confirm Hepatitis C status. Blood BLOOD SPECIMEN / Unknown Lab Venipuncture / Unknown 04/21/2022 3:49 PM DISPENSING LEAD 04/21/2022 4:00 PM DISPENSING LEAD Andre Dial MD LAB - CHEMISTRY ORDERABLES Final Result [facility] [address] [place] [address], [place] [phone] from Last 3 Months or Most Recently Relevant to Health Maintenance Insurance [facility] SELF PAY NO INSURANCE Member Subscriber Plan / Payer (Ef fective for All Dates) Name:Lisa Lujan Member ID:Not on file Relation to Subscriber:Not on file Name:LISA LUJAN Subscriber ID:Not on file (Home) Address: [address] [place] [id number] Payer ID:Not on file Group ID:Not on file Type:Self Pay Address: [place], [place] 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 Expl anation Adv Directive/Living Will/POA 01/31/2024 1:13 PM verbal Adv Directive/Living Will/POA 07/19/2023 * Full Code (Latest Code Status on File) Date Activated Date Inactivated Comments 10/17/2022 9:49 PM 10/19/2022 12:32 PM Care Teams Munitions Factory Worker Relationship Specialty Start Date End Date Sabino Porter MD [address] [place] [address] PCP - General Family Medicine 07/15/21 Saúl Junior MD [address] [facility] [address] [place] [address] Load Builder Cardiology 11/03/20 Rinku Rocha MD [address] [facility] [facility] [address] [place] [address] Electrophysiology 01/03/21
--- OUTSIDE RECORDS SUMMARY | 2025-01-29 05:15 | XMS_ITS | Encounter Summary ---
Author Organization [facility] Address [address] [facility] [place] [address] Care Team Providers Care [place] Name Role Phone Sabino Porter MD Primary Care Provider [phone] Saúl Junior MD Unavailable [phone] Stew Patrick MD Primary Care Provider [phone] Sabino Porter MD Primary Care Provider [phone] Rinku Rocha MD Unavailable [phone] Stew Patrick MD Primary Care Provider [phone] Sabino Porter MD Primary Care Provider [phone] Reason for Visit * Reason Onset Date Comments Question 12/27/2018 Floorwalker Exam 12/27/2018 Encounter Details Date Type Department Care Team (Late st Contact Info) Description 12/27/2018 Telephone [facility] Medical [facility] [address] [address] [place] [address] [place] [address] Question; Floorwalker Exam Social History Tobacco Use Types Packs/Day Years Used Date Smoking Tobacco: Never Alcohol Use Standard Drinks/Week Comments No 0 (1 standard drink = 0.6 oz pur e alcohol) Comments No Sex and Gender Information Value Date Recorded Sex Assigned at Not on file Legal Sex Female 6:19 AM SPLUNK DEVELOPER Gender Identity Not on file Sexual Orientation Not on file documented as of this encounter Miscellaneous Notes * Telephone Encounter - Krystina Ren - 12/27/2018 10:25 AM CDT Pt called wanting to know her results from a pap from last week. Please call [phone] and pt gave permission for messages to be left if she doesn't answer documented in this encounter Plan of Treatment Upcoming Encounters Date Type Department Care Team (Late st Contact Info) Description 02/04/2025 12:00 PM CDT Appointment [facility] CAT SCAN [address] [place] [address] Jing Wills MD [address] [facility] [address] [place] [address] 02/05/2025 1:45 PM CDT Office Visit [facility] - Cardiology [address] [facility] [address] [place] [address] Jing Wills MD [address] [facility] [address] [place] [address] 03/25/2025 11:15 AM SPLUNK DEVELOPER Office Visit [facility] Heart & Vascular Care [address] [facility] [address] [place] [address] Cesario Hernandez, FLOAT PHLEBOTOMIST-BILL CLERK [address] [place] [address] [address] [place] [address] 04/23/2025 11:00 AM SPLUNK DEVELOPER Appointment [facility] CAT SCAN [address] [place] [address] Akosua Gtz MD [facility] [place] [address] 05/06/2025 1:30 PM SPLUNK DEVELOPER Office Visit [facility] - Rheumatology [address] [place] [address], [place] [address] Kathryn Jay MD [address] [place] [address] [place] [address] 05/29/2025 12:30 PM SPLUNK DEVELOPER Office Visit [facility] Heart & Vascular Care [address] [facility] [address] [place] [address] [facility] [address] [place] [address] documented as of this encounter Visit Diagnoses Not on filedocumented in this encounter Care Teams Tar Heel Relationship Specialty Start Date End Date Sabino Porter MD [address] [facility] [address] [place] [address] PCP - General Family Medicine 05/10/12 11/02/20 Stew Patrick MD [address] [facility] [address] [place] [address] PCP - General Family Medicine 11/03/20 11/14/20 Sabino Porter MD [address] [facility] [address] [place] [address] PCP - General 11/15/20 01/02/21 Stew Patrick MD [address] [facility] [address] [place] [address] PCP - General Family Medicine 01/03/21 07/14/21 Sabino Porter MD [address] [facility] [address] [place] [address] PCP - General Family Medicine 07/15/21 Saúl Junior MD [address] [facility] 200 [place] [phone] Human Resource Internship Cardiology 11/03/20 Rinku Rocha MD [address] [facility] 3 [place] [address] Electrophysiology 01/03/21 documented as of this encounter
--- NOTE | 2025-01-29 06:37 | SUR.OPER ---
Patient brought to GI Lab. Instructions for patient undergoing Capsule Endoscopy reviewed with patient. Consent form signed. Sensor array applied to patient's abdomen and connected to recorded. Patient swallowed capsule with 12 ozs of water infused with Simethicone. Patient instructed they may have clear liquids at 0830 this AM and eat or drink at 1030 this AM. Patient instructed to return to GI Lab at 1500 this afternoon for removal of recording device and to call [phone] or to return to the hospital if any nausea and vomiting or abdominal pain is experienced.
--- NOTE | 2025-01-29 15:09 | SUR.OPER ---
Patient returned to the GI Lab at 1506 for recorder box removal. Patient voiced no complaints. States they have understanding of instructions. Patient left ambulatory. Pt had no further questions.
== END 2025-01-29 05:12 | disposition home or self-care (01) ==
PROVIDERS: PCP Family Medicine; Referring Provider Internal Medicine Gastroenterology; Visit Provider Internal Medicine Gastroenterology
PROC: (CPT 91110; principal; 2025-01-29 07:00)
DX: K92.2 Gastrointestinal hemorrhage, unspecified (principal); Z01.818 Encounter for other preprocedural examination
CPT/HCPCS: 91110

== ENCOUNTER 2025-02-03 11:05 | Outpatient (CLI) | payer MEDICARE, BC, SELFPAY ==
--- OUTSIDE RECORDS SUMMARY | 2025-02-03 10:30 | XMS_ITS | Encounter Summary ---
Author Organization [facility] DIANAPlaynery Aidee [facility] Address [address] [place] [address] Care Team Providers Care Flight Communications Operator Name Role Phone Unavailable Primary Care Provider Unavailabl e Reason for Visit * Reason Comments Establish Care Encounter Details Date Type Department Care Team (Late st Contact Info) Description 02/03/2025 10:30 AM CDT Office Visit [facility] Oncology and Hematology - Jose Luis [address] [facility] [address] [place] [address] Demarcus Ambriz MD [address] [facility] [address] [place] [address] Chronic anemia (Primary Dx) Social History Tobacco Use Types Packs/Day Years Used Date Smoking Tobacco: Never Smokeless Tobacco: Never Alcohol Use Standard Drinks/Week Comments Never 0 (1 standard drink = 0.6 oz pur e alcohol) Comments Unknown Sex and Gender Information Value Date Recorded Sex Assigned at Not on file Legal Sex Female 2:40 PM CDT Gender Identity Not on file Sexual Orientation Not on file documented as of this encounter Last Filed Vital Signs Vital Sign Reading Time Taken Comments Blood Pressure 134/60 02/03/2025 10:17 AM CDT Pulse 68 02/03/2025 10:17 AM CDT Temperature 36.3 C (97.4 F) 02/03/2025 10:17 AM CDT Respiratory Rate 16 02/03/2025 10:17 AM CDT Oxygen Saturation 95% 02/03/2025 10:17 AM CDT Inhaled Oxygen Concentration - - Weight 96.4 kg (212 lb 9.6 oz) 02/03/2025 10:17 AM CDT Height 172.7 cm (5' 8) 02/03/2025 10:17 AM CDT Body Mass Index 32.33 02/03/2025 10:17 AM CDT documented in this encounter Progress Notes * Demarcus Ambriz MD - 02/03/2025 10:38 AM CDT Hematology-oncology consult Note Requesting Physician Primary Care Physician No primary care provider on file. Problem list There is no problem list on file for this patient. Previous TREATMENT ? Measurable Disease ? Reason for Visit Lisa Lujan is a 69 y.o. female who was referred for consultation for chronic anemia. History of present illness This is a 69-year-old pleasant -Macanese female with history of hypertension, hyperlipidemia, giant cell arteritis and atrial fibrillation on Xarelto referred to me for anemia. She has been complaining of tiredness and fatigue but denies any bleeding including melena or hematochezia. She was admitted to the hospital in December 2024 with anemia and had 1 unit of packed red blood cells transfusion and iron infusion done. 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 She also had colonoscopy in December for that showed cecal polyps and internal hemorrhoids with no active bleeding. Capsule enteroscopy was also performed and results are pending. She istaking oral iron once a day for last 2 months duration along with vitamin B12 daily. She denies being a vegetarian. Weight and appetite stable. Denies any previous stomach surgeries. No other new complaints. Past Medical History Past Medical History: Diagnosis Date Heart disease Hypertension Vascular disease Atrial fibrillation Giant cell arteritis Dyslipidemia Surgical History No past surgical history on file. Medications Current Outpatient Medications Medication Sig Dispense Refill atorvastatin (LIPITOR) 10 mg tablet Take 10 mg by mouth daily. calcium as CARBONATE-vitamin D3 (CALTRATE 600+D) 600 mg-5 mcg (200 unit) Tablet Take 2 Tablets by mouth daily. ferrous gluconate 324 mg (38 mg iron) tablet Take 1 Tablet by mouth daily. metoprolol succinate (TOPROL XL) 100 mg Extended Release 24 hour tablet Take 100 mg by mouth daily. NIFEdipine (ADALAT CC) 30 mg Extended Release tablet Take 30 mg by mouth daily. Xarelto 20 mg Tablet Take 20 mg by mouth daily. telmisartan (MICARDIS) 40 mg Tablet Take 40 mg by mouth daily. upadacitinib (RINVOQ) 15 mg Tablet Sustained Release 24HR Take 15 mg by mouth daily. MAGNESIUM OXIDE ORAL Take by mouth. cyanocobalamin 1,000 mcg Tablet Take 1,000 mcg by mouth daily. No current facility-administered medications for this visit. Allergies No Known Allergies Immunizations: Immunization History Administered Date(s) Administered ([employer])(12 YR UP) COVID-19 VACCINE - EMERGENCY USE AUTHORIZATION, MRNA, [id number](PF) 30 MCG/0.3 MLIM SUSP 07/16/2020, 08/21/2020 Family History Family History Problem Relation Name Age of Onset Stomach Cancer Father Diabetes Father Heart Disease Mother Lung Cancer Brother multiple brothers Diabetes Brother multiple brothers Heart Disease Brother multiple brothers Diabetes Child No Known Problems Child No Known Problems Child Breast Cancer Child Triple negative breast Social History Social History Tobacco Use Smoking status: Never Smokeless tobacco: Never Substance Use Topics Alcohol use: Never Review of Systems Constitutional: Patient did not mention fever; no night sweats; no anorexia; no weight loss; complain of tiredness and fatigue NEENT: Patient did not mention headache; no change in vision; no change in hearing; no sore throat;no dysphagia Respiratory: Patient did not mention shortness of breath; no pleuritic chest pain; no cough; no hemoptysis Cardiac: Patient did not mention cardiac-like chest pain; no palpitations; no orthopnea; no PND; noDOE Breasts: Patient did not mention tenderness; no masses GI: Patient did not mention abdominal pain; no nausea; no vomiting; no diarrhea; no hematochezia; no melena : Patient did not mention dysuria; no frequency; no hesitancy; no hematuria SENIOR MEDIA BUYER: Musculosketetal: Patient did not mention bone pain; no arthralgia; no joint swelling; no myalgia; Skin: Patient did not mention pruritis; no rash; no petechiae; no ecchymoses Endocrine: Patient did not mention polydipsia; no polyuria; no unusual weight gain Neuro: Patient did not mention headache; no change in vision; no sensory changes; no muscle weakness; no confusion; no seizures Psych: Patient did not mention anxiety; no depression; Physical Exam Vitals: As per nursing note Constitutional: Well developed, well nourished, no acute distress, non-toxic appearance Teeth and gum. No signs of infection or swelling. Eyes: PERRL, conjunctiva normal HEENT: Atraumatic, external ears normal, nose normal, oropharynx moist, no pharyngeal exudates. no sinus tenderness Neck- normal range of motion, no tenderness, supple Respiratory: No respiratory distress, normal breath sounds, no rales, no wheezing Cardiovascular: Normal rate, normal rhythm, no murmurs, no gallops, no rubs GI: Soft, nondistended, normal bowel sounds, nontender, no splenomegaly, no hepatomegaly, no mass, no rebound, no guarding : No costovertebral angle tenderness Musculoskeletal: No edema, no tenderness, no deformities. Back- no tenderness Integument: Well hydrated, no rash, Digits and nails inspection normal Lymphatic: No lymphadenopathy noted Neurologic: Alert & oriented x 3, CN 2-12 normal, normal motor function, normal sensory function, no focal deficits noted Psychiatric: Speech and behavior appropriate ? labs No results found for this or any previous visit (from the past 24 hours). Labs from December 24, 2024 showed hemoglobin 8.2 MCV 104 WBC 4.5 platelet 261,000 creatinine 0.8 iron 67 saturation 16% bilirubin 0.4 Pathology ? Imaging & Other Studies Performance Status? Assessment / Plan: ? Chronic anemia. Patient is a 69-year-old -Macanese female with history of giant cell arteritis, hypertension, hyperlipidemia, atrial fibrillation on Xarelto and history of anemia and GI bleed admitted to the hospital in December with iron deficiency anemia. She received 1 unit of packed redblood cells and iron infusion. 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 She also had colonoscopy in December for that showed cecal polyps and internal hemorrhoids with no active bleeding. Capsule enteroscopy was also performed and results are pending. She is taking oral iron once a day along with vitamin B12. She denies being a vegetarian. She denies any previous stomach surgeries. I will order the labs including CBC, CMP, iron panel, soluble transferrin receptor, vitamin B12 level, methylmalonic acid level, serum protein electrophoresis with immunofixationtoday and discussed the labs with her next week. Based on the lab we will decide about iron infusion. In the meantime she will continue oral iron once a day with vitamin B12. I will discuss the labs w ith her next week. I have answered all the questions to patient satisfaction. Hypertension. Patient is on nifedipine and metoprolol. Atrial fibrillation. She is on Xarelto and considering a Watchman procedure. Dyslipidemia. Patient is on Lipitor. Giant cell arteritis. Patient is on Rinvoq. Thank you very much for allowing me to participate in Lisa Lujan's evaluation and management. Please feel free to contact if I can be of any further assistance in your patient???s care requiring hematology or oncology evaluation. Sincerely, ? ? Demarcus Ambriz M.D. cell TOBACCO COUNSELING She is not a tobacco/nicotine user. Demarcus Ambriz MD ,02/03/2025 10:58 AM ? Total time spent 60 minutes, two third of the total time spent counseling patient [id number]. CC:? documented in this encounter Plan of Treatment Upcoming Encounters Date Type Department Care Team (Late st Contact Info) Description 02/10/2025 4:30 PM CDT Telephone Check Up [facility] Oncology and Hematology - Jose Luis [address] [facility] [address] [place] [address] Demarcus Ambriz MD [address] [facility] [address] [place] [address] Scheduled Orders Name Type Priority Associated Diagnoses Orde r Schedule CBC WITH DIFFERENTIAL Lab Stat Chronic anemia Expected: 02/03/2025, Expires: 02/03/2026 COMPREHENSIVE METABOLIC PANEL Lab Stat Chronic anemia Expected: 02/03/2025, Expires: 02/03/2026 FERRITIN Lab Routine Chronic anemia Expected: 02/03/2025, Expires: 02/03/2026 IRON, TIBC, AND PERCENT SATURATION Lab Routine Chronic anemia Expected: 02/03/2025, Expires: 02/03/2026 METHYLMALONIC ACID Lab Routine Chronic anemia Expected: 02/03/2025, Expires: 02/03/2026 TRANSFERRIN RECEPTOR TFR SOLUBLE Lab Routine Chronic anemia Expected: 02/03/2025, Expires: 02/03/2026 VITAMIN B12 AND FOLATE Lab Routine Chronic anemia Expected: 02/03/2025, Expires: 02/03/2026 PROTEIN ELECTROPHORESIS W/REFLEX,SERUM Lab Routine Chronic anemia Expected: 02/03/2025, Expires: 02/03/2026 documented as of this encounter Visit Diagnoses Diagnosis Chronic anemia- Primary Anemia, unspecified documented in this encounter
[2025-02-03 12:32] LABS: Hematocrit 31.2 % (37.0-47.0); Hemoglobin 9.8 g/dL (12.0-15.0); Immature Granulocyte Percent A 0.2 % (0-0.5); Lymphocytes Absolute Auto 1.18 K/mm3 (0.9-3.2); Mean Corpuscular HGB Conc 31.4 g/dl (32-36); Mean Corpuscular Hemoglobin 30.8 pg (26-34); Mean Corpuscular Volume 98.1 fl (80-100); Nucleated Red Blood Cells Absolute Auto 0.000 K/mm3 (0.0-0.012); Nucleated Red Blood Cells Perc 0.0 % (0.0-0.2); Platelet Count Result 233 k/mm3 (150-375); Red Blood Count 3.18 M/mm3 (4.2-5.4); White Blood Count 4.5 K/mm3 (4.5-10.0)
[2025-02-03 12:49] LABS: Iron 112 ug/dL (37-170)
[2025-02-03 12:56] LABS: Alanine Aminotransferase 19 U/L (6-35); Albumin Level 4.2 g/dL (3.5-5.1); Alkaline Phosphatase 71 U/L (38-126); Anion Gap 7 mmol/L (4-12); Aspartate Amino Transferase 34 U/L (14-36); Bilirubin,Total 0.5 mg/dL (0.2-1.3); Blood Urea Nitrogen 17 mg/dL (7-17); Calcium 10.0 mg/dL (8.4-10.2); Carbon Dioxide 25 mmol/L (22-30); Chloride 106 mmol/L (98-107); Estimated Glomerular Filt Rate > 60; Glucose 104 mg/dL (65-110); Potassium 4.1 mmol/L (3.4-5.0); Sodium 138 mmol/L (137-145); Total Protein 7.6 g/dL (6.3-8.2)
[2025-02-03 13:08] LABS: Percent Iron Saturation 27 % (20-50)
[2025-02-03 13:25] LABS: Ferritin 13.00 ng/mL (11.1-264)
--- OUTSIDE RECORDS SUMMARY | 2025-02-03 13:58 | XMS_ITS | Encounter Summary ---
Author Organization [facility] Health Address [address] [place] [address] Care Team Providers Care In Class Special Education Teacher Name Role Phone Unavailable Primary Care Provider Unavailabl e Prior Encounters Date Type Department Care Team Description 05/05/2019 Converted CPS Chart Documents [facility] [address] [place] [address] <No scans attached> 05/05/[address] [facility] [address] [place] [phone] <No scans attached> Plan of Treatment Not on file Procedures Procedure Name Priority Date/Time Associated Diagnosis Comments TOPICAL APPLICATION OF FLUORIDE VARNISH Routine 05/19/2020 2:00 AM INTERIOR DESIGN CONSULTANT PERIO MAINTENANCE Routine 05/18/2020 2:0 0 AM INTERIOR DESIGN CONSULTANT ORAL HYGIENE INSTRUCTIONS Routine 2020 2:00 AM INTERIOR DESIGN CONSULTANT PERIODIC ORAL EVALUATION - ESTABLISHED PATIENT Routine 09/30/2019 2:00 AM CDT PERIO MAINTENANCE Routine 09/30/2019 2:0 0 AM CDT ORAL HYGIENE INSTRUCTIONS Routine 2019 2:00 AM CDT BITEWINGS - FOUR RADIOGRAPHIC IMAGES Routine 09/30/2019 2:00 AM CDT PERIO MAINTENANCE Routine 04/03/2019 2:0 0 AM INTERIOR DESIGN CONSULTANT TOPICAL APPLICATION OF FLUORIDE VARNISH Routine 04/03/2019 2:00 AM INTERIOR DESIGN CONSULTANT PERIO MAINTENANCE Routine 10/02/2018 2:0 0 AM CDT ORAL HYGIENE INSTRUCTIONS Routine 2018 2:00 AM CDT BITEWINGS - FOUR RADIOGRAPHIC IMAGES Routine 10/02/2018 2:00 AM CDT PERIO MAINTENANCE Routine 04/02/2018 2:0 0 AM INTERIOR DESIGN CONSULTANT ORAL HYGIENE INSTRUCTIONS Routine 2017 2:00 AM INTERIOR DESIGN CONSULTANT 3 UR OSSEOUS SURGERY FOUR OR MORE CONTIGUOUS TEETH Routine 2018 2:00 AM INTERIOR DESIGN CONSULTANT 30 LR OSSEOUS SURGERY FOUR OR MORE CONTIGUOUS TEETH Routine 2018 2:00 AM INTERIOR DESIGN CONSULTANT 14 UL OSSEOUS SURGERY FOUR OR [...]
--- OUTSIDE RECORDS SUMMARY | 2025-02-03 13:58 | XMS_ITS | Clinical Summary ---
Author Organization [facility] Address [facility] [place] [address] Care Team Providers Care Dinkey Engine Firer Name Role Phone Sabino Porter MD Primary Care Provider [phone] Allergies No known active allergies Medications atorvastatin [...] 05/27/2018 Palpitations 05/27/2018 Hereditary sensorimotor neuropathy 03/22/2017 Encounters Date Type Department Care Team Description 01/20/[address] [facility] Cardiology [address] [place] [address] Charity Morillo NP from Last 3 Months Immunizations Immunization Administration Dates Next Due Influenza, [...] on file Legal Sex Female 12:03 PM MARBLE INSTALLATION HELPER Gender Identity Not on file Sexual [...] on file Medical Devices Implanted Type Area Grocery Stock Clerk Device Identifier Shelf Expiration Date Model / Serial / Lot Knee Replacement Knee Procedures Procedure Name Priority Date/Time Associated Diagnosis Comments CARDIOLOGY DOCUMENT SCAN Routine 12/17/2024 9:04 AM CDT from Last 3 Months Results * Cardiology Document Scan (12/17/2024 9:04 AM CDT) Anatomical Region Laterality Modality Other Charity Morillo NP CV CARDIAC SERVICE S PROCEDURES Final Result from Last 3 Months Insurance [employer] MEDICARE HMO WE[employer] MEDICARE HMO [facility] FED[facility] Advance Directives For more information, please contact: [phone] * Full Code (Latest Code Status on File) Date Activated Date Inactivated Comments 01/19/2020 3:05 PM 01/20/2020 9:36 PM * Full Code Date Activated Date Inactivated Comments 01/15/2020 10:56 PM 01/19/2020 3:05 PM Care Teams Dinkey Engine Firer Relationship Specialty Start Date End Date Sabino Porter MD PCP - General 03/22/17
--- OUTSIDE RECORDS SUMMARY | 2025-02-03 13:58 | XMS_ITS | Clinical Summary ---
Author Organization [facility] Health Address [address] [place] [address] Care Team Providers Care Christmas Tree Grader Name Role Phone Unavailable Primary Care Provider [...]
--- OUTSIDE RECORDS SUMMARY | 2025-02-03 13:58 | XMS_ITS | Encounter Summary ---
Author Organization [facility] Health Address [address] [place] [address] Care Team Providers Care Wharfinger Chief Name Role Phone Saúl Junior MD Unavailable [phone] Rinku Rocha MD Unavailable [phone] Stew Patrick MD Primary Care Provider [phone] Sabino Porter MD Primary Care Provider [phone] Encounter Details Date Type Department Care Team (Late st Contact Info) Description 04/26/2021 Telephone [facility] Rheumatology - Third Level [address] [place] [address], [place] [address] Marce Costello MD [address] [place] [address] [place] [address] Social History Tobacco Use Types Packs/Day Years Used Date Smoking Tobacco: Never Smokeless Tobacco: Never Alcohol Use Standard Drinks/Week Comments No 0 (1 standard drink = 0.6 oz pur e alcohol) Comments No Sex and Gender Information Value Date Recorded Sex Assigned at Not on file Legal Sex Female 6:19 AM BILLET INSPECTOR Gender Identity Not on file Sexual Orientation Not on file COVID-19 Exposure Response Date Recorded In the last month, have you been in contact with someone who was confirmed or suspected to have Coronavirus / COVID-19? No / Unsure 04/11/2021 12:21 PM BILLET INSPECTOR documented as of this encounter Miscellaneous Notes * Telephone Encounter - Christina Napier - 04/26/2021 1:22 PM CST Current Provider name: Dr. Marce Costello Reason for call: Ms. Gonzalez [facility] wants [facility] since she [...] my left lung Patient Call Back number: [phone] ET INSPECTOR documented in this encounter Plan of Treatment Upcoming Encounters Date Type Department Care Team (Late st Contact Info) Description 02/04/2025 12:00 PM CDT Appointment [facility] CAT SCAN [address] [place] [address] Jing Wills MD [address] [facility] [address] [place] [address] 02/05/2025 1:45 PM CDT Office Visit [facility] - Cardiology [address] [facility] [address] [place] [address] Jing Wills MD [address] [place] [address] [address] [place] [address] 03/25/2025 11:15 AM BILLET INSPECTOR Office Visit [facility] [address] [facility] [address] [place] [address] Cesario Hernandez APRN-JULIANN [address] [facility] [address] [place] [address] 04/23/2025 11:00 AM BILLET INSPECTOR Appointment [facility] CAT SCAN [address] [place] [phone] Akosua Gtz MD [facility] [place] [phone] 05/06/2025 1:30 PM BILLET INSPECTOR Office Visit [facility] - Rheumatology [address] [place] [address], [place] [address] Kathryn Jay MD [address] [place] [address] [place] [phone] 05/29/2025 12:30 PM BILLET INSPECTOR Office Visit [facility] [address] [facility] [address] [place], [place] [id number] Saúl Junior MD [address] [facility] [address] [place] [address] documented as of this encounter Visit Diagnoses Not on filedocumented in this encounter Care Teams Wharfinger Chief Relationship Specialty Start Date End Date Stew Patrick MD [address] [facility] [address] [place] [address] PCP - General Family Medicine 01/03/21 07/14/21 Sabino Porter MD [address] [facility] [address] [place] [address] PCP - General Family Medicine 07/15/21 Saúl Junior MD [address] [facility] [address] [place] [address] Water Aerobics Instructor Cardiology 11/03/20 Rinku Rocha MD [facility] [facility] [address] [place] [address] Electrophysiology 01/03/21 documented as of this encounter
--- OUTSIDE RECORDS SUMMARY | 2025-02-03 13:58 | XMS_ITS | Clinical Summary ---
Author Organization [facility] [employer] Address [address] [place] [address] Care Team Providers Care Stagecraft Professor Name Role Phone Saúl Junior MD Unavailable [phone] Rinku Rocha MD Unavailable [phone] Sabino Porter MD Primary Care Provider [phone] Source Comments [facility] [employer],non-owned Affiliates and Associated Physician Practices is amultiple site organization consisting of ambulatory clinics and hospital sitesin [place], [place], [place]. This disclosure is being madepursuant to the Care Everywhere program and may not contain all information available regarding this patient. Last updated 18.[facility] [employer] Allergies No known active allergies Medications * [...] tablet 3 07/22/19 23 Active nystatin (Mycostatin) 327200 UNIT/GM cream 07/26/19 23 Active acetaminophen (Tylenol) [...] once daily Reasons: Artery Inflammation in the Sikh Area, Active aortitis with GCA 90 tablet 2 08/13/19 25 Active upadacitinib ER (Rinvoq) 15 MG tabletIndication s:Giant-Cell Arteritis,active aortitis in the setting of GCA Take 1 (one) tablet by mouth once daily Reasons: Artery Inflammation in the Sikh Area, active aortitis in the setting of [...] Team Description 01/02/2025 Travel 12/31/2024 Orders Only [facility] - Cardiac Practice Support Specialist [address] [place] [address] Jing Wills MD Paroxysmal atrial fibrillation (CMS/HCC) 12/24/2024 10:45 AM CDT Office Visit [facility] V[facility] [address] [place] [address] [address] [place] [address] Cesario Hernandez APRN-JULIANN Atrial fibrillation, unspecified type (HCC) (Primary Dx); Gastrointestinal hemorrhage, unspecified gastrointestinal hemorrhage type 11/18/2024 11:29 AM CDT - 11/18/2024 11:59 PM CDT Hospital Encounter [facility] [address] [place] [address] Discharge Disposition: Home or Self Care 11/18/2024 9:45 AM CDT Office Visit [facility] Heart & Vascular Care [address] [place] [address] [address] [place] [address] Saúl Junior MD Chronic heart failure with preserved ejection fraction (HFpEF) (HCC) (Primary Dx); Paroxysmal atrial fibrillation (CMS/HCC); Chronic anticoagulation; Aortitis; Essential hypertension 11/18/2024 Results Follow-Up [facility] [address] [place] [address] Saúl Junior MD 11/18/2024 Travel from Last 3 Months Immunizations Immunization Administration Dates Next Due INFLUENZA VACCINE, TRIV. (AF LURIA, FLUZONE TRIVALENT; 6MO+) (IIV3) 02/05/2014,02/15/2012 Covid CAN Capital primary monoval ent 12+ yr 0.3mL Purple [...] on file Legal Sex Female 6:19 AM DRIVER GUIDE Gender Identity Not on file Sexual Orientation [...] Info) Description 02/04/2025 12:00 PM CDT Appointment [facility] CAT SCAN [address] [place] [phone] Jing Wills MD [address] [facility] [address] [place] [address] 02/05/2025 1:45 PM CDT Office Visit [facility] - Cardiology [address] [facility] [address] [place] [address] Jing Wills MD [address] [facility] [facility] [address] [place] [address] 03/25/2025 11:15 AM DRIVER GUIDE Office Visit [facility] Heart & Vascular Care [address] [facility] [address] [place] [address] Cesario Hernandez, SALESPERSON HOSIERY-BRIM IRONER HAND [address] [facility] [address] [place] [address] 04/23/2025 11:00 AM DRIVER GUIDE Appointment [facility] CAT SCAN [address] [place] [address] Akosua Gtz MD [facility] [place] [address] 05/06/2025 1:30 PM DRIVER GUIDE Office Visit [facility] - Rheumatology [address] [place] [address], [place] [address] Kathryn Jay MD [address] [place] [address] [place] [address] 05/29/2025 12:30 PM DRIVER GUIDE Office Visit [facility] Heart & Vascular Care [address] [place] [address] [address] [place], [place] [phone] Saúl Junior MD [address] [place] [address] [address] [place] [address] Health Maintenance Due Date Last [...] mammogram HEMOGLOBIN A1C Routine 03/25/2024 3:04 PM DRIVER GUIDE Giant cell arteritis Aortitis HEPATITIS C ANTIBODY Routine 04/21/2022 3:49 PM DRIVER GUIDE Giant cell arteritis Need for hepatitis C screening test from Last 3 Months or Most Recently Relevant to Health Maintenance Results * (ABNORMAL) CBC W/ DIFFERENTIAL (11/18/2024 11:42 AM CDT) WBC 5.1 4.0 - 10.7 x10E9/L 11/18/2024 12:17 PM [facility] RBC Count 2.56(L) 3.90 - 5.20 x10E12/L 11/18/2024 12:17 PM [facility] Hemoglobin 8.3(L) 11.9 - 15.8 g/dL 11/18/2024 12:17 PM [facility] Hematocrit 25.0(L) 34.8 - 46.1 % 11/18/2024 12:17 PM [facility] MCV 97.7 80.0 - 98.0 fL 11/18/2024 12:17 PM [facility] MCH 32.4 26.7 - 33.6 pg 11/18/2024 12:17 PM [facility] MCHC 33.2 31.7 - 36.3 g/dL 11/18/2024 12:17 PM [facility] RDW-CV 14.1 11.3 - 14.8 % 11/18/2024 12:17 PM [facility] Platelet Count 198 150 - 420 x10E9/L 11/18/2024 12:17 PM [facility] MPV 10.5 7.8 - 11.4 fL 11/18/2024 12:17 PM [facility] Neutrophil % 56.0 41.0 - 74.0 % 11/18/2024 12:17 PM [facility] Lymphocyte % 29.4 17.0 - 47.0 % 11/18/2024 12:17 PM [facility] Monocyte % 12.6(H) 3.0 - 11.0 % 11/18/2024 12:17 PM [facility] Eosinophil % 1.4 0.0 - 7.0 % 11/18/2024 12:17 PM [facility] Basophil % 0.4 0.0 - 1.6 % 11/18/2024 12:17 PM [facility] Immature Granulocytes % 0.2 0.0 - 1.0 % 11/18/2024 12:17 PM [facility] Neutrophil Absolute 2.83 1.60 - 7.50 x10E9/L 11/18/2024 12:17 PM [facility] Lymphocyte Absolute 1.49 1.00 - 4.40 x10E9/L 11/18/2024 12:17 PM [facility] Monocyte Absolute 0.64 0.15 - 1.00 x10E9/L 11/18/2024 12:17 PM [facility] Eosinophil Absolute 0.07 0.00 - 0.60 x10E9/L 11/18/2024 12:17 PM [facility] Basophil Absolute 0.02 0.00 - 0.13 x10E9/L 11/18/2024 12:17 PM [facility] Blood BLOOD SPECIMEN / Unknown Lab Venipuncture / Unknown 11/18/2024 11:42 AM CDT 11/18/2024 11:59 AM CDT us Saúl Junior MD LAB - HEMATOLOGY ORDERABLES Fin al Result [address] [address], [facility] [phone] * (ABNORMAL) BASIC METABOLIC PANEL (CALCIUM TOTAL) (11/18/2024 11:42 AM CDT) BUN 30(H) 7 - 26 mg/dL 11/18/2024 12:40 PM [facility] Creatinine 0.78 0.56 - 0.96 mg/dL 11/18/2024 12:40 PM [facility] Sodium 143 136 - 145 mmol/L 11/18/2024 12:40 PM [facility] Potassium 4.3 3.5 - 4.5 mmol/L 11/18/2024 12:40 PM [facility] Chloride 115(H) 98 - 107 mmol/L 11/18/2024 12:40 PM [facility] CO2 24 22 - 29 mmol/L 11/18/2024 12:40 PM [facility] Glucose 119(H) 70 - 99 mg/dL 11/18/2024 12:40 PM [facility] Calcium 9.1 8.4 - 10.2 mg/dL 11/18/2024 12:40 PM [facility] Anion Gap 4(L) 6 - 16 11/18/2024 12:40 PM CDT [facility] BUN/Creatinine Ratio 38(H) 7 - 23 11/18/2024 12:40 PM CDT [facility] Osmolality Calculated 303(H) 275 - 295 mOsm/kg 11/18/2024 12:40 PM CDT [facility] eGFR by CKD-EPI 82(L) >=90 mL/min/1.7 3 m2 11/18/2024 12:40 PM CDT [facility] Comment:Estimated Glomerular Filtration Rate (eGFR) calculated using the CKD-EPI Creatinine Equation (2020), per the National Kidney Foundation and [place] Society of Nephrology recommendations. Blood BLOOD SPECIMEN / Unknown Lab Venipuncture / Unknown 11/18/2024 11:42 AM CDT 11/18/2024 11:59 AM CDT us Saúl Junior MD LAB - CHEMISTRY ORDERABLES Charo raza Result Performing Organization Address City/State/[facility] Co de Phone Number [facility] [address] [place] [address], [facility] [phone] * Mammo Bilat Screening W Timi (09/11/2024 [...] * (ABNORMAL) HEMOGLOBIN A1C (03/25/2024 3:04 PM DRIVER GUIDE) Hemoglobin A1c 5.8(H) <=5.6 % 03/26/2024 9:27 AM DRIVER GUIDE [facility] Estimated Average Glucose 120 mg/dL 03/26/2024 9:27 AM [facility] Comment: HbA1c Interpretation: Normal : < 5.7% Pre-diabetes: 5.7-6.4% Diabetes: Equal to or greater than 6.5% Test results diagnostic of diabetes should be repeated for confirmation. Treatment target values recommended by ADA and other clinical organizations should be used to evaluate metabolic control in patients. Reference: [place] Diabetes Association, Standards of Care in Diabetes -2020 In patients 70 years and older consider HbA1c target range of 7.0-7.5% (Reference: Jefferson Bean et al. JAMDA. 2012) The Sebia assay for the measurement of HbA1c is a National Glycohemoglobin Standardization Program (NGSP) certified method. Blood BLOOD SPECIMEN / Unknown Lab Venipuncture / Unknown 03/25/2024 3:04 PM DRIVER GUIDE 03/25/2024 3:34 PM DRIVER GUIDE us Andre Dial MD LAB - CHEMISTRY ORDERABLES Final Result [address] [address], [facility] [phone] * HEPATITIS C ANTIBODY (04/21/2022 3:49 PM DRIVER GUIDE) Pathologist [facility] Hepatitis C Antibody Non-react laura Non-reac tive 04/21/2022 4:51 PM DRIVER GUIDE [facility] Comment:Hepatitis C Antibody screen indicates no serologic evidence of past or current infection with Hepatitis C Virus. Patients with unexplained liver disease who are immunocompromised or suspected of having acute Hepatitis C infection may benefit from Nucleic Acid Test (GABRIEL) for Hepatitis C Viral RNA to confirm Hepatitis C status. Blood BLOOD SPECIMEN / Unknown Lab Venipuncture / Unknown 04/21/2022 3:49 PM DRIVER GUIDE 04/21/2022 4:00 PM DRIVER GUIDE Andre Dial MD LAB - CHEMISTRY ORDERABLES Final Result [facility] [address] [place] [address], [place] [phone] from Last 3 Months or Most Recently Relevant to Health Maintenance Insurance [facility] Address: [facility] [id number] [place] [address] SELF PAY NO INSURANCE Member Subscriber Plan / Payer (Ef fective for All Dates) Name:Lisa Lujan Member ID:Not on file Relation to Subscriber:Not on file Name:LISA LUJAN Subscriber ID:Not on file (Home) Address: [address] [place] [id number] Payer ID:Not on file Group ID:Not on file Type:Self Pay Address: [place], [place] [facility] Advance Directives Documents on File Type Date Recorded Patient Appliance Technician Expl anation Adv Directive/Living Will/POA 01/31/2024 1:13 PM verbal Adv Directive/Living Will/POA 07/19/2023 * Full Code (Latest Code Status on File) Date Activated Date Inactivated Comments 10/17/2022 9:49 PM 10/19/2022 12:32 PM Care Teams Stagecraft Professor Relationship Specialty Start Date End Date Sabino Porter MD [address] [place] [address] PCP - General Family Medicine 07/15/21 Saúl Junior MD [address] [facility] [address] [place] [address] Licensing Director Cardiology 11/03/20 Rinku Rocha MD [address] [facility] [address] [place] [address] Electrophysiology 01/03/21
--- OUTSIDE RECORDS SUMMARY | 2025-02-03 13:58 | XMS_ITS | Clinical Summary ---
Author Organization [facility] Aurelia Kraft Address [address] [place] [address] Care Team Providers Care Ski Maker Wood Name Role Phone Unavailable Primary Care Provider Unavailabl e Allergies No known active allergies Medications atorvastatin (LIPITOR) 10 mg tablet Take 10 mg by mouth daily. 07/21/2022 Active calcium as CARBONATE-vitam in D3 (CALTRATE 600+D) 600 mg-5 mcg (200 unit) Tablet Take 2 Tablets by mouth daily. 07/19/2023 Active ferrous gluconate 324 mg (38 mg iron) tablet Take 1 Tablet by mouth daily. 01/03/2025 Active metoprolol succinate (TOPROL XL) 100 mg Extended Release 24 hour tablet Take 100 mg by mouth daily. 07/21/2022 Active NIFEdipine (ADALAT CC) 30 mg Extended Release tablet Take 30 mg by mouth daily. 09/15/2024 Active Xarelto 20 mg Tablet Take 20 mg by mouth daily. 05/09/2024 Active telmisartan (MICARDIS) 40 mg Tablet Take 40 mg by mouth daily. 10/28/2024 Active upadacitinib (RINVOQ) 15 mg Tablet Sustained Release 24HR Take 15 mg by mouth daily. 04/30/2024 Active MAGNESIUM OXIDE ORAL Take by mouth. Active cyanocobalamin 1,000 mcg Tablet Take 1,000 mcg by mouth daily. Active Active Problems No known active problems Encounters Date Type Department Care Team Description 02/03/2025 10:30 AM CDT Office Visit [facility] Oncology and Hematology - Jose Luis [address] [place] [address] Demarcus Ambriz MD Chronic anemia (Primary Dx) from Last 3 Months Family History Medical History Relation Name Comments Diabetes Brother multiple brothers Heart Disease Brother multiple brothers Lung Cancer Brother multiple brothers Diabetes Child 1 No Known Problems Child 2 No Known Problems Child 3 Breast Cancer Child 4 Triple negativ e breast Diabetes Father Stomach Cancer Father Heart Disease Mother Relation Name Status Comments Brother multiple brothers Unknown Child 1 Alive Child 2 Alive Child 3 Alive Child 4 Alive Father Mother Social History Tobacco Use Types [...] Mass Index 32.33 02/03/2025 10:17 AM CDT Plan of Treatment Upcoming Encounters Date Type Department Care Team (Late st Contact Info) Description 02/10/2025 4:30 PM CDT Telephone Check Up [facility] Oncology and Hematology - Jose Luis [address] [facility] [address] [place] [address] Demarcus Ambriz MD [address] [facility] [address] [place] [address] Health Maintenance Due Date Last Done Comments DTAP/TDAP/TD VACCINES (1 - Tdap) 1974 COLORECTAL SCREENING 2000 Colorectal Cancer Screening 2000 FIT-DNA Q 3 years 2000 FIT/FOBT Q 1 year 2000 Flex Sig/CT Colonography Q 5 years 2000 ZOSTER VACCINE (2 of 3) 02/14/2017 12/20/2016 OSTEOPOROSIS SCREENING 2020 PNEUMOCOCCAL VACCINE 50+ YEA RS (2 of 2 - PCV) 02/02/2021 02/03/2020 Preventative Visit- Commercial 04/16/2024 1 04/17/2022, 01/14/2021, 01/08/2020, Additional history exists INFLUENZA VACCINE (#1) 2024 , 02/03/2020, 02/28/2019, Additional history exists COVID-19 Vaccine (3 - 2024-2 6 season) 2024 08/21/2020, 07/16/2020 BREAST CANCER SCREENING 09/11/2025 09/12/19, 09/11/2024, 02/23/2023, Additional history exists RSV VACCINE (60+ or ) (1 - 1-dose 75+ series) 2030 Insurance [facility]
--- OUTSIDE RECORDS SUMMARY | 2025-02-03 13:58 | XMS_ITS | Encounter Summary ---
Author Organization [facility] Address [address] [facility] [place] [address] Care Team Providers Care Press Setup Operator Name Role Phone Sabino Porter MD Primary Care Provider [phone] Saúl Junior MD Unavailable [phone] Stew Patrick MD Primary Care Provider [phone] Sabino Porter MD Primary Care Provider [phone] Rinku Rocha MD Unavailable [phone] Stew Patrick MD Primary Care Provider [phone] Sabino Porter MD Primary Care Provider [phone] Reason for Visit * Reason Onset Date Comments Question 12/27/2018 Retail Planning Manager Exam 12/27/2018 Encounter Details Date Type Department Care Team (Late st Contact Info) Description 12/27/2018 Telephone [facility] Medical [facility] - GRAIN MIXER [address] [address] [place] [address] [place] [address] Question; Retail Planning Manager Exam Social History Tobacco Use Types Packs/Day Years Used Date Smoking Tobacco: Never Alcohol Use Standard Drinks/Week Comments No 0 (1 standard drink = 0.6 oz pur e alcohol) Comments No Sex and Gender Information Value Date Recorded Sex Assigned at Not on file Legal Sex Female 6:19 AM 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 Please call [phone] and pt gave permission for messages to be left if she doesn't answer documented in this encounter Plan of Treatment Upcoming Encounters Date Type Department Care Team (Late st Contact Info) Description 02/04/2025 12:00 PM CDT Appointment [facility] CAT SCAN [address] [place] [address] Jing Wills MD [address] [facility] [address] [place] [address] 02/05/2025 1:45 PM CDT Office Visit [facility] - Cardiology [address] [facility] [address] [place] [address] Jing Wills MD [address] [facility] [address] [place] [address] 03/25/2025 11:15 AM SPRAY GUN REPAIRER HELPER Office Visit [facility] Heart & Vascular Care [address] [facility] [address] [place] [address] Cesario Hernandez, SOIL CONSERVATION AIDE-NEUROLOGY MANAGER [address] [place] [address] [address] [place] [address] 04/23/2025 11:00 AM SPRAY GUN REPAIRER HELPER Appointment [facility] CAT SCAN [address] [place] [address] Akosua Gtz MD [facility] [place] [address] 05/06/2025 1:30 PM SPRAY GUN REPAIRER HELPER Office Visit [facility] - Rheumatology [address] [place] [address], [place] [address] Kathryn Jay MD [address] [place] [address] [place] [address] 05/29/2025 12:30 PM SPRAY GUN REPAIRER HELPER Office Visit [facility] Heart & Vascular Care [address] [facility] [address] [place] [address] Saúl Junior MD [facility] [address] [place] [address] documented as of this encounter Visit Diagnoses Not on filedocumented in this encounter Care Teams Press Setup Operator Relationship Specialty Start Date End Date Sabino Porter MD [address] [facility] [address] [place] [address] PCP - General Family Medicine 05/10/12 11/02/20 Stew Patrick MD [address] [facility] [address] [place] [address] PCP - General Family Medicine 11/03/20 11/14/20 Sabino Porter MD [address] [facility] [address] [place] [address] PCP - General 11/15/20 01/02/21 Stew Patrick MD [address] [facility] [address] [place] [address] PCP - General Family Medicine 01/03/21 07/14/21 Sabino Porter MD [address] [facility] [address] [place] [address] PCP - General Family Medicine 07/15/21 Saúl Junior MD [address] [facility] [address] [place] [address] Steward/Stewardess Banquet Cardiology 11/03/20 Rinku Rocha MD [address] [facility] 3 [place] [address] Electrophysiology 01/03/21 documented as of this encounter
[2025-02-03 14:05] LABS: Vitamin B12 891.0 pg/mL (239-931)
[2025-02-04 14:08] LABS: Albumin 4.0 g/dL (2.9-4.4); Alpha-1-Globulin 0.2 g/dL (0.0-0.4); Alpha-2-Globulin 0.6 g/dL (0.4-1.0); Gamma Globulin 1.3 g/dL (0.4-1.8)
== END 2025-02-03 11:06 | disposition home or self-care (01) ==
LOC: ANHLAB 11:06
PROVIDERS: PCP Family Medicine; Referring Provider Nurse Practitioner Family; Visit Provider Internal Medicine Hematology & Oncology
DX: D64.9 Anemia, unspecified (principal); E11.40 Type 2 diabetes mellitus with diabetic neuropathy, unspecified
CPT/HCPCS: 36415; 80053; 82607; 82728; 82746; 83540; 83550; 84155; 84165; 84238; 85025